=== PATIENT | male | born 1945 | race Hispanic/Latino ===

== ENCOUNTER 2018-12-29 16:56 | Inpatient (IN) | payer BC ==
[~2018-12-29] VITALS: Ht 167.6 cm; Wt 73.6 kg
[~2018-12-29 16:56] MED LIST: ASPIR 8181 MG PO; GLIMEPIRIDE2 MG PO; KEFLEX250 MG; LEVAQUIN500 MG PO; LEVEMIR100 UNIT/1 SQ; LISINOPRIL10 MG PO; NORCO 5-325 TA1 EACH PO; NORCO 7.5-3251 EACH PO; OMEPRAZOLE40 MG PO; PHENERGAN25 MG/1 M1 PO; TRAMADOL-ACETAMI1 EA PO
--- OUTSIDE RECORDS SUMMARY | 2018-12-29 17:03 | XMS REPORT ---
Author Author Petros Deal Organization [employer] Address Unknown Phone Unavailable Care Team Providers Care Prepress Specialist Name Role Phone Petros Deal CP Unavailable Allergies, Adverse Reactions, Alerts Substance Reaction Event Type N.K.D.A. 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 Problem Polyarthralgia M25.50 Active Problem Neck pain M54.2 Active Problem Vitamin D deficiency E55.9 Active Medications Medication Code System Code Instructions Start Date End Date Status Dosage Plaquenil [facility] 56631977848 200 MG Orally Once a day Mar 10, 2018 Jun 08, 2018 Active 1 tablet with food or milk Multivitamin [facility] 33715-67788 - Orally Active as directed Glimepiride [facility] 80969865165 2 MG Orally Once a day Active 1 tablet with breakfast or the first main meal of the day Insulin Aspart [facility] [address]-43 Subcutaneous Active as directed Tramadol NDC 0 50 mg orally bid Mar 10, 2018 Jul 08, 2018 Active one tab Tramadol NDC 0 50 mg orally bid Active one tab Lisinopril ND 53558651570 10 MG Orally Once a day Active 1 tablet Vital Signs Date/Time: Mar 10, 2018 BMI 24.58 Index Weight 152.3 lbs Height 66 in Temperature 98.9 F Cardiac Monitoring Heart Rate 72 /min Blood Pressure Diastolic 60 mm Hg Blood Pressure Systolic 110 mm Hg Results No Known Results Summary Purpose eClinicalWorks Submission
--- OUTSIDE RECORDS SUMMARY | 2018-12-29 17:03 | XMS REPORT ---
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
--- OUTSIDE RECORDS SUMMARY | 2018-12-29 17:03 | XMS REPORT ---
Author Author Petros Deal [facility] eClinicalWorks Address Unknown Phone Unavailable Care Team Providers Care Applications Sales Consultant Name Role Phone Petros Dael CP Unavailable Allergies, Adverse Reactions, Alerts Substance Reaction Event Type N.K.D.A. 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 Medications Medication Code System Code Instructions Start Date End Date Status Dosage Lisinopril ND 40603207808 10 MG Orally Once a day Active 1 tablet Glimepiride NDC 32538920271 2 MG Orally Once a day Active 1 tablet with breakfast or the first main meal of the day Tramadol NDC 0 50 mg orally bid Feb 11, 2018 May 12, 2018 Active one tab Tramadol-Acetaminophen NDC 22408910877 37.5-325 MG Orally every 6 hrs Active 2 tablets as needed Vital Signs Date/Time: Feb 11, 2018 BMI 24.69 Index Weight 153 lbs Height 66 in Temperature 97.3 F Cardiac Monitoring Heart Rate 64 /min Blood Pressure Diastolic 60 mm Hg Blood Pressure Systolic 100 mm Hg Results Name Result Date Reference Range Unit Abnormality Flag COMPREHENSIVE METABOLIC PANEL W/EGFR ----CALCIUM 9.7 20180211 8.6-10.3 mg/dL N ----CARBON DIOXIDE 26 20180211 20-31 mmol/L N ----ALT 27 20180211 9-46 U/L N ----CREATININE 0.92 20180211 0.70-1.18 mg/dL N ----AST 20 20180211 10-35 U/L N ----eGFR NON-AFR. SWISS 83 20180211 > OR=60 mL/min/1.73m2 N ----ALKALINE PHOSPHATASE 111 20180211 40-115 U/L N ----eGFR 96 20180211 > OR=60 mL/min/1.73m2 N ----BILIRUBIN, TOTAL 0.6 20180211 0.2-1.2 mg/dL N ----BUN/CREATININE RATIO 32 20180211 6-22 (calc) H ----ALBUMIN/GLOBULIN RATIO 1.4 20180211 1.0-2.5 (calc) N ----SODIUM 140 20180211 135-146 mmol/L N ----GLOBULIN 3.1 20180211 1.9-3.7 g/dL (calc) N ----POTASSIUM 5.1 20180211 3.5-5.3 mmol/L N ----GLUCOSE 142 20180211 65-99 mg/dL H ----CHLORIDE 110 33523606 98-110 mmol/L N ----ALBUMIN 4.4 56377758 3.6-5.1 g/dL N ----UREA NITROGEN (BUN) 29 20180211 7-25 mg/dL H ----PROTEIN, TOTAL 7.5 20180211 6.1-8.1 g/dL N SED RATE BY MODIFIED WESTERGREN ----SED RATE BY MODIFIED WESTERGREN 6 20180211 < OR=20 mm/h N C-REACTIVE PROTEIN ----C-REACTIVE PROTEIN 2.6 66544080 <8.0 mg/L N CBC (INCLUDES DIFF/PLT) ----MCHC 32.9 20180211 32.0-36.0 g/dL N ----MCH 29.6 20180211 27.0-33.0 pg N ----PLATELET COUNT 209 20180211 140-400 Thousand/uL N ----RDW 12.5 57195362 11.0-15.0 % N ----BASOPHILS 1.2 83576689 % N ----ABSOLUTE NEUTROPHILS 3730 20623792 8671-0782 cells/uL N ----ABSOLUTE LYMPHOCYTES 1825 53782399 850-3900 cells/uL N ----MPV 9.4 42886291 7.5-12.5 fL N ----ABSOLUTE BASOPHILS 88 90419200 0-200 cells/uL N ----HEMATOCRIT 39.8 19275427 38.5-50.0 % N ----NEUTROPHILS 51.1 41182398 % N ----MCV 90.0 58171816 80.0-100.0 fL N ----RED BLOOD CELL COUNT 4.42 53046214 4.20-5.80 Million/uL N ----ABSOLUTE MONOCYTES 533 89507159 200-950 cells/uL N ----ABSOLUTE EOSINOPHILS 1124 92594342 15-500 cells/uL H ----HEMOGLOBIN 13.1 60303612 13.2-17.1 g/dL L ----EOSINOPHILS 15.4 74817770 % N ----WHITE BLOOD CELL COUNT 7.3 22952046 3.8-10.8 Thousand/uL N ----LYMPHOCYTES 25.0 39049561 % N ----MONOCYTES 7.3 87860043 % N VITAMIN D, 25-HYDROXY, LC/MS/MS ----VITAMIN D, 25-OH, TOTAL 28 14173102 30-100 ng/mL L Summary Purpose eClinicalWorks Submission
--- OUTSIDE RECORDS SUMMARY | 2018-12-29 17:03 | XMS REPORT ---
Author Author Petros Deal [facility] eClinicalWorks Address Unknown Phone Unavailable Care Team Providers Care Exchange Operator Name Role Phone Petros Deal CP Unavailable Allergies, Adverse Reactions, Alerts Substance Reaction Event Type N.K.D.A. 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 Problem Polyarthralgia M25.50 Active Problem Neck pain M54.2 Active Problem Vitamin D deficiency E55.9 Active Medications Medication Code System Code Instructions Start Date End Date Status Dosage Insulin Aspart [facility] [address]-14 Subcutaneous Active as directed Multivitamin [facility] 64[address]-92114 - Orally Active as directed Tramadol ND 0 50 mg orally bid September 27, 2018 Active one tab Plaquenil [facility] 93032463950 200 MG Orally bid Mar 10, 2018 November 26, 2018 Active 1 tablet with food or milk Glimepiride [facility] 92625294289 2 MG Orally Once a day Active 1 tablet with breakfast or the first main meal of the day Lisinopril ND 77088959731 10 MG Orally Once a day Active 1 tablet PredniSONE [facility] 45457575179 5 MG Orally Once a day May 03, 2018 May 30, 2018 Inactive 2 tablets Vital Signs Date/Time: May 30, 2018 BMI 24.13 Index Weight 149.5 lbs Height 66 in Temperature 98.0 F Cardiac Monitoring Heart Rate 74 /min Blood Pressure Diastolic 70 mm Hg Blood Pressure Systolic 120 mm Hg Results Name Result Date Reference Range Unit Abnormality Flag PROVIDED MEDICATIONS ----PROVIDED MEDICATIONS N/A 20180530 Amphetamines ANTIDEPRESSANTS 1099 SPECIMEN VALIDITY TESTING Barbiturates CBC W/AUTO DIFF ----MONOCYTES 6.7 09765315 4.0-13.0 % ----LYMPHOCYTES 24.2 25789040 19.0-48.0 % ----HEMOGLOBIN 13.2 20180530 13.0-17.0 G/DL ----HEMATOCRIT 37.4 62543768 37.0-49.0 % ----MCV 87.4 20180530 80.0-100.0 fL ----MCH 30.8 20180530 27.0-34.0 PG ----MCHC 35.3 13429294 32.0-35.5 G/DL ----PLATELET COUNT 230 20180530 130-400 K/UL ----RDW 12.6 20180530 11.0-15.0 % ----WBC 10.5 63027231 4.0-11.0 K/UL ----NEUTROPHILS 63.1 92510517 40.0-74.0 % ----BASOPHILS 1.0 01094519 0.0-2.0 % ----RBC 4.28 13873026 4.10-5.70 M/UL ----EOSINOPHILS 5.0 16246804 0.0-7.0 % C-REACTIVE PROTEIN ----C-REACTIVE PROTEIN <0.1 99855062 <0.5 MG/DL COMPREHENSIVE METABOLIC PANEL ----CALC A/G RATIO 1.6 20180530 1.0-2.6 RATIO ----CALC GLOBULIN 2.9 20180530 1.9-3.7 G/DL ----ALKALINE PHOSPHATASE 90 20180530 40-125 U/L ----BILIRUBIN, TOTAL 0.6 20180530 <=1.2 MG/DL ----CHLORIDE 105 20180530 95-107 MEQ/L ----ALT 33 20180530 5-50 U/L ----POTASSIUM 5.1 20180530 3.5-5.4 MEQ/L ----AST 21 20180530 9-50 U/L ----SODIUM 143 20180530 133-146 MEQ/L ----CALC BUN/CREAT 27 20180530 6-28 RATIO ---- eGFR NON- AMER. 76 20180530 >60 ML/MIN/1.73 ----CALCIUM 10.1 20180530 8.5-10.5 MG/DL ----CARBON DIOXIDE 27 20180530 19-31 MEQ/L ----ALBUMIN 4.5 20180530 3.5-5.2 G/DL ----PROTEIN, TOTAL 7.4 20180530 6.1-8.3 G/DL ----GLUCOSE 116 20180530 70-99 MG/DL H ----BUN 27 20180530 8-23 MG/DL H ----CREATININE 0.99 20180530 0.80-1.40 MG/DL ---- eGFR AMER. 88 20180530 >60 ML/MIN/1.73 SEDIMENTATION RATE ----SEDIMENTATION RATE 7 20180530 0-15 MM/HOUR Benzodiazepines Skeletal Muscle Relaxants Sedatives Opiates/Opioids Illicits Summary Purpose eClinicalWorks Submission
--- OUTSIDE RECORDS SUMMARY | 2018-12-29 17:03 | XMS REPORT ---
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
--- OUTSIDE RECORDS SUMMARY | 2018-12-29 17:03 | XMS REPORT ---
Author Author Petros Deal Organization [employer] Address Unknown Phone Unavailable Care Team Providers Care Wardrobe Custodian Name Role Phone Petros Deal CP Unavailable Allergies No Known Allergies Problems Problem Type Condition Code Onset Dates Condition Status Problem Polyarthralgia M25.50 Active Problem Systemic lupus erythematosus, unspecified SLE type, unspecified organ involvement status M32.9 Active Problem Lumbago with sciatica, left side M54.42 Active Problem Skin rash R21 Active Problem Vitamin D deficiency E55.9 Active Problem Primary osteoarthritis involving multiple joints M15.0 Active Problem Polyarthritis M13.0 Active Problem Neck pain M54.2 Active Medications No Known Medications Results No Known Results Summary Purpose eClinicalWorks Submission
--- OUTSIDE RECORDS SUMMARY | 2018-12-29 17:03 | XMS REPORT ---
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 05381051654 200 MG Orally Once a day Mar 10, 2018 Jul 24, 2018 Active 1 tablet with food or milk Results No Known Results Summary Purpose eClinicalWorks Submission
--- OUTSIDE RECORDS SUMMARY | 2018-12-29 17:03 | XMS REPORT ---
Author Author Petros Deal Organization [employer] Address Unknown Phone Unavailable Care Team Providers Care Machine Bunch Maker Name Role Phone Petros Deal CP Unavailable [...] Problem Vitamin D deficiency E55.9 Active Medications No Known Medications Results No Known Results Summary Purpose eClinicalWorks Submission
--- OUTSIDE RECORDS SUMMARY | 2018-12-29 17:03 | XMS REPORT | Continuity of Care Document ---
Author Author [facility] Interface Address Unknown Phone Unavailable Problems Problem Status Onset Date Classification Date Reported Comments Source Polyarthritis Active Problem 12/15/2018 Zeke Deal Neck pain Active Problem 12/15/2018 Zeke Deal Lumbago with sciatica, left side Active Problem 12/15/2018 Zeke Toyin Polyarthralgia Active Problem 12/15/2018 Zeke Deal Vitamin D deficiency Active Problem 12/15/2018 Zeke Deal Primary osteoarthritis involving multiple joints Active Problem 12/15/2018 Zeke Deal Systemic lupus erythematosus, unspecified SLE type, unspecified organ involvement status Active Problem 12/15/2018 Zeke Deal Skin rash Active Problem 12/15/2018 Zeke Deal Medications Medication Details Route Status Patient Instructions Ordering Provider Order Date Source Tramadol one tab orally Active 50 mg orally tid [place] 11/28/2018 Zeke Deal Tramadol one tab orally Active 50 mg orally bid [place] 09/27/2018 Zeke Deal Meloxicam 1 tablet Orally Active 7.5 MG Orally q am with food [place] 08/30/2018 Zeke Deal PredniSONE as directed Orally Active 5 MG Orally Once a day [place] 08/30/2018 Zeke Deal PredniSONE 2 tablets Orally Active 5 MG Orally Once a day [place] 05/03/2018 Zeke Deal Prednisone Taper 3 tablets for 5 days, 2 tablets for 5 days and then 1 tablet for 5 days NA Inactive 5mg [place] 05/03/2018 Zeke Deal Plaquenil 1 tablet with food or milk Orally Active 200 MG Orally bid Deal 03/10/2018 Zeke Deal Tramadol one tab orally Active 50 mg orally bid [place] 03/10/2018 Zeke Deal Prednisone Taper 3 tablets for 5 days, 2 tablets for 5 days and then 1 tablet for 5 days NA Active 5mg Deal 02/22/2018 Zeke Deal Tramadol one tab orally Active 50 mg orally bid [place] 02/11/2018 Zeke Deal Multivitamin as directed Orally Active - Orally [place] Glimepiride 1 tablet with breakfast or the first main meal of the day Orally Active 2 MG Orally Once a day [place] Insulin Aspart as directed Subcutaneous Active Subcutaneous [place] Deal Tramadol one tab orally Active 50 mg orally bid [place] Deal Lisinopril 1 tablet Orally Active 10 MG Orally Once a day [place] Deal Tramadol-Acetaminophen 2 tablets as needed Orally Active 37.5- 325 MG Orally every 6 hrs Toyin Deal Allergies, Adverse Reactions, Alerts Substance Category Reaction Severity Reaction type Status Date Reported Comments Source N.K.D.A. Adverse Reaction Info Not Available Adverse Reaction Active 08/30/2018 Zeke Deal Immunizations Immunization Date Given Site Status Last Updated Comments Source Results Order Name Results Value Reference Range Date Interpretation Comments Source Vital Signs Vital Sign Value Date Comments Source Weight 160 08/30/2018 Zeke Deal Height 66 08/30/2018 Zeke Deal Temperature Oral (F) 98.0 F 08/30/2018 Zeke Deal Heart Rate 68 08/30/2018 Zeke Deal Diastolic (mm Hg) 64 08/30/2018 Zeke Deal Systolic (mm Hg) 130 08/30/2018 Zeke Deal Weight 149.5 05/30/2018 Zeke Deal Height 66 05/30/2018 Zeke Deal Temperature Oral (F) 98.0 F 05/30/2018 Zeke Deal Heart Rate 74 05/30/2018 Zeke Deal Diastolic (mm Hg) 70 05/30/2018 Zeke Deal Systolic (mm Hg) 120 05/30/2018 Zeke Deal Weight 152.3 03/10/2018 Zeke Deal Height 66 03/10/2018 Zeke Deal Temperature Oral (F) 98.9 F 03/10/2018 Zeke Deal Heart Rate 72 03/10/2018 Zeke Deal Diastolic (mm Hg) 60 03/10/2018 Zeke Deal Systolic (mm Hg) 110 03/10/2018 Zeke Deal Weight 153 02/11/2018 Zeke Deal Height 66 02/11/2018 Zeke Deal Temperature Oral (F) 97.3 F 02/11/2018 Zkee Deal Heart Rate 64 02/11/2018 Zeke Deal Diastolic (mm Hg) 60 02/11/2018 Zeke Deal Systolic (mm Hg) 100 02/11/2018 Zeke Deal Encounters Location Location Details Encounter Type Encounter Number Reason For Visit Attending Provider ADM Date DC Date Status Source Procedures Procedure Code Date Perfomer Comments Source
--- OUTSIDE RECORDS SUMMARY | 2018-12-29 17:03 | XMS REPORT ---
Author Author Petros Deal [facility] eClinicalWorks Address Unknown Phone Unavailable Care Team Providers Care Activities Concierge Name Role Phone Petros Deal CP Unavailable Allergies, Adverse Reactions, Alerts Substance Reaction Event Type N.K.D.A. 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 Assessment Systemic lupus erythematosus, unspecified SLE type, unspecified organ involvement status M32.9 Active Assessment Polyarthralgia M25.50 Active Assessment Polyarthritis M13.0 Active Problem Lumbago [...] Start Date End Date Status Dosage Plaquenil [facility] 00670951971 200 MG Orally bid Mar 10, 2018 Feb 26, 2019 Active 1 tablet with food or milk Lisinopril ND 59489178763 10 MG Orally Once a day Active 1 tablet Insulin Aspart [facility] [address]-67 Subcutaneous Active as directed Multivitamin [facility] 16360[address] - Orally Active as directed Glimepiride ND 18377282447 2 MG Orally Once a day Active 1 tablet with breakfast or the first main meal of the day Meloxicam ND 21771018662 7.5 MG Orally q am with food Aug 30, 2018 Feb 26, 2019 Active 1 tablet Tramadol ND 54894723990 50 mg orally tid November 28, 2018 Active one tab PredniSONE ND 23555375326 5 MG Orally Once a day Aug 30, 2018 Inactive as directed Vital Signs Date/Time: Aug 30, 2018 BMI 25.82 Index Weight 160 lbs Height 66 in Temperature 98.0 F Cardiac Monitoring Heart Rate 68 /min Blood Pressure Diastolic 64 mm Hg Blood Pressure Systolic 130 mm Hg Results No Known Results Summary Purpose eClinicalWorks Submission
--- OUTSIDE RECORDS SUMMARY | 2018-12-29 17:03 | XMS REPORT ---
Author Author Petros Deal Organization eClinicalWorks Address Unknown Phone Unavailable Care Team Providers Care Therapeutic Support Staff Name Role Phone Petros Deal CP Unavailable [...] Instructions Start Date End Date Status Dosage PredniSONE [facility] 04780862284 5 MG Orally Once a day May 03, 2018 Active 2 tablets Prednisone Taper [facility] 84519309038 5mg May 03, 2018 May 03, 2018 Inactive 3 tablets for 5 days, 2 tablets for 5 days and then 1 tablet for 5 days Results No Known Results Summary Purpose eClinicalWorks Submission
--- OUTSIDE RECORDS SUMMARY | 2018-12-29 17:03 | XMS REPORT ---
Author Author Petros Deal Organization e[employer] Address Unknown Phone Unavailable Care Team Providers Care Hogshead Roller Name Role Phone Petros Deal CP Unavailable [...]
[2018-12-29 18:02] LABS: BASOPHILS # (AUTO) 0.1 (0.0-0.1); BASOPHILS % 0.9 % (0.0-1.0); EOSINOPHILS # (AUTO) 0.6 (0.0-0.4); EOSINOPHILS % 6.3 % (0.0-6.0); HEMATOCRIT 30.5 % (38.2-49.6); HEMOGLOBIN 10.1 g/dL (14.0-18.0); LYMPHOCYTES # (AUTO) 1.5 (1.0-3.2); LYMPHOCYTES % 15.9 % (18.0-39.1); MEAN CORPUSCULAR HEMOGLOBIN 29.5 pg (28-32); MEAN CORPUSCULAR HGB CONC 33.1 g/dL (31-35); MEAN CORPUSCULAR VOLUME 89.2 fL (81-99); MONOCYTES # (AUTO) 0.7 (0.2-0.8); MONOCYTES % 7.3 % (4.4-11.3); NEUTROPHILS # (AUTO) 6.7 (2.1-6.9); NEUTROPHILS % 69.3 % (38.7-80.0); PLATELET COUNT 162 x10e3/uL (140-360); RED BLOOD COUNT 3.42 x10e6/uL (4.3-5.7); RED CELL DISTRIBUTION WIDTH 13.4 % (11.7-14.4)
[2018-12-29 18:04] LABS: BILIRUBIN,URINE NEGATIVE (NEGATIVE); CLARITY,URINE CLEAR (CLEAR); COLOR,URINE YELLOW (YELLOW); KETONES,URINE NEGATIVE (NEGATIVE); LEUKOCYTE ESTERASE ,URINE NEGATIVE (NEGATIVE); NITRITE,URINE NEGATIVE (NEGATIVE); PROTEIN,URINE DIPSTICK NEGATIVE (NEGATIVE); URINE UROBILINOGEN 0.2 mg/dL (0.2 - 1)
[2018-12-29 18:17] LABS: BACTERIA,URINE RARE /HPF; EPITHELIAL CELLS,URINE FEW /LPF
[2018-12-29 18:23] LABS: ALBUMIN 4.1 g/dL (3.5-5.0); ALBUMIN/GLOBULIN RATIO 1.2 (0.8-2.0); ANION GAP 14.3 mmol/L (8-16); CALCIUM 9.3 mg/dL (8.4-10.2); CREATININE, SERUM 2.08 mg/dL (0.72-1.25); MAGNESIUM 2.6 MG/DL (1.3-2.1)
[2018-12-29 18:29] LABS: POTASSIUM 7.3 mmol/L (3.5-5.1)
[2018-12-29 18:30] LABS: CREATINE KINASE MB 26.4 ng/mL (0-5.0)
[2018-12-29] MEDS ORDERED: DEXTROSE 50% SYRINGE 50 ML IV STA (18:33)
[2018-12-29] MEDS ORDERED: SODIUM BICARBONATE 8.4% INJ 50 ML SYR IV NR (18:33)
[2018-12-29] MEDS ORDERED: INSULIN REGULAR, HUMAN 100 UNIT/1 ML 3ML VIAL IV NR (18:45)
--- NOTE | 2018-12-29 18:48 | Diagnostic Imaging Report ---
EXAMINATION: CHEST SINGLE (PORTABLE) COMPARISON: None INDICATION: Abnormal renal function tests ^ERMD ORDER ^[id number] ^1815 ^Y DISCUSSION: Frontal view of the chest obtained at 1828 hours. HEART AND MEDIASTINUM: The cardiomediastinal silhouette is unremarkable. LINES: None. LUNGS: The lungs are mildly hyperinflated with bibasilar prominence of the pulmonary interstitium suggestive of atelectasis or fibrosis. No pneumonia or pulmonary edema. PLEURA: No pleural effusion or pneumothorax. Mild eventration of the right diaphragm. BONES AND SOFT TISSUES: No focal osseous lesion. There are clips in the right upper quadrant. IMPRESSION: Pulmonary hyperinflation and mild bibasilar atelectasis or fibrosis. Signed by: Dr. Tiffanie Chappell MD on 12/29/2018 6:45 PM
[2018-12-29] MEDS ORDERED: POLYETHYLENE GLYCOL 3350 17 GM PACK PO NR (19:15)
[2018-12-29] MEDS ORDERED: SOD POLYSTYRENE SULFONATE SUSP 15 GM/60 ML BTL PO NR (19:15)
[2018-12-29 19:24] LABS: ABG HCO3 15 mmol/L (23-28); ABG PCO2 23 mmHg (41-51); ABG PO2 196 mmHg (80-105)
[2018-12-29] MEDS ORDERED: SODIUM BICARBONATE 8.4% SYRING 75 ML in SODIUM CHLORIDE 0.45% 1,000 ML IV ONE (19:30)
[2018-12-29] MEDS ORDERED: DEXTROSE 50% SYRINGE 50 ML IV PRN (20:15)
[2018-12-29] MEDS ORDERED: ONDANSETRON HCL INJ 2MG/ML 2ML 2 MG/ML VIAL IV PRN (20:15)
[2018-12-29] MEDS: SODIUM BICARBONATE 8.4% SYRING 75 ML in SODIUM CHLORIDE 0.45% 1,000 ML IV SCH (20:16)
--- OUTSIDE RECORDS SUMMARY | 2018-12-29 20:26 | XMS REPORT ---
[facility] Address Unknown Phone Unavailable Care Team Providers Care Profiling Machine Operator Name Role Phone Rodri MORENO Unavailable Unavailable Problems This patient has no known problems. Allergies, Adverse Reactions, Alerts This patient has no known allergies or adverse reactions. Medications This patient has no known medications. Results Test Description Test Time Test Comments Text Results Atomic Results Result Comments CHEST SINGLE (PORTABLE) 2018-12-29 18:43:00 [facility] [address] [place] [address] Patient Name: ИРИНА TOBAR MR #: [id number] : 1945 Age/Sex: 73/M Req #: [id number] Adm Physician: Ordered by: PHUONG ORTEGA FIELD RESEARCH ASSOCIATE Report #: [id number] Location: ER Room/Bed: Procedure: [id number] DX/CHEST SINGLE (PORTABLE) Exam Date: 12/29/18 Exam Time: 1814 REPORT STATUS: Signed EXAMINATION: CHEST SINGLE (PORTABLE) COMPARISON: None INDICATION: Abnormal renal function tests ERMD ORDER [id number] Y DISCUSSION: Frontal view of the chest obtained at 1828 hours. HEART AND MEDIASTINUM: The cardiomediastinal silhouette is unremarkable. LINES: None. LUNGS: The lungs are mildly hyperinflated with bibasilar prominence of the pulmonary interstitium suggestive of atelectasis or fibrosis. No pneumonia or pulmonary edema. PLEURA: No pleural effusion or pneumothorax. Mild eventration of the right diaphragm. BONES AND SOFT TISSUES: No focal osseous lesion. There are clips in the right upper quadrant. IMPRESSION: Pulmonary hyperinflation and mild bibasilar atelectasis or fibrosis. Signed by: Dr. Tyra Chappell MD on 12/29/2018 6:45 PM Dictated By: TYRA CHAPPELL MD 44 Transcribed By: KEVIN on 12/29/181844 COPY TO: PHUONG ORTEGA NP
[2018-12-29] MEDS: INSULIN LISPRO 100 UNIT/1 ML 3ML VIAL SQ SCH (21:54)
[2018-12-29 22:48] VITALS: BP 132/63
[2018-12-29 23:08] VITALS: BP 132/63
[2018-12-29 23:20] VITALS: BP 132/63
[2018-12-29 23:48] VITALS: BP 129/60
[2018-12-30] VITALS (14 sets, daily range): BP systolic 99–142; BP diastolic 42–72
--- NOTE | 2018-12-30 00:05 | NUR ---
Report received from ER nurse Ann. Patient received at 2241 by stretcher with alert/oriented x3 Moroccan speaking only. Denied pain and no SOB. No respiratory distress noted. Respiration even and unlabored. Head to toe assessment completed. No skin breakdown noted. Patient family in the room.Bed in lower position,locked. Call kennedy within reach. patient instructed to call for help as needed, verbalized and understand. Will continue to monitor.
[2018-12-30 02:53] LABS: CREATINE KINASE MB 19.9 ng/mL (0-5.0)
[2018-12-30 03:08] LABS: ANION GAP 12.3 mmol/L (8-16); CALCIUM 8.8 mg/dL (8.4-10.2); CREATININE, SERUM 1.36 mg/dL (0.72-1.25)
[2018-12-30 03:24] LABS: POTASSIUM 6.3 mmol/L (3.5-5.1)
[2018-12-30] MEDS ORDERED: SODIUM BICARBONATE 8.4% SYRING 100 ML ONE (03:37)
[2018-12-30] MEDS ORDERED: SODIUM CHLORIDE 0.45% 1,000 ML ONE (03:39)
[2018-12-30] MEDS: SODIUM BICARBONATE 8.4% SYRING 75 ML in SODIUM CHLORIDE 0.45% 1,000 ML IV SCH (03:49)
[2018-12-30 05:12] LABS: BASOPHILS # (AUTO) 0.1 (0.0-0.1); BASOPHILS % 0.8 % (0.0-1.0); EOSINOPHILS # (AUTO) 0.6 (0.0-0.4); EOSINOPHILS % 7.3 % (0.0-6.0); HEMATOCRIT 26.6 % (38.2-49.6); LYMPHOCYTES # (AUTO) 1.6 (1.0-3.2); LYMPHOCYTES % 18.2 % (18.0-39.1); MEAN CORPUSCULAR HEMOGLOBIN 29.5 pg (28-32); MEAN CORPUSCULAR HGB CONC 33.8 g/dL (31-35); MEAN CORPUSCULAR VOLUME 87.2 fL (81-99); MONOCYTES # (AUTO) 0.7 (0.2-0.8); MONOCYTES % 8.2 % (4.4-11.3); NEUTROPHILS # (AUTO) 5.6 (2.1-6.9); PLATELET COUNT 128 x10e3/uL (140-360); RED BLOOD COUNT 3.05 x10e6/uL (4.3-5.7); RED CELL DISTRIBUTION WIDTH 13.3 % (11.7-14.4)
[2018-12-30 05:37] LABS: CREATINE KINASE MB 10.9 ng/mL (0-5.0)
[2018-12-30 07:00] LABS: ALBUMIN 3.1 g/dL (3.5-5.0); ALBUMIN/GLOBULIN RATIO 1.2 (0.8-2.0); CALCIUM 8.7 mg/dL (8.4-10.2); CHOL/HDL RATIO 2.8 (3.9-4.7); CREATININE, SERUM 1.24 mg/dL (0.72-1.25)
--- NOTE | 2018-12-30 07:13 | NUR ---
Report given to oncoming KIERAN Mendoza, walking round done. No issued noted.
--- NOTE | 2018-12-30 07:15 | NUR ---
PAGED FOR CRITICAL LABS AWAITING CALL BACK
[2018-12-30] MEDS: INSULIN LISPRO 100 UNIT/1 ML 3ML VIAL SQ SCH ×4 (07:30→20:19)
--- NOTE | 2018-12-30 07:40 | NUR ---
SPOKE TO FOR CRITICAL LABS RECEIVED ORDERS,
[2018-12-30] MEDS ORDERED: SOD POLYSTYRENE SULFONATE SUSP 15 GM/60 ML BTL PR ONE (08:00)
[2018-12-30] MEDS ORDERED: LACTULOSE SYRUP 20 GM/30 ML UDC PO ONE (08:30)
--- NOTE | 2018-12-30 09:09 | Diagnostic Imaging Report ---
EXAM: CHEST SINGLE (PORTABLE) DATE: 12/30/2018 7:41 AM INDICATION: Acute renal insufficiency ^FOLLOW UP ^[id number] ^[id number] COMPARISON: Chest x-ray, 12/29/2018 FINDINGS: Lines and tubes: None Heart size normal. No focal pulmonary opacity, pleural effusion or pneumothorax. Upper abdomen unremarkable with surgical clips noted in the right upper abdomen. No acute bony abnormality. IMPRESSION: No evidence for acute disease or significant change. Signed by: Dr. Benedicto Osborne M.D. on 12/30/2018 9:06 AM
--- NOTE | 2018-12-30 09:32 | Consultation ---
DATE OF CONSULTATION: 12/30/2018 HISTORY OF PRESENT ILLNESS: A 73-year-old gentleman, who has underlying history of diabetes for 30 years, systemic lupus erythematosus, hypertension. He is followed by Dr. Candi Eller and Dr. Deal. He has been on lisinopril at home. He also takes meloxicam for his joint pains. He is also on hydroxychloroquine 200 mg p.o. b.i.d. He had a lab done at Dr. Deal's office, which showed hyperkalemia, subsequently re-routed here through the emergency room. He was found to have a potassium of 6.3 with a bicarbonate of 18, creatinine of 1.36, CK 281 with a troponin I of 0.108. Total protein 5.7, albumin 3.1. The patient denies prior history of any renal insufficiency or kidney stone disease. Workup also included a urinalysis, which shows specific gravity 1.025, urine microscopy negative for any cells. He had a chest x-ray done, please see official report. SOCIAL HISTORY: He does not smoke or drink. He is . FAMILY HISTORY: Significant for hypertension and diabetes. REVIEW OF SYSTEMS: Current review of systems is negative for shortness of breath, nausea, vomiting, headache, fever, chills, or chest pains. PHYSICAL EXAMINATION: GENERAL: He is currently awake, alert, resting comfortable, in no apparent distress. VITAL SIGNS: Blood pressure of 128/48, pulse rate 57, afebrile, oxygen saturation 100%. Respiratory rate 18. HEAD AND NECK: Cornea clear. Oral mucosa moist. Neck veins flat. LUNGS: Relatively clear. HEART: S1, S2 audible. ABDOMEN: Otherwise soft, nontender. EXTREMITIES: Lower extremity examination shows no edema. IMPRESSION AND PLAN: Acute kidney injury. Possibility of chronic kidney disease should be entertained. Kidney ultrasound ordered. CK noted. Hyperkalemia, metabolic acidosis. Discussed with the patient and with the help of community relations advisor, although does understand Albanian. Told them to stop taking meloxicam, avoid nonsteroidal anti-inflammatory drug medications. No orange juice. No bananas. No avocados. No potassium rich food and fruit. Told them to discontinue lisinopril. Currently, the patient manifests no signs of any active lupus, no rash, no joint pains. Urine microscopy benign. Plan on working up underlying kidney failure as well as treating hyperkalemia. IV fluid adjusted. We will continue IV hydration. Start Norvasc for blood pressure control. Please see orders. MD JAZ Rosas/ABRAHAN /[id number]
[2018-12-30] MEDS: SODIUM BICARBONATE 8.4% SYRING 150 ML in DEXTROSE 5% 1,000 ML IV SCH ×2 (09:44→21:11)
--- NOTE | 2018-12-30 10:23 | Diagnostic Imaging Report ---
Renal ultrasound. History: HERMAN Discussion: Transverse and longitudinal images of the kidneys were obtained demonstrating normal renal sizes and echogenicities. There is no evidence of hydronephrosis, mass or renal calculus. The right kidney measures 8.9 x 4.6 x 4.5 cm with maximal cortical thickness of 1.9 cm cm and the left kidney measures 10.2 x 5.9 x 4.8 cm with maximal cortical thickness of 2.6 cm. There is a Godinez catheter present within a decompressed bladder. There is no evidence of free fluid. IMPRESSION: Normal renal ultrasound. Signed by: Dr. Manfred Lopez DO on 12/30/2018 10:20 AM
--- NOTE | 2018-12-30 10:47 | History and Physical ---
PRIMARY CARE PHYSICIAN: Dr. Candi Eller. DIRECTOR OF STRATEGIC MARKETING: Dr. Luis Spicer. CHIEF COMPLAINT: Severe hyperkalemia, acute kidney injury. HISTORY OF PRESENT ILLNESS: This is a 73-year-old male, quite pleasant, Indonesian speaking only to band maker. The patient is stable, no symptoms, but for the past visit to the primary care physician and with Dr. Deal, his construction inspector, the patient was having increase in potassium level, subsequently confirmed with potassium level, subsequently the patient was brought into the hospital for a very elevated potassium level. Repeated potassium level was 7.3 here at the emergency room. The patient immediately treated in the emergency room for high potassium. The patient was seen by Dr. Luis Spicer. The patient is stable at this time. PAST MEDICAL HISTORY: Including hypertension, systemic lupus, diabetes type 2 for years, chronic kidney disease, osteoarthritis, taking NSAIDS. PAST SURGICAL HISTORY: Appendectomy. SOCIAL HISTORY: The patient does not smoke or use alcohol. No recreational drug use. ALLERGIES: NO KNOWN ALLERGIES. HOME MEDICATIONS: Keflex, Amaryl, Glover, insulin, Levemir, omeprazole, and lisinopril. REVIEW OF SYSTEMS: Asymptomatic. PHYSICAL EXAMINATION: VITAL SIGNS: Temperature is 97, blood pressure 128/48, pulse rate is 57, respirations 20. GENERAL: The patient is not in acute distress. He is awake. HEENT: Normocephalic, atraumatic. Anicteric. NECK: Supple grossly. PULMONARY: Diminished breath sounds. CARDIOVASCULAR: S1, S2. Regular rate and rhythm. ABDOMEN: Soft. Positive bowel sounds. Ogdinez catheter in place. EXTREMITIES: No gross cyanosis or edema. NEUROLOGIC: No gross focal deficit. LABORATORY DATA: Sodium is 137, potassium 7.3, chloride 115, bicarb 15, BUN is 67, creatinine 2.08, glucose 143. CK is 408. Troponin 0.16. Calcium 9.7, magnesium 2.6. Urinalysis is negative. WBC 9.6, hemoglobin 10.7, hematocrit 30.5, platelet is 162. IMAGING DATA: Chest x-ray is otherwise unremarkable. IMPRESSION: 1. Severe hyperkalemia, potassium level of 7.3. 2. Acute kidney injury, combination most likely from IVET inhibitor and chronic kidney disease. 3. Multiple baseline problems. PLAN: Continue with potassium treatment. Continue with IV fluids. Godinez catheter already in place and we will maintain. We will follow up with Dr. Luis Spicer recommendation. In the meantime, we will stop lisinopril or any medication that may contribute to the patient problem. No more meloxicam or any NSAID in the future. The patient is otherwise stable at this time. MD PARISH Escudero/ABRAHAN /[id number]
[2018-12-30 15:36] LABS: CREATINE KINASE MB 6.9 ng/mL (0-5.0)
[2018-12-30] MEDS: SODIUM BICARBONATE 650 MG TAB PO SCH (17:08)
--- NOTE | 2018-12-30 22:01 | NUR ---
reports given to Cherise RN.transferred patient to 205 with wheelchair, patient awake alert oriented. family with him.
--- NOTE | 2018-12-30 22:39 | NUR ---
PATIENT RECEIVED FROM ICU PER WHEELCHAIR AT 2200. HE'S ALERT AND ORIENTED X3, NO RESPIRATORY DISTRESS OBSERVED AND HE DENIES PAIN. SKIN INTEGRITY INTACT, NO EDEMA NOTED TO THE EXTREMITIES, CALL LIGHT WITHIN EASY REACH AND FAMILY MEMBERS AT THE BEDSIDE.
--- NOTE | 2018-12-30 22:58 | NUR ---
IV INFILTRATED, IV REMOVED WITH TIP INTACT. IV #[id number] INSERTED TO THE LEFT WRIST, PROCEDURE TOLERATED WELL, IV FLUID INFUSING ORDERED.
[2018-12-31] VITALS (8 sets, daily range): BP systolic 112–142; BP diastolic 56–67
--- NOTE | 2018-12-31 02:32 | NUR ---
PATIENT IS SOUNDLY ASLEEP, HE'S EASY TO AROUSE. NO RESPIRATORY DISTRESS OBSERVED, HE DENIES PAIN. CALL LIGHT WITHIN EASY REACH, HE'S INSTRUCTED TO CALL FOR ASSISTANCE NEEDED.
--- NOTE | 2018-12-31 05:40 | NUR ---
PATIENT CONDITION STABLE WITHOUT DISTRESS, HE DENIES PAIN. LAB CALLED WITH AN ELEVATED SODIUM RESULT, THEY WERE ASKED TO RECOLLECT THE LAB TO COMPARE THE RESULT AND NOTIFY THE PHYSICIAN IF IT CONTINUES TO BE ABNORMAL.
[2018-12-31 06:01] LABS: BASOPHILS # (AUTO) 0.1 (0.0-0.1); BASOPHILS % 0.7 % (0.0-1.0); EOSINOPHILS # (AUTO) 0.9 (0.0-0.4); EOSINOPHILS % 11.9 % (0.0-6.0); HEMATOCRIT 25.6 % (38.2-49.6); HEMOGLOBIN 8.7 g/dL (14.0-18.0); LYMPHOCYTES % 27.6 % (18.0-39.1); MEAN CORPUSCULAR HEMOGLOBIN 29.3 pg (28-32); MEAN CORPUSCULAR VOLUME 86.2 fL (81-99); MONOCYTES # (AUTO) 0.6 (0.2-0.8); MONOCYTES % 8.6 % (4.4-11.3); NEUTROPHILS # (AUTO) 3.7 (2.1-6.9); NEUTROPHILS % 50.6 % (38.7-80.0); PLATELET COUNT 122 x10e3/uL (140-360); RED BLOOD COUNT 2.97 x10e6/uL (4.3-5.7)
[2018-12-31] MEDS: INSULIN LISPRO 100 UNIT/1 ML 3ML VIAL SQ SCH ×4 (07:30→21:00)
--- NOTE | 2018-12-31 07:30 | NUR ---
REC'D PATIENT AAOX3, SITTING UP IN BED ON HIGH-LANZA'S, ON ROOM AIR, NO S/S OF DISTRESS. AND DAUGHTER AT THE BEDSIDE. IV TO THE LEFT WRIST 22 GAUGE WITHOUT ANY COMPLICATIONS. FLUIDS RUNNING. ON TELE MONITOR RUNNING AT R. CALL RIVERA WITHIN REACH, BED IN LOWEST POSITION, AND SIDE RAILS UP X2.
[2018-12-31 07:42] LABS: ALANINE AMINOTRANSFERASE 49 IU/L (0-55); ALBUMIN 2.9 g/dL (3.5-5.0); ALBUMIN/GLOBULIN RATIO 1.2 (0.8-2.0); ALKALINE PHOSPHATASE 78 IU/L (40-150); ANION GAP 10.2 mmol/L (8-16); BLOOD UREA NITROGEN 28 mg/dL (7-26); BUN/CREATININE RATIO 28 (6-25); CALCIUM 8.4 mg/dL (8.4-10.2); CARBON DIOXIDE 32 mmol/L (22-29); CHLORIDE 106 mmol/L (98-107); CREATININE, SERUM 0.99 mg/dL (0.72-1.25); EST GLOMERULAR FILTRATION RATE > 60 ML/MIN (60-); GLUCOSE 157 mg/dL (74-118); POTASSIUM 4.2 mmol/L (3.5-5.1)
[2018-12-31 07:48] LABS: SODIUM 144 mmol/L (136-145)
[2018-12-31] MEDS: SODIUM BICARBONATE 8.4% 150 ML in DEXTROSE 5% 1,000 ML IV SCH ×2 (09:30→21:40)
[2018-12-31] MEDS: SODIUM BICARBONATE 650 MG TAB PO SCH ×2 (09:57→16:37)
[2018-12-31] MEDS: AMLODIPINE BESYLATE 10 MG TAB PO SCH (09:57)
[2018-12-31] MEDS ORDERED: ONDANSETRON HCL 4 MG ORAL DISINTEGRATING TAB PO PRN (10:15)
[2018-12-31 10:40] LABS: THYROID STIMULATING HORMONE 1.082 uIU/mL (0.350-4.940)
--- NOTE | 2018-12-31 11:35 | NUR ---
PATIENT WENT FOR CT SCAN. PATIENT ON ROOM AIR AND NO S/S OF DISTRESS.
--- NOTE | 2018-12-31 11:48 | NUR ---
PATIENT RETURNED FROM CT SCAN.
--- NOTE | 2018-12-31 12:43 | Diagnostic Imaging Report ---
EXAM: CT Abdomen and Pelvis WITHOUT contrast INDICATION: ^HERMAN ^[id number] ^[id number] COMPARISON: Chest radiograph 12/30/2018 and renal ultrasound 12/30/2018 TECHNIQUE: Abdomen and pelvis were scanned utilizing a multidetector helical scanner from the lung base to the pubic symphysis without administration of IV contrast. Absence of intravenous contrast decreases sensitivity for detection of focal lesions and vascular pathology. Coronal and sagittal reformations were obtained. Routine protocol was performed. IV CONTRAST: None. ORAL CONTRAST: Water RADIATION DOSE: Total DLP: 269.9 mGy*cm Estimated effective dose: (DLP x 0.015 x size factor) mSv COMPLICATIONS: None FINDINGS: LINES and TUBES: Godinez catheter within the urinary bladder. LOWER THORAX: Bilateral interstitial edema. Subpleural reticulation of the lungs in the posterior lower lobes may represent scarring or early pulmonary fibrosis. Right middle lobe calcified granuloma. Diffuse coronary artery calcifications. HEPATOBILIARY: No focal hepatic lesions. No biliary ductal dilation. GALLBLADDER: Cholecystectomy. SPLEEN: No splenomegaly. PANCREAS: No focal masses or ductal dilatation. ADRENALS: No adrenal nodules KIDNEYS/URETERS: No hydronephrosis. No cystic or solid mass lesions. No stones. Mild bilateral perinephric fluid. GI TRACT: No abnormal distention, wall thickening, or evidence of bowel obstruction. Appendix is normal. PELVIC ORGANS/BLADDER: Unremarkable. LYMPH NODES: No lymphadenopathy. VESSELS: Unremarkable. PERITONEUM / RETROPERITONEUM: No free air or fluid. BONES: Unremarkable. SOFT TISSUES: Unremarkable. IMPRESSION: 1. Normal size of the kidneys without cortical atrophy. No calcified stones or hydronephrosis. 2. Nonspecific mild bilateral perinephric fluid collection. Signed by: Dr. Jennifer Keith M.D. on 12/31/2018 12:39 PM
--- NOTE | 2018-12-31 16:18 | Consultation ---
DATE OF CONSULTATION: 12/31/2018 Urology Consultation REASON FOR CONSULTATION: Possible urinary retention. HISTORY OF PRESENT ILLNESS: Erasto Smith is a 73-year-old man, who has never seen a urologist. The patient was admitted for hyperkalemia, which was 7.3 upon admission as well as acute kidney injury. He denies hematuria, dysuria, urine tract infections, urolithiasis. Denies ever seeing a urologist. PAST MEDICAL AND SURGICAL HISTORY: 1. Hypertension. 2. Systemic lupus erythematosus. 3. Type 2 diabetes mellitus. 4. Chronic kidney disease. 5. Osteoarthritis on NSAID. 6. Status post appendectomy. 7. History of septic shock from pneumonia requiring PEG tube placement, which was eventually removed. ALLERGIES: NONE KNOWN. SOCIAL HISTORY: Denies smoking, alcohol, or drug use. The patient used to smoke remotely in the past. He works in a [employer] plant. CURRENT MEDICATIONS: Please refer to the MAR. REVIEW OF SYSTEMS: Discussed as above in the history of present illness and past medical history otherwise negative for all systems. PHYSICAL EXAMINATION: GENERAL: Healthy-appearing 73-year-old man was sitting up in bed, in no apparent distress. He is currently afebrile. VITAL SIGNS: Currently stable. ABDOMEN: Soft, nondistended, nontender without costovertebral angle tenderness. Kidneys not palpable, without hepatosplenomegaly. No obvious evidence of hernia. GENITOURINARY: Testes descended bilaterally. Testes and epididymides bilaterally nontender and unremarkable. The patient has a normal uncircumcised male phallus with normal meatus without any lesion. Digital rectal examination is deferred at the present time. Has a Godinez catheter in place draining yellow urine output. For the remaining physical examination systems please refer to the admission history and physical on the chart. LABORATORY STUDIES: White blood cell count 7240, hemoglobin 8.7, platelets of 122,000. The patient's creatinine is 0.99, upon admission it was elevated at 2.08. His potassium was 7.3, potassium today is down to 4.2. He also has had an elevated magnesium on admission at 2.6. Urinalysis was negative. CT scanning of the abdomen and pelvis was done, and those results are pending. Renal ultrasound showed a normal renal ultrasound and the prostate was not measured. ASSESSMENT: 1. Acute renal failure that is improved. 2. Hyperkalemia that is improved. 3. Hypomagnesemia. 4. Anemia. 5. Thrombocytopenia. 6. Godinez catheter in situ. PLAN: 1. Waiting on the CT scan results. 2. It is unclear whether this and the patient was in urinary retention or not. The patient underwent catheterization earlier and the nurses cannot find documentation of how much was in the bladder when the Godinez catheter was actually placed. Once we feel the patient is stable, voiding trial may be pursued. In the meantime we will begin the patient on Flomax. Thank you much for involving us in the care of your patient. We will be happy to follow him along with you as well as my patient. Carlo Wahl MD [place]/MODL /[id number] cc: Candi Eller MD
--- NOTE | 2018-12-31 16:32 | NUR ---
Nutrition Screen Note RD Recommendation for Physician: Continue with Renal, add diabetic restriction , change to Diabetic Renal Diet Plan of Care: RD following, monitoring for tolerance and adequacy, diet education Nutrition reason for involvement: Nutrition Risk Trigger- MST Primary Diagnose(s): Acute Renal Insufficiency, Hyperkalemia PMH: 1.Diabetes x 30 years 2. HTN 3. Systemic lupus erythematosus 4.CKD Ht: 66in Wt:162 lb BMI:26 kg/m2 IBW: [address] Assessment: (12/31) Chart reviewed. Labs and meds reviewed. 73 y/o M admitted for elevated potassium level of 7.3. Patient was treated for high potassium level and now resolved. Patient reports good appetite. Denies N/V, with regular bowel movements. Pt denied any chewing or swallowing difficulties. Per patient and family no hx of dietary education in the past for diabetes. Showed nutrition related knowledge deficit. Will continue to monitor and follow. Current Diet: Renal Diet Malnutrition Evaluation (12/31) The patient does not meet criteria for a specified degree of malnutrition at this time. Will re-evaluate at follow-up as appropriate. Diet Education Needs Assessment: Diet education indicated - Hyperkalemia, Diabetic education Learner(s): pt and family members at bedside Time spent: 20 min Barriers: Korean speaking Cultural/Language Modifications: Korean education by bilingual RDN. Readiness: Pt eager to learn. Method: Handouts and explanations Topics:Carbohydrate containing foods, Carbohydrate adequate portion sizes with meals, diabetic MyPlate, exercise tips, S/S of hypo & hyperglycemia, potassium rich foods to avoid Understanding/Compliance: Expect good understanding/compliance from pt. Will benefit from reinforcement. All questions have been answered. Nutrition Care Level: Low Signed: Michelle Brownlee, MS, RD, LD
--- NOTE | 2018-12-31 18:56 | NUR ---
PATIENT IS IN BED ON SEMI-LANZA'S POSITION, FAMILY AT THE BEDSIDE, NO S/S OF DISTRESS. BED IN LOWEST POSITION, SIDE RAILS UP X2, AND CALL RIVERA WITHIN REACH.
--- NOTE | 2018-12-31 20:50 | NUR ---
PATIENT CONDITION STABLE WITHOUT ACUTE DISTRESS, HE DENIES PAIN. SKIN INTEGRITY INTACT, NO EDEMA NOTED TO THE EXTREMITIES. CALL LIGHT WITHIN EASY REACH, FAMILY MEMBERS VISITING WITH THE PATIENT.
[2018-12-31] MEDS: TAMSULOSIN HCL 0.4 MG CAP PO SCH (21:01)
[2019-01-01] VITALS (7 sets, daily range): BP systolic 119–144; BP diastolic 57–78
--- NOTE | 2019-01-01 01:37 | NUR ---
WALKING ROUNDS MADE, PATIENT OBSERVED SOUNDLY ASLEEP WITHOUT RESPIRATORY DISTRESS.
--- NOTE | 2019-01-01 04:38 | NUR ---
PATIENT IS ASLEEP, NO RESPIRATORY DISTRESS OBSERVED. CALL LIGHT WITHIN EASY REACH, HIS IS IN THE ROOM.
[2019-01-01 05:33] LABS: ANION GAP 8.7 mmol/L (8-16); BLOOD UREA NITROGEN 18 mg/dL (7-26); BUN/CREATININE RATIO 20 (6-25); CALCIUM 8.2 mg/dL (8.4-10.2); CARBON DIOXIDE 35 mmol/L (22-29); CHLORIDE 102 mmol/L (98-107); CREATININE, SERUM 0.88 mg/dL (0.72-1.25); EST GLOMERULAR FILTRATION RATE > 60 ML/MIN (60-); GLUCOSE 133 mg/dL (74-118); POTASSIUM 3.7 mmol/L (3.5-5.1); SODIUM 142 mmol/L (136-145)
--- NOTE | 2019-01-01 07:30 | NUR ---
PATIENT IS IN THE RESTROOM, IS AT THE BEDSIDE. NO S/S OF DISTRESS, IV IS CLEAN AND INTACT, ON ROOM AIR. ASSISTED BACK INTO BED. BED IN LOWEST POSITION, SIDE RAILS UP X2, AND CALL RIVERA WITHIN REACH.
[2019-01-01] MEDS: AMLODIPINE BESYLATE 10 MG TAB PO SCH (08:52)
[2019-01-01] MEDS: SODIUM BICARBONATE 650 MG TAB PO SCH (08:55)
[2019-01-01] MEDS: INSULIN LISPRO 100 UNIT/1 ML 3ML VIAL SQ SCH ×4 (10:25→21:10)
[2019-01-01] MEDS ORDERED: HYDROCODONE/APAP 5MG-325MG TAB PO PRN (10:30)
--- NOTE | 2019-01-01 13:30 | NUR ---
PATIENT IS LAYING IN BED IN HIGH-FOWLERS POSITION, NO S/S OF DISTRESS, SIDE RAILS UP2, CALL RIVERA WITHIN REACH, AND BED IN LOWEST POSITION.
--- NOTE | 2019-01-01 18:50 | NUR ---
PATIENT IS LAYING IN BED, FAMILY AT THE BEDSIDE, NO S/S OF DISTRESS, ROWELL EMPTIED, SIDE RAILS UP X2, CALL RIVERA WITHIN REACH, AND BED IN LOWEST POSITION.
--- NOTE | 2019-01-01 19:15 | NUR ---
RECEIVED PATIENT. PATIENT IS RESTING IN BED, AAOX3. RESP EVEN AND UNLABORED. NO ACUTE DISTRESS NOTED. ROWELL IN PLACE, CLEAR AND YELLOW URINE NOTED. FAMILY AT BED SIDE CALL LIGHT WITHIN REACH. BED LOW/LOCKED. CONTINUE TO MONITOR CLOSELY
[2019-01-01] MEDS ORDERED: INSULIN GLARGINE 100 UNITS/ML VIAL SQ SCH (21:00)
[2019-01-01] MEDS: TAMSULOSIN HCL 0.4 MG CAP PO SCH (21:26)
[2019-01-02] VITALS: BP 117/57
[2019-01-02 04:00] VITALS: BP 130/59
[2019-01-02 06:26] LABS: ANION GAP 12.8 mmol/L (8-16); BLOOD UREA NITROGEN 15 mg/dL (7-26); BUN/CREATININE RATIO 16 (6-25); CALCIUM 8.5 mg/dL (8.4-10.2); CARBON DIOXIDE 31 mmol/L (22-29); CHLORIDE 102 mmol/L (98-107); CREATININE, SERUM 0.93 mg/dL (0.72-1.25); EST GLOMERULAR FILTRATION RATE > 60 ML/MIN (60-); GLUCOSE 75 mg/dL (74-118); POTASSIUM 3.8 mmol/L (3.5-5.1); SODIUM 142 mmol/L (136-145)
--- NOTE | 2019-01-02 07:00 | NUR ---
BEDSIDE SHIFT REPORT RECEIVED FROM [facility] RN. PT DENIES NEEDS AT THIS TIME.
[2019-01-02] MEDS: INSULIN LISPRO 100 UNIT/1 ML 3ML VIAL SQ SCH ×2 (07:30→11:30)
[2019-01-02] MEDS ORDERED: PANTOPRAZOLE SOD 40 MG TABEC PO SCH (07:30)
[2019-01-02 08:29] VITALS: BP 132/63
[2019-01-02 09:00] VITALS: BP 132/63
[2019-01-02] MEDS: AMLODIPINE BESYLATE 10 MG TAB PO SCH (09:09)
[2019-01-02] MEDS ORDERED: FLOMAX0.4 MG PO (10:03)
[2019-01-02] MEDS ORDERED: NORVASC5 MG PO (10:04)
[2019-01-02] MEDS ORDERED: COLACE100 MG PO (10:05)
[2019-01-02] MEDS ORDERED: CIPRO500 MG PO (10:06)
--- NOTE | 2019-01-03 07:01 | Discharge Summary ---
PRIMARY CARE PHYSICIAN: Candi Eller MD. CONSULTANTS: 1. Carlo Wahl MD. 2. Luis Spicer MD. FINAL DIAGNOSES: 1. Acute kidney injury secondary to urinary retention and lisinopril. 2. Acute hyperkalemia, resolved. 3. Urinary retention, Godinez catheter in place. SUMMARY: [age] years old male, came in with acute kidney injury. The patient had BUN and creatinine elevated with BUN of 67, creatinine 2.08 and potassium is 7.3. Those numbers have been corrected. The patient has Godinez catheter in place. He did better. The patient is doing much better now. He had a Godinez catheter in place and is doing well with respect to renal function. BUN and creatinine of 15 and 0.93. The patient also had a sodium of 142, potassium 3.8, chloride 102, bicarb 31, BUN is 15, glucose is 75. WBC 7.24, hemoglobin 8.7, hematocrit 25.6. The patient does have baseline hypertension. He is on lisinopril. The patient is stable. Discharged home with a Godinez catheter the leg bag. Follow up with Dr. Carlo Wahl next week. DISCHARGE MEDICATIONS: 1. Discontinue lisinopril and resume other home medication. 2. Flomax 0.4 mg q.p.m. 3. Norvasc 10 mg daily. 4. Colace 100 mg b.i.d. 5. Cipro 500 mg daily for 7 days. The patient is stable, discharged home. Follow up with Dr. Carlo Wahl next week. MD PARISH Escudero/FILIBERTOL /[id number]
[2019-01-03 11:20] LABS: FOLATE 15.9 ng/mL (7.0-15.4)
== END 2019-01-02 12:12 | disposition home or self-care (01) | DRG 683 ==
LOC: ER 16:56 → ERHOLD 20:23 → ICU 22:40 → MED/SURG2 12-30 22:10
PROVIDERS: ADMIT Internal Medicine; ATTEND Internal Medicine
DX: N17.9 Acute kidney failure, unspecified (principal); E87.2 Acidosis; E87.5 Hyperkalemia; D64.9 Anemia, unspecified; K21.9 Gastro-esophageal reflux disease without esophagitis; M32.9 Systemic lupus erythematosus, unspecified; Z82.49 Family history of ischemic heart disease and other diseases of the circulatory system; E11.22 Type 2 diabetes mellitus with diabetic chronic kidney disease; I12.9 Hypertensive chronic kidney disease with stage 1 through stage 4 chronic kidney disease, or unspecified chronic kidney disease; N18.9 Chronic kidney disease, unspecified; T46.4X5A Adverse effect of angiotensin-converting-enzyme inhibitors, initial encounter; E83.42 Hypomagnesemia; D69.6 Thrombocytopenia, unspecified; R33.8 Other retention of urine; N40.1 Benign prostatic hyperplasia with lower urinary tract symptoms; Z79.4 Long term (current) use of insulin
CPT/HCPCS: 36415; 36600; 51700; 71045; 74176; 76770; 80048; 80053; 80061; 81001; 82550; 82553; 82607; 82746; 82805; 82948; 83540; 83735; 83880; 84132; 84443; 84466; 84484; 85025; 93005; 96372; 99284; J1815; J1817; J7070; J7799

== ENCOUNTER 2020-05-15 09:26 | Inpatient (IN) | payer BC, MEDICARE ==
[~2020-05-15] VITALS: Ht 165.1 cm; Wt 69.9 kg
[~2020-05-15 09:26] MED LIST changes: +CIPRO500 MG PO; +COLACE100 MG PO; +FLOMAX0.4 MG PO; +NORVASC5 MG PO
[2020-05-15] MEDS ORDERED: PANTOPRAZOLE 40 MG 10ML VIAL IV STA (10:16)
[2020-05-15] MEDS ORDERED: SODIUM CHLORIDE 0.9% 1000ML 1,000 ML IV STA (10:16)
[2020-05-15 10:39] LABS: BASOPHILS # (AUTO) 0.1 (0.0-0.1); BASOPHILS % 0.6 % (0.0-1.0); EOSINOPHILS # (AUTO) 0.7 (0.0-0.4); EOSINOPHILS % 5.8 % (0.0-6.0); HEMATOCRIT 35.1 % (38.2-49.6); HEMOGLOBIN 11.5 g/dL (14.0-18.0); LYMPHOCYTES # (AUTO) 1.2 (1.0-3.2); LYMPHOCYTES % 9.4 % (18.0-39.1); MEAN CORPUSCULAR HEMOGLOBIN 30.3 pg (28-32); MEAN CORPUSCULAR HGB CONC 32.8 g/dL (31-35); MEAN CORPUSCULAR VOLUME 92.6 fL (81-99); MONOCYTES # (AUTO) 1.3 (0.2-0.8); MONOCYTES % 10.2 % (4.4-11.3); NEUTROPHILS # (AUTO) 8.8 (2.1-6.9); NEUTROPHILS % 71.7 % (38.7-80.0); PLATELET COUNT 305 x10e3/uL (140-360); RED BLOOD COUNT 3.79 x10e6/uL (4.3-5.7); RED CELL DISTRIBUTION WIDTH 13.5 % (11.7-14.4)
[2020-05-15 10:50] LABS: INR 0.92; PROTHROMBIN TIME 12.8 seconds (11.9-14.5)
[2020-05-15 10:51] LABS: PARTIAL THROMBOPLASTIN TIME 20.7 seconds (23.8-35.5)
[2020-05-15 11:00] LABS: ALBUMIN 2.8 g/dL (3.5-5.0); ALBUMIN/GLOBULIN RATIO 0.9 (0.8-2.0); ANION GAP 16.4 mmol/L (8-16); CALCIUM 8.4 mg/dL (8.4-10.2); CREATININE, SERUM 1.82 mg/dL (0.72-1.25); POTASSIUM 5.4 mmol/L (3.5-5.1)
[2020-05-15 11:07] LABS: CREATINE KINASE MB 10.9 ng/mL (0-5.0)
[2020-05-15] MEDS ORDERED: IOPAMIDOL 370 MG/ML 200 ML INFUS..BTL INJ ONE (11:16)
[2020-05-15] MEDS ORDERED: SODIUM CHLORIDE 0.9% 50ML 0 ML ONE (11:16)
[2020-05-15] MEDS ORDERED: SODIUM CHLORIDE 0.9% 0 ML ONE (11:17)
[2020-05-15] MEDS ORDERED: METRONIDAZOLE 500MG/NS 100ML IV SCH (13:30)
[2020-05-15] MEDS: CEFTRIAXONE SOD 1 GM/NS 50 ML 50 ML IV SCH (14:44)
[2020-05-15] MEDS: METRONIDAZOLE 500MG/NS 100ML 100 ML IV SCH ×2 (15:09→21:03)
[2020-05-15 15:32] VITALS: BP 107/58
[2020-05-15 15:57] VITALS: BP 107/58
[2020-05-15 16:53] VITALS: BP 107/58
[2020-05-15] MEDS ORDERED: PREDNISONE5 M1 PO (17:08)
[2020-05-15] MEDS ORDERED: HYDROXYZINE HCL25 MG PO (17:12)
[2020-05-15] MEDS ORDERED: TRAMADOL HCL100 MG PO (17:12)
[2020-05-15] MEDS ORDERED: LISINOPRIL10 MG PO (17:12)
[2020-05-15] MEDS ORDERED: HYDROXYCHLOROQ200 MG PO (17:12)
[2020-05-15] MEDS ORDERED: FUROSEMIDE40 MG PO (17:12)
[2020-05-15] MEDS: MORPHINE SULFATE INJ 4 MG/ML INJ 1ML IV PRN (17:51)
[2020-05-15] MEDS: ONDANSETRON HCL INJ 2MG/ML 2ML 2 MG/ML VIAL IV PRN (17:51)
[2020-05-15] MEDS: SODIUM CHLORIDE 0.9% 1000ML 1,000 ML IV SCH ×2 (17:52→21:03)
[2020-05-15 19:00] VITALS: BP 101/51
[2020-05-15 21:00] VITALS: BP 101/51
[2020-05-15] MEDS: PANTOPRAZOLE 40 MG 10ML VIAL IV SCH (21:03)
[2020-05-16] VITALS (9 sets, daily range): BP systolic 99–125; BP diastolic 51–62
[2020-05-16] MEDS: CEFTRIAXONE SOD 1 GM/NS 50 ML 50 ML IV SCH ×2 (01:02→13:30)
[2020-05-16] MEDS: METRONIDAZOLE 500MG/NS 100ML 100 ML IV SCH ×3 (02:23→14:00)
[2020-05-16] MEDS: SODIUM CHLORIDE 0.9% 1000ML 1,000 ML IV SCH (04:25)
[2020-05-16 05:04] LABS: BASOPHILS % 0.5 % (0.0-1.0); EOSINOPHILS # (AUTO) 0.7 (0.0-0.4); EOSINOPHILS % 8.8 % (0.0-6.0); HEMATOCRIT 27.5 % (38.2-49.6); HEMOGLOBIN 8.7 g/dL (14.0-18.0); LYMPHOCYTES % 13.2 % (18.0-39.1); MEAN CORPUSCULAR HGB CONC 31.6 g/dL (31-35); MEAN CORPUSCULAR VOLUME 94.8 fL (81-99); MONOCYTES # (AUTO) 0.8 (0.2-0.8); MONOCYTES % 10.7 % (4.4-11.3); NEUTROPHILS # (AUTO) 4.9 (2.1-6.9); PLATELET COUNT 231 x10e3/uL (140-360); RED CELL DISTRIBUTION WIDTH 13.4 % (11.7-14.4)
[2020-05-16 05:27] LABS: ALBUMIN/GLOBULIN RATIO 0.9 (0.8-2.0); ANION GAP 15.6 mmol/L (8-16); CALCIUM 7.7 mg/dL (8.4-10.2); CREATININE, SERUM 1.19 mg/dL (0.72-1.25); POTASSIUM 5.6 mmol/L (3.5-5.1)
[2020-05-16] MEDS: PANTOPRAZOLE 40 MG 10ML VIAL IV SCH (09:22)
[2020-05-16] MEDS ORDERED: SODIUM CHLORIDE 0.9% 250ML 250 ML IV NR (09:30)
[2020-05-16] MEDS ORDERED: HYDROCORTISONE SOD SUCCINATE 100 MG VIAL IV NR (09:30)
[2020-05-16] MEDS ORDERED: SODIUM CHLORIDE 0.45% 1,000 ML IV SCH (09:30)
[2020-05-16] MEDS ORDERED: DEXTROSE 50% SYRINGE 50 ML IV PRN (09:30)
[2020-05-16] MEDS ORDERED: INSULIN GLARGINE 100 UNITS/ML VIAL SQ NR (09:45)
[2020-05-16] MEDS: ONDANSETRON HCL INJ 2MG/ML 2ML 2 MG/ML VIAL IV PRN (11:06)
[2020-05-16] MEDS: MORPHINE SULFATE INJ 4 MG/ML INJ 1ML IV PRN (11:06)
[2020-05-16] MEDS: INSULIN LISPRO 100 UNIT/1 ML 3ML VIAL SQ SCH ×3 (11:30→21:00)
[2020-05-16] MEDS: SODIUM BICARBONATE 8.4% 100 ML in SODIUM CHLORIDE 0.45% 1,000 ML IV SCH (12:00)
[2020-05-16] MEDS ORDERED: PROPOFOL IV EMULSION 10 MG/ML 20 ML VIAL ONE (12:33)
[2020-05-16] MEDS ORDERED: BISACODYL 5 MG TAB EC PO ONE (15:00)
[2020-05-16] MEDS ORDERED: PEG (High)/E-LYTE SOLN 4,000 ML BTL PO ONE (15:00)
[2020-05-16] MEDS ORDERED: SODIUM CHLORIDE 0.9% 250ML 250 ML ONE (15:30)
[2020-05-16] MEDS: HYDROXYZINE HCL 25 MG TAB PO SCH (16:23)
[2020-05-16] MEDS: HYDROXYCHLOROQUINE SULFATE 200 MG TAB PO SCH (18:02)
[2020-05-17] VITALS (11 sets, daily range): BP systolic 103–129; BP diastolic 56–68
[2020-05-17] MEDS: METRONIDAZOLE 500MG/NS 100ML 100 ML IV SCH ×4 (00:10→21:16)
[2020-05-17] MEDS: PANTOPRAZOLE 40 MG 10ML VIAL IV SCH ×3 (00:10→21:16)
[2020-05-17] MEDS: HYDROXYZINE HCL 25 MG TAB PO SCH ×4 (00:12→21:16)
[2020-05-17] MEDS: SODIUM BICARBONATE 8.4% 100 ML in SODIUM CHLORIDE 0.45% 1,000 ML IV SCH (00:27)
[2020-05-17] MEDS: INSULIN GLARGINE 100 UNITS/ML VIAL SQ SCH ×2 (00:27→21:00)
[2020-05-17] MEDS: CEFTRIAXONE SOD 1 GM/NS 50 ML 50 ML IV SCH (00:29)
[2020-05-17] MEDS: MORPHINE SULFATE INJ 4 MG/ML INJ 1ML IV PRN (00:30)
[2020-05-17] MEDS: ONDANSETRON HCL INJ 2MG/ML 2ML 2 MG/ML VIAL IV PRN (00:30)
[2020-05-17] MEDS: INSULIN LISPRO 100 UNIT/1 ML 3ML VIAL SQ SCH ×4 (08:30→21:00)
[2020-05-17] MEDS: HYDROCORTISONE SOD SUCCINATE 100 MG VIAL IV SCH (09:00)
[2020-05-17 09:53] LABS: BASOPHILS # (AUTO) 0.1 (0.0-0.1); BASOPHILS % 0.9 % (0.0-1.0); EOSINOPHILS # (AUTO) 0.9 (0.0-0.4); EOSINOPHILS % 12.8 % (0.0-6.0); HEMATOCRIT 31.6 % (38.2-49.6); HEMOGLOBIN 10.3 g/dL (14.0-18.0); LYMPHOCYTES # (AUTO) 1.2 (1.0-3.2); LYMPHOCYTES % 17.3 % (18.0-39.1); MEAN CORPUSCULAR HEMOGLOBIN 29.8 pg (28-32); MEAN CORPUSCULAR HGB CONC 32.6 g/dL (31-35); MEAN CORPUSCULAR VOLUME 91.3 fL (81-99); MONOCYTES # (AUTO) 0.7 (0.2-0.8); MONOCYTES % 10.1 % (4.4-11.3); NEUTROPHILS # (AUTO) 3.7 (2.1-6.9); NEUTROPHILS % 54.5 % (38.7-80.0); PLATELET COUNT 215 x10e3/uL (140-360); RED BLOOD COUNT 3.46 x10e6/uL (4.3-5.7); RED CELL DISTRIBUTION WIDTH 14.2 % (11.7-14.4)
[2020-05-17] MEDS: HYDROXYCHLOROQUINE SULFATE 200 MG TAB PO SCH ×2 (10:12→17:36)
[2020-05-17] MEDS ORDERED: FUROSEMIDE INJ 10 MG/ML 4 ML VIAL IV ONE (10:40)
[2020-05-17 11:02] LABS: ANION GAP 12.4 mmol/L (8-16); BUN/CREATININE RATIO 24 (6-25); CALCIUM 8.1 mg/dL (8.4-10.2); CARBON DIOXIDE 27 mmol/L (22-29); CHLORIDE 109 mmol/L (98-107); CREATININE, SERUM 0.89 mg/dL (0.72-1.25); EST GLOMERULAR FILTRATION RATE > 60 ML/MIN (60-); GLUCOSE 177 mg/dL (74-118); POTASSIUM 4.4 mmol/L (3.5-5.1); SODIUM 144 mmol/L (136-145)
[2020-05-17 11:09] LABS: MAGNESIUM 1.7 MG/DL (1.3-2.1); PHOSPHORUS 1.7 MG/DL (2.3-4.7)
[2020-05-17 11:12] LABS: BLOOD UREA NITROGEN 21 mg/dL (7-26)
[2020-05-17] MEDS ORDERED: PROPOFOL IV EMULSION 10 MG/ML 20 ML VIAL ONE (13:44)
[2020-05-17 14:23] LABS: THYROID STIMULATING HORMONE 1.714 uIU/mL (0.350-4.940)
[2020-05-17] MEDS ORDERED: SODIUM CHLORIDE 0.9% 500ML 500 ML ONE (15:01)
[2020-05-17] MEDS ORDERED: CEFTRIAXONE SOD 1 GM/NS 50 ML 50 ML IV SCH (17:00)
[2020-05-18] VITALS (7 sets, daily range): BP systolic 108–119; BP diastolic 56–87
[2020-05-18] MEDS: METRONIDAZOLE 500MG/NS 100ML 100 ML IV SCH ×4 (02:00→20:35)
[2020-05-18] MEDS: HYDROXYZINE HCL 25 MG TAB PO SCH ×3 (06:00→20:36)
[2020-05-18 06:15] LABS: BASOPHILS # (AUTO) 0.1 (0.0-0.1); BASOPHILS % 0.8 % (0.0-1.0); EOSINOPHILS # (AUTO) 0.9 (0.0-0.4); EOSINOPHILS % 12.9 % (0.0-6.0); HEMATOCRIT 28.4 % (38.2-49.6); HEMOGLOBIN 9.3 g/dL (14.0-18.0); LYMPHOCYTES # (AUTO) 1.4 (1.0-3.2); LYMPHOCYTES % 18.6 % (18.0-39.1); MEAN CORPUSCULAR HEMOGLOBIN 30.1 pg (28-32); MEAN CORPUSCULAR HGB CONC 32.7 g/dL (31-35); MEAN CORPUSCULAR VOLUME 91.9 fL (81-99); MONOCYTES # (AUTO) 0.9 (0.2-0.8); MONOCYTES % 12.1 % (4.4-11.3); NEUTROPHILS # (AUTO) 3.7 (2.1-6.9); NEUTROPHILS % 51.2 % (38.7-80.0); PLATELET COUNT 199 x10e3/uL (140-360); RED BLOOD COUNT 3.09 x10e6/uL (4.3-5.7); RED CELL DISTRIBUTION WIDTH 13.9 % (11.7-14.4)
[2020-05-18 06:39] LABS: ANION GAP 7.5 mmol/L (8-16); BLOOD UREA NITROGEN 12 mg/dL (7-26); BUN/CREATININE RATIO 17 (6-25); CALCIUM 7.6 mg/dL (8.4-10.2); CARBON DIOXIDE 29 mmol/L (22-29); CHLORIDE 107 mmol/L (98-107); CREATININE, SERUM 0.69 mg/dL (0.72-1.25); EST GLOMERULAR FILTRATION RATE > 60 ML/MIN (60-); POTASSIUM 3.5 mmol/L (3.5-5.1); SODIUM 140 mmol/L (136-145)
[2020-05-18 06:51] LABS: GLUCOSE 58 mg/dL (74-118)
[2020-05-18] MEDS: INSULIN LISPRO 100 UNIT/1 ML 3ML VIAL SQ SCH ×2 (07:30→11:45)
[2020-05-18] MEDS: PANTOPRAZOLE 40 MG 10ML VIAL IV SCH ×2 (08:33→20:36)
[2020-05-18] MEDS: HYDROCORTISONE SOD SUCCINATE 100 MG VIAL IV SCH (08:33)
[2020-05-18] MEDS: HYDROXYCHLOROQUINE SULFATE 200 MG TAB PO SCH ×2 (08:33→18:07)
[2020-05-18] MEDS: LEVOFLOXACIN 500 MG TAB PO SCH (10:03)
[2020-05-18] MEDS: IRON SUCROSE 100 MG in SODIUM CHLORIDE 0.9% 100 ML 100 ML IV SCH (10:51)
[2020-05-18] MEDS ORDERED: SODIUM CHLORIDE 0.9% 250ML 250 ML ONE (10:55)
[2020-05-18] MEDS: MORPHINE SULFATE INJ 4 MG/ML INJ 1ML IV PRN (18:28)
[2020-05-18] MEDS: ONDANSETRON HCL INJ 2MG/ML 2ML 2 MG/ML VIAL IV PRN (18:28)
[2020-05-18] MEDS: INSULIN GLARGINE 100 UNITS/ML VIAL SQ SCH (20:21)
[2020-05-18] MEDS: TAMSULOSIN HCL 0.4 MG CAP PO SCH (20:36)
[2020-05-19] VITALS (9 sets, daily range): BP systolic 100–115; BP diastolic 57–67
[2020-05-19] MEDS: METRONIDAZOLE 500MG/NS 100ML 100 ML IV SCH ×2 (02:25→09:58)
[2020-05-19] MEDS: HYDROCODONE/APAP 7.5MG-325MG 1 EA TAB PO PRN ×2 (05:08→20:59)
[2020-05-19] MEDS: HYDROXYZINE HCL 25 MG TAB PO SCH ×3 (05:09→20:58)
[2020-05-19] MEDS: INSULIN LISPRO 100 UNIT/1 ML 3ML VIAL SQ SCH ×4 (07:30→19:54)
[2020-05-19 08:38] LABS: BASOPHILS # (AUTO) 0.1 (0.0-0.1); BASOPHILS % 0.6 % (0.0-1.0); EOSINOPHILS # (AUTO) 0.8 (0.0-0.4); EOSINOPHILS % 10.4 % (0.0-6.0); HEMATOCRIT 29.9 % (38.2-49.6); HEMOGLOBIN 9.7 g/dL (14.0-18.0); LYMPHOCYTES # (AUTO) 2.3 (1.0-3.2); LYMPHOCYTES % 28.2 % (18.0-39.1); MEAN CORPUSCULAR HEMOGLOBIN 29.7 pg (28-32); MEAN CORPUSCULAR HGB CONC 32.4 g/dL (31-35); MEAN CORPUSCULAR VOLUME 91.4 fL (81-99); MONOCYTES # (AUTO) 0.9 (0.2-0.8); MONOCYTES % 11.3 % (4.4-11.3); NEUTROPHILS # (AUTO) 3.5 (2.1-6.9); NEUTROPHILS % 43.7 % (38.7-80.0); PLATELET COUNT 205 x10e3/uL (140-360); RED BLOOD COUNT 3.27 x10e6/uL (4.3-5.7); RED CELL DISTRIBUTION WIDTH 13.5 % (11.7-14.4)
[2020-05-19] MEDS: LEVOFLOXACIN 500 MG TAB PO SCH (09:59)
[2020-05-19] MEDS: PANTOPRAZOLE 40 MG 10ML VIAL IV SCH ×2 (09:59→20:58)
[2020-05-19] MEDS: HYDROXYCHLOROQUINE SULFATE 200 MG TAB PO SCH ×2 (10:00→16:10)
[2020-05-19] MEDS: HYDROCORTISONE SOD SUCCINATE 100 MG VIAL IV SCH (10:02)
[2020-05-19] MEDS ORDERED: FUROSEMIDE INJ 10 MG/ML 4 ML VIAL IV ONE (10:45)
[2020-05-19] MEDS ORDERED: BISACODYL 10 MG SUPP PR PRN (10:45)
[2020-05-19] MEDS ORDERED: MAGNESIUM HYDROXIDE 30 ML UDC PO PRN (10:45)
[2020-05-19] MEDS ORDERED: POTASSIUM CHLORIDE 10MEQ EA PO ONE (11:00)
[2020-05-19] MEDS: IRON SUCROSE 100 MG in SODIUM CHLORIDE 0.9% 100 ML 100 ML IV SCH (12:25)
[2020-05-19] MEDS: SENNA-S TABLET PO SCH ×2 (12:26→16:10)
[2020-05-19] MEDS: ONDANSETRON HCL INJ 2MG/ML 2ML 2 MG/ML VIAL IV PRN (14:08)
[2020-05-19] MEDS: MORPHINE SULFATE INJ 4 MG/ML INJ 1ML IV PRN (14:08)
[2020-05-19] MEDS: INSULIN GLARGINE 100 UNITS/ML VIAL SQ SCH (19:54)
[2020-05-19] MEDS: TAMSULOSIN HCL 0.4 MG CAP PO SCH (20:58)
[2020-05-19] MEDS ORDERED: INSULIN LISPRO 100 UNIT/1 ML 3ML VIAL SQ ONE (21:45)
[2020-05-19] MEDS ORDERED: INSULIN GLARGINE 100 UNITS/ML VIAL SQ ONE (21:45)
[2020-05-20 04:56] VITALS: BP 107/64
[2020-05-20] MEDS: HYDROXYZINE HCL 25 MG TAB PO SCH ×3 (05:08→21:32)
[2020-05-20 06:00] LABS: BASOPHILS # (AUTO) 0.1 (0.0-0.1); BASOPHILS % 0.6 % (0.0-1.0); EOSINOPHILS # (AUTO) 0.8 (0.0-0.4); EOSINOPHILS % 8.9 % (0.0-6.0); HEMATOCRIT 26.5 % (38.2-49.6); HEMOGLOBIN 8.9 g/dL (14.0-18.0); LYMPHOCYTES # (AUTO) 1.7 (1.0-3.2); LYMPHOCYTES % 19.9 % (18.0-39.1); MEAN CORPUSCULAR HEMOGLOBIN 30.9 pg (28-32); MEAN CORPUSCULAR HGB CONC 33.6 g/dL (31-35); MONOCYTES # (AUTO) 0.9 (0.2-0.8); MONOCYTES % 10.6 % (4.4-11.3); NEUTROPHILS # (AUTO) 4.7 (2.1-6.9); NEUTROPHILS % 53.8 % (38.7-80.0); PLATELET COUNT 189 x10e3/uL (140-360); RED BLOOD COUNT 2.88 x10e6/uL (4.3-5.7); RED CELL DISTRIBUTION WIDTH 13.2 % (11.7-14.4)
[2020-05-20 06:31] LABS: ANION GAP 9.5 mmol/L (8-16); BLOOD UREA NITROGEN 14 mg/dL (7-26); BUN/CREATININE RATIO 19 (6-25); CALCIUM 7.2 mg/dL (8.4-10.2); CARBON DIOXIDE 30 mmol/L (22-29); CHLORIDE 104 mmol/L (98-107); CREATININE, SERUM 0.74 mg/dL (0.72-1.25); EST GLOMERULAR FILTRATION RATE > 60 ML/MIN (60-); GLUCOSE 64 mg/dL (74-118); POTASSIUM 3.5 mmol/L (3.5-5.1); SODIUM 140 mmol/L (136-145)
[2020-05-20] MEDS: INSULIN LISPRO 100 UNIT/1 ML 3ML VIAL SQ SCH ×4 (07:30→21:00)
[2020-05-20 07:53] VITALS: BP 99/68
[2020-05-20 08:37] VITALS: BP 99/68
[2020-05-20] MEDS ORDERED: FUROSEMIDE INJ 10 MG/ML 2 ML VIAL IV SCH (09:00)
[2020-05-20] MEDS: POTASSIUM CHLORIDE 10MEQ EA PO SCH (09:36)
[2020-05-20] MEDS: HYDROXYCHLOROQUINE SULFATE 200 MG TAB PO SCH ×2 (09:36→17:06)
[2020-05-20] MEDS: PREDNISONE 10 MG TAB PO SCH (09:36)
[2020-05-20] MEDS: LEVOFLOXACIN 500 MG TAB PO SCH (09:36)
[2020-05-20] MEDS: PANTOPRAZOLE 40 MG 10ML VIAL IV SCH ×2 (09:36→21:31)
[2020-05-20] MEDS: IRON SUCROSE 100 MG in SODIUM CHLORIDE 0.9% 100 ML 100 ML IV SCH (09:37)
[2020-05-20] MEDS: SENNA-S TABLET PO SCH ×2 (09:37→17:06)
[2020-05-20 12:29] VITALS: BP 111/58
[2020-05-20] MEDS: FUROSEMIDE INJ 10 MG/ML 2 ML VIAL IV SCH (15:02)
[2020-05-20 15:12] LABS: BILIRUBIN,URINE NEGATIVE (NEGATIVE); CLARITY,URINE CLEAR (CLEAR); COLOR,URINE YELLOW (YELLOW); KETONES,URINE NEGATIVE (NEGATIVE); LEUKOCYTE ESTERASE ,URINE NEGATIVE (NEGATIVE); NITRITE,URINE NEGATIVE (NEGATIVE); PROTEIN,URINE DIPSTICK NEGATIVE (NEGATIVE); URINE UROBILINOGEN 0.2 mg/dL (0.2 - 1)
[2020-05-20 15:24] LABS: BACTERIA,URINE FEW /HPF
[2020-05-20 15:30] LABS: CREATININE,URINE RANDOM 28.73 mg/dL (63-166); TOTAL PROTEIN, URINE < 6.8 mg/dL (1-14)
[2020-05-20 15:32] VITALS: BP 118/63
[2020-05-20 20:02] VITALS: BP 102/71
[2020-05-20] MEDS ORDERED: INSULIN GLARGINE 100 UNITS/ML VIAL SQ SCH ×2 (21:00)
[2020-05-20] MEDS: TAMSULOSIN HCL 0.4 MG CAP PO SCH (21:31)
[2020-05-21] VITALS (9 sets, daily range): BP systolic 100–117; BP diastolic 58–70
[2020-05-21] MEDS: HYDROXYZINE HCL 25 MG TAB PO SCH ×3 (05:14→23:00)
[2020-05-21 06:01] LABS: ANION GAP 6.7 mmol/L (8-16); BLOOD UREA NITROGEN 12 mg/dL (7-26); BUN/CREATININE RATIO 15 (6-25); CALCIUM 7.8 mg/dL (8.4-10.2); CARBON DIOXIDE 33 mmol/L (22-29); CHLORIDE 101 mmol/L (98-107); CREATININE, SERUM 0.81 mg/dL (0.72-1.25); EST GLOMERULAR FILTRATION RATE > 60 ML/MIN (60-); POTASSIUM 3.7 mmol/L (3.5-5.1); SODIUM 137 mmol/L (136-145)
[2020-05-21 06:03] LABS: GLUCOSE 46 mg/dL (74-118)
[2020-05-21] MEDS: INSULIN LISPRO 100 UNIT/1 ML 3ML VIAL SQ SCH ×4 (07:30→20:42)
[2020-05-21] MEDS: POTASSIUM CHLORIDE 10MEQ EA PO SCH (09:52)
[2020-05-21] MEDS: FUROSEMIDE INJ 10 MG/ML 2 ML VIAL IV SCH ×2 (09:52→12:16)
[2020-05-21] MEDS: PANTOPRAZOLE 40 MG 10ML VIAL IV SCH ×2 (09:52→20:23)
[2020-05-21] MEDS: LEVOFLOXACIN 500 MG TAB PO SCH (09:52)
[2020-05-21] MEDS: HYDROXYCHLOROQUINE SULFATE 200 MG TAB PO SCH ×2 (09:52→17:42)
[2020-05-21] MEDS: PREDNISONE 10 MG TAB PO SCH (09:52)
[2020-05-21] MEDS: SENNA-S TABLET PO SCH ×2 (09:53→17:42)
[2020-05-21] MEDS: IRON SUCROSE 100 MG in SODIUM CHLORIDE 0.9% 100 ML 100 ML IV SCH (10:32)
[2020-05-21] MEDS: TAMSULOSIN HCL 0.4 MG CAP PO SCH (20:20)
[2020-05-21] MEDS: INSULIN GLARGINE 100 UNITS/ML VIAL SQ SCH (20:42)
[2020-05-22] VITALS (10 sets, daily range): BP systolic 104–110; BP diastolic 56–68
[2020-05-22] MEDS: HYDROXYZINE HCL 25 MG TAB PO SCH ×3 (05:26→22:00)
[2020-05-22] MEDS: INSULIN LISPRO 100 UNIT/1 ML 3ML VIAL SQ SCH ×4 (07:30→21:00)
[2020-05-22] MEDS: POTASSIUM CHLORIDE 10MEQ EA PO SCH (08:22)
[2020-05-22] MEDS: IRON SUCROSE 100 MG in SODIUM CHLORIDE 0.9% 100 ML 100 ML IV SCH (08:58)
[2020-05-22] MEDS: SENNA-S TABLET PO SCH ×2 (08:58→17:07)
[2020-05-22] MEDS: PANTOPRAZOLE 40 MG 10ML VIAL IV SCH ×2 (08:58→21:00)
[2020-05-22] MEDS: LEVOFLOXACIN 500 MG TAB PO SCH (08:58)
[2020-05-22] MEDS: PREDNISONE 10 MG TAB PO SCH (08:58)
[2020-05-22] MEDS: FUROSEMIDE INJ 10 MG/ML 2 ML VIAL IV SCH (08:58)
[2020-05-22] MEDS: HYDROXYCHLOROQUINE SULFATE 200 MG TAB PO SCH ×2 (08:58→17:07)
[2020-05-22] MEDS ORDERED: IVERMECTIN 3MG TABLET 3 MG TABLET PO ONE (10:00)
[2020-05-22] MEDS ORDERED: FUROSEMIDE INJ 10 MG/ML 2 ML VIAL IV SCH (12:00)
[2020-05-22] MEDS: FUROSEMIDE INJ 10 MG/ML 4 ML VIAL IV SCH (12:25)
[2020-05-22] MEDS: TAMSULOSIN HCL 0.4 MG CAP PO SCH (21:00)
[2020-05-22] MEDS: INSULIN GLARGINE 100 UNITS/ML VIAL SQ SCH (21:00)
[2020-05-23] VITALS (14 sets, daily range): BP systolic 93–136; BP diastolic 44–77
[2020-05-23] MEDS: HYDROXYZINE HCL 25 MG TAB PO SCH ×3 (06:00→20:28)
[2020-05-23 06:31] LABS: BASOPHILS # (AUTO) 0.1 (0.0-0.1); BASOPHILS % 0.9 % (0.0-1.0); EOSINOPHILS # (AUTO) 1.4 (0.0-0.4); EOSINOPHILS % 11.7 % (0.0-6.0); HEMATOCRIT 28.9 % (38.2-49.6); HEMOGLOBIN 9.2 g/dL (14.0-18.0); LYMPHOCYTES # (AUTO) 2.3 (1.0-3.2); MEAN CORPUSCULAR HEMOGLOBIN 29.6 pg (28-32); MEAN CORPUSCULAR HGB CONC 31.8 g/dL (31-35); MEAN CORPUSCULAR VOLUME 92.9 fL (81-99); MONOCYTES # (AUTO) 1.2 (0.2-0.8); MONOCYTES % 10.1 % (4.4-11.3); NEUTROPHILS # (AUTO) 5.9 (2.1-6.9); PLATELET COUNT 236 x10e3/uL (140-360); RED BLOOD COUNT 3.11 x10e6/uL (4.3-5.7); RED CELL DISTRIBUTION WIDTH 13.5 % (11.7-14.4)
[2020-05-23 06:52] LABS: INR 0.99; PROTHROMBIN TIME 13.6 seconds (11.9-14.5)
[2020-05-23 06:53] LABS: PARTIAL THROMBOPLASTIN TIME 32.2 seconds (23.8-35.5)
[2020-05-23 07:05] LABS: ANION GAP 8.8 mmol/L (8-16); BLOOD UREA NITROGEN 20 mg/dL (7-26); BUN/CREATININE RATIO 21 (6-25); CALCIUM 7.6 mg/dL (8.4-10.2); CARBON DIOXIDE 31 mmol/L (22-29); CHLORIDE 101 mmol/L (98-107); CREATININE, SERUM 0.97 mg/dL (0.72-1.25); EST GLOMERULAR FILTRATION RATE > 60 ML/MIN (60-); GLUCOSE 130 mg/dL (74-118); POTASSIUM 3.8 mmol/L (3.5-5.1); SODIUM 137 mmol/L (136-145)
[2020-05-23] MEDS: INSULIN LISPRO 100 UNIT/1 ML 3ML VIAL SQ SCH ×4 (07:30→20:27)
[2020-05-23] MEDS: FUROSEMIDE INJ 10 MG/ML 4 ML VIAL IV SCH ×2 (08:00→12:00)
[2020-05-23] MEDS: PREDNISONE 10 MG TAB PO SCH (09:00)
[2020-05-23] MEDS: PANTOPRAZOLE 40 MG 10ML VIAL IV SCH ×2 (09:00→20:27)
[2020-05-23] MEDS: SENNA-S TABLET PO SCH ×2 (09:00→17:50)
[2020-05-23] MEDS: POTASSIUM CHLORIDE 10MEQ EA PO SCH (09:00)
[2020-05-23] MEDS: HYDROXYCHLOROQUINE SULFATE 200 MG TAB PO SCH (09:00)
[2020-05-23 09:43] LABS: BAND NEUTROPHILS % (MANUAL) 1 %; EOSINOPHILS % (MANUAL) 7 % (0-7); LYMPHOCYTES % (MANUAL) 20 % (19-48); MONOCYTES % (MANUAL) 6 % (3.4-9.0); MYELOCYTES % (MANUAL) 2 % (0-0); NEUTROPHILS % (MANUAL) 64 % (40-74); PLATELET ESTIMATE ADEQUATE; PLATELET MORPHOLOGY COMMENT NORMAL; RBC MORPHOLOGY COMMENT NORMAL
[2020-05-23] MEDS ORDERED: IVERMECTIN 3MG TABLET 3 MG TABLET PO ONE (10:00)
[2020-05-23] MEDS ORDERED: VERAPAMIL HCL 2.5 MG/ML 2 ML VIAL ONE (10:39)
[2020-05-23] MEDS ORDERED: LIDOCAINE HCL 2% LOCAL 20 ML VIAL ONE (10:39)
[2020-05-23] MEDS ORDERED: FENTANYL CITRATE/PF 100MCG/2 ML INJ ONE (10:39)
[2020-05-23] MEDS ORDERED: MIDAZOLAM HCL 2 MG/2 ML VIAL ONE (10:39)
[2020-05-23] MEDS ORDERED: HEPARIN SOD/SOD CHLORIDE 2,000 ML ONE (10:40)
[2020-05-23] MEDS ORDERED: SODIUM CHLORIDE 0.9% 1000ML 1,000 ML ONE (10:41)
[2020-05-23] MEDS ORDERED: IOPAMIDOL 370 MG/ML 200 ML INFUS..BTL INJ ONE (10:41)
[2020-05-23] MEDS: CARVEDILOL 3.125 MG TAB PO SCH (17:50)
[2020-05-23] MEDS: TAMSULOSIN HCL 0.4 MG CAP PO SCH (20:27)
[2020-05-23] MEDS: INSULIN GLARGINE 100 UNITS/ML VIAL SQ SCH (20:28)
[2020-05-24 00:41] VITALS: BP 114/55
[2020-05-24 05:25] VITALS: BP 105/58
[2020-05-24] MEDS: HYDROXYZINE HCL 25 MG TAB PO SCH (05:46)
[2020-05-24] MEDS: INSULIN LISPRO 100 UNIT/1 ML 3ML VIAL SQ SCH ×2 (07:30→12:45)
[2020-05-24 08:00] VITALS: BP 117/64
[2020-05-24 08:15] VITALS: BP 117/64
[2020-05-24] MEDS: SENNA-S TABLET PO SCH (09:11)
[2020-05-24] MEDS: PANTOPRAZOLE 40 MG 10ML VIAL IV SCH (09:11)
[2020-05-24] MEDS: FUROSEMIDE INJ 10 MG/ML 4 ML VIAL IV SCH ×2 (09:11→12:51)
[2020-05-24] MEDS: PREDNISONE 10 MG TAB PO SCH (09:11)
[2020-05-24] MEDS: CARVEDILOL 3.125 MG TAB PO SCH (09:12)
[2020-05-24] MEDS: POTASSIUM CHLORIDE 10MEQ EA PO SCH (09:12)
[2020-05-24 12:00] VITALS: BP 125/61
== END 2020-05-24 13:28 | disposition home or self-care (01) | DRG 393 ==
LOC: ER 09:49 → ERHOLD 13:35 → MED/SURG3 15:32
PROVIDERS: ADMIT Internal Medicine; ATTEND Internal Medicine
PROC: 0DB48ZX Excision of Esophagogastric Junction, Via Natural or Artificial Opening Endoscopic, Diagnostic (ICD-10-PCS; 2020-05-16)
PROC: 0DB58ZX Excision of Esophagus, Via Natural or Artificial Opening Endoscopic, Diagnostic (ICD-10-PCS; 2020-05-16)
PROC: 30233N1 Transfusion of Nonautologous Red Blood Cells into Peripheral Vein, Percutaneous Approach (ICD-10-PCS; 2020-05-16)
PROC: 02HV33Z Insertion of Infusion Device into Superior Vena Cava, Percutaneous Approach (ICD-10-PCS; 2020-05-17)
PROC: 0DBH8ZX Excision of Cecum, Via Natural or Artificial Opening Endoscopic, Diagnostic (ICD-10-PCS; principal; 2020-05-17 14:00)
PROC: 4A023N7 Measurement of Cardiac Sampling and Pressure, Left Heart, Percutaneous Approach (ICD-10-PCS; 2020-05-23)
PROC: B2111ZZ Fluoroscopy of Multiple Coronary Arteries using Low Osmolar Contrast (ICD-10-PCS; 2020-05-23)
DX: K63.3 Ulcer of intestine (principal); I50.43 Acute on chronic combined systolic (congestive) and diastolic (congestive) heart failure; N17.9 Acute kidney failure, unspecified; I13.0 Hypertensive heart and chronic kidney disease with heart failure and stage 1 through stage 4 chronic kidney disease, or unspecified chronic kidney disease; I42.8 Other cardiomyopathies; D62 Acute posthemorrhagic anemia; N18.2 Chronic kidney disease, stage 2 (mild); K64.8 Other hemorrhoids; K57.30 Diverticulosis of large intestine without perforation or abscess without bleeding; K55.20 Angiodysplasia of colon without hemorrhage; K44.9 Diaphragmatic hernia without obstruction or gangrene; K29.00 Acute gastritis without bleeding; I11.0 Hypertensive heart disease with heart failure; M32.9 Systemic lupus erythematosus, unspecified; E11.22 Type 2 diabetes mellitus with diabetic chronic kidney disease; Z79.899 Other long term (current) drug therapy; Z11.59 Encounter for screening for other viral diseases; I25.10 Atherosclerotic heart disease of native coronary artery without angina pectoris; E87.5 Hyperkalemia; E86.0 Dehydration; M19.90 Unspecified osteoarthritis, unspecified site
CPT/HCPCS: 36415; 36569; 43235; 45380; 70450; 71045; 72125; 74176; 80048; 80053; 81001; 82150; 82550; 82553; 82570; 82607; 82746; 82948; 83036; 83690; 83735; 83880; 84100; 84156; 84443; 84484; 85025; 85610; 85730; 86850; 86900; 86920; 88305; 88312; 93005; 93306; 93458; 96372; 99152; 99153; 99284; C1769; C1887; J0696; J1720; J1756; J1815; J1940; J2001; J2250; J2270; J2405; J3010; J3410; J7030; J7040; J7050; J7512; J7799; P9016; Q9967; U0002

== ENCOUNTER 2020-08-12 13:48 | Emergency (ER) | payer BC, MEDICARE ==
[~2020-08-12] VITALS: Ht 165.1 cm; Wt 69.9 kg
[~2020-08-12 13:48] MED LIST changes: +FUROSEMIDE40 MG PO; +HYDROXYCHLOROQ200 MG PO; +HYDROXYZINE HCL25 MG PO; +PREDNISONE5 M1 PO; +TRAMADOL HCL100 MG PO
[2020-08-12] MEDS ORDERED: HYDROCODONE/APAP 5MG-325MG TAB PO ONE (16:00)
[2020-08-12] MEDS ORDERED: COLACE100 MG PO (18:17)
[2020-08-12] MEDS ORDERED: TYLENOL # 31 EA PO (18:17)
== END 2020-08-12 18:47 | disposition home or self-care (01) ==
LOC: ER 14:40
DX: S32.010A Wedge compression fracture of first lumbar vertebra, initial encounter for closed fracture (principal); M25.552 Pain in left hip; M25.551 Pain in right hip; W18.30XA Fall on same level, unspecified, initial encounter; Y93.01 Activity, walking, marching and hiking; I10 Essential (primary) hypertension; E11.9 Type 2 diabetes mellitus without complications; M32.9 Systemic lupus erythematosus, unspecified; K21.9 Gastro-esophageal reflux disease without esophagitis
CPT/HCPCS: 72100; 73522; 99284

== ENCOUNTER → 2020-08-16 | Outpatient (CLI) | payer BC ==
[~2020-08-16] MED LIST changes: +TYLENOL # 31 EA PO
== END ==
LOC: MRI 10:56
PROVIDERS: ATTEND Internal Medicine
DX: S32.010A Wedge compression fracture of first lumbar vertebra, initial encounter for closed fracture (principal)
CPT/HCPCS: 72148

== ENCOUNTER → 2020-09-12 | Day surgery (SDC) | payer BC ==
[2020-09-09 12:08] LABS: BASOPHILS % 0.3 % (0.0-1.0); EOSINOPHILS # (AUTO) 0.1 (0.0-0.4); EOSINOPHILS % 0.5 % (0.0-6.0); HEMATOCRIT 33.1 % (38.2-49.6); HEMOGLOBIN 10.6 g/dL (14.0-18.0); LYMPHOCYTES # (AUTO) 2.3 (1.0-3.2); LYMPHOCYTES % 18.4 % (18.0-39.1); MEAN CORPUSCULAR HEMOGLOBIN 29.7 pg (28-32); MEAN CORPUSCULAR VOLUME 92.7 fL (81-99); MONOCYTES # (AUTO) 1.1 (0.2-0.8); MONOCYTES % 8.7 % (4.4-11.3); NEUTROPHILS # (AUTO) 8.6 (2.1-6.9); NEUTROPHILS % 67.6 % (38.7-80.0); PLATELET COUNT 212 x10e3/uL (140-360); RED BLOOD COUNT 3.57 x10e6/uL (4.3-5.7)
[2020-09-09 12:37] LABS: ANION GAP 16.1 mmol/L (8-16); CALCIUM 8.9 mg/dL (8.4-10.2); CREATININE, SERUM 1.78 mg/dL (0.72-1.25)
[2020-09-09 12:46] LABS: POTASSIUM 6.1 mmol/L (3.5-5.1)
[~2020-09-12] MED LIST changes: +ACETAMINOPHEN 325 MG TAB ONE; +ACTOS15 MG PO; +CARVEDILOL3.125 MG PO; +CEFAZOLIN SOD 1 GM VIAL ONE; +DEXAMETHASONE SOD PHOS INJ 4 MG/ML VIAL ONE; +DILTIAZEM HCL60 MG PO; +EPHEDRINE SULFATE INJ 50 MG/ML VIAL ONE; +FENTANYL CITRATE/PF 100MCG/2 ML INJ ONE; +GLYCOPYRROLATE INJ 0.2 MG/ML VIAL ONE; +HUMALOG100 UNIT/1 SC; +LIDOCAINE HCL 1% LOCAL INJ 20 ML VIAL ONE; +LIDOCAINE HCL 2% LOCAL INJ 5 ML SDV VIAL INJ ONE; +NEOSTIGMINE 1 MG/ML 10ML VIAL ONE; +ONDANSETRON HCL INJ 2MG/ML 2ML 2 MG/ML VIAL ONE; +POTASSIUM CHLO20 ME1 PO; +PROPOFOL IV EMULSION 10 MG/ML 20 ML VIAL ONE; +ROCURONIUM BROMIDE 10 MG/ML 5ML VIAL IV ONE; +SEVOFLURANE INHAL SOLN 250 ML PEN BTL ONE; +SIMVASTATIN20 MG PO; +SODIUM CHLORIDE 0.9% 250ML 250 ML ONE
[2020-09-12 11:09] LABS: INR 0.93
[2020-09-12 11:10] LABS: PARTIAL THROMBOPLASTIN TIME 26.7 seconds (23.8-35.5)
[2020-09-12 14:25] VITALS: BP 128/76
== END | disposition home or self-care (01) ==
LOC: OR 10:32 → EDSTATUS 11:00
PROVIDERS: ATTEND Radiology Vascular & Interventional Radiology
DX: S32.010A Wedge compression fracture of first lumbar vertebra, initial encounter for closed fracture (principal); E11.9 Type 2 diabetes mellitus without complications; I10 Essential (primary) hypertension; N52.9 Male erectile dysfunction, unspecified; M32.9 Systemic lupus erythematosus, unspecified; W19.XXXA Unspecified fall, initial encounter; Z01.810 Encounter for preprocedural cardiovascular examination; Z01.812 Encounter for preprocedural laboratory examination; Z01.818 Encounter for other preprocedural examination; Z20.822 Contact with and (suspected) exposure to COVID-19; Z79.4 Long term (current) use of insulin
CPT/HCPCS: 22514; 36415 ×2; 71046; 80048; 82948; 84132; 85025; 85610; 85730; 93005; J0690; J1100; J2001 ×2; J2405; J2704; J2710; J3010; J7050; U0002 ×2

== ENCOUNTER 2020-10-18 12:34 | Emergency (ER) | payer BC ==
[~2020-10-18] VITALS: Ht 165.1 cm; Wt 69.9 kg
[~2020-10-18 12:34] MED LIST changes: -ACETAMINOPHEN 325 MG TAB ONE; -CEFAZOLIN SOD 1 GM VIAL ONE; -DEXAMETHASONE SOD PHOS INJ 4 MG/ML VIAL ONE; -EPHEDRINE SULFATE INJ 50 MG/ML VIAL ONE; -FENTANYL CITRATE/PF 100MCG/2 ML INJ ONE; -GLYCOPYRROLATE INJ 0.2 MG/ML VIAL ONE; -LIDOCAINE HCL 1% LOCAL INJ 20 ML VIAL ONE; -LIDOCAINE HCL 2% LOCAL INJ 5 ML SDV VIAL INJ ONE; -NEOSTIGMINE 1 MG/ML 10ML VIAL ONE; -ONDANSETRON HCL INJ 2MG/ML 2ML 2 MG/ML VIAL ONE; -PROPOFOL IV EMULSION 10 MG/ML 20 ML VIAL ONE; -ROCURONIUM BROMIDE 10 MG/ML 5ML VIAL IV ONE; -SEVOFLURANE INHAL SOLN 250 ML PEN BTL ONE; -SODIUM CHLORIDE 0.9% 250ML 250 ML ONE
[2020-10-18 12:58] LABS: BASOPHILS # (AUTO) 0.1 (0.0-0.1); BASOPHILS % 0.8 % (0.0-1.0); EOSINOPHILS # (AUTO) 0.1 (0.0-0.4); EOSINOPHILS % 0.9 % (0.0-6.0); HEMATOCRIT 32.4 % (38.2-49.6); HEMOGLOBIN 10.1 g/dL (14.0-18.0); LYMPHOCYTES # (AUTO) 2.8 (1.0-3.2); LYMPHOCYTES % 24.2 % (18.0-39.1); MEAN CORPUSCULAR HEMOGLOBIN 30.1 pg (28-32); MEAN CORPUSCULAR HGB CONC 31.2 g/dL (31-35); MEAN CORPUSCULAR VOLUME 96.4 fL (81-99); MONOCYTES % 8.7 % (4.4-11.3); NEUTROPHILS # (AUTO) 7.1 (2.1-6.9); NEUTROPHILS % 60.4 % (38.7-80.0); PLATELET COUNT 267 x10e3/uL (140-360); RED BLOOD COUNT 3.36 x10e6/uL (4.3-5.7); RED CELL DISTRIBUTION WIDTH 13.9 % (11.7-14.4)
[2020-10-18 13:27] LABS: ALBUMIN 3.1 g/dL (3.5-5.0); ALBUMIN/GLOBULIN RATIO 1.1 (0.8-2.0); ANION GAP 17.9 mmol/L (8-16); CALCIUM 8.4 mg/dL (8.4-10.2); CREATININE, SERUM 1.76 mg/dL (0.72-1.25); POTASSIUM 3.9 mmol/L (3.5-5.1)
[2020-10-18] MEDS ORDERED: SODIUM CHLORIDE 0.9% 1000ML 1,000 ML IV SCH (13:45)
[2020-10-18] MEDS ORDERED: ONDANSETRON HCL INJ 2MG/ML 2ML 2 MG/ML VIAL IV STA (15:28)
[2020-10-18] MEDS ORDERED: MORPHINE SULFATE INJ 4 MG/ML INJ 1ML IV PRN (15:30)
== END 2020-10-18 19:04 | disposition home or self-care (01) ==
LOC: ER 12:43
DX: M54.6 Pain in thoracic spine (principal); M48.54XA Collapsed vertebra, not elsewhere classified, thoracic region, initial encounter for fracture; I10 Essential (primary) hypertension; E11.65 Type 2 diabetes mellitus with hyperglycemia; M32.9 Systemic lupus erythematosus, unspecified; K21.9 Gastro-esophageal reflux disease without esophagitis; Z87.01 Personal history of pneumonia (recurrent)
CPT/HCPCS: 36415; 72146; 72148; 80053; 85025; 99284; J2270; J2405; J7030

== ENCOUNTER → 2020-12-02 | Outpatient (CLI) | payer MEDICARE | LOC: CARD 11:56 | PROVIDERS: ATTEND Internal Medicine Infectious Disease | DX: E11.621 Type 2 diabetes mellitus with foot ulcer (principal); L97.411 Non-pressure chronic ulcer of right heel and midfoot limited to breakdown of skin; R60.0 Localized edema; I73.9 Peripheral vascular disease, unspecified | CPT/HCPCS: 93922; 93925; 93970 ==

== ENCOUNTER 2020-12-06 10:17 | Outpatient (RCR) | payer MEDICARE ==
[~2020-12-06 10:17] MED LIST changes: +LIDOCAINE VISC 2% SOLN 15 ML UDC ONE
[2020-12-06] MEDS ORDERED: LIDOCAINE/PRILOCAINE 2.5-2.5% KIT ONE (13:54)
== END 2020-12-09 ==
LOC: WCC 10:17
PROVIDERS: ATTEND Internal Medicine Infectious Disease
DX: E11.621 Type 2 diabetes mellitus with foot ulcer (principal); E11.622 Type 2 diabetes mellitus with other skin ulcer; L97.411 Non-pressure chronic ulcer of right heel and midfoot limited to breakdown of skin; L97.421 Non-pressure chronic ulcer of left heel and midfoot limited to breakdown of skin; L97.521 Non-pressure chronic ulcer of other part of left foot limited to breakdown of skin; R60.0 Localized edema; M32.10 Systemic lupus erythematosus, organ or system involvement unspecified; I10 Essential (primary) hypertension; E78.5 Hyperlipidemia, unspecified; R26.81 Unsteadiness on feet; Z87.81 Personal history of (healed) traumatic fracture

== ENCOUNTER → 2020-12-17 | Day surgery (SDC) | payer MEDICARE ==
[2020-12-12 08:47] LABS: BASOPHILS # (AUTO) 0.1 (0.0-0.1); BASOPHILS % 0.7 % (0.0-1.0); EOSINOPHILS # (AUTO) 0.2 (0.0-0.4); EOSINOPHILS % 1.9 % (0.0-6.0); HEMATOCRIT 36.8 % (38.2-49.6); HEMOGLOBIN 11.5 g/dL (14.0-18.0); LYMPHOCYTES # (AUTO) 1.7 (1.0-3.2); LYMPHOCYTES % 16.4 % (18.0-39.1); MEAN CORPUSCULAR HEMOGLOBIN 28.5 pg (28-32); MEAN CORPUSCULAR HGB CONC 31.3 g/dL (31-35); MEAN CORPUSCULAR VOLUME 91.1 fL (81-99); MONOCYTES % 9.6 % (4.4-11.3); NEUTROPHILS # (AUTO) 7.4 (2.1-6.9); NEUTROPHILS % 70.7 % (38.7-80.0); PLATELET COUNT 208 x10e3/uL (140-360); RED BLOOD COUNT 4.04 x10e6/uL (4.3-5.7); RED CELL DISTRIBUTION WIDTH 13.1 % (11.7-14.4)
[2020-12-12 09:58] LABS: ALANINE AMINOTRANSFERASE 26 IU/L (0-55); ALBUMIN 3.6 g/dL (3.5-5.0); ALBUMIN/GLOBULIN RATIO 1.2 (0.8-2.0); ALKALINE PHOSPHATASE 164 IU/L (40-150); ANION GAP 16.1 mmol/L (8-16); BLOOD UREA NITROGEN 27 mg/dL (7-26); BUN/CREATININE RATIO 27 (6-25); CALCIUM 7.7 mg/dL (8.4-10.2); CARBON DIOXIDE 26 mmol/L (22-29); CHLORIDE 104 mmol/L (98-107); CREATININE, SERUM 0.99 mg/dL (0.72-1.25); EST GLOMERULAR FILTRATION RATE > 60 ML/MIN (60-); GLUCOSE 103 mg/dL (74-118); POTASSIUM 4.1 mmol/L (3.5-5.1); SODIUM 142 mmol/L (136-145)
[~2020-12-17] VITALS: Ht 165.1 cm; Wt 64.9 kg
[2020-12-17] VITALS (8 sets, daily range): BP systolic 115–138; BP diastolic 57–78
[~2020-12-17] MED LIST changes: +ALPRAZOLAM 0.5 MG TAB ONE; +DIPHENHYDRAMINE HCL 25 MG CAP ONE; +FENTANYL CITRATE/PF 100MCG/2 ML INJ ONE; +HEPARIN SOD (PORCINE) 1000 UNIT/ML 30ML ONE; +HEPARIN SOD/SOD CHLORIDE 2,000 ML ONE; +IOPAMIDOL 300MG/ML 100 ML INFUS..BTL IV ONE; +LIDOCAINE HCL 2% LOCAL 20 ML VIAL ONE; -LIDOCAINE VISC 2% SOLN 15 ML UDC ONE; +MELOXICAM7.5 MG PO; +MIDAZOLAM HCL 2 MG/2 ML VIAL ONE; +NITROGLYCERIN/D5W 200 MCG/ML 0 ML ONE; +SENEXON-S 50-81 EACH PO; +SENOKOT-S TABL1 EACH PO; +SODIUM CHLORIDE 0.9% 1000ML 1,000 ML ONE
== END | disposition home or self-care (01) ==
LOC: CATH LAB 11:13
PROVIDERS: ATTEND Internal Medicine Interventional Cardiology
DX: I70.223 Atherosclerosis of native arteries of extremities with rest pain, bilateral legs (principal); E11.9 Type 2 diabetes mellitus without complications; R03.0 Elevated blood-pressure reading, without diagnosis of hypertension; M32.19 Other organ or system involvement in systemic lupus erythematosus; Z79.4 Long term (current) use of insulin; Z82.49 Family history of ischemic heart disease and other diseases of the circulatory system; Z83.3 Family history of diabetes mellitus
CPT/HCPCS: 36200; 36415; 75625; 75716; 76937; 80053; 83880; 85025; C1760; C1769; J2001; J2250; J3010; J7030; Q9967; 36247; 99152; J1644

== ENCOUNTER 2021-01-03 09:40 | Outpatient (RCR) | payer MEDICARE ==
[~2021-01-03 09:40] MED LIST changes: -ALPRAZOLAM 0.5 MG TAB ONE; +COLLAGENASE OINTMENT 30 GM TUBE ONE; -DIPHENHYDRAMINE HCL 25 MG CAP ONE; -FENTANYL CITRATE/PF 100MCG/2 ML INJ ONE; -HEPARIN SOD (PORCINE) 1000 UNIT/ML 30ML ONE; -HEPARIN SOD/SOD CHLORIDE 2,000 ML ONE; -IOPAMIDOL 300MG/ML 100 ML INFUS..BTL IV ONE; -LIDOCAINE HCL 2% LOCAL 20 ML VIAL ONE; +LIDOCAINE VISC 2% SOLN 15 ML UDC ONE; +LIDOCAINE/PRILOCAINE 2.5-2.5% KIT ONE; -MIDAZOLAM HCL 2 MG/2 ML VIAL ONE; -NITROGLYCERIN/D5W 200 MCG/ML 0 ML ONE; -SODIUM CHLORIDE 0.9% 1000ML 1,000 ML ONE
[2021-01-03] MEDS ORDERED: LIDOCAINE VISC 2% SOLN 15 ML UDC ONE (12:37)
== END 2021-01-08 ==
LOC: WCC 09:40
PROVIDERS: ATTEND Internal Medicine Infectious Disease
DX: E11.621 Type 2 diabetes mellitus with foot ulcer (principal); E11.622 Type 2 diabetes mellitus with other skin ulcer; L97.411 Non-pressure chronic ulcer of right heel and midfoot limited to breakdown of skin; L97.421 Non-pressure chronic ulcer of left heel and midfoot limited to breakdown of skin; L97.521 Non-pressure chronic ulcer of other part of left foot limited to breakdown of skin; I73.9 Peripheral vascular disease, unspecified; R60.0 Localized edema; M32.10 Systemic lupus erythematosus, organ or system involvement unspecified; I10 Essential (primary) hypertension; E78.5 Hyperlipidemia, unspecified; R26.81 Unsteadiness on feet; Z87.81 Personal history of (healed) traumatic fracture
CPT/HCPCS: 36415; 82948

== ENCOUNTER → 2021-01-24 | Outpatient (CLI) | payer MEDICARE ==
[~2021-01-24] MED LIST changes: -COLLAGENASE OINTMENT 30 GM TUBE ONE; -LIDOCAINE VISC 2% SOLN 15 ML UDC ONE; -LIDOCAINE/PRILOCAINE 2.5-2.5% KIT ONE
[2021-01-24 11:20] LABS: BASOPHILS # (AUTO) 0.1 (0.0-0.1); BASOPHILS % 1.1 % (0.0-1.0); EOSINOPHILS # (AUTO) 0.4 (0.0-0.4); EOSINOPHILS % 3.4 % (0.0-6.0); HEMATOCRIT 38.7 % (38.2-49.6); HEMOGLOBIN 11.9 g/dL (14.0-18.0); LYMPHOCYTES # (AUTO) 3.3 (1.0-3.2); LYMPHOCYTES % 28.8 % (18.0-39.1); MEAN CORPUSCULAR HEMOGLOBIN 27.9 pg (28-32); MEAN CORPUSCULAR HGB CONC 30.7 g/dL (31-35); MEAN CORPUSCULAR VOLUME 90.8 fL (81-99); MONOCYTES # (AUTO) 1.1 (0.2-0.8); MONOCYTES % 9.6 % (4.4-11.3); NEUTROPHILS # (AUTO) 6.2 (2.1-6.9); NEUTROPHILS % 55.2 % (38.7-80.0); PLATELET COUNT 227 x10e3/uL (140-360); RED BLOOD COUNT 4.26 x10e6/uL (4.3-5.7); RED CELL DISTRIBUTION WIDTH 13.2 % (11.7-14.4)
[2021-01-24 11:43] LABS: ALBUMIN 3.6 g/dL (3.5-5.0); ALBUMIN/GLOBULIN RATIO 1.3 (0.8-2.0); ANION GAP 12.6 mmol/L (8-16); CALCIUM 7.7 mg/dL (8.4-10.2); CREATININE, SERUM 1.25 mg/dL (0.72-1.25); POTASSIUM 4.6 mmol/L (3.5-5.1)
== END ==
LOC: LAB 11:04
PROVIDERS: ATTEND Internal Medicine Infectious Disease
DX: E11.622 Type 2 diabetes mellitus with other skin ulcer (principal)
CPT/HCPCS: 36415; 80053; 83036; 84134; 85025

== ENCOUNTER 2021-02-07 09:36 | Outpatient (RCR) | payer MEDICARE ==
[~2021-02-07 09:36] MED LIST changes: +COLLAGENASE OINTMENT 30 GM TUBE ONE; +LIDOCAINE VISC 2% SOLN 15 ML UDC ONE
== END 2021-02-08 ==
LOC: WCC 09:36
PROVIDERS: ATTEND Internal Medicine Infectious Disease
DX: E11.621 Type 2 diabetes mellitus with foot ulcer (principal); E11.622 Type 2 diabetes mellitus with other skin ulcer; L97.411 Non-pressure chronic ulcer of right heel and midfoot limited to breakdown of skin; L97.421 Non-pressure chronic ulcer of left heel and midfoot limited to breakdown of skin; I73.9 Peripheral vascular disease, unspecified; R60.0 Localized edema; M32.10 Systemic lupus erythematosus, organ or system involvement unspecified; I10 Essential (primary) hypertension; E78.5 Hyperlipidemia, unspecified; R26.81 Unsteadiness on feet; Z87.81 Personal history of (healed) traumatic fracture

== ENCOUNTER 2021-03-05 23:19 | Inpatient (IN) | payer MEDICARE ==
[~2021-03-05] VITALS: Ht 162.6 cm; Wt 72.6 kg
[~2021-03-05 23:19] MED LIST changes: -COLLAGENASE OINTMENT 30 GM TUBE ONE; -LIDOCAINE VISC 2% SOLN 15 ML UDC ONE
[2021-03-06] VITALS (7 sets, daily range): BP systolic 94–113; BP diastolic 63–70
[2021-03-06] MEDS ORDERED: ACYCLOVIR SODIUM INJ 1,000 MG in SODIUM CHLORIDE 0.9% 250ML 250 ML IV STA (00:15)
[2021-03-06 00:51] LABS: BASOPHILS # (AUTO) 0.1 (0.0-0.1); BASOPHILS % 0.6 % (0.0-1.0); EOSINOPHILS % 0.1 % (0.0-6.0); HEMATOCRIT 32.6 % (38.2-49.6); HEMOGLOBIN 10.4 g/dL (14.0-18.0); LYMPHOCYTES # (AUTO) 1.1 (1.0-3.2); MEAN CORPUSCULAR HEMOGLOBIN 27.5 pg (28-32); MEAN CORPUSCULAR HGB CONC 31.9 g/dL (31-35); MEAN CORPUSCULAR VOLUME 86.2 fL (81-99); MONOCYTES # (AUTO) 1.4 (0.2-0.8); MONOCYTES % 16.9 % (4.4-11.3); NEUTROPHILS # (AUTO) 5.2 (2.1-6.9); PLATELET COUNT 192 x10e3/uL (140-360); RED BLOOD COUNT 3.78 x10e6/uL (4.3-5.7)
[2021-03-06 01:08] LABS: ALBUMIN 2.8 g/dL (3.5-5.0); CALCIUM 7.5 mg/dL (8.4-10.2); CREATININE, SERUM 5.02 mg/dL (0.72-1.25)
[2021-03-06] MEDS ORDERED: SODIUM BICARBONATE 8.4% 50 ML VIAL IV STA (01:11)
[2021-03-06] MEDS ORDERED: DEXTROSE 50% SYRINGE 50 ML IV STA (01:11)
[2021-03-06] MEDS ORDERED: INSULIN REGULAR, HUMAN 100 UNIT/1 ML IV STA (01:11)
[2021-03-06 01:12] LABS: CLARITY,URINE CLOUDY (CLEAR); COLOR,URINE AMBER (YELLOW); KETONES,URINE TRACE (NEGATIVE); LEUKOCYTE ESTERASE ,URINE NEGATIVE (NEGATIVE); NITRITE,URINE NEGATIVE (NEGATIVE); PROTEIN,URINE DIPSTICK NEGATIVE (NEGATIVE); URINE UROBILINOGEN 0.2 mg/dL (0.2 - 1)
[2021-03-06] MEDS ORDERED: FUROSEMIDE INJ 10 MG/ML 4 ML VIAL IV STA (01:12)
[2021-03-06] MEDS ORDERED: ALBUTEROL SULF 0.083% NEB SOLN 3 ML NEB NEB STA (01:13)
[2021-03-06 01:14] LABS: CREATINE KINASE MB 5.1 ng/mL (0-5.0)
[2021-03-06] MEDS ORDERED: SODIUM CHLORIDE 0.9% 1000ML 1,000 ML IV STA (01:14)
[2021-03-06] MEDS ORDERED: CALCIUM GLUCONATE 10% INJ 4.65 MEQ in SODIUM CHLORIDE 0.9% 50ML 50 ML IV ONE (01:15)
[2021-03-06 01:17] LABS: AMORPHOUS SEDIMENT,URINE MANY (FEW); BACTERIA,URINE FEW /HPF; EPITHELIAL CELLS,URINE RARE /LPF; RBC,URINE 0-5 /HPF (0-5)
[2021-03-06] MEDS ORDERED: SODIUM BICARBONATE 8.4% SYRING 150 ML in DEXTROSE 5%/0.45% SOD CHL 1,000 ML IV STA (01:49)
[2021-03-06] MEDS: SODIUM CHLORIDE 0.9% 1000ML 1,000 ML IV SCH ×4 (02:00→21:52)
[2021-03-06] MEDS ORDERED: SODIUM BICARBONATE 8.4% SYRING 50 ML ONE (02:57)
[2021-03-06 04:34] LABS: ANION GAP 23.8 mmol/L (8-16); CALCIUM 7.3 mg/dL (8.4-10.2); CREATININE, SERUM 4.92 mg/dL (0.72-1.25)
[2021-03-06 04:36] LABS: POTASSIUM 5.8 mmol/L (3.5-5.1)
[2021-03-06] MEDS ORDERED: NOREPINEPHRINE 8 MG/D5W 250 ML 250 ML ONE (05:37)
[2021-03-06] MEDS ORDERED: SODIUM CHLORIDE 0.9% 250ML 250 ML ONE (06:11)
[2021-03-06] MEDS ORDERED: Vancomycin IV 1 GM VIAL ONE (06:11)
[2021-03-06 06:24] LABS: ABG HCO3 20 mmol/L (22-26); ABG PCO2 38 mmHg (35-45); ABG PH 7.34 (7.35-7.45); ABG PO2 92 mmHg (80-105); ABG TCO2 22
[2021-03-06] MEDS ORDERED: SODIUM CHLORIDE 0.9% 500ML 500 ML IV ONE (06:30)
[2021-03-06] MEDS ORDERED: SODIUM CHLORIDE 0.9% 500ML 500 ML ONE (06:35)
[2021-03-06 06:42] LABS: CREATINE KINASE MB 4.7 ng/mL (0-5.0)
[2021-03-06] MEDS ORDERED: SODIUM CHLORIDE 0.9% 1000ML 500 ML IV ONE (06:45)
[2021-03-06] MEDS ORDERED: DEXTROSE 5% 1,000 ML, SODIUM BICARBONATE 8.4% SYRING 150 ML IV ONE ×2 (06:45)
[2021-03-06] MEDS: NOREPINEPHRINE 8 MG/D5W 250 ML 250 ML IV SCH ×2 (07:01→23:38)
[2021-03-06] MEDS ORDERED: CEFEPIME 2 GM in SODIUM CHLORIDE 0.9% 100 ML IV ONE (07:30)
[2021-03-06] MEDS ORDERED: VANCOMYCIN HCL 1GM/NS 250 ML BAG IV ONE (07:30)
[2021-03-06 07:36] LABS: ALBUMIN 2.5 g/dL (3.5-5.0); ALBUMIN/GLOBULIN RATIO 1.2 (0.8-2.0); ANION GAP 25.9 mmol/L (8-16); CREATININE, SERUM 5.04 mg/dL (0.72-1.25); POTASSIUM 5.9 mmol/L (3.5-5.1)
[2021-03-06] MEDS ORDERED: VASOPRESSIN 60 UNIT in DEXTROSE 5% 50ML 57 ML IV SCH (07:45)
[2021-03-06 07:52] LABS: CALCIUM 6.9 mg/dL (8.4-10.2)
[2021-03-06] MEDS ORDERED: VASOPRESSIN INJ 20 UNIT/ML VIAL ONE (07:56)
[2021-03-06] MEDS ORDERED: ACYCLOVIR SODIUM INJ 500 MG in SODIUM CHLORIDE 0.9% 100 ML 100 ML IV SCH ×3 (08:00→21:00)
[2021-03-06] MEDS ORDERED: Vancomycin IV 1 GM in SODIUM CHLORIDE 0.9% 250ML 250 ML IV ONE (08:00)
[2021-03-06] MEDS: VASOPRESSIN 60 UNIT in DEXTROSE 5% 50ML 57 ML IV SCH ×3 (09:00→12:04)
[2021-03-06] MEDS ORDERED: ONDANSETRON HCL INJ 2MG/ML 2ML 2 MG/ML VIAL IV PRN (09:15)
[2021-03-06] MEDS ORDERED: ACETAMINOPHEN 1000 MG/100 ML IV PRN (09:15)
[2021-03-06] MEDS ORDERED: DEXTROSE 50% SYRINGE 50 ML IV PRN (09:30)
[2021-03-06] MEDS ORDERED: PIPERACILLIN/TAZOBACTAM 2.25 GM in SODIUM CHLORIDE 0.9% 50ML 50 ML IV SCH (10:00)
[2021-03-06] MEDS ORDERED: PROPOFOL IV EMULSION 50 ML IV ONE (10:55)
[2021-03-06] MEDS ORDERED: ALBUMIN 25% 12.5GM 50ML 100 ML IV ONE ×2 (10:58→11:00)
[2021-03-06] MEDS ORDERED: PROPOFOL IV EMULSION 10MG/ML 100 ML ONE ×2 (11:27→19:56)
[2021-03-06] MEDS ORDERED: SODIUM CHLORIDE 0.9% 1000ML 1,000 ML IV ONE (11:30)
[2021-03-06] MEDS ORDERED: ALBUMIN 25% 12.5GM 0.25 GM/ML BTL IV ONE (11:30)
[2021-03-06] MEDS ORDERED: PROPOFOL IV EMULSION 10MG/ML 100 ML IV SCH (11:30)
[2021-03-06] MEDS: PROPOFOL IV EMULSION 50 ML IV SCH ×2 (11:44→19:07)
[2021-03-06] MEDS: CEFTRIAXONE 2 GM in SODIUM CHLORIDE 0.9% 100 ML IV SCH (12:20)
[2021-03-06 12:31] LABS: INR 1.26; PROTHROMBIN TIME 16.1 seconds (11.9-14.5)
[2021-03-06 12:39] LABS: ALBUMIN 3.4 g/dL (3.5-5.0); ALBUMIN/GLOBULIN RATIO 1.5 (0.8-2.0); ANION GAP 24.3 mmol/L (8-16); CREATININE, SERUM 4.87 mg/dL (0.72-1.25)
[2021-03-06] MEDS: INSULIN LISPRO 100 UNIT/1 ML 3ML VIAL SQ SCH ×3 (13:03→23:45)
[2021-03-06 13:04] LABS: POTASSIUM 6.3 mmol/L (3.5-5.1)
[2021-03-06 13:15] LABS: CREATINE KINASE MB 2.6 ng/mL (0-5.0)
[2021-03-06] MEDS ORDERED: LIDOCAINE HCL 1% LOCAL INJ 20 ML VIAL ONE (15:22)
[2021-03-06] MEDS ORDERED: HEPARIN SOD (PORCINE) 1000 UNIT/ML SDV ONE ×2 (16:04→20:33)
[2021-03-06 17:19] LABS: APPEARANCE,CSF CLEAR (CLEAR); COLOR,CSF COLORLESS (COLORLESS); TUBE NUMBER 3; WHITE BLOOD CELL,CSF 5 cells/uL (0-5)
[2021-03-06 17:30] LABS: TOTAL PROTEIN,CSF 52.8 mg/dL (15-40)
[2021-03-06] MEDS ORDERED: SODIUM CHLORIDE 0.9% 1000ML 2,000 ML ONE (19:55)
[2021-03-06] MEDS ORDERED: MANNITOL 25% 12.5GM/50ML 100 ML ONE (20:32)
[2021-03-06] MEDS: PROPOFOL IV EMULSION 10MG/ML 100 ML IV SCH (21:52)
[2021-03-07] VITALS (27 sets, daily range): BP systolic 80–149; BP diastolic 54–77
[2021-03-07] MEDS: SODIUM CHLORIDE 0.9% 1000ML 1,000 ML IV SCH ×3 (00:02→20:17)
[2021-03-07] MEDS: CEFTRIAXONE 2 GM in SODIUM CHLORIDE 0.9% 100 ML IV SCH ×2 (00:02→12:05)
[2021-03-07] MEDS: PROPOFOL IV EMULSION 50 ML IV SCH ×3 (00:05→12:34)
[2021-03-07] MEDS: NOREPINEPHRINE 8 MG/D5W 250 ML 250 ML IV SCH ×5 (02:41→15:20)
[2021-03-07] MEDS: PROPOFOL IV EMULSION 10MG/ML 100 ML IV SCH ×2 (05:00→20:18)
[2021-03-07 05:53] LABS: BASOPHILS # (AUTO) 0.1 (0.0-0.1); BASOPHILS % 0.8 % (0.0-1.0); EOSINOPHILS # (AUTO) 0.1 (0.0-0.4); EOSINOPHILS % 0.7 % (0.0-6.0); HEMATOCRIT 28.9 % (38.2-49.6); HEMOGLOBIN 9.6 g/dL (14.0-18.0); LYMPHOCYTES # (AUTO) 1.1 (1.0-3.2); LYMPHOCYTES % 14.1 % (18.0-39.1); MEAN CORPUSCULAR HEMOGLOBIN 27.8 pg (28-32); MEAN CORPUSCULAR HGB CONC 33.2 g/dL (31-35); MEAN CORPUSCULAR VOLUME 83.8 fL (81-99); MONOCYTES # (AUTO) 0.3 (0.2-0.8); MONOCYTES % 3.6 % (4.4-11.3); NEUTROPHILS # (AUTO) 5.6 (2.1-6.9); NEUTROPHILS % 73.8 % (38.7-80.0); PLATELET COUNT 166 x10e3/uL (140-360); RED BLOOD COUNT 3.45 x10e6/uL (4.3-5.7); RED CELL DISTRIBUTION WIDTH 13.7 % (11.7-14.4)
[2021-03-07] MEDS: INSULIN LISPRO 100 UNIT/1 ML 3ML VIAL SQ SCH ×3 (06:00→17:22)
[2021-03-07] MEDS ORDERED: SODIUM CHLORIDE 0.9% 1000ML 2,000 ML IV PRN (06:45)
[2021-03-07] MEDS ORDERED: MANNITOL 25% 12.5GM/50 ML VIAL IV PRN (06:45)
[2021-03-07] MEDS ORDERED: HEPARIN SOD (PORCINE) 1000 UNIT/ML SDV IV PRN (06:45)
[2021-03-07 07:11] LABS: MAGNESIUM 1.5 MG/DL (1.3-2.1); PHOSPHORUS 2.7 MG/DL (2.3-4.7)
[2021-03-07 07:33] LABS: THYROID STIMULATING HORMONE 1.983 uIU/mL (0.350-4.940)
[2021-03-07 08:12] LABS: BAND NEUTROPHILS % (MANUAL) 5 %; LYMPHOCYTES % (MANUAL) 12 % (19-48); METAMYELOCYTES % (MANUAL) 1 % (0-0); MONOCYTES % (MANUAL) 7 % (3.4-9.0); NEUTROPHILS % (MANUAL) 75 % (40-74); PLATELET ESTIMATE ADEQUATE; PLATELET MORPHOLOGY COMMENT NORMAL; TOXIC GRANULATION SLIGHT
[2021-03-07 08:13] LABS: RBC MORPHOLOGY COMMENT NORMAL
[2021-03-07] MEDS: HYDROCORTISONE SOD SUCCINATE 100 MG VIAL IV SCH ×2 (08:18→21:35)
[2021-03-07 08:26] LABS: ALBUMIN 2.6 g/dL (3.5-5.0); ALBUMIN/GLOBULIN RATIO 1.1 (0.8-2.0); ANION GAP 22.2 mmol/L (8-16); CREATININE, SERUM 1.98 mg/dL (0.72-1.25); POTASSIUM 3.2 mmol/L (3.5-5.1)
[2021-03-07 08:38] LABS: CALCIUM 6.9 mg/dL (8.4-10.2)
[2021-03-07] MEDS ORDERED: ALBUMIN ONE (09:12)
[2021-03-07] MEDS: ACYCLOVIR SODIUM INJ 500 MG in SODIUM CHLORIDE 0.9% 100 ML 100 ML IV SCH (09:46)
[2021-03-07] MEDS ORDERED: HEPARIN 25,000 UNIT 1,100 UNIT in DEXTROSE 5% 250ML 250 ML IV SCH (10:00)
[2021-03-07] MEDS ORDERED: ENOXAPARIN INJ 80 MG/0.8 ML SYR SC SCH (10:00)
[2021-03-07] MEDS: METRONIDAZOLE 500MG/NS 100ML 100 ML IV SCH ×2 (10:32→17:37)
[2021-03-07] MEDS: HEPARIN 25,000 UNIT 1,100 UNIT in DEXTROSE 5% 250ML 250 ML IV SCH (11:48)
[2021-03-07] MEDS ORDERED: METRONIDAZOLE 500MG/NS 100ML 100 ML IV SCH (14:00)
[2021-03-07] MEDS ORDERED: BUPIVACAINE 0.25% 30ML SDV ONE (14:50)
[2021-03-07] MEDS ORDERED: HEPARIN SOD/SOD CHLORIDE 1,000 ML ONE (15:14)
[2021-03-07 17:42] LABS: ABG PH 7.46 (7.35-7.45)
[2021-03-07 17:43] LABS: ABG HCO3 23 mmol/L (22-26); ABG PCO2 32 mmHg (35-45); ABG PO2 306 mmHg (80-105); ABG TCO2 24
[2021-03-08] VITALS (22 sets, daily range): BP systolic 106–146; BP diastolic 59–90
[2021-03-08] MEDS: CEFTRIAXONE 2 GM in SODIUM CHLORIDE 0.9% 100 ML IV SCH ×2 (00:10→12:00)
[2021-03-08] MEDS: INSULIN LISPRO 100 UNIT/1 ML 3ML VIAL SQ SCH ×4 (00:18→17:54)
[2021-03-08] MEDS: HYDROCORTISONE SOD SUCCINATE 100 MG VIAL IV SCH ×3 (00:27→20:51)
[2021-03-08] MEDS: METRONIDAZOLE 500MG/NS 100ML 100 ML IV SCH ×3 (01:25→17:35)
[2021-03-08] MEDS: SODIUM CHLORIDE 0.9% 1000ML 1,000 ML IV SCH (02:39)
[2021-03-08] MEDS: NOREPINEPHRINE 8 MG/D5W 250 ML 250 ML IV SCH (02:41)
[2021-03-08] MEDS: PROPOFOL IV EMULSION 50 ML IV SCH ×2 (02:45→18:22)
[2021-03-08 05:37] LABS: BASOPHILS # (AUTO) 0.1 (0.0-0.1); BASOPHILS % 0.8 % (0.0-1.0); EOSINOPHILS % 0.1 % (0.0-6.0); HEMATOCRIT 25.6 % (38.2-49.6); HEMOGLOBIN 8.1 g/dL (14.0-18.0); LYMPHOCYTES # (AUTO) 0.4 (1.0-3.2); LYMPHOCYTES % 3.7 % (18.0-39.1); MEAN CORPUSCULAR HEMOGLOBIN 27.9 pg (28-32); MEAN CORPUSCULAR HGB CONC 31.6 g/dL (31-35); MEAN CORPUSCULAR VOLUME 88.3 fL (81-99); MONOCYTES # (AUTO) 0.9 (0.2-0.8); MONOCYTES % 7.6 % (4.4-11.3); NEUTROPHILS # (AUTO) 10.2 (2.1-6.9); NEUTROPHILS % 85.9 % (38.7-80.0); PLATELET COUNT 128 x10e3/uL (140-360); RED CELL DISTRIBUTION WIDTH 13.7 % (11.7-14.4)
[2021-03-08 06:00] LABS: MAGNESIUM 1.5 MG/DL (1.3-2.1); PHOSPHORUS 2.8 MG/DL (2.3-4.7)
[2021-03-08 06:14] LABS: ANION GAP 23.7 mmol/L (8-16); CREATININE, SERUM 1.23 mg/dL (0.72-1.25)
[2021-03-08 06:20] LABS: CALCIUM 6.7 mg/dL (8.4-10.2); POTASSIUM 2.7 mmol/L (3.5-5.1)
[2021-03-08] MEDS ORDERED: POTASSIUM CHLORIDE 20MEQ/100ML 200 ML IV ONE (06:45)
[2021-03-08] MEDS ORDERED: DEXMEDETOMIDINE 400MCG/NS100ML 100 ML IV PRN (07:00)
[2021-03-08] MEDS ORDERED: SODIUM BICARBONATE 8.4% SYRING 150 ML in DEXTROSE 5% 1,000 ML IV ONE (08:00)
[2021-03-08] MEDS: VASOPRESSIN 60 UNIT in DEXTROSE 5% 50ML 57 ML IV SCH (08:55)
[2021-03-08 09:14] LABS: ANION GAP 22.7 mmol/L (8-16); CREATININE, SERUM 1.31 mg/dL (0.72-1.25)
[2021-03-08 09:16] LABS: CALCIUM 6.6 mg/dL (8.4-10.2); POTASSIUM 2.7 mmol/L (3.5-5.1)
[2021-03-08] MEDS: ACYCLOVIR SODIUM INJ 500 MG in SODIUM CHLORIDE 0.9% 100 ML 100 ML IV SCH (09:19)
[2021-03-08 09:42] LABS: MAGNESIUM 1.6 MG/DL (1.3-2.1); PHOSPHORUS 3.2 MG/DL (2.3-4.7)
[2021-03-08] MEDS: HEPARIN 25,000 UNIT 1,100 UNIT in DEXTROSE 5% 250ML 250 ML IV SCH (10:28)
[2021-03-08] MEDS ORDERED: MAGNESIUM SULFATE 2GM/50ML 50 ML IV ONE (10:30)
[2021-03-08] MEDS ORDERED: POTASSIUM CHLORIDE 20MEQ/100ML 100 ML IV ONE (10:30)
[2021-03-08] MEDS ORDERED: CALCIUM GLUCONATE 10% INJ 4.65 MEQ in SODIUM CHLORIDE 0.9% 50ML 50 ML IV ONE ×2 (10:30→13:00)
[2021-03-08 11:47] LABS: ABG HCO3 21 mmol/L (22-26); ABG PCO2 35 mmHg (35-45); ABG PH 7.38 (7.35-7.45); ABG PO2 122 mmHg (80-105); ABG TCO2 22
[2021-03-09] VITALS (25 sets, daily range): BP systolic 94–143; BP diastolic 59–72
[2021-03-09] MEDS: HYDROCORTISONE SOD SUCCINATE 100 MG VIAL IV SCH ×3 (00:25→20:01)
[2021-03-09] MEDS: CEFTRIAXONE 2 GM in SODIUM CHLORIDE 0.9% 100 ML IV SCH ×2 (00:25→12:34)
[2021-03-09] MEDS: INSULIN LISPRO 100 UNIT/1 ML 3ML VIAL SQ SCH ×4 (00:27→18:06)
[2021-03-09] MEDS: METRONIDAZOLE 500MG/NS 100ML 100 ML IV SCH ×3 (02:26→18:05)
[2021-03-09] MEDS: NOREPINEPHRINE 8 MG/D5W 250 ML 250 ML IV SCH (07:00)
[2021-03-09 07:34] LABS: BASOPHILS # (AUTO) 0.1 (0.0-0.1); BASOPHILS % 0.6 % (0.0-1.0); HEMATOCRIT 23.7 % (38.2-49.6); HEMOGLOBIN 7.7 g/dL (14.0-18.0); LYMPHOCYTES # (AUTO) 0.5 (1.0-3.2); LYMPHOCYTES % 6.1 % (18.0-39.1); MEAN CORPUSCULAR HEMOGLOBIN 27.4 pg (28-32); MEAN CORPUSCULAR HGB CONC 32.5 g/dL (31-35); MEAN CORPUSCULAR VOLUME 84.3 fL (81-99); MONOCYTES # (AUTO) 0.8 (0.2-0.8); NEUTROPHILS # (AUTO) 6.9 (2.1-6.9); PLATELET COUNT 120 x10e3/uL (140-360); RED BLOOD COUNT 2.81 x10e6/uL (4.3-5.7); RED CELL DISTRIBUTION WIDTH 13.5 % (11.7-14.4)
[2021-03-09] MEDS: VASOPRESSIN 60 UNIT in DEXTROSE 5% 50ML 57 ML IV SCH (07:36)
[2021-03-09 08:09] LABS: ALBUMIN 2.4 g/dL (3.5-5.0); ALBUMIN/GLOBULIN RATIO 1.1 (0.8-2.0); ANION GAP 16.7 mmol/L (8-16); CREATININE, SERUM 0.92 mg/dL (0.72-1.25)
[2021-03-09] MEDS ORDERED: SODIUM BICARBONATE 8.4% SYRING 150 ML in DEXTROSE 5% 1,000 ML IV SCH (08:15)
[2021-03-09] MEDS ORDERED: BUMETANIDE INJ 0.25MG/ML 4ML VIAL IV ONE (08:15)
[2021-03-09 08:30] LABS: CALCIUM 6.7 mg/dL (8.4-10.2); POTASSIUM 2.7 mmol/L (3.5-5.1)
[2021-03-09] MEDS: ACYCLOVIR SODIUM INJ 500 MG in SODIUM CHLORIDE 0.9% 100 ML 100 ML IV SCH (08:49)
[2021-03-09 09:39] LABS: ABG PCO2 40 mmHg (35-45); ABG PH 7.53 (7.35-7.45)
[2021-03-09 09:40] LABS: ABG HCO3 34 mmol/L (22-26); ABG PO2 67 mmHg (80-105); ABG TCO2 35
[2021-03-09] MEDS ORDERED: DEXTROSE 5% 1,000 ML IV ONE (09:52)
[2021-03-09] MEDS: DEXTROSE 5% 1,000 ML IV SCH ×2 (09:59→22:35)
[2021-03-09] MEDS ORDERED: MAGNESIUM SULF 1GRAM/DEXTROSE 100 ML IV ONE (10:00)
[2021-03-09] MEDS ORDERED: POTASSIUM CHLORIDE 20MEQ/100ML 300 ML IV ONE (10:00)
[2021-03-09] MEDS: HEPARIN 25,000 UNIT 1,100 UNIT in DEXTROSE 5% 250ML 250 ML IV SCH (10:53)
[2021-03-09 16:22] LABS: ABG HCO3 36 mmol/L (22-26); ABG PCO2 58 mmHg (35-45); ABG PO2 99 mmHg (80-105); ABG TCO2 37
[2021-03-09] MEDS: ALBUTEROL SULF 0.083% NEB SOLN 3 ML NEB NEB SCH (19:18)
[2021-03-10] VITALS (27 sets, daily range): BP systolic 115–141; BP diastolic 58–74
[2021-03-10] MEDS: CEFTRIAXONE 2 GM in SODIUM CHLORIDE 0.9% 100 ML IV SCH ×2 (00:24→12:02)
[2021-03-10] MEDS: HYDROCORTISONE SOD SUCCINATE 100 MG VIAL IV SCH ×3 (00:24→20:00)
[2021-03-10] MEDS: INSULIN LISPRO 100 UNIT/1 ML 3ML VIAL SQ SCH ×4 (00:27→18:06)
[2021-03-10] MEDS: ALBUTEROL SULF 0.083% NEB SOLN 3 ML NEB NEB SCH ×4 (01:45→19:50)
[2021-03-10] MEDS: METRONIDAZOLE 500MG/NS 100ML 100 ML IV SCH ×2 (02:00→09:19)
[2021-03-10] MEDS: NOREPINEPHRINE 8 MG/D5W 250 ML 250 ML IV SCH (06:33)
[2021-03-10 06:35] LABS: BASOPHILS % 0.4 % (0.0-1.0); HEMATOCRIT 26.5 % (38.2-49.6); HEMOGLOBIN 8.2 g/dL (14.0-18.0); LYMPHOCYTES # (AUTO) 0.4 (1.0-3.2); LYMPHOCYTES % 7.5 % (18.0-39.1); MEAN CORPUSCULAR HEMOGLOBIN 27.4 pg (28-32); MEAN CORPUSCULAR HGB CONC 30.9 g/dL (31-35); MEAN CORPUSCULAR VOLUME 88.6 fL (81-99); MONOCYTES # (AUTO) 0.4 (0.2-0.8); MONOCYTES % 7.5 % (4.4-11.3); NEUTROPHILS % 83.3 % (38.7-80.0); PLATELET COUNT 112 x10e3/uL (140-360); RED BLOOD COUNT 2.99 x10e6/uL (4.3-5.7); RED CELL DISTRIBUTION WIDTH 14.1 % (11.7-14.4)
[2021-03-10 06:57] LABS: ALBUMIN 2.4 g/dL (3.5-5.0); ANION GAP 16.3 mmol/L (8-16); CREATININE, SERUM 1.07 mg/dL (0.72-1.25); MAGNESIUM 1.9 MG/DL (1.3-2.1); PHOSPHORUS 2.5 MG/DL (2.3-4.7); POTASSIUM 3.3 mmol/L (3.5-5.1)
[2021-03-10 07:06] LABS: CALCIUM 6.7 mg/dL (8.4-10.2)
[2021-03-10 07:29] LABS: IRON 45 ug/dL (65-175); TRANSFERRIN < 70 mg/dL (174-364)
[2021-03-10] MEDS: VASOPRESSIN 60 UNIT in DEXTROSE 5% 50ML 57 ML IV SCH (07:35)
[2021-03-10] MEDS: ACYCLOVIR SODIUM INJ 500 MG in SODIUM CHLORIDE 0.9% 100 ML 100 ML IV SCH (08:00)
[2021-03-10] MEDS ORDERED: POTASSIUM CHLORIDE 20MEQ/100ML 200 ML IV ONE (08:15)
[2021-03-10] MEDS ORDERED: FUROSEMIDE INJ 10 MG/ML 4 ML VIAL IV ONE (10:00)
[2021-03-10] MEDS ORDERED: SPIRONOLACTONE 25 MG TAB PO ONE (10:30)
[2021-03-10] MEDS: HEPARIN 25,000 UNIT 1,100 UNIT in DEXTROSE 5% 250ML 250 ML IV SCH (10:30)
[2021-03-10] MEDS: PROPOFOL IV EMULSION 50 ML IV SCH (10:36)
[2021-03-10] MEDS ORDERED: PROPOFOL IV EMULSION 10MG/ML 100 ML IV SCH (11:30)
[2021-03-10] MEDS: ACYCLOVIR 200 MG CAP PEG SCH (16:30)
[2021-03-10] MEDS: DEXTROSE 5% 1,000 ML IV SCH (18:04)
[2021-03-11] VITALS (16 sets, daily range): BP systolic 116–140; BP diastolic 59–83
[2021-03-11] MEDS: CEFTRIAXONE 2 GM in SODIUM CHLORIDE 0.9% 100 ML IV SCH ×2 (00:15→12:12)
[2021-03-11] MEDS: ALBUTEROL SULF 0.083% NEB SOLN 3 ML NEB NEB SCH ×4 (01:40→19:25)
[2021-03-11] MEDS: HEPARIN 25,000 UNIT 1,100 UNIT in DEXTROSE 5% 250ML 250 ML IV SCH (03:17)
[2021-03-11 05:03] LABS: BASOPHILS % 0.2 % (0.0-1.0); HEMATOCRIT 25.1 % (38.2-49.6); HEMOGLOBIN 7.7 g/dL (14.0-18.0); LYMPHOCYTES # (AUTO) 0.5 (1.0-3.2); MEAN CORPUSCULAR HEMOGLOBIN 27.1 pg (28-32); MEAN CORPUSCULAR HGB CONC 30.7 g/dL (31-35); MEAN CORPUSCULAR VOLUME 88.4 fL (81-99); MONOCYTES # (AUTO) 0.3 (0.2-0.8); NEUTROPHILS # (AUTO) 4.5 (2.1-6.9); NEUTROPHILS % 83.7 % (38.7-80.0); PLATELET COUNT 137 x10e3/uL (140-360); RED BLOOD COUNT 2.84 x10e6/uL (4.3-5.7); RED CELL DISTRIBUTION WIDTH 13.9 % (11.7-14.4)
[2021-03-11 05:40] LABS: CREATININE, SERUM 1.05 mg/dL (0.72-1.25)
[2021-03-11 05:41] LABS: CALCIUM 6.5 mg/dL (8.4-10.2)
[2021-03-11] MEDS: INSULIN LISPRO 100 UNIT/1 ML 3ML VIAL SQ SCH ×4 (06:24→18:10)
[2021-03-11] MEDS: NOREPINEPHRINE 8 MG/D5W 250 ML 250 ML IV SCH (07:00)
[2021-03-11] MEDS: ACYCLOVIR 200 MG CAP PEG SCH ×3 (08:00→15:48)
[2021-03-11] MEDS ORDERED: POTASSIUM CHLORIDE 20MEQ/100ML 300 ML IV ONE (08:00)
[2021-03-11] MEDS: VASOPRESSIN 60 UNIT in DEXTROSE 5% 50ML 57 ML IV SCH (08:19)
[2021-03-11] MEDS: HYDROCORTISONE SOD SUCCINATE 100 MG VIAL IV SCH ×3 (08:19→20:29)
[2021-03-11] MEDS: BACITRACIN ZINC 15 GM OINT TOP SCH (08:20)
[2021-03-11] MEDS: COLLAGENASE 5 GM TUBE TP SCH (08:20)
[2021-03-11] MEDS: BALSAM PERU/CASTOR OIL 60 GM OINT...G. TP SCH (08:20)
[2021-03-11 08:30] LABS: MAGNESIUM 1.7 MG/DL (1.3-2.1); PHOSPHORUS 2.2 MG/DL (2.3-4.7)
[2021-03-11] MEDS ORDERED: MAGNESIUM SULFATE 2GM/50ML 50 ML IV ONE (10:15)
[2021-03-11] MEDS: DEXTROSE 5% 1,000 ML IV SCH (12:12)
[2021-03-11] MEDS ORDERED: FUROSEMIDE INJ 10 MG/ML 2 ML VIAL IV NR (15:00)
[2021-03-11] MEDS: ACETAMINOPHEN 325 MG TAB PO PRN (22:42)
[2021-03-12] VITALS (8 sets, daily range): BP systolic 128–148; BP diastolic 69–81
[2021-03-12] MEDS: CEFTRIAXONE 2 GM in SODIUM CHLORIDE 0.9% 100 ML IV SCH ×2 (00:42→12:25)
[2021-03-12] MEDS: HYDROCORTISONE SOD SUCCINATE 100 MG VIAL IV SCH ×2 (00:43→09:34)
[2021-03-12] MEDS: ALBUTEROL SULF 0.083% NEB SOLN 3 ML NEB NEB SCH ×2 (02:23→07:52)
[2021-03-12] MEDS: DEXTROSE 5% 1,000 ML IV SCH (04:02)
[2021-03-12] MEDS: INSULIN LISPRO 100 UNIT/1 ML 3ML VIAL SQ SCH ×5 (06:00→20:34)
[2021-03-12 09:08] LABS: ALBUMIN 2.4 g/dL (3.5-5.0); ALBUMIN/GLOBULIN RATIO 1.1 (0.8-2.0); ANION GAP 14.1 mmol/L (8-16); CREATININE, SERUM 0.91 mg/dL (0.72-1.25); POTASSIUM 3.1 mmol/L (3.5-5.1)
[2021-03-12 09:13] LABS: CALCIUM 6.7 mg/dL (8.4-10.2)
[2021-03-12] MEDS ORDERED: POTASSIUM CHLORIDE 20MEQ/100ML 200 ML IV ONE (09:30)
[2021-03-12] MEDS: ACYCLOVIR 200 MG CAP PEG SCH ×4 (09:34→23:32)
[2021-03-12] MEDS: NYSTATIN SUSPENSION 5 ML UDC PO SCH ×4 (09:34→20:39)
[2021-03-12] MEDS: BALSAM PERU/CASTOR OIL 60 GM OINT...G. TP SCH (09:35)
[2021-03-12] MEDS: BACITRACIN ZINC 15 GM OINT TOP SCH (09:35)
[2021-03-12] MEDS: COLLAGENASE 5 GM TUBE TP SCH (09:35)
[2021-03-12] MEDS: HEPARIN 25,000 UNIT 1,100 UNIT in DEXTROSE 5% 250ML 250 ML IV SCH (11:42)
[2021-03-12] MEDS: IRON SUCROSE 100 MG in SODIUM CHLORIDE 0.9% 100 ML 100 ML IV SCH (13:04)
[2021-03-12] MEDS: HEPARIN SOD (PORCINE) 5,000 UNIT/ML VIAL SC SCH (20:37)
[2021-03-12] MEDS ORDERED: HYDROCORTISONE SOD SUCCINATE 100 MG VIAL IV SCH (21:00)
[2021-03-13] VITALS (8 sets, daily range): BP systolic 129–154; BP diastolic 65–83
[2021-03-13] MEDS: ALBUTEROL SULF 0.083% NEB SOLN 3 ML NEB NEB SCH ×4 (02:40→20:00)
[2021-03-13 07:05] LABS: ALBUMIN 2.1 g/dL (3.5-5.0); ALBUMIN/GLOBULIN RATIO 0.9 (0.8-2.0); CREATININE, SERUM 0.71 mg/dL (0.72-1.25); MAGNESIUM 1.8 MG/DL (1.3-2.1); PHOSPHORUS 1.6 MG/DL (2.3-4.7)
[2021-03-13 07:07] LABS: CALCIUM 6.8 mg/dL (8.4-10.2)
[2021-03-13 07:20] LABS: BASOPHILS % 0.3 % (0.0-1.0); EOSINOPHILS % 0.5 % (0.0-6.0); HEMATOCRIT 25.5 % (38.2-49.6); LYMPHOCYTES # (AUTO) 1.4 (1.0-3.2); LYMPHOCYTES % 20.3 % (18.0-39.1); MEAN CORPUSCULAR HEMOGLOBIN 27.9 pg (28-32); MEAN CORPUSCULAR HGB CONC 31.4 g/dL (31-35); MEAN CORPUSCULAR VOLUME 88.9 fL (81-99); MONOCYTES # (AUTO) 0.4 (0.2-0.8); NEUTROPHILS # (AUTO) 4.7 (2.1-6.9); NEUTROPHILS % 70.5 % (38.7-80.0); PLATELET COUNT 212 x10e3/uL (140-360); RED BLOOD COUNT 2.87 x10e6/uL (4.3-5.7)
[2021-03-13] MEDS: INSULIN LISPRO 100 UNIT/1 ML 3ML VIAL SQ SCH ×4 (07:30→21:49)
[2021-03-13] MEDS: ACYCLOVIR 200 MG CAP PEG SCH ×2 (08:58→15:58)
[2021-03-13] MEDS: PREDNISONE 5 MG TAB PO SCH (08:58)
[2021-03-13] MEDS: BACITRACIN ZINC 15 GM OINT TOP SCH (08:58)
[2021-03-13] MEDS: NYSTATIN SUSPENSION 5 ML UDC PO SCH ×4 (08:58→22:36)
[2021-03-13] MEDS: COLLAGENASE 5 GM TUBE TP SCH (08:59)
[2021-03-13] MEDS: BALSAM PERU/CASTOR OIL 60 GM OINT...G. TP SCH (08:59)
[2021-03-13] MEDS: CEFTRIAXONE 1 GM in SODIUM CHLORIDE 0.9% 50ML 50 ML IV SCH ×2 (09:00→09:22)
[2021-03-13] MEDS: HEPARIN SOD (PORCINE) 5,000 UNIT/ML VIAL SC SCH ×2 (09:01→22:38)
[2021-03-13] MEDS: IRON SUCROSE 100 MG in SODIUM CHLORIDE 0.9% 100 ML 100 ML IV SCH (09:03)
[2021-03-13] MEDS ORDERED: POTASSIUM CHLORIDE 20MEQ/100ML 300 ML IV ONE (15:45)
[2021-03-13] MEDS: ACETAMINOPHEN 325 MG TAB PO PRN (16:07)
[2021-03-14 01:03] VITALS: BP 140/77
[2021-03-14 02:27] VITALS: BP 140/77
[2021-03-14] MEDS: ALBUTEROL SULF 0.083% NEB SOLN 3 ML NEB NEB SCH ×4 (02:40→20:12)
[2021-03-14 05:41] VITALS: BP 129/66
[2021-03-14] MEDS: INSULIN LISPRO 100 UNIT/1 ML 3ML VIAL SQ SCH ×4 (07:30→22:07)
[2021-03-14 09:00] VITALS: BP 126/63
[2021-03-14] MEDS: HEPARIN SOD (PORCINE) 5,000 UNIT/ML VIAL SC SCH ×2 (09:00→22:08)
[2021-03-14] MEDS: ACYCLOVIR 200 MG CAP PEG SCH ×2 (10:21)
[2021-03-14] MEDS: NYSTATIN SUSPENSION 5 ML UDC PO SCH ×4 (10:22→22:05)
[2021-03-14] MEDS: CEFTRIAXONE 1 GM in SODIUM CHLORIDE 0.9% 50ML 50 ML IV SCH (10:22)
[2021-03-14] MEDS: PREDNISONE 5 MG TAB PO SCH (10:22)
[2021-03-14] MEDS: BACITRACIN ZINC 15 GM OINT TOP SCH (10:23)
[2021-03-14] MEDS: COLLAGENASE 5 GM TUBE TP SCH (10:23)
[2021-03-14] MEDS: BALSAM PERU/CASTOR OIL 60 GM OINT...G. TP SCH (10:25)
[2021-03-14] MEDS: ACETAMINOPHEN 325 MG TAB PO PRN (11:56)
[2021-03-14] MEDS: IRON SUCROSE 100 MG in SODIUM CHLORIDE 0.9% 100 ML 100 ML IV SCH (11:58)
[2021-03-14 20:00] VITALS: BP 140/74
[2021-03-14 20:55] VITALS: BP 140/74
[2021-03-15] VITALS (7 sets, daily range): BP systolic 110–140; BP diastolic 60–80
[2021-03-15] MEDS: ALBUTEROL SULF 0.083% NEB SOLN 3 ML NEB NEB SCH ×3 (02:52→14:35)
[2021-03-15] MEDS: INSULIN LISPRO 100 UNIT/1 ML 3ML VIAL SQ SCH ×4 (07:30→21:00)
[2021-03-15] MEDS: PREDNISONE 5 MG TAB PO SCH (09:09)
[2021-03-15] MEDS: NYSTATIN SUSPENSION 5 ML UDC PO SCH ×4 (09:09→21:00)
[2021-03-15] MEDS: IRON SUCROSE 100 MG in SODIUM CHLORIDE 0.9% 100 ML 100 ML IV SCH (09:09)
[2021-03-15 10:13] LABS: EOSINOPHILS # (AUTO) 0.1 (0.0-0.4); EOSINOPHILS % 0.7 % (0.0-6.0); HEMATOCRIT 27.3 % (38.2-49.6); HEMOGLOBIN 8.2 g/dL (14.0-18.0); LYMPHOCYTES # (AUTO) 1.3 (1.0-3.2); LYMPHOCYTES % 16.7 % (18.0-39.1); MEAN CORPUSCULAR HEMOGLOBIN 27.7 pg (28-32); MEAN CORPUSCULAR VOLUME 92.2 fL (81-99); MONOCYTES # (AUTO) 0.5 (0.2-0.8); MONOCYTES % 7.2 % (4.4-11.3); NEUTROPHILS # (AUTO) 5.5 (2.1-6.9); NEUTROPHILS % 73.3 % (38.7-80.0); PLATELET COUNT 293 x10e3/uL (140-360); RED BLOOD COUNT 2.96 x10e6/uL (4.3-5.7); RED CELL DISTRIBUTION WIDTH 14.3 % (11.7-14.4)
[2021-03-15 10:26] LABS: MAGNESIUM 1.4 MG/DL (1.3-2.1); PHOSPHORUS 1.9 MG/DL (2.3-4.7)
[2021-03-15] MEDS ORDERED: ONDANSETRON HCL 4 MG ORAL DISINTEGRATING TAB PO PRN (10:30)
[2021-03-15 10:45] LABS: ANION GAP 15.7 mmol/L (8-16); CALCIUM 7.6 mg/dL (8.4-10.2); CREATININE, SERUM 0.73 mg/dL (0.72-1.25); POTASSIUM 3.7 mmol/L (3.5-5.1)
[2021-03-15] MEDS: HEPARIN SOD (PORCINE) 5,000 UNIT/ML VIAL SC SCH ×2 (11:19→21:00)
[2021-03-15] MEDS: OMEPRAZOLE 20 MG CAP PO SCH (13:50)
[2021-03-15] MEDS: BALSAM PERU/CASTOR OIL 60 GM OINT...G. TP SCH (14:17)
[2021-03-15] MEDS: COLLAGENASE 5 GM TUBE TP SCH (14:17)
[2021-03-15] MEDS: BACITRACIN ZINC 15 GM OINT TOP SCH (14:18)
[2021-03-16] VITALS (9 sets, daily range): BP systolic 110–159; BP diastolic 60–83
[2021-03-16] MEDS: ALBUTEROL SULF 0.083% NEB SOLN 3 ML NEB NEB SCH ×4 (01:00→22:02)
[2021-03-16] MEDS: INSULIN LISPRO 100 UNIT/1 ML 3ML VIAL SQ SCH ×4 (07:30→21:00)
[2021-03-16] MEDS: PREDNISONE 5 MG TAB PO SCH (09:24)
[2021-03-16] MEDS: OMEPRAZOLE 20 MG CAP PO SCH (09:24)
[2021-03-16] MEDS: NYSTATIN SUSPENSION 5 ML UDC PO SCH ×4 (09:24→21:51)
[2021-03-16] MEDS: BACITRACIN ZINC 15 GM OINT TOP SCH (09:24)
[2021-03-16] MEDS: HEPARIN SOD (PORCINE) 5,000 UNIT/ML VIAL SC SCH ×2 (10:28→21:52)
[2021-03-16] MEDS: ACETAMINOPHEN 325 MG TAB PO PRN (13:45)
[2021-03-16] MEDS ORDERED: HYDROCODON-ACE1 EAC9 (15:47)
[2021-03-16] MEDS: BALSAM PERU/CASTOR OIL 60 GM OINT...G. TP SCH (17:10)
[2021-03-16] MEDS: COLLAGENASE 5 GM TUBE TP SCH (17:10)
[2021-03-16] MEDS: HYDROCODONE/APAP 10MG-325MG TAB PO PRN (17:35)
[2021-03-17 00:58] VITALS: BP 140/68
[2021-03-17] MEDS: HYDROCODONE/APAP 10MG-325MG TAB PO PRN ×2 (02:10→14:13)
[2021-03-17] MEDS: ALBUTEROL SULF 0.083% NEB SOLN 3 ML NEB NEB SCH ×3 (04:05→14:38)
[2021-03-17 05:04] LABS: BASOPHILS % 0.3 % (0.0-1.0); EOSINOPHILS # (AUTO) 0.1 (0.0-0.4); EOSINOPHILS % 0.8 % (0.0-6.0); HEMATOCRIT 26.6 % (38.2-49.6); LYMPHOCYTES # (AUTO) 1.1 (1.0-3.2); LYMPHOCYTES % 18.8 % (18.0-39.1); MEAN CORPUSCULAR HEMOGLOBIN 28.5 pg (28-32); MEAN CORPUSCULAR HGB CONC 30.1 g/dL (31-35); MEAN CORPUSCULAR VOLUME 94.7 fL (81-99); MONOCYTES # (AUTO) 0.7 (0.2-0.8); MONOCYTES % 12.5 % (4.4-11.3); NEUTROPHILS # (AUTO) 3.9 (2.1-6.9); NEUTROPHILS % 66.6 % (38.7-80.0); PLATELET COUNT 260 x10e3/uL (140-360); RED BLOOD COUNT 2.81 x10e6/uL (4.3-5.7); RED CELL DISTRIBUTION WIDTH 14.9 % (11.7-14.4)
[2021-03-17 05:23] LABS: ANION GAP 16.9 mmol/L (8-16); CALCIUM 7.6 mg/dL (8.4-10.2); CREATININE, SERUM 0.63 mg/dL (0.72-1.25); POTASSIUM 3.9 mmol/L (3.5-5.1)
[2021-03-17 05:41] VITALS: BP 130/64
[2021-03-17 06:06] LABS: MAGNESIUM 1.2 MG/DL (1.3-2.1); PHOSPHORUS 2.4 MG/DL (2.3-4.7)
[2021-03-17] MEDS: INSULIN LISPRO 100 UNIT/1 ML 3ML VIAL SQ SCH ×3 (07:30→17:28)
[2021-03-17 07:52] VITALS: BP 138/70
[2021-03-17] MEDS: OMEPRAZOLE 20 MG CAP PO SCH (09:21)
[2021-03-17] MEDS: NYSTATIN SUSPENSION 5 ML UDC PO SCH ×3 (09:21→17:41)
[2021-03-17] MEDS: PREDNISONE 5 MG TAB PO SCH (09:21)
[2021-03-17] MEDS: HEPARIN SOD (PORCINE) 5,000 UNIT/ML VIAL SC SCH (09:22)
[2021-03-17] MEDS: BALSAM PERU/CASTOR OIL 60 GM OINT...G. TP SCH (09:23)
[2021-03-17] MEDS: COLLAGENASE 5 GM TUBE TP SCH (09:23)
[2021-03-17] MEDS: BACITRACIN ZINC 15 GM OINT TOP SCH (09:24)
[2021-03-17 11:56] VITALS: BP 138/65
[2021-03-17] MEDS ORDERED: PREDNISONE5 M1 PO (14:04)
[2021-03-17 16:12] VITALS: BP 129/65
[2021-03-17] MEDS: SENNA-S TABLET PO SCH ×2 (16:14→17:30)
[2021-03-17 16:15] VITALS: BP 129/65
[2021-03-17] MEDS ORDERED: MAGNESIUM OXIDE 400 MG TAB PO SCH (17:00)
== END 2021-03-17 18:53 | disposition home or self-care (01) | DRG 853 ==
LOC: ER 23:30 → ERHOLD 03-06 01:52 → ICU 03-06 19:33 → MED/SURG3 03-11 12:47
PROVIDERS: ADMIT Internal Medicine; ATTEND Internal Medicine
PROC: 05H533Z Insertion of Infusion Device into Right Subclavian Vein, Percutaneous Approach (ICD-10-PCS; principal; 2021-03-06)
PROC: 0BH17EZ Insertion of Endotracheal Airway into Trachea, Via Natural or Artificial Opening (ICD-10-PCS; 2021-03-06)
PROC: 5A1945Z Respiratory Ventilation, 24-96 Consecutive Hours (ICD-10-PCS; 2021-03-06)
PROC: 0DJD0ZZ Inspection of Lower Intestinal Tract, Open Approach (ICD-10-PCS; 2021-03-06)
PROC: 5A1D70Z Performance of Urinary Filtration, Intermittent, Less than 6 Hours Per Day (ICD-10-PCS; 2021-03-06)
PROC: 009U3ZX Drainage of Spinal Canal, Percutaneous Approach, Diagnostic (ICD-10-PCS; 2021-03-06)
DX: A41.9 Sepsis, unspecified organism (principal); K55.059 Acute (reversible) ischemia of intestine, part and extent unspecified; R65.21 Severe sepsis with septic shock; N17.0 Acute kidney failure with tubular necrosis; J80 Acute respiratory distress syndrome; A86 Unspecified viral encephalitis; E87.4 Mixed disorder of acid-base balance; E87.5 Hyperkalemia; E11.51 Type 2 diabetes mellitus with diabetic peripheral angiopathy without gangrene; M32.9 Systemic lupus erythematosus, unspecified; E86.0 Dehydration; B02.9 Zoster without complications; R62.7 Adult failure to thrive; Z68.27 Body mass index [BMI] 27.0-27.9, adult; D69.59 Other secondary thrombocytopenia; E83.51 Hypocalcemia; D50.0 Iron deficiency anemia secondary to blood loss (chronic); Z20.822 Contact with and (suspected) exposure to COVID-19
CPT/HCPCS: 36415; 36556; 36600; 51700; 62328; 70450; 71045; 71046; 71250; 74176; 74470; 76937; 77001; 80048; 80053; 81001; 82550; 82553; 82607; 82746; 82805; 82945; 82948; 83036; 83540; 83605; 83735; 83880; 84100; 84157; 84443; 84466; 84484; 85025; 85045; 85610; 85730; 86705; 86706; 86850; 86900; 86920; 87040; 87070; 87205; 87340; 87529; 89051; 90962; 93005; 93306; 94002; 94003; 94640; 94660; 96372; 97139; 99251; 99284; C1752; C1769; J0456; J0610; J0692; J0696; J1644; J1720; J1756; J1817; J1940; J2001; J2150; J2543; J3370; J3475; J3480; J7030; J7040; J7050; J7070; J7512; J7799; P9047; U0002

== ENCOUNTER 2021-03-23 15:48 | Inpatient (IN) | payer MEDICARE ==
[~2021-03-23] VITALS: Ht 165.1 cm; Wt 104.3 kg
[~2021-03-23 15:48] MED LIST changes: +HYDROCODON-ACE1 EAC9
[2021-03-23 16:16] LABS: BASOPHILS % 0.4 % (0.0-1.0); EOSINOPHILS % 0.1 % (0.0-6.0); HEMATOCRIT 31.5 % (38.2-49.6); HEMOGLOBIN 8.9 g/dL (14.0-18.0); LYMPHOCYTES # (AUTO) 0.8 (1.0-3.2); MEAN CORPUSCULAR HEMOGLOBIN 28.6 pg (28-32); MEAN CORPUSCULAR HGB CONC 28.3 g/dL (31-35); MEAN CORPUSCULAR VOLUME 101.3 fL (81-99); MONOCYTES # (AUTO) 0.8 (0.2-0.8); MONOCYTES % 9.5 % (4.4-11.3); NEUTROPHILS # (AUTO) 6.3 (2.1-6.9); NEUTROPHILS % 79.5 % (38.7-80.0); PLATELET COUNT 291 x10e3/uL (140-360); RED BLOOD COUNT 3.11 x10e6/uL (4.3-5.7); RED CELL DISTRIBUTION WIDTH 16.9 % (11.7-14.4)
[2021-03-23 16:42] LABS: INR 0.91; PROTHROMBIN TIME 12.4 seconds (11.9-14.5)
[2021-03-23 16:43] LABS: PARTIAL THROMBOPLASTIN TIME 30.9 seconds (23.8-35.5)
[2021-03-23 16:45] LABS: CLARITY,URINE HAZY (CLEAR); COLOR,URINE YELLOW (YELLOW)
[2021-03-23 16:46] LABS: KETONES,URINE NEGATIVE (NEGATIVE); LEUKOCYTE ESTERASE ,URINE NEGATIVE (NEGATIVE); NITRITE,URINE NEGATIVE (NEGATIVE); PROTEIN,URINE DIPSTICK 1+ (NEGATIVE); RBC,URINE 0-5 /HPF (0-5); URINE UROBILINOGEN 0.2 mg/dL (0.2 - 1)
[2021-03-23 16:47] LABS: AMORPHOUS SEDIMENT,URINE FEW (FEW); BACTERIA,URINE FEW /HPF; EPITHELIAL CELLS,URINE FEW /LPF; HYALINE CASTS 0-1 (0-1)
[2021-03-23 16:49] LABS: ALBUMIN 2.7 g/dL (3.5-5.0); ALBUMIN/GLOBULIN RATIO 0.9 (0.8-2.0); ANION GAP 9.5 mmol/L (8-16); CALCIUM 8.3 mg/dL (8.4-10.2); CREATININE, SERUM 0.67 mg/dL (0.72-1.25); MAGNESIUM 1.7 MG/DL (1.3-2.1); POTASSIUM 4.5 mmol/L (3.5-5.1)
[2021-03-23 16:57] LABS: CREATINE KINASE MB 2.6 ng/mL (0-5.0)
[2021-03-23] MEDS ORDERED: CEFEPIME 1 GM in SODIUM CHLORIDE 0.9% 50ML 50 ML IV STA (17:01)
[2021-03-23] MEDS ORDERED: SODIUM CHLORIDE 0.9% 50ML 50 ML ONE (17:18)
[2021-03-23] MEDS ORDERED: IOPAMIDOL 370 MG/ML 200 ML INFUS..BTL INJ ONE (17:18)
[2021-03-23 17:24] LABS: B-TYPE NATRIURETIC PEPTIDE2 918.2 pg/mL (0-100)
[2021-03-23] MEDS ORDERED: FUROSEMIDE INJ 10 MG/ML 4 ML VIAL IV ONE (18:00)
[2021-03-23 20:40] LABS: AMPHETAMINES SCREEN,URINE NEGATIVE (NEGATIVE); BENZODIAZEPINES SCREEN,URINE NEGATIVE (NEGATIVE); PHENCYCLIDINE SCREEN,URINE NEGATIVE (NEGATIVE)
[2021-03-23 20:55] VITALS: BP 133/79
[2021-03-23 21:48] VITALS: BP 148/86
[2021-03-24] VITALS (8 sets, daily range): BP systolic 128–152; BP diastolic 59–90
[2021-03-24 07:15] LABS: BASOPHILS # (AUTO) 0.1 (0.0-0.1); BASOPHILS % 0.9 % (0.0-1.0); EOSINOPHILS # (AUTO) 0.1 (0.0-0.4); EOSINOPHILS % 1.2 % (0.0-6.0); HEMATOCRIT 33.4 % (38.2-49.6); HEMOGLOBIN 9.2 g/dL (14.0-18.0); LYMPHOCYTES # (AUTO) 1.2 (1.0-3.2); LYMPHOCYTES % 14.7 % (18.0-39.1); MEAN CORPUSCULAR HEMOGLOBIN 28.8 pg (28-32); MEAN CORPUSCULAR HGB CONC 27.5 g/dL (31-35); MEAN CORPUSCULAR VOLUME 104.4 fL (81-99); MONOCYTES # (AUTO) 1.4 (0.2-0.8); MONOCYTES % 17.4 % (4.4-11.3); NEUTROPHILS # (AUTO) 5.3 (2.1-6.9); NEUTROPHILS % 65.1 % (38.7-80.0); PLATELET COUNT 166 x10e3/uL (140-360); RED CELL DISTRIBUTION WIDTH 16.7 % (11.7-14.4)
[2021-03-24] MEDS ORDERED: NON-FORMULARY MEDICATION (Insulin Detemir (Levemir) 20 UNITS) SQ SCH (08:45)
[2021-03-24] MEDS ORDERED: DEXTROSE 50% SYRINGE 50 ML IV PRN (08:45)
[2021-03-24] MEDS: INSULIN LISPRO 100 UNIT/1 ML 3ML VIAL SQ SCH ×5 (11:30→20:41)
[2021-03-24] MEDS ORDERED: SODIUM CHLORIDE 0.9% 250ML 250 ML ONE (11:51)
[2021-03-24] MEDS: MEROPENEM 500 MG in SODIUM CHLORIDE 0.9% 50ML 50 ML IV SCH ×2 (12:44→22:14)
[2021-03-24] MEDS: FUROSEMIDE INJ 10 MG/ML 4 ML VIAL IV SCH ×2 (12:44→18:49)
[2021-03-24] MEDS: HYDROCODONE/APAP 10MG-325MG TAB PO PRN ×2 (12:45→18:49)
[2021-03-24] MEDS: PANTOPRAZOLE SOD 40 MG TABEC PO SCH (12:49)
[2021-03-24] MEDS: PREDNISONE 10 MG TAB PO SCH (12:49)
[2021-03-24] MEDS: SENNA-S TABLET PO SCH ×2 (12:49→18:49)
[2021-03-24] MEDS: ENOXAPARIN SOD INJ 40 MG/0.4 ML SYR SC SCH (18:49)
[2021-03-24] MEDS: HYDROXYZINE HCL 25 MG TAB PO SCH ×2 (18:49→21:08)
[2021-03-24 20:10] LABS: ALBUMIN 2.6 g/dL (3.5-5.0); ALBUMIN/GLOBULIN RATIO 0.9 (0.8-2.0); ANION GAP 21.5 mmol/L (8-16); CALCIUM 8.5 mg/dL (8.4-10.2); CREATININE, SERUM 0.67 mg/dL (0.72-1.25); POTASSIUM 4.5 mmol/L (3.5-5.1)
[2021-03-24 20:44] LABS: CREATINE KINASE MB 1.9 ng/mL (0-5.0)
[2021-03-24] MEDS ORDERED: INSULIN GLARGINE 100 UNITS/ML VIAL SQ SCH (21:00)
[2021-03-24] MEDS: SIMVASTATIN 20 MG TAB PO SCH (21:08)
[2021-03-24] MEDS: TAMSULOSIN HCL 0.4 MG CAP PO SCH (21:08)
[2021-03-25] VITALS (8 sets, daily range): BP systolic 135–159; BP diastolic 69–93
[2021-03-25] MEDS: HYDROCODONE/APAP 10MG-325MG TAB PO PRN ×3 (01:28→22:17)
[2021-03-25] MEDS: HYDROXYZINE HCL 25 MG TAB PO SCH ×3 (06:00→22:14)
[2021-03-25] MEDS: INSULIN LISPRO 100 UNIT/1 ML 3ML VIAL SQ SCH ×5 (07:30→21:31)
[2021-03-25 08:39] LABS: BASOPHILS # (AUTO) 0.1 (0.0-0.1); BASOPHILS % 0.9 % (0.0-1.0); EOSINOPHILS % 0.5 % (0.0-6.0); HEMOGLOBIN 8.6 g/dL (14.0-18.0); LYMPHOCYTES # (AUTO) 0.9 (1.0-3.2); LYMPHOCYTES % 17.1 % (18.0-39.1); MEAN CORPUSCULAR HEMOGLOBIN 29.4 pg (28-32); MEAN CORPUSCULAR HGB CONC 30.7 g/dL (31-35); MEAN CORPUSCULAR VOLUME 95.6 fL (81-99); MONOCYTES # (AUTO) 0.9 (0.2-0.8); MONOCYTES % 16.9 % (4.4-11.3); NEUTROPHILS # (AUTO) 3.5 (2.1-6.9); NEUTROPHILS % 64.2 % (38.7-80.0); PLATELET COUNT 157 x10e3/uL (140-360); RED BLOOD COUNT 2.93 x10e6/uL (4.3-5.7); RED CELL DISTRIBUTION WIDTH 16.9 % (11.7-14.4)
[2021-03-25] MEDS ORDERED: BALSAM PERU/CASTOR OIL 60 GM OINT...G. TP SCH (09:00)
[2021-03-25] MEDS ORDERED: COLLAGENASE 5 GM TUBE TOP SCH (09:00)
[2021-03-25 09:09] LABS: ANION GAP 15.8 mmol/L (8-16); CALCIUM 8.1 mg/dL (8.4-10.2); CREATININE, SERUM 0.65 mg/dL (0.72-1.25); POTASSIUM 3.8 mmol/L (3.5-5.1)
[2021-03-25 09:34] LABS: MAGNESIUM 1.4 MG/DL (1.3-2.1); PHOSPHORUS 2.9 MG/DL (2.3-4.7)
[2021-03-25] MEDS: PANTOPRAZOLE SOD 40 MG TABEC PO SCH (16:19)
[2021-03-25] MEDS: SENNA-S TABLET PO SCH ×2 (16:19→16:41)
[2021-03-25] MEDS: PREDNISONE 10 MG TAB PO SCH (16:19)
[2021-03-25] MEDS: FUROSEMIDE INJ 10 MG/ML 4 ML VIAL IV SCH ×2 (16:27→16:41)
[2021-03-25] MEDS: MEROPENEM 500 MG in SODIUM CHLORIDE 0.9% 50ML 50 ML IV SCH ×2 (16:27→22:17)
[2021-03-25] MEDS: ENOXAPARIN SOD INJ 40 MG/0.4 ML SYR SC SCH (17:55)
[2021-03-25] MEDS: INSULIN GLARGINE 100 UNITS/ML VIAL SQ SCH (21:30)
[2021-03-25] MEDS: SIMVASTATIN 20 MG TAB PO SCH (22:14)
[2021-03-25] MEDS: TAMSULOSIN HCL 0.4 MG CAP PO SCH (22:14)
[2021-03-26 00:01] VITALS: BP 134/67
[2021-03-26] MEDS: HYDROXYZINE HCL 25 MG TAB PO SCH ×3 (06:17→22:08)
[2021-03-26] MEDS: HYDROCODONE/APAP 10MG-325MG TAB PO PRN ×3 (06:21→22:07)
[2021-03-26 06:32] VITALS: BP 122/91
[2021-03-26] MEDS: INSULIN LISPRO 100 UNIT/1 ML 3ML VIAL SQ SCH ×4 (07:30→21:00)
[2021-03-26] MEDS: PANTOPRAZOLE SOD 40 MG TABEC PO SCH (07:30)
[2021-03-26 07:39] VITALS: BP 127/86
[2021-03-26] MEDS: FUROSEMIDE INJ 10 MG/ML 4 ML VIAL IV SCH ×2 (09:00→17:45)
[2021-03-26] MEDS: PREDNISONE 10 MG TAB PO SCH (09:00)
[2021-03-26] MEDS: SENNA-S TABLET PO SCH ×2 (09:00→17:45)
[2021-03-26] MEDS: MEROPENEM 500 MG in SODIUM CHLORIDE 0.9% 50ML 50 ML IV SCH ×2 (10:00→22:09)
[2021-03-26 10:55] LABS: BASOPHILS % 0.5 % (0.0-1.0); EOSINOPHILS # (AUTO) 0.1 (0.0-0.4); EOSINOPHILS % 1.2 % (0.0-6.0); HEMATOCRIT 27.5 % (38.2-49.6); HEMOGLOBIN 8.1 g/dL (14.0-18.0); LYMPHOCYTES # (AUTO) 1.2 (1.0-3.2); LYMPHOCYTES % 21.5 % (18.0-39.1); MEAN CORPUSCULAR HEMOGLOBIN 28.7 pg (28-32); MEAN CORPUSCULAR HGB CONC 29.5 g/dL (31-35); MEAN CORPUSCULAR VOLUME 97.5 fL (81-99); MONOCYTES # (AUTO) 0.7 (0.2-0.8); MONOCYTES % 12.2 % (4.4-11.3); NEUTROPHILS # (AUTO) 3.6 (2.1-6.9); NEUTROPHILS % 63.7 % (38.7-80.0); PLATELET COUNT 196 x10e3/uL (140-360); RED BLOOD COUNT 2.82 x10e6/uL (4.3-5.7); RED CELL DISTRIBUTION WIDTH 17.1 % (11.7-14.4)
[2021-03-26 11:21] VITALS: BP_SYST 121; BP_SYST 127; BP_DIAS 63; BP_DIAS 86
[2021-03-26 11:26] LABS: ANION GAP 11.8 mmol/L (8-16); CALCIUM 7.7 mg/dL (8.4-10.2); CREATININE, SERUM 0.71 mg/dL (0.72-1.25); MAGNESIUM 1.4 MG/DL (1.3-2.1); PHOSPHORUS 3.4 MG/DL (2.3-4.7); POTASSIUM 3.8 mmol/L (3.5-5.1)
[2021-03-26 15:39] VITALS: BP 130/59
[2021-03-26] MEDS: ACETAZOLAMIDE 250 MG TAB PO SCH (16:30)
[2021-03-26] MEDS: ENOXAPARIN SOD INJ 40 MG/0.4 ML SYR SC SCH (17:45)
[2021-03-26 20:00] VITALS: BP 111/55
[2021-03-26] MEDS: COLLAGENASE 5 GM TUBE TOP SCH (21:00)
[2021-03-26] MEDS: INSULIN GLARGINE 100 UNITS/ML VIAL SQ SCH (21:00)
[2021-03-26] MEDS: TAMSULOSIN HCL 0.4 MG CAP PO SCH (21:54)
[2021-03-26] MEDS: SIMVASTATIN 20 MG TAB PO SCH (21:54)
[2021-03-26] MEDS: BALSAM PERU/CASTOR OIL 60 GM OINT...G. TP SCH (22:08)
[2021-03-27] VITALS (7 sets, daily range): BP systolic 101–124; BP diastolic 52–76
[2021-03-27] MEDS: HYDROXYZINE HCL 25 MG TAB PO SCH ×3 (05:43→22:01)
[2021-03-27 05:59] LABS: BASOPHILS % 0.6 % (0.0-1.0); EOSINOPHILS # (AUTO) 0.1 (0.0-0.4); EOSINOPHILS % 1.5 % (0.0-6.0); HEMOGLOBIN 7.9 g/dL (14.0-18.0); LYMPHOCYTES # (AUTO) 1.5 (1.0-3.2); LYMPHOCYTES % 20.8 % (18.0-39.1); MEAN CORPUSCULAR HGB CONC 31.6 g/dL (31-35); MONOCYTES # (AUTO) 0.7 (0.2-0.8); MONOCYTES % 9.9 % (4.4-11.3); NEUTROPHILS # (AUTO) 4.7 (2.1-6.9); NEUTROPHILS % 65.9 % (38.7-80.0); PLATELET COUNT 224 x10e3/uL (140-360); RED BLOOD COUNT 2.55 x10e6/uL (4.3-5.7); RED CELL DISTRIBUTION WIDTH 17.2 % (11.7-14.4)
[2021-03-27 06:30] LABS: ANION GAP 9.6 mmol/L (8-16); CALCIUM 7.5 mg/dL (8.4-10.2); CREATININE, SERUM 0.79 mg/dL (0.72-1.25); POTASSIUM 3.6 mmol/L (3.5-5.1)
[2021-03-27] MEDS: PANTOPRAZOLE SOD 40 MG TABEC PO SCH (07:30)
[2021-03-27] MEDS: INSULIN LISPRO 100 UNIT/1 ML 3ML VIAL SQ SCH ×4 (07:30→23:14)
[2021-03-27] MEDS: PREDNISONE 10 MG TAB PO SCH (09:00)
[2021-03-27] MEDS: ACETAZOLAMIDE 250 MG TAB PO SCH (09:00)
[2021-03-27] MEDS: SENNA-S TABLET PO SCH ×2 (09:00→17:00)
[2021-03-27] MEDS: FUROSEMIDE INJ 10 MG/ML 4 ML VIAL IV SCH ×2 (09:00→17:00)
[2021-03-27] MEDS: POTASSIUM CHLORIDE 10MEQ EA PO SCH (10:00)
[2021-03-27] MEDS: MEROPENEM 500 MG in SODIUM CHLORIDE 0.9% 50ML 50 ML IV SCH ×2 (10:00→22:01)
[2021-03-27] MEDS: HYDROCODONE/APAP 10MG-325MG TAB PO PRN ×2 (10:02→23:16)
[2021-03-27 14:01] LABS: FERRITIN 851.37 ng/mL (21.81-274.66)
[2021-03-27] MEDS: ENOXAPARIN SOD INJ 40 MG/0.4 ML SYR SC SCH (17:00)
[2021-03-27] MEDS: TAMSULOSIN HCL 0.4 MG CAP PO SCH (21:56)
[2021-03-27] MEDS: BALSAM PERU/CASTOR OIL 60 GM OINT...G. TP SCH (21:57)
[2021-03-27] MEDS: COLLAGENASE 5 GM TUBE TOP SCH (21:57)
[2021-03-27] MEDS: SIMVASTATIN 20 MG TAB PO SCH (21:57)
[2021-03-28] VITALS (7 sets, daily range): BP systolic 101–120; BP diastolic 54–73
[2021-03-28] MEDS: HYDROXYZINE HCL 25 MG TAB PO SCH ×3 (05:31→22:06)
[2021-03-28 06:33] LABS: BASOPHILS # (AUTO) 0.1 (0.0-0.1); BASOPHILS % 0.8 % (0.0-1.0); EOSINOPHILS # (AUTO) 0.1 (0.0-0.4); EOSINOPHILS % 1.7 % (0.0-6.0); HEMATOCRIT 25.4 % (38.2-49.6); HEMOGLOBIN 7.9 g/dL (14.0-18.0); LYMPHOCYTES # (AUTO) 1.4 (1.0-3.2); LYMPHOCYTES % 21.2 % (18.0-39.1); MEAN CORPUSCULAR HEMOGLOBIN 30.7 pg (28-32); MEAN CORPUSCULAR HGB CONC 31.1 g/dL (31-35); MEAN CORPUSCULAR VOLUME 98.8 fL (81-99); MONOCYTES # (AUTO) 0.7 (0.2-0.8); MONOCYTES % 11.3 % (4.4-11.3); NEUTROPHILS # (AUTO) 4.2 (2.1-6.9); NEUTROPHILS % 63.6 % (38.7-80.0); PLATELET COUNT 234 x10e3/uL (140-360); RED BLOOD COUNT 2.57 x10e6/uL (4.3-5.7)
[2021-03-28 07:03] LABS: ANION GAP 11.7 mmol/L (8-16); CREATININE, SERUM 0.81 mg/dL (0.72-1.25); POTASSIUM 3.7 mmol/L (3.5-5.1)
[2021-03-28] MEDS: PANTOPRAZOLE SOD 40 MG TABEC PO SCH (07:30)
[2021-03-28] MEDS ORDERED: BISACODYL 10 MG SUPP PR PRN (08:30)
[2021-03-28] MEDS: ACETAZOLAMIDE 250 MG TAB PO SCH (09:00)
[2021-03-28] MEDS: POLYETHYLENE GLYCOL 3350 17 GM PACK PO SCH ×2 (09:00→18:02)
[2021-03-28] MEDS: PREDNISONE 10 MG TAB PO SCH (09:00)
[2021-03-28] MEDS: SENNA-S TABLET PO SCH ×2 (09:00→18:02)
[2021-03-28] MEDS: POTASSIUM CHLORIDE 10MEQ EA PO SCH (09:00)
[2021-03-28] MEDS: FUROSEMIDE INJ 10 MG/ML 4 ML VIAL IV SCH ×2 (09:12→18:02)
[2021-03-28] MEDS: MEROPENEM 500 MG in SODIUM CHLORIDE 0.9% 50ML 50 ML IV SCH ×2 (09:12→22:25)
[2021-03-28] MEDS ORDERED: REGADENOSON 0.4 MG/5 ML SYR IV ONE (10:15)
[2021-03-28] MEDS: FOLIC ACID 1 MG TAB PO SCH (10:30)
[2021-03-28] MEDS: INSULIN LISPRO 100 UNIT/1 ML 3ML VIAL SQ SCH ×3 (11:30→21:45)
[2021-03-28] MEDS: ENOXAPARIN SOD INJ 40 MG/0.4 ML SYR SC SCH (18:02)
[2021-03-28] MEDS: TAMSULOSIN HCL 0.4 MG CAP PO SCH (22:06)
[2021-03-28] MEDS: SIMVASTATIN 20 MG TAB PO SCH (22:06)
[2021-03-28] MEDS: BALSAM PERU/CASTOR OIL 60 GM OINT...G. TP SCH (22:25)
[2021-03-28] MEDS: COLLAGENASE 5 GM TUBE TOP SCH (22:25)
[2021-03-28] MEDS: HYDROCODONE/APAP 10MG-325MG TAB PO PRN (22:30)
[2021-03-29] VITALS (8 sets, daily range): BP systolic 99–110; BP diastolic 58–70
[2021-03-29] MEDS: HYDROXYZINE HCL 25 MG TAB PO SCH ×3 (05:28→21:02)
[2021-03-29 05:34] LABS: BASOPHILS # (AUTO) 0.1 (0.0-0.1); BASOPHILS % 0.9 % (0.0-1.0); EOSINOPHILS # (AUTO) 0.2 (0.0-0.4); EOSINOPHILS % 2.6 % (0.0-6.0); HEMATOCRIT 26.9 % (38.2-49.6); HEMOGLOBIN 7.8 g/dL (14.0-18.0); LYMPHOCYTES # (AUTO) 1.3 (1.0-3.2); LYMPHOCYTES % 19.9 % (18.0-39.1); MEAN CORPUSCULAR HEMOGLOBIN 28.7 pg (28-32); MEAN CORPUSCULAR VOLUME 98.9 fL (81-99); MONOCYTES # (AUTO) 0.7 (0.2-0.8); MONOCYTES % 10.4 % (4.4-11.3); NEUTROPHILS # (AUTO) 4.3 (2.1-6.9); NEUTROPHILS % 65.3 % (38.7-80.0); PLATELET COUNT 207 x10e3/uL (140-360); RED BLOOD COUNT 2.72 x10e6/uL (4.3-5.7); RED CELL DISTRIBUTION WIDTH 16.5 % (11.7-14.4)
[2021-03-29] MEDS: PANTOPRAZOLE SOD 40 MG TABEC PO SCH (08:32)
[2021-03-29] MEDS: INSULIN LISPRO 100 UNIT/1 ML 3ML VIAL SQ SCH ×4 (08:35→20:55)
[2021-03-29] MEDS: FUROSEMIDE INJ 10 MG/ML 4 ML VIAL IV SCH ×2 (08:38→17:15)
[2021-03-29] MEDS: FOLIC ACID 1 MG TAB PO SCH (08:38)
[2021-03-29] MEDS: POTASSIUM CHLORIDE 10MEQ EA PO SCH (08:39)
[2021-03-29] MEDS: SENNA-S TABLET PO SCH ×2 (08:39→16:14)
[2021-03-29] MEDS: POLYETHYLENE GLYCOL 3350 17 GM PACK PO SCH ×2 (08:39→16:14)
[2021-03-29] MEDS: ACETAZOLAMIDE 250 MG TAB PO SCH (08:39)
[2021-03-29] MEDS: PREDNISONE 10 MG TAB PO SCH (08:39)
[2021-03-29] MEDS: MEROPENEM 500 MG in SODIUM CHLORIDE 0.9% 50ML 50 ML IV SCH ×2 (09:47→21:02)
[2021-03-29] MEDS: ENOXAPARIN SOD INJ 40 MG/0.4 ML SYR SC SCH (17:15)
[2021-03-29] MEDS: TAMSULOSIN HCL 0.4 MG CAP PO SCH (20:45)
[2021-03-29] MEDS: COLLAGENASE 5 GM TUBE TOP SCH (20:45)
[2021-03-29] MEDS: SIMVASTATIN 20 MG TAB PO SCH (20:45)
[2021-03-29] MEDS: BALSAM PERU/CASTOR OIL 60 GM OINT...G. TP SCH (20:46)
[2021-03-30] VITALS (9 sets, daily range): BP systolic 103–116; BP diastolic 54–66
[2021-03-30] MEDS: HYDROXYZINE HCL 25 MG TAB PO SCH ×3 (05:34→20:47)
[2021-03-30 05:37] LABS: BASOPHILS % 0.5 % (0.0-1.0); EOSINOPHILS # (AUTO) 0.1 (0.0-0.4); EOSINOPHILS % 1.1 % (0.0-6.0); HEMATOCRIT 25.9 % (38.2-49.6); HEMOGLOBIN 7.7 g/dL (14.0-18.0); LYMPHOCYTES # (AUTO) 1.5 (1.0-3.2); LYMPHOCYTES % 18.1 % (18.0-39.1); MEAN CORPUSCULAR HEMOGLOBIN 29.1 pg (28-32); MEAN CORPUSCULAR HGB CONC 29.7 g/dL (31-35); MEAN CORPUSCULAR VOLUME 97.7 fL (81-99); MONOCYTES # (AUTO) 0.7 (0.2-0.8); NEUTROPHILS # (AUTO) 5.6 (2.1-6.9); NEUTROPHILS % 70.3 % (38.7-80.0); PLATELET COUNT 220 x10e3/uL (140-360); RED BLOOD COUNT 2.65 x10e6/uL (4.3-5.7)
[2021-03-30 05:50] LABS: ANION GAP 12.7 mmol/L (8-16); CALCIUM 8.2 mg/dL (8.4-10.2); CREATININE, SERUM 0.69 mg/dL (0.72-1.25); POTASSIUM 3.7 mmol/L (3.5-5.1)
[2021-03-30] MEDS: PANTOPRAZOLE SOD 40 MG TABEC PO SCH (08:56)
[2021-03-30] MEDS: FUROSEMIDE 40 MG TAB PO SCH ×2 (08:57→13:12)
[2021-03-30] MEDS: FOLIC ACID 1 MG TAB PO SCH (08:57)
[2021-03-30] MEDS: INSULIN LISPRO 100 UNIT/1 ML 3ML VIAL SQ SCH ×4 (08:57→20:48)
[2021-03-30] MEDS: ACETAZOLAMIDE 250 MG TAB PO SCH (08:57)
[2021-03-30] MEDS: POTASSIUM CHLORIDE 10MEQ EA PO SCH (08:58)
[2021-03-30] MEDS: PREDNISONE 10 MG TAB PO SCH (08:59)
[2021-03-30] MEDS: SENNA-S TABLET PO SCH ×2 (08:59→17:00)
[2021-03-30] MEDS: POLYETHYLENE GLYCOL 3350 17 GM PACK PO SCH ×2 (08:59→17:00)
[2021-03-30] MEDS: MEROPENEM 500 MG in SODIUM CHLORIDE 0.9% 50ML 50 ML IV SCH ×2 (09:29→20:47)
[2021-03-30] MEDS ORDERED: ACETAMINOPHEN 325 MG TAB PO STA (09:57)
[2021-03-30] MEDS ORDERED: SODIUM CHLORIDE 0.9% 250ML 250 ML IV NR (10:00)
[2021-03-30] MEDS: ENOXAPARIN SOD INJ 40 MG/0.4 ML SYR SC SCH (17:29)
[2021-03-30] MEDS ORDERED: SODIUM CHLORIDE 0.9% 250ML 250 ML ONE (18:41)
[2021-03-30] MEDS: BALSAM PERU/CASTOR OIL 60 GM OINT...G. TP SCH (20:47)
[2021-03-30] MEDS: TAMSULOSIN HCL 0.4 MG CAP PO SCH (20:47)
[2021-03-30] MEDS: COLLAGENASE 5 GM TUBE TOP SCH (20:47)
[2021-03-30] MEDS: SIMVASTATIN 20 MG TAB PO SCH (20:47)
[2021-03-31] VITALS (9 sets, daily range): BP systolic 104–136; BP diastolic 56–72
[2021-03-31] MEDS: FUROSEMIDE INJ 10 MG/ML 2 ML VIAL IV PRN ×2 (01:50→05:55)
[2021-03-31] MEDS ORDERED: SODIUM CHLORIDE 0.9% 250ML 250 ML ONE (02:57)
[2021-03-31] MEDS: HYDROXYZINE HCL 25 MG TAB PO SCH ×3 (06:16→21:28)
[2021-03-31] MEDS: INSULIN LISPRO 100 UNIT/1 ML 3ML VIAL SQ SCH ×4 (07:30→21:30)
[2021-03-31] MEDS: FUROSEMIDE 40 MG TAB PO SCH ×2 (08:31→13:57)
[2021-03-31] MEDS: ACETAZOLAMIDE 250 MG TAB PO SCH (08:31)
[2021-03-31] MEDS: FOLIC ACID 1 MG TAB PO SCH (08:31)
[2021-03-31] MEDS: PANTOPRAZOLE SOD 40 MG TABEC PO SCH (08:31)
[2021-03-31] MEDS: POLYETHYLENE GLYCOL 3350 17 GM PACK PO SCH ×2 (08:32→15:59)
[2021-03-31] MEDS: POTASSIUM CHLORIDE 10MEQ EA PO SCH (08:32)
[2021-03-31] MEDS: PREDNISONE 10 MG TAB PO SCH (08:33)
[2021-03-31] MEDS: SENNA-S TABLET PO SCH ×2 (08:33→16:41)
[2021-03-31] MEDS: MEROPENEM 500 MG in SODIUM CHLORIDE 0.9% 50ML 50 ML IV SCH ×2 (08:33→21:28)
[2021-03-31 08:58] LABS: BASOPHILS # (AUTO) 0.1 (0.0-0.1); BASOPHILS % 0.9 % (0.0-1.0); EOSINOPHILS # (AUTO) 0.1 (0.0-0.4); EOSINOPHILS % 1.5 % (0.0-6.0); HEMATOCRIT 34.2 % (38.2-49.6); HEMOGLOBIN 10.8 g/dL (14.0-18.0); LYMPHOCYTES # (AUTO) 1.7 (1.0-3.2); LYMPHOCYTES % 18.4 % (18.0-39.1); MEAN CORPUSCULAR HEMOGLOBIN 28.3 pg (28-32); MEAN CORPUSCULAR HGB CONC 31.6 g/dL (31-35); MEAN CORPUSCULAR VOLUME 89.8 fL (81-99); MONOCYTES % 10.2 % (4.4-11.3); NEUTROPHILS # (AUTO) 6.3 (2.1-6.9); NEUTROPHILS % 67.6 % (38.7-80.0); PLATELET COUNT 245 x10e3/uL (140-360); RED BLOOD COUNT 3.81 x10e6/uL (4.3-5.7); RED CELL DISTRIBUTION WIDTH 17.4 % (11.7-14.4)
[2021-03-31 09:13] LABS: ANION GAP 9.5 mmol/L (8-16); CALCIUM 8.7 mg/dL (8.4-10.2); CREATININE, SERUM 0.71 mg/dL (0.72-1.25); POTASSIUM 3.5 mmol/L (3.5-5.1)
[2021-03-31 10:17] LABS: MAGNESIUM 1.6 MG/DL (1.3-2.1)
[2021-03-31] MEDS: QUETIAPINE FUMARATE 25 MG TAB PO SCH ×3 (10:21→21:28)
[2021-03-31 10:35] LABS: PHOSPHORUS 2.5 MG/DL (2.3-4.7)
[2021-03-31] MEDS: ENOXAPARIN SOD INJ 40 MG/0.4 ML SYR SC SCH (16:41)
[2021-03-31] MEDS: SIMVASTATIN 20 MG TAB PO SCH (21:28)
[2021-03-31] MEDS: COLLAGENASE 5 GM TUBE TOP SCH (21:28)
[2021-03-31] MEDS: TAMSULOSIN HCL 0.4 MG CAP PO SCH (21:28)
[2021-03-31] MEDS: BALSAM PERU/CASTOR OIL 60 GM OINT...G. TP SCH (21:28)
[2021-04-01] VITALS (7 sets, daily range): BP systolic 105–121; BP diastolic 58–75
[2021-04-01] MEDS: QUETIAPINE FUMARATE 25 MG TAB PO SCH ×3 (06:05→21:02)
[2021-04-01] MEDS: HYDROXYZINE HCL 25 MG TAB PO SCH ×3 (06:05→21:02)
[2021-04-01 06:27] LABS: ANION GAP 14.5 mmol/L (8-16); CALCIUM 8.6 mg/dL (8.4-10.2); CREATININE, SERUM 0.82 mg/dL (0.72-1.25); POTASSIUM 3.5 mmol/L (3.5-5.1)
[2021-04-01] MEDS: INSULIN LISPRO 100 UNIT/1 ML 3ML VIAL SQ SCH ×4 (07:30→21:04)
[2021-04-01] MEDS: POLYETHYLENE GLYCOL 3350 17 GM PACK PO SCH ×2 (09:00→17:00)
[2021-04-01] MEDS: FUROSEMIDE 40 MG TAB PO SCH ×2 (10:34→15:53)
[2021-04-01] MEDS: FOLIC ACID 1 MG TAB PO SCH (10:34)
[2021-04-01] MEDS: ACETAZOLAMIDE 250 MG TAB PO SCH (10:34)
[2021-04-01] MEDS: PANTOPRAZOLE SOD 40 MG TABEC PO SCH (10:34)
[2021-04-01] MEDS: PREDNISONE 10 MG TAB PO SCH (10:35)
[2021-04-01] MEDS: POTASSIUM CHLORIDE 10MEQ EA PO SCH (10:35)
[2021-04-01] MEDS: SENNA-S TABLET PO SCH ×2 (10:35→17:48)
[2021-04-01] MEDS ORDERED: POTASSIUM CHLORIDE 10MEQ EA PO ONE (10:40)
[2021-04-01] MEDS: METOPROLOL TARTRATE 25 MG TAB PO SCH ×2 (11:24→17:48)
[2021-04-01] MEDS: MEROPENEM 500 MG in SODIUM CHLORIDE 0.9% 50ML 50 ML IV SCH ×2 (11:25→21:02)
[2021-04-01] MEDS: ENOXAPARIN SOD INJ 40 MG/0.4 ML SYR SC SCH (17:48)
[2021-04-01] MEDS: TAMSULOSIN HCL 0.4 MG CAP PO SCH (21:02)
[2021-04-01] MEDS: COLLAGENASE 5 GM TUBE TOP SCH (21:02)
[2021-04-01] MEDS: SIMVASTATIN 20 MG TAB PO SCH (21:02)
[2021-04-01] MEDS: BALSAM PERU/CASTOR OIL 60 GM OINT...G. TP SCH (21:02)
[2021-04-02] VITALS (8 sets, daily range): BP systolic 113–120; BP diastolic 61–76
[2021-04-02] MEDS: HYDROXYZINE HCL 25 MG TAB PO SCH ×2 (05:04→14:29)
[2021-04-02] MEDS: QUETIAPINE FUMARATE 25 MG TAB PO SCH ×2 (05:04→14:29)
[2021-04-02 06:33] LABS: BASOPHILS # (AUTO) 0.1 (0.0-0.1); BASOPHILS % 0.7 % (0.0-1.0); EOSINOPHILS # (AUTO) 0.1 (0.0-0.4); EOSINOPHILS % 0.7 % (0.0-6.0); HEMATOCRIT 35.8 % (38.2-49.6); HEMOGLOBIN 11.5 g/dL (14.0-18.0); LYMPHOCYTES % 20.1 % (18.0-39.1); MEAN CORPUSCULAR HEMOGLOBIN 28.9 pg (28-32); MEAN CORPUSCULAR HGB CONC 32.1 g/dL (31-35); MEAN CORPUSCULAR VOLUME 89.9 fL (81-99); MONOCYTES % 10.2 % (4.4-11.3); NEUTROPHILS # (AUTO) 6.5 (2.1-6.9); NEUTROPHILS % 66.9 % (38.7-80.0); PLATELET COUNT 293 x10e3/uL (140-360); RED BLOOD COUNT 3.98 x10e6/uL (4.3-5.7); RED CELL DISTRIBUTION WIDTH 16.7 % (11.7-14.4)
[2021-04-02] MEDS: INSULIN LISPRO 100 UNIT/1 ML 3ML VIAL SQ SCH ×4 (07:30→22:17)
[2021-04-02] MEDS: PANTOPRAZOLE SOD 40 MG TABEC PO SCH (07:30)
[2021-04-02] MEDS: SENNA-S TABLET PO SCH ×2 (09:00→17:00)
[2021-04-02] MEDS: POLYETHYLENE GLYCOL 3350 17 GM PACK PO SCH ×2 (09:00→17:00)
[2021-04-02] MEDS: METOPROLOL TARTRATE 25 MG TAB PO SCH ×2 (09:21→17:23)
[2021-04-02] MEDS: ACETAZOLAMIDE 250 MG TAB PO SCH (09:21)
[2021-04-02] MEDS: FOLIC ACID 1 MG TAB PO SCH (09:21)
[2021-04-02] MEDS: FUROSEMIDE 40 MG TAB PO SCH ×2 (09:21→12:07)
[2021-04-02] MEDS: POTASSIUM CHLORIDE 10MEQ EA PO SCH (09:21)
[2021-04-02] MEDS: PREDNISONE 10 MG TAB PO SCH (09:22)
[2021-04-02] MEDS: MEROPENEM 500 MG in SODIUM CHLORIDE 0.9% 50ML 50 ML IV SCH ×2 (10:00→22:15)
[2021-04-02] MEDS: ENOXAPARIN SOD INJ 40 MG/0.4 ML SYR SC SCH (17:24)
[2021-04-02] MEDS: COLLAGENASE 5 GM TUBE TOP SCH ×2 (21:00→22:14)
[2021-04-02] MEDS: SIMVASTATIN 20 MG TAB PO SCH (22:14)
[2021-04-02] MEDS: DIVALPROEX SODIUM 250 MG TAB...DR PO SCH (22:14)
[2021-04-02] MEDS: TRAZODONE HCL 50 MG TAB PO SCH (22:14)
[2021-04-02] MEDS: BALSAM PERU/CASTOR OIL 60 GM OINT...G. TP SCH ×2 (22:14→23:49)
[2021-04-02] MEDS: TAMSULOSIN HCL 0.4 MG CAP PO SCH (22:14)
[2021-04-02] MEDS: HYDROXYZINE HCL 10 MG TAB PO SCH (22:15)
[2021-04-02] MEDS: INSULIN GLARGINE 100 UNITS/ML VIAL SQ SCH (22:16)
[2021-04-03] VITALS (8 sets, daily range): BP systolic 104–129; BP diastolic 58–71
[2021-04-03] MEDS: HYDROXYZINE HCL 10 MG TAB PO SCH ×3 (05:34→20:51)
[2021-04-03 06:24] LABS: BASOPHILS # (AUTO) 0.1 (0.0-0.1); EOSINOPHILS # (AUTO) 0.1 (0.0-0.4); EOSINOPHILS % 1.2 % (0.0-6.0); HEMATOCRIT 37.1 % (38.2-49.6); HEMOGLOBIN 11.5 g/dL (14.0-18.0); LYMPHOCYTES # (AUTO) 2.2 (1.0-3.2); LYMPHOCYTES % 22.3 % (18.0-39.1); MEAN CORPUSCULAR HEMOGLOBIN 28.5 pg (28-32); MEAN CORPUSCULAR VOLUME 91.8 fL (81-99); MONOCYTES % 10.4 % (4.4-11.3); NEUTROPHILS # (AUTO) 6.2 (2.1-6.9); NEUTROPHILS % 63.4 % (38.7-80.0); PLATELET COUNT 284 x10e3/uL (140-360); RED BLOOD COUNT 4.04 x10e6/uL (4.3-5.7); RED CELL DISTRIBUTION WIDTH 16.3 % (11.7-14.4)
[2021-04-03 07:11] LABS: ANION GAP 13.7 mmol/L (8-16); CREATININE, SERUM 0.82 mg/dL (0.72-1.25); POTASSIUM 3.7 mmol/L (3.5-5.1)
[2021-04-03] MEDS: PANTOPRAZOLE SOD 40 MG TABEC PO SCH (07:30)
[2021-04-03] MEDS: INSULIN LISPRO 100 UNIT/1 ML 3ML VIAL SQ SCH ×4 (07:30→20:42)
[2021-04-03] MEDS: SENNA-S TABLET PO SCH ×2 (09:00→17:00)
[2021-04-03] MEDS: POLYETHYLENE GLYCOL 3350 17 GM PACK PO SCH ×2 (09:00→17:00)
[2021-04-03] MEDS: PREDNISONE 5 MG TAB PO SCH (09:09)
[2021-04-03] MEDS: ACETAZOLAMIDE 250 MG TAB PO SCH (09:09)
[2021-04-03] MEDS: POTASSIUM CHLORIDE 10MEQ EA PO SCH (09:09)
[2021-04-03] MEDS: METOPROLOL TARTRATE 25 MG TAB PO SCH ×2 (09:09→17:11)
[2021-04-03] MEDS: FOLIC ACID 1 MG TAB PO SCH (09:09)
[2021-04-03] MEDS: FUROSEMIDE 40 MG TAB PO SCH ×2 (09:09→12:24)
[2021-04-03] MEDS: DIVALPROEX SODIUM 250 MG TAB...DR PO SCH ×2 (09:09→20:49)
[2021-04-03] MEDS: MEROPENEM 500 MG in SODIUM CHLORIDE 0.9% 50ML 50 ML IV SCH (09:43)
[2021-04-03] MEDS: ENOXAPARIN SOD INJ 40 MG/0.4 ML SYR SC SCH (17:11)
[2021-04-03] MEDS: SIMVASTATIN 20 MG TAB PO SCH (20:49)
[2021-04-03] MEDS: TAMSULOSIN HCL 0.4 MG CAP PO SCH (20:49)
[2021-04-03] MEDS: TRAZODONE HCL 50 MG TAB PO SCH (20:49)
[2021-04-03] MEDS: INSULIN GLARGINE 100 UNITS/ML VIAL SQ SCH (20:50)
[2021-04-03] MEDS: COLLAGENASE 5 GM TUBE TOP SCH (20:52)
[2021-04-04] VITALS: BP 119/70
[2021-04-04 04:00] VITALS: BP 103/77
[2021-04-04] MEDS: HYDROXYZINE HCL 10 MG TAB PO SCH (05:57)
[2021-04-04] MEDS: INSULIN LISPRO 100 UNIT/1 ML 3ML VIAL SQ SCH ×3 (07:30→11:30)
[2021-04-04 07:55] VITALS: BP 114/54
[2021-04-04] MEDS: PANTOPRAZOLE SOD 40 MG TABEC PO SCH (08:37)
[2021-04-04] MEDS: ACETAZOLAMIDE 250 MG TAB PO SCH (08:37)
[2021-04-04] MEDS: DIVALPROEX SODIUM 250 MG TAB...DR PO SCH (08:38)
[2021-04-04] MEDS: FUROSEMIDE 40 MG TAB PO SCH ×2 (08:38→12:39)
[2021-04-04] MEDS: FOLIC ACID 1 MG TAB PO SCH (08:41)
[2021-04-04] MEDS: POTASSIUM CHLORIDE 10MEQ EA PO SCH (08:41)
[2021-04-04] MEDS: SENNA-S TABLET PO SCH (08:42)
[2021-04-04] MEDS: METOPROLOL TARTRATE 25 MG TAB PO SCH (08:42)
[2021-04-04] MEDS: PREDNISONE 5 MG TAB PO SCH (08:42)
[2021-04-04] MEDS: POLYETHYLENE GLYCOL 3350 17 GM PACK PO SCH (08:42)
[2021-04-04] MEDS ORDERED: DEPAKOTE ER250 MG PO (09:47)
[2021-04-04] MEDS ORDERED: FOLIC ACID0.4 MG PO (09:47)
[2021-04-04] MEDS ORDERED: diamox PO (09:49)
[2021-04-04] MEDS ORDERED: LASIX40 MG PO (09:50)
[2021-04-04] MEDS ORDERED: LOPRESSOR25 MG PO (09:51)
[2021-04-04] MEDS ORDERED: K DUR10 MEQ PO (09:51)
[2021-04-04 09:55] VITALS: BP 114/54
[2021-04-04] MEDS ORDERED: PREDNISONE5 MG PO (09:55)
[2021-04-04] MEDS ORDERED: TRAZODONE HCL50 MG PO (09:56)
[2021-04-04] MEDS ORDERED: hydroxyzine PO (10:01)
[2021-04-04 13:35] VITALS: BP 113/62
== END 2021-04-04 16:30 | disposition home or self-care (01) | DRG 291 ==
LOC: ER 15:58 → ERHOLD 17:50 → MED/SURG 20:57
PROVIDERS: ADMIT Internal Medicine; ATTEND Internal Medicine
PROC: 02HV33Z Insertion of Infusion Device into Superior Vena Cava, Percutaneous Approach (ICD-10-PCS; principal; 2021-03-24)
PROC: 30243N1 Transfusion of Nonautologous Red Blood Cells into Central Vein, Percutaneous Approach (ICD-10-PCS; 2021-03-30)
DX: I13.0 Hypertensive heart and chronic kidney disease with heart failure and stage 1 through stage 4 chronic kidney disease, or unspecified chronic kidney disease (principal); J18.9 Pneumonia, unspecified organism; I50.33 Acute on chronic diastolic (congestive) heart failure; F05 Delirium due to known physiological condition; G93.40 Encephalopathy, unspecified; E11.51 Type 2 diabetes mellitus with diabetic peripheral angiopathy without gangrene; Z79.899 Other long term (current) drug therapy; M32.9 Systemic lupus erythematosus, unspecified; Z20.822 Contact with and (suspected) exposure to COVID-19; F03.90 Unspecified dementia, unspecified severity, without behavioral disturbance, psychotic disturbance, mood disturbance, and anxiety; Y95 Nosocomial condition; E78.5 Hyperlipidemia, unspecified; E11.22 Type 2 diabetes mellitus with diabetic chronic kidney disease; N18.2 Chronic kidney disease, stage 2 (mild); N40.1 Benign prostatic hyperplasia with lower urinary tract symptoms; R33.8 Other retention of urine; E11.649 Type 2 diabetes mellitus with hypoglycemia without coma; D50.9 Iron deficiency anemia, unspecified
CPT/HCPCS: 36415; 36569; 51700; 70450; 70551; 71045; 74177; 78452; 80048; 80053; 80307; 81001; 82550; 82553; 82607; 82728; 82746; 82948; 83010; 83540; 83605; 83615; 83735; 83880; 84100; 84466; 84484; 85025; 85045; 85610; 85730; 86850; 86900; 86920; 87040; 87086; 93005; 93017; 93306; 96372; 97139; 99251; 99284; A9502; J0692; J1650; J1815; J1940; J2185; J3410; J7050; J7512; J7799; P9016; Q9967; U0002

== ENCOUNTER 2021-04-20 19:29 | Emergency (ER) | payer MEDICARE ==
[~2021-04-20] VITALS: Ht 165.1 cm; Wt 64.9 kg
[~2021-04-20 19:29] MED LIST changes: +DEPAKOTE ER250 MG PO; +FOLIC ACID0.4 MG PO; +K DUR10 MEQ PO; +LASIX40 MG PO; +LOPRESSOR25 MG PO; +PREDNISONE5 MG PO; +TRAZODONE HCL50 MG PO; +diamox PO; +hydroxyzine PO
[2021-04-20] MEDS ORDERED: LIDOCAINE HCL 2% 100 MG/5 ML IV ONE (20:18)
[2021-04-20] MEDS ORDERED: LIDOCAINE JELLY 2% 10ML URO-JET ONE (20:19)
[2021-04-20 20:20] LABS: ANION GAP 16.6 mmol/L (8-16); CALCIUM 9.7 mg/dL (8.4-10.2); CREATININE, SERUM 1.47 mg/dL (0.72-1.25); POTASSIUM 4.6 mmol/L (3.5-5.1)
[2021-04-20] MEDS ORDERED: SODIUM CHLORIDE 0.9% 1000ML 1,000 ML IV STA (20:34)
[2021-04-20 20:50] LABS: CLARITY,URINE HAZY (CLEAR); COLOR,URINE YELLOW (YELLOW)
[2021-04-20 20:51] LABS: KETONES,URINE NEGATIVE (NEGATIVE); LEUKOCYTE ESTERASE ,URINE TRACE (NEGATIVE); NITRITE,URINE NEGATIVE (NEGATIVE); PROTEIN,URINE DIPSTICK >=300 (NEGATIVE); URINE UROBILINOGEN 0.2 mg/dL (0.2 - 1)
[2021-04-20 20:54] LABS: BACTERIA,URINE FEW /HPF; EPITHELIAL CELLS,URINE FEW /LPF; HYALINE CASTS 0-1 (0-1); RBC,URINE >50 /HPF (0-5)
[2021-04-20] MEDS ORDERED: CEFTRIAXONE 1 GM in SODIUM CHLORIDE 0.9% 50ML 50 ML IV ONE (21:45)
[2021-04-20] MEDS ORDERED: CEPHALEXIN500 MG PO (22:47)
[2021-04-20 23:07] VITALS: BP 126/60
== END 2021-04-20 23:12 | disposition home or self-care (01) ==
LOC: ER 19:42
DX: Z46.6 Encounter for fitting and adjustment of urinary device (principal); N39.0 Urinary tract infection, site not specified; I12.0 Hypertensive chronic kidney disease with stage 5 chronic kidney disease or end stage renal disease; E11.22 Type 2 diabetes mellitus with diabetic chronic kidney disease; N18.6 End stage renal disease; Z99.2 Dependence on renal dialysis; I25.10 Atherosclerotic heart disease of native coronary artery without angina pectoris
CPT/HCPCS: 36415; 51702; 80048; 81001; 99284; J0696; J2001; J7030

== ENCOUNTER 2022-08-20 14:44 | Inpatient (IN) | payer MEDICARE ==
[~2022-08-20] VITALS: Ht 165.1 cm; Wt 64.9 kg
[~2022-08-20 14:44] MED LIST changes: +CEPHALEXIN500 MG PO
[2022-08-20 15:28] LABS: BASOPHILS % 0.5 % (0.0-1.0); EOSINOPHILS # (AUTO) 0.2 (0.0-0.4); EOSINOPHILS % 2.6 % (0.0-6.0); HEMATOCRIT 44.2 % (38.2-49.6); HEMOGLOBIN 12.6 g/dL (14.0-18.0); LYMPHOCYTES # (AUTO) 0.3 (1.0-3.2); LYMPHOCYTES % 5.3 % (18.0-39.1); MEAN CORPUSCULAR HGB CONC 28.5 g/dL (31-35); MEAN CORPUSCULAR VOLUME 101.6 fL (81-99); MONOCYTES # (AUTO) 0.7 (0.2-0.8); NEUTROPHILS # (AUTO) 4.6 (2.1-6.9); NEUTROPHILS % 79.4 % (38.7-80.0); PLATELET COUNT 115 x10e3/uL (140-360); RED BLOOD COUNT 4.35 x10e6/uL (4.3-5.7)
[2022-08-20 15:37] LABS: INR 0.99; PROTHROMBIN TIME 13.3 seconds (11.9-14.5)
[2022-08-20 15:46] LABS: ALBUMIN 3.4 g/dL (3.5-5.0); ALBUMIN/GLOBULIN RATIO 0.9 (0.8-2.0); ANION GAP 13.8 mmol/L (8-16); CREATININE, SERUM 0.96 mg/dL (0.72-1.25); POTASSIUM 4.8 mmol/L (3.5-5.1)
[2022-08-20] MEDS ORDERED: LEVETIRACETAM 500MG/5ML VIAL 1,000 MG in SODIUM CHLORIDE 0.9% 100 ML IV ONE (16:30)
[2022-08-20 16:42] LABS: CLARITY,URINE SL CLOUDY (CLEAR); COLOR,URINE AMBER (YELLOW); KETONES,URINE NEGATIVE (NEGATIVE); LEUKOCYTE ESTERASE ,URINE NEGATIVE (NEGATIVE); NITRITE,URINE NEGATIVE (NEGATIVE); PROTEIN,URINE DIPSTICK 1+ (NEGATIVE); URINE UROBILINOGEN 2 mg/dL (0.2 - 1)
[2022-08-20 16:53] LABS: BACTERIA,URINE MODERATE /HPF
[2022-08-20] MEDS ORDERED: SODIUM CHLORIDE 0.9% 1000ML 1,000 ML IV SCH ×2 (17:15)
[2022-08-20] MEDS ORDERED: ACETAZOLAMIDE250 MG PO (20:09)
[2022-08-20] MEDS ORDERED: PLAQUENIL200 MG PO (20:09)
[2022-08-20] MEDS ORDERED: LYRICA50 MG PO (20:09)
[2022-08-20 20:16] VITALS: BP 125/65
[2022-08-20 20:26] VITALS: BP 125/61
[2022-08-20] MEDS ORDERED: LANTUS 3ML100 UNITS/ (20:31)
[2022-08-20] MEDS ORDERED: DEXTROSE 50% SYRINGE 50 ML IV PRN (21:15)
[2022-08-21] VITALS (8 sets, daily range): BP systolic 109–189; BP diastolic 51–61
[2022-08-21] MEDS: HYDROCODONE/APAP 10MG-325MG TAB PO PRN ×4 (03:20→23:09)
[2022-08-21 06:12] LABS: BASOPHILS % 0.4 % (0.0-1.0); EOSINOPHILS % 0.2 % (0.0-6.0); HEMATOCRIT 36.1 % (38.2-49.6); HEMOGLOBIN 10.2 g/dL (14.0-18.0); LYMPHOCYTES # (AUTO) 0.5 (1.0-3.2); LYMPHOCYTES % 8.5 % (18.0-39.1); MEAN CORPUSCULAR HGB CONC 28.3 g/dL (31-35); MEAN CORPUSCULAR VOLUME 102.6 fL (81-99); MONOCYTES # (AUTO) 0.8 (0.2-0.8); MONOCYTES % 14.2 % (4.4-11.3); NEUTROPHILS # (AUTO) 4.2 (2.1-6.9); NEUTROPHILS % 76.5 % (38.7-80.0); PLATELET COUNT 114 x10e3/uL (140-360); RED BLOOD COUNT 3.52 x10e6/uL (4.3-5.7); RED CELL DISTRIBUTION WIDTH 12.9 % (11.7-14.4)
[2022-08-21 06:37] LABS: ANION GAP 10.8 mmol/L (8-16); CALCIUM 8.6 mg/dL (8.4-10.2); CREATININE, SERUM 0.72 mg/dL (0.72-1.25); POTASSIUM 3.8 mmol/L (3.5-5.1)
[2022-08-21] MEDS ORDERED: SODIUM CHLORIDE 0.9% 250ML 250 ML ONE (09:28)
[2022-08-21] MEDS ORDERED: HYDROCODONE/APAP 10MG-325MG TAB PO PRN (09:30)
[2022-08-21] MEDS: FUROSEMIDE 40 MG TAB PO SCH (16:51)
[2022-08-21] MEDS: DIVALPROEX SODIUM 250 MG TAB...DR PO SCH (16:51)
[2022-08-21] MEDS: SENNA-S TABLET PO SCH (16:51)
[2022-08-21] MEDS: HYDROXYCHLOROQUINE SULFATE 200 MG TAB PO SCH (16:51)
[2022-08-21] MEDS: POTASSIUM CHLORIDE 10MEQ EA PO SCH (16:51)
[2022-08-21] MEDS: CEPHALEXIN 500 MG CAP PO SCH (16:52)
[2022-08-21] MEDS: METOPROLOL TARTRATE 25 MG TAB PO SCH (16:53)
[2022-08-21] MEDS: PREGABALIN 50 MG CAP PO SCH (16:59)
[2022-08-21] MEDS ORDERED: TRAZODONE HCL 50 MG TAB PO SCH (21:00)
[2022-08-21] MEDS: TAMSULOSIN HCL 0.4 MG CAP PO SCH (22:00)
[2022-08-21] MEDS: SIMVASTATIN 20 MG TAB PO SCH (22:00)
[2022-08-22] VITALS (13 sets, daily range): BP systolic 108–138; BP diastolic 50–96
[2022-08-22] MEDS: HYDROCODONE/APAP 10MG-325MG TAB PO PRN (05:29)
[2022-08-22] MEDS: PANTOPRAZOLE SOD 40 MG TABEC PO SCH (08:30)
[2022-08-22] MEDS: PREDNISONE 5 MG TAB PO SCH (09:00)
[2022-08-22] MEDS: SENNA-S TABLET PO SCH ×2 (09:33→17:00)
[2022-08-22] MEDS: DIVALPROEX SODIUM 250 MG TAB...DR PO SCH ×2 (09:36→17:00)
[2022-08-22] MEDS: HYDROXYCHLOROQUINE SULFATE 200 MG TAB PO SCH ×2 (09:36→17:00)
[2022-08-22] MEDS: PREGABALIN 50 MG CAP PO SCH (09:37)
[2022-08-22] MEDS: FUROSEMIDE 40 MG TAB PO SCH (09:37)
[2022-08-22] MEDS: CEPHALEXIN 500 MG CAP PO SCH (09:37)
[2022-08-22] MEDS: POTASSIUM CHLORIDE 10MEQ EA PO SCH ×2 (09:38→17:00)
[2022-08-22] MEDS: METOPROLOL TARTRATE 25 MG TAB PO SCH ×2 (09:46→17:00)
[2022-08-22] MEDS: ACETAZOLAMIDE 250 MG TAB PO SCH ×2 (15:03→15:10)
[2022-08-22] MEDS ORDERED: SODIUM CHLORIDE 0.9% 1000ML 1,000 ML IV PRN (16:15)
[2022-08-22] MEDS: MEGACE 400MG/ 10ML CUP PO SCH (16:15)
[2022-08-22 16:30] LABS: ABG PH 7.24 (7.35-7.45)
[2022-08-22 16:31] LABS: ABG HCO3 38 mmol/L (22-26); ABG PCO2 87 mmHg (35-45); ABG PO2 104 mmHg (80-105); ABG TCO2 40
[2022-08-22] MEDS: MULTIVITAMINS- 12 INJECTION 10 ML, FOLIC ACID MDV 1 MG, THIAMINE HCL INJ 100 MG in SODI... IV SCH ×2 (17:00→18:04)
[2022-08-22] MEDS ORDERED: LEVALBUTEROL HCL SOLN NEBU 0.63 MG/3 ML NEB INH PRN (17:15)
[2022-08-22] MEDS ORDERED: METHYLPREDNISOLONE SOD SUCC 40 MG/ML VIAL 1ML IV ONE (17:30)
[2022-08-22] MEDS: ENOXAPARIN SOD INJ 40 MG/0.4 ML SYR SC SCH (18:12)
[2022-08-22] MEDS: SIMVASTATIN 20 MG TAB PO SCH (20:35)
[2022-08-22] MEDS: TAMSULOSIN HCL 0.4 MG CAP PO SCH (20:35)
[2022-08-23] VITALS (22 sets, daily range): BP systolic 113–144; BP diastolic 47–83
[2022-08-23 06:41] LABS: BASOPHILS % 0.2 % (0.0-1.0); HEMATOCRIT 34.2 % (38.2-49.6); HEMOGLOBIN 10.1 g/dL (14.0-18.0); LYMPHOCYTES # (AUTO) 0.4 (1.0-3.2); LYMPHOCYTES % 8.5 % (18.0-39.1); MEAN CORPUSCULAR HEMOGLOBIN 29.1 pg (28-32); MEAN CORPUSCULAR HGB CONC 29.5 g/dL (31-35); MEAN CORPUSCULAR VOLUME 98.6 fL (81-99); MONOCYTES # (AUTO) 0.1 (0.2-0.8); NEUTROPHILS # (AUTO) 3.7 (2.1-6.9); NEUTROPHILS % 89.1 % (38.7-80.0); PLATELET COUNT 129 x10e3/uL (140-360); RED BLOOD COUNT 3.47 x10e6/uL (4.3-5.7); RED CELL DISTRIBUTION WIDTH 13.3 % (11.7-14.4)
[2022-08-23 07:03] LABS: ALBUMIN 2.5 g/dL (3.5-5.0); ALBUMIN/GLOBULIN RATIO 0.7 (0.8-2.0); ANION GAP 11.1 mmol/L (8-16); CALCIUM 8.8 mg/dL (8.4-10.2); CREATININE, SERUM 0.77 mg/dL (0.72-1.25); POTASSIUM 4.1 mmol/L (3.5-5.1)
[2022-08-23] MEDS: MEGACE 400MG/ 10ML CUP PO SCH (09:00)
[2022-08-23] MEDS: PANTOPRAZOLE SOD 40 MG TABEC PO SCH (09:02)
[2022-08-23] MEDS: DIVALPROEX SODIUM 250 MG TAB...DR PO SCH ×2 (09:02→16:10)
[2022-08-23] MEDS: POTASSIUM CHLORIDE 10MEQ EA PO SCH ×2 (09:03→16:10)
[2022-08-23] MEDS: METOPROLOL TARTRATE 25 MG TAB PO SCH ×2 (09:04→16:08)
[2022-08-23] MEDS: HYDROXYCHLOROQUINE SULFATE 200 MG TAB PO SCH ×2 (09:09→16:05)
[2022-08-23] MEDS: DEXTROSE 5% 1,000 ML IV SCH ×2 (09:09→20:55)
[2022-08-23] MEDS: PREDNISONE 5 MG TAB PO SCH (09:09)
[2022-08-23] MEDS: SENNA-S TABLET PO SCH ×2 (09:09→16:05)
[2022-08-23] MEDS: HYDROCODONE/APAP 5MG-325MG TAB PO PRN (16:03)
[2022-08-23] MEDS: ENOXAPARIN SOD INJ 40 MG/0.4 ML SYR SC SCH (16:10)
[2022-08-23] MEDS: SIMVASTATIN 20 MG TAB PO SCH (20:55)
[2022-08-23] MEDS: TAMSULOSIN HCL 0.4 MG CAP PO SCH (20:55)
[2022-08-24] VITALS (15 sets, daily range): BP systolic 99–137; BP diastolic 48–71
[2022-08-24] MEDS: VALPROATE SOD INJ 500 MG in SODIUM CHLORIDE 0.9% 100 ML IV SCH ×3 (00:36→12:00)
[2022-08-24] MEDS: HYDROCODONE/APAP 5MG-325MG TAB PO PRN (05:48)
[2022-08-24 06:20] LABS: BASOPHILS % 0.2 % (0.0-1.0); EOSINOPHILS % 0.2 % (0.0-6.0); HEMATOCRIT 30.2 % (38.2-49.6); LYMPHOCYTES # (AUTO) 0.9 (1.0-3.2); LYMPHOCYTES % 20.3 % (18.0-39.1); MEAN CORPUSCULAR HEMOGLOBIN 28.9 pg (28-32); MEAN CORPUSCULAR HGB CONC 29.8 g/dL (31-35); MEAN CORPUSCULAR VOLUME 97.1 fL (81-99); MONOCYTES # (AUTO) 0.4 (0.2-0.8); NEUTROPHILS # (AUTO) 3.3 (2.1-6.9); NEUTROPHILS % 71.1 % (38.7-80.0); PLATELET COUNT 127 x10e3/uL (140-360); RED BLOOD COUNT 3.11 x10e6/uL (4.3-5.7); RED CELL DISTRIBUTION WIDTH 13.2 % (11.7-14.4)
[2022-08-24 06:58] LABS: ALBUMIN 2.2 g/dL (3.5-5.0); ALBUMIN/GLOBULIN RATIO 0.8 (0.8-2.0); ANION GAP 7.6 mmol/L (8-16); CALCIUM 8.1 mg/dL (8.4-10.2); CREATININE, SERUM 0.74 mg/dL (0.72-1.25); POTASSIUM 3.6 mmol/L (3.5-5.1)
[2022-08-24] MEDS: MEGACE 400MG/ 10ML CUP PO SCH (08:08)
[2022-08-24] MEDS: SENNA-S TABLET PO SCH ×2 (08:08→16:52)
[2022-08-24] MEDS: PANTOPRAZOLE SOD 40 MG TABEC PO SCH (08:09)
[2022-08-24] MEDS: METOPROLOL TARTRATE 25 MG TAB PO SCH ×2 (08:09→16:54)
[2022-08-24] MEDS: PREDNISONE 5 MG TAB PO SCH (08:09)
[2022-08-24] MEDS: HYDROXYCHLOROQUINE SULFATE 200 MG TAB PO SCH ×2 (08:09→16:53)
[2022-08-24] MEDS: POTASSIUM CHLORIDE 10MEQ EA PO SCH ×2 (08:09→16:54)
[2022-08-24] MEDS: DIVALPROEX SODIUM 250 MG TAB...DR PO SCH ×2 (08:09→16:53)
[2022-08-24] MEDS ORDERED: DEXTROSE 50% SYRINGE 50 ML IV PRN (08:30)
[2022-08-24] MEDS ORDERED: SODIUM CHLORIDE 0.45% 1,000 ML IV ONE (09:00)
[2022-08-24] MEDS: POTASSIUM CHLORIDE 20MEQ/100ML 100 ML IV SCH ×2 (09:22→11:24)
[2022-08-24] MEDS: INSULIN REGULAR, HUMAN 100 UNIT/1 ML SQ SCH ×3 (11:27→20:57)
[2022-08-24] MEDS ORDERED: SODIUM CHLORIDE 0.9% INJ 100 ML BAG ONE (14:46)
[2022-08-24] MEDS ORDERED: SODIUM CHLORIDE 0.9% 100 ML ONE (14:46)
[2022-08-24] MEDS: ENOXAPARIN SOD INJ 40 MG/0.4 ML SYR SC SCH (16:54)
[2022-08-24] MEDS: SIMVASTATIN 20 MG TAB PO SCH (20:56)
[2022-08-24] MEDS: TAMSULOSIN HCL 0.4 MG CAP PO SCH (20:56)
[2022-08-25] VITALS (11 sets, daily range): BP systolic 112–148; BP diastolic 56–81
[2022-08-25] MEDS: HYDROCODONE/APAP 5MG-325MG TAB PO PRN ×4 (01:29→17:50)
[2022-08-25 07:30] LABS: ALBUMIN 2.2 g/dL (3.5-5.0); ALBUMIN/GLOBULIN RATIO 0.8 (0.8-2.0); ANION GAP 8.6 mmol/L (8-16); CALCIUM 8.4 mg/dL (8.4-10.2); CREATININE, SERUM 0.67 mg/dL (0.72-1.25)
[2022-08-25] MEDS: PANTOPRAZOLE SOD 40 MG TABEC PO SCH (07:30)
[2022-08-25] MEDS: INSULIN REGULAR, HUMAN 100 UNIT/1 ML SQ SCH ×4 (07:30→21:00)
[2022-08-25 07:32] LABS: EOSINOPHILS % 0.7 % (0.0-6.0); HEMATOCRIT 32.1 % (38.2-49.6); HEMOGLOBIN 9.9 g/dL (14.0-18.0); LYMPHOCYTES # (AUTO) 1.2 (1.0-3.2); LYMPHOCYTES % 28.6 % (18.0-39.1); MEAN CORPUSCULAR HGB CONC 30.8 g/dL (31-35); MEAN CORPUSCULAR VOLUME 94.1 fL (81-99); MONOCYTES # (AUTO) 0.4 (0.2-0.8); MONOCYTES % 8.4 % (4.4-11.3); NEUTROPHILS # (AUTO) 2.6 (2.1-6.9); NEUTROPHILS % 61.8 % (38.7-80.0); PLATELET COUNT 138 x10e3/uL (140-360); RED BLOOD COUNT 3.41 x10e6/uL (4.3-5.7); RED CELL DISTRIBUTION WIDTH 12.7 % (11.7-14.4)
[2022-08-25 07:42] LABS: POTASSIUM 4.6 mmol/L (3.5-5.1)
[2022-08-25] MEDS: POTASSIUM CHLORIDE 10MEQ EA PO SCH ×2 (09:00→16:10)
[2022-08-25] MEDS: METOPROLOL TARTRATE 25 MG TAB PO SCH ×2 (09:00→16:10)
[2022-08-25] MEDS: DIVALPROEX SODIUM 250 MG TAB...DR PO SCH ×2 (09:04→16:09)
[2022-08-25] MEDS: PREDNISONE 5 MG TAB PO SCH (09:04)
[2022-08-25] MEDS: HYDROXYCHLOROQUINE SULFATE 200 MG TAB PO SCH ×2 (09:04→16:09)
[2022-08-25] MEDS: MEGACE 400MG/ 10ML CUP PO SCH (09:04)
[2022-08-25] MEDS: SENNA-S TABLET PO SCH ×2 (09:05→16:09)
[2022-08-25] MEDS: ENOXAPARIN SOD INJ 40 MG/0.4 ML SYR SC SCH (16:09)
[2022-08-25] MEDS: SIMVASTATIN 20 MG TAB PO SCH (21:08)
[2022-08-25] MEDS: TAMSULOSIN HCL 0.4 MG CAP PO SCH (21:08)
[2022-08-26] VITALS (9 sets, daily range): BP systolic 141–158; BP diastolic 55–70
[2022-08-26] MEDS: HYDROCODONE/APAP 5MG-325MG TAB PO PRN ×4 (00:01→20:19)
[2022-08-26] MEDS: INSULIN REGULAR, HUMAN 100 UNIT/1 ML SQ SCH ×4 (07:30→20:20)
[2022-08-26 07:52] LABS: BASOPHILS % 0.9 % (0.0-1.0); EOSINOPHILS % 0.9 % (0.0-6.0); HEMATOCRIT 30.4 % (38.2-49.6); HEMOGLOBIN 9.7 g/dL (14.0-18.0); LYMPHOCYTES # (AUTO) 1.1 (1.0-3.2); LYMPHOCYTES % 32.1 % (18.0-39.1); MEAN CORPUSCULAR HGB CONC 31.9 g/dL (31-35); MEAN CORPUSCULAR VOLUME 90.7 fL (81-99); MONOCYTES # (AUTO) 0.4 (0.2-0.8); MONOCYTES % 10.3 % (4.4-11.3); NEUTROPHILS # (AUTO) 1.9 (2.1-6.9); NEUTROPHILS % 55.5 % (38.7-80.0); PLATELET COUNT 123 x10e3/uL (140-360); RED BLOOD COUNT 3.35 x10e6/uL (4.3-5.7); RED CELL DISTRIBUTION WIDTH 12.7 % (11.7-14.4)
[2022-08-26 08:22] LABS: ALBUMIN 2.4 g/dL (3.5-5.0); ALBUMIN/GLOBULIN RATIO 0.9 (0.8-2.0); ANION GAP 11.2 mmol/L (8-16); CALCIUM 8.6 mg/dL (8.4-10.2); CREATININE, SERUM 0.64 mg/dL (0.72-1.25); POTASSIUM 4.2 mmol/L (3.5-5.1)
[2022-08-26] MEDS: DIVALPROEX SODIUM 250 MG TAB...DR PO SCH ×2 (08:52→16:29)
[2022-08-26] MEDS: HYDROXYCHLOROQUINE SULFATE 200 MG TAB PO SCH ×2 (08:52→16:28)
[2022-08-26] MEDS: MEGACE 400MG/ 10ML CUP PO SCH (08:52)
[2022-08-26] MEDS: METOPROLOL TARTRATE 25 MG TAB PO SCH ×2 (08:53→16:28)
[2022-08-26] MEDS: PREDNISONE 5 MG TAB PO SCH (08:53)
[2022-08-26] MEDS: POTASSIUM CHLORIDE 10MEQ EA PO SCH ×2 (08:53→16:28)
[2022-08-26] MEDS: SENNA-S TABLET PO SCH ×2 (08:55→16:29)
[2022-08-26] MEDS: PANTOPRAZOLE SOD 40 MG TABEC PO SCH (08:55)
[2022-08-26] MEDS: ENOXAPARIN SOD INJ 40 MG/0.4 ML SYR SC SCH (16:29)
[2022-08-26] MEDS ORDERED: AZITHROMYCIN 250 MG TAB PO SCH (18:00)
[2022-08-26] MEDS: TAMSULOSIN HCL 0.4 MG CAP PO SCH (20:19)
[2022-08-26] MEDS: SIMVASTATIN 20 MG TAB PO SCH (20:19)
[2022-08-27 01:22] VITALS: BP 138/70
[2022-08-27 05:29] VITALS: BP 133/63
[2022-08-27 08:03] VITALS: BP 133/60
[2022-08-27 08:58] VITALS: BP 133/60
[2022-08-27] MEDS ORDERED: ASPIRIN 81 MG ENTERIC COATED PO SCH (09:00)
[2022-08-27] MEDS ORDERED: RIVASTIGMINE PATCH 4.6MG/24 HOURS PATCH TD SCH (09:00)
[2022-08-27] MEDS: SENNA-S TABLET PO SCH (09:16)
[2022-08-27] MEDS: METOPROLOL TARTRATE 25 MG TAB PO SCH (09:16)
[2022-08-27] MEDS: PANTOPRAZOLE SOD 40 MG TABEC PO SCH (09:16)
[2022-08-27] MEDS: DIVALPROEX SODIUM 250 MG TAB...DR PO SCH (09:16)
[2022-08-27] MEDS: PREDNISONE 5 MG TAB PO SCH (09:17)
[2022-08-27] MEDS: HYDROXYCHLOROQUINE SULFATE 200 MG TAB PO SCH (09:17)
[2022-08-27] MEDS: POTASSIUM CHLORIDE 10MEQ EA PO SCH (09:17)
[2022-08-27] MEDS ORDERED: DEPAKOTE ER500 MG PO (09:48)
[2022-08-27] MEDS ORDERED: ECOTRIN81 MG PO (09:49)
[2022-08-27] MEDS ORDERED: EXELON1 EACH TD (09:49)
[2022-08-27] MEDS ORDERED: PATADAY5 ML (09:51)
== END 2022-08-27 11:48 | disposition home or self-care (01) | DRG 56 ==
LOC: ER 14:54 → ERHOLD 17:04 → INTOOBSV 17:04 → MED/SURG3 19:47 → OBSVTOIN 08-22 11:39 → ICU 08-22 16:36 → MED/SURG2 08-25 16:37
PROVIDERS: ADMIT Internal Medicine; ATTEND Internal Medicine
PROC: 5A09357 Assistance with Respiratory Ventilation, Less than 24 Consecutive Hours, Continuous Positive Airway Pressure (ICD-10-PCS; principal; 2022-08-23)
DX: I69.398 Other sequelae of cerebral infarction (principal); G93.41 Metabolic encephalopathy; J96.22 Acute and chronic respiratory failure with hypercapnia; J69.0 Pneumonitis due to inhalation of food and vomit; N39.0 Urinary tract infection, site not specified; E87.0 Hyperosmolality and hypernatremia; N17.9 Acute kidney failure, unspecified; M32.9 Systemic lupus erythematosus, unspecified; G89.29 Other chronic pain; E11.22 Type 2 diabetes mellitus with diabetic chronic kidney disease; I12.9 Hypertensive chronic kidney disease with stage 1 through stage 4 chronic kidney disease, or unspecified chronic kidney disease; M54.9 Dorsalgia, unspecified; M19.90 Unspecified osteoarthritis, unspecified site; E11.51 Type 2 diabetes mellitus with diabetic peripheral angiopathy without gangrene; K59.09 Other constipation; E78.5 Hyperlipidemia, unspecified; N40.0 Benign prostatic hyperplasia without lower urinary tract symptoms; N18.2 Chronic kidney disease, stage 2 (mild); F03.90 Unspecified dementia, unspecified severity, without behavioral disturbance, psychotic disturbance, mood disturbance, and anxiety; E78.00 Pure hypercholesterolemia, unspecified; M41.9 Scoliosis, unspecified; D69.6 Thrombocytopenia, unspecified; D63.1 Anemia in chronic kidney disease; R56.9 Unspecified convulsions; Z59.6 Low income; Z20.822 Contact with and (suspected) exposure to COVID-19; Z79.4 Long term (current) use of insulin; Z90.49 Acquired absence of other specified parts of digestive tract
CPT/HCPCS: 36415; 36569; 36600; 70450; 71045; 80048; 80053; 81001; 82140; 82805; 82948; 83605; 83735; 84484; 85025; 85610; 87040; 87086; 93005; 93306; 93880; 94660; 94799; 95819; 99252; 99285; G0378; J0456; J0696; J1650; J1817; J2920; J3411; J3480; J7030; J7050; J7070; J7512

== ENCOUNTER 2022-09-01 19:53 | Inpatient (IN) | payer MEDICARE ==
[~2022-09-01] VITALS: Ht 165.1 cm; Wt 71.3 kg
[~2022-09-01 19:53] MED LIST changes: +ACETAZOLAMIDE250 MG PO; +DEPAKOTE ER500 MG PO; +ECOTRIN81 MG PO; +EXELON1 EACH TD; -HYDROCODON-ACE1 EAC9; +HYDROCODON-ACE1 EAC9 PO; +LANTUS 3ML100 UNITS/; +LYRICA50 MG PO; +PATADAY5 ML; +PLAQUENIL200 MG PO
[2022-09-01] MEDS ORDERED: SODIUM CHLORIDE FLUSH 10 ML SYR IV PRN (20:15)
[2022-09-01 21:25] LABS: BASOPHILS # (AUTO) 0.1 (0.0-0.1); BASOPHILS % 0.4 % (0.0-1.0); EOSINOPHILS % 0.1 % (0.0-6.0); HEMATOCRIT 40.1 % (38.2-49.6); HEMOGLOBIN 11.5 g/dL (14.0-18.0); LYMPHOCYTES # (AUTO) 0.5 (1.0-3.2); MEAN CORPUSCULAR HGB CONC 28.7 g/dL (31-35); MEAN CORPUSCULAR VOLUME 101.3 fL (81-99); MONOCYTES % 7.1 % (4.4-11.3); NEUTROPHILS # (AUTO) 11.7 (2.1-6.9); NEUTROPHILS % 87.6 % (38.7-80.0); PLATELET COUNT 228 x10e3/uL (140-360); RED BLOOD COUNT 3.96 x10e6/uL (4.3-5.7); RED CELL DISTRIBUTION WIDTH 12.9 % (11.7-14.4)
[2022-09-01 21:36] LABS: PARTIAL THROMBOPLASTIN TIME 32.3 seconds (23.8-35.5); PROTHROMBIN TIME 13.4 seconds (11.9-14.5)
[2022-09-01 21:45] LABS: ALBUMIN 3.1 g/dL (3.5-5.0); ANION GAP 11.7 mmol/L (8-16); CALCIUM 8.6 mg/dL (8.4-10.2); CREATININE, SERUM 1.01 mg/dL (0.72-1.25); POTASSIUM 4.7 mmol/L (3.5-5.1)
[2022-09-01] MEDS ORDERED: SODIUM CHLORIDE 0.9% 1000ML 1,000 ML IV SCH (23:45)
[2022-09-01 23:58] LABS: AMPHETAMINES SCREEN,URINE NEGATIVE (NEGATIVE); BENZODIAZEPINES SCREEN,URINE NEGATIVE (NEGATIVE); CLARITY,URINE CLEAR (CLEAR); COLOR,URINE YELLOW (YELLOW); KETONES,URINE NEGATIVE (NEGATIVE); LEUKOCYTE ESTERASE ,URINE NEGATIVE (NEGATIVE); NITRITE,URINE NEGATIVE (NEGATIVE); PHENCYCLIDINE SCREEN,URINE NEGATIVE (NEGATIVE); PROTEIN,URINE DIPSTICK NEGATIVE (NEGATIVE); URINE UROBILINOGEN 0.2 mg/dL (0.2 - 1)
[2022-09-02] VITALS (9 sets, daily range): BP systolic 115–140; BP diastolic 46–60
[2022-09-02 00:02] LABS: AMORPHOUS SEDIMENT,URINE FEW (FEW); BACTERIA,URINE FEW /HPF; EPITHELIAL CELLS,URINE RARE /LPF; WBC,URINE (MAN) 0-5 /HPF (0-5)
[2022-09-02] MEDS ORDERED: ONDANSETRON HCL INJ 2MG/ML 2ML 2 MG/ML VIAL IV PRN (00:30)
[2022-09-02] MEDS ORDERED: DEXTROSE 50% SYRINGE 50 ML IV PRN ×2 (00:30→08:30)
[2022-09-02 01:03] LABS: CREATINE KINASE MB 3.1 ng/mL (0-5.0)
[2022-09-02] MEDS ORDERED: INSULIN REGULAR, HUMAN 100 UNIT/1 ML SQ SCH (07:30)
[2022-09-02] MEDS ORDERED: SUCCINYLCHOLINE CHLORIDE 20 MG/ML 10ML VIAL ONE (08:01)
[2022-09-02] MEDS ORDERED: ETOMIDATE 2 MG/ML 10 ML INJ IV ONE (08:01)
[2022-09-02] MEDS: OLOPATADINE 5 ML BTL OP SCH ×2 (09:00→16:32)
[2022-09-02] MEDS: ACETAZOLAMIDE 250 MG TAB PO SCH (10:07)
[2022-09-02] MEDS: DEPAKOTE DELAYED-RELEASE TAB 500 MG PO SCH ×2 (10:07→16:33)
[2022-09-02] MEDS: SENNA-S TABLET PO SCH ×2 (10:07→16:33)
[2022-09-02] MEDS: METOPROLOL TARTRATE 25 MG TAB PO SCH ×2 (10:08→16:33)
[2022-09-02] MEDS: PANTOPRAZOLE SOD 40 MG TABEC PO SCH (10:08)
[2022-09-02] MEDS: PREDNISONE 5 MG TAB PO SCH (10:08)
[2022-09-02] MEDS: ASPIRIN 81 MG ENTERIC COATED PO SCH (10:08)
[2022-09-02] MEDS: HYDROXYCHLOROQUINE SULFATE 200 MG TAB PO SCH ×2 (10:09→16:32)
[2022-09-02] MEDS: PREGABALIN 50 MG CAP PO SCH ×2 (10:09→16:33)
[2022-09-02] MEDS: HYDROCODONE/APAP 10MG-325MG TAB PO PRN ×3 (10:19→22:35)
[2022-09-02] MEDS: RIVASTIGMINE TARTRATE 1.5 MG CAP PO SCH ×2 (10:19→16:32)
[2022-09-02] MEDS: INSULIN LISPRO 100 UNIT/1 ML 3ML VIAL SQ SCH ×3 (11:30→20:56)
[2022-09-02] MEDS ORDERED: FENTANYL CITRATE/PF 100MCG/2 ML INJ ONE (12:26)
[2022-09-02] MEDS ORDERED: PROPOFOL IV EMULSION 10 MG/ML 20 ML VIAL ONE (13:22)
[2022-09-02] MEDS ORDERED: POVIDONE IODINE 0.05% 0.05 % ML PO ONE (13:22)
[2022-09-02] MEDS ORDERED: ROCURONIUM BROMIDE 10 MG/ML 5ML VIAL IV ONE (13:22)
[2022-09-02] MEDS ORDERED: SEVOFLURANE INHAL SOLN 250 ML PEN BTL ONE (13:22)
[2022-09-02] MEDS: THIAMINE HCL INJ 100 MG/ML 2ML VIAL IV SCH (14:33)
[2022-09-02] MEDS ORDERED: SODIUM CHLORIDE 0.9% 250ML 250 ML ONE (20:10)
[2022-09-02] MEDS: TRAZODONE HCL 50 MG TAB PO SCH (21:50)
[2022-09-02] MEDS: TAMSULOSIN HCL 0.4 MG CAP PO SCH (21:50)
[2022-09-02] MEDS: SIMVASTATIN 20 MG TAB PO SCH (21:50)
[2022-09-03] VITALS (8 sets, daily range): BP systolic 109–141; BP diastolic 46–68
[2022-09-03 05:23] LABS: BASOPHILS % 0.5 % (0.0-1.0); EOSINOPHILS % 0.5 % (0.0-6.0); HEMATOCRIT 30.3 % (38.2-49.6); HEMOGLOBIN 9.1 g/dL (14.0-18.0); LYMPHOCYTES % 17.9 % (18.0-39.1); MEAN CORPUSCULAR HEMOGLOBIN 29.1 pg (28-32); MEAN CORPUSCULAR VOLUME 96.8 fL (81-99); MONOCYTES # (AUTO) 0.6 (0.2-0.8); MONOCYTES % 10.4 % (4.4-11.3); NEUTROPHILS # (AUTO) 3.9 (2.1-6.9); NEUTROPHILS % 70.3 % (38.7-80.0); PLATELET COUNT 246 x10e3/uL (140-360); RED BLOOD COUNT 3.13 x10e6/uL (4.3-5.7); RED CELL DISTRIBUTION WIDTH 12.8 % (11.7-14.4)
[2022-09-03 05:44] LABS: ALBUMIN 2.6 g/dL (3.5-5.0); ALBUMIN/GLOBULIN RATIO 0.9 (0.8-2.0); ANION GAP 10.1 mmol/L (8-16); CALCIUM 8.4 mg/dL (8.4-10.2); CREATININE, SERUM 0.75 mg/dL (0.72-1.25); POTASSIUM 4.1 mmol/L (3.5-5.1)
[2022-09-03] MEDS: INSULIN LISPRO 100 UNIT/1 ML 3ML VIAL SQ SCH ×4 (07:30→20:24)
[2022-09-03] MEDS: HYDROCODONE/APAP 10MG-325MG TAB PO PRN ×2 (10:48→16:56)
[2022-09-03] MEDS: HYDROXYCHLOROQUINE SULFATE 200 MG TAB PO SCH ×2 (10:56→16:56)
[2022-09-03] MEDS: ACETAZOLAMIDE 250 MG TAB PO SCH (10:56)
[2022-09-03] MEDS: ASPIRIN 81 MG ENTERIC COATED PO SCH (10:57)
[2022-09-03] MEDS: METOPROLOL TARTRATE 25 MG TAB PO SCH ×2 (10:57→16:56)
[2022-09-03] MEDS: DEPAKOTE DELAYED-RELEASE TAB 500 MG PO SCH ×2 (10:57→16:55)
[2022-09-03] MEDS: PANTOPRAZOLE SOD 40 MG TABEC PO SCH (10:57)
[2022-09-03] MEDS: PREGABALIN 50 MG CAP PO SCH ×2 (10:58→16:56)
[2022-09-03] MEDS: PREDNISONE 5 MG TAB PO SCH (10:58)
[2022-09-03] MEDS: THIAMINE HCL INJ 100 MG/ML 2ML VIAL IV SCH (10:58)
[2022-09-03] MEDS: SENNA-S TABLET PO SCH ×2 (10:58→16:56)
[2022-09-03] MEDS: OLOPATADINE 5 ML BTL OP SCH ×2 (10:58→16:57)
[2022-09-03] MEDS: RIVASTIGMINE TARTRATE 1.5 MG CAP PO SCH ×2 (10:58→16:56)
[2022-09-03] MEDS: LACTULOSE SYRUP 20 GM/30 ML UDC PO SCH ×2 (11:01→16:55)
[2022-09-03] MEDS: SIMVASTATIN 20 MG TAB PO SCH (20:53)
[2022-09-03] MEDS: TAMSULOSIN HCL 0.4 MG CAP PO SCH (20:53)
[2022-09-03] MEDS: TRAZODONE HCL 50 MG TAB PO SCH (20:53)
[2022-09-03] MEDS ORDERED: AZITHROMYCIN 250 MG TAB PO SCH (21:00)
[2022-09-04] VITALS (41 sets, daily range): BP systolic 91–160; BP diastolic 37–75
[2022-09-04] MEDS ORDERED: NALOXONE HCL 2MG/2 ML SYRINGE IV ONE (01:00)
[2022-09-04] MEDS ORDERED: NALOXONE HCL INJ 0.4 MG/ML AMP ONE (01:10)
[2022-09-04] MEDS ORDERED: PROPOFOL IV EMULSION 10MG/ML 100 ML ONE (01:51)
[2022-09-04 01:57] LABS: ABG HCO3 36 mmol/L (22-26); ABG PCO2 112 mmHg (35-45); ABG PH 7.11 (7.35-7.45); ABG PO2 85 mmHg (80-105); ABG TCO2 40
[2022-09-04] MEDS ORDERED: SODIUM CHLORIDE 0.9% 1000ML 1,000 ML IV PRN (03:30)
[2022-09-04 04:14] LABS: ABG HCO3 31 mmol/L (22-26); ABG PCO2 39 mmHg (35-45); ABG PH 7.51 (7.35-7.45); ABG PO2 53 mmHg (80-105); ABG TCO2 32
[2022-09-04] MEDS ORDERED: ROCURONIUM BROMIDE 10 MG/ML 5ML VIAL IV ONE (05:00)
[2022-09-04] MEDS ORDERED: MIDAZOLAM HCL 2 MG/2 ML VIAL IV STA (05:00)
[2022-09-04] MEDS ORDERED: MIDAZOLAM HCL 2 MG/2 ML VIAL ONE (05:06)
[2022-09-04] MEDS ORDERED: ROCURONIUM BROMIDE 2 ML IV ONE (05:07)
[2022-09-04] MEDS ORDERED: SODIUM CHLORIDE 0.9% 500ML 500 ML IV ONE (05:30)
[2022-09-04] MEDS ORDERED: SODIUM CHLORIDE 0.9% 500ML 500 ML ONE (05:33)
[2022-09-04] MEDS ORDERED: FENTANYL 2000MCG/NS 250 250 ML IV PRN (05:45)
[2022-09-04 05:58] LABS: BASOPHILS # (AUTO) 0.1 (0.0-0.1); BASOPHILS % 0.5 % (0.0-1.0); HEMATOCRIT 29.8 % (38.2-49.6); HEMOGLOBIN 9.4 g/dL (14.0-18.0); LYMPHOCYTES # (AUTO) 0.8 (1.0-3.2); LYMPHOCYTES % 7.4 % (18.0-39.1); MEAN CORPUSCULAR HEMOGLOBIN 29.4 pg (28-32); MEAN CORPUSCULAR HGB CONC 31.5 g/dL (31-35); MEAN CORPUSCULAR VOLUME 93.1 fL (81-99); MONOCYTES # (AUTO) 1.3 (0.2-0.8); NEUTROPHILS # (AUTO) 8.3 (2.1-6.9); NEUTROPHILS % 79.2 % (38.7-80.0); PLATELET COUNT 222 x10e3/uL (140-360); RED CELL DISTRIBUTION WIDTH 12.4 % (11.7-14.4)
[2022-09-04 06:32] LABS: ALBUMIN 2.5 g/dL (3.5-5.0); ALBUMIN/GLOBULIN RATIO 0.9 (0.8-2.0); ANION GAP 11.2 mmol/L (8-16); CREATININE, SERUM 0.73 mg/dL (0.72-1.25); POTASSIUM 3.2 mmol/L (3.5-5.1)
[2022-09-04] MEDS ORDERED: PIPERACILLIN/TAZOBACTAM 3.375 GM VIAL ONE (06:55)
[2022-09-04] MEDS: INSULIN LISPRO 100 UNIT/1 ML 3ML VIAL SQ SCH ×4 (07:30→21:00)
[2022-09-04] MEDS: LACTULOSE SYRUP 20 GM/30 ML UDC PO SCH ×2 (08:26→17:51)
[2022-09-04] MEDS: DEPAKOTE DELAYED-RELEASE TAB 500 MG PO SCH ×2 (08:27→17:50)
[2022-09-04] MEDS: THIAMINE HCL INJ 100 MG/ML 2ML VIAL IV SCH (08:27)
[2022-09-04] MEDS: HYDROXYCHLOROQUINE SULFATE 200 MG TAB PO SCH ×2 (08:27→17:51)
[2022-09-04] MEDS: PREDNISONE 5 MG TAB PO SCH (08:27)
[2022-09-04] MEDS: SENNA-S TABLET PO SCH ×2 (08:27→17:51)
[2022-09-04] MEDS: ASPIRIN 81 MG ENTERIC COATED PO SCH (08:27)
[2022-09-04] MEDS: OLOPATADINE 5 ML BTL OP SCH ×2 (08:35→17:00)
[2022-09-04] MEDS: RIVASTIGMINE TARTRATE 1.5 MG CAP PO SCH ×2 (08:35→17:49)
[2022-09-04] MEDS: POTASSIUM CHLORIDE 20MEQ/100ML 100 ML IV SCH ×2 (08:36→10:39)
[2022-09-04 08:41] LABS: ABG HCO3 30 mmol/L (22-26); ABG PCO2 39 mmHg (35-45); ABG PO2 59 mmHg (80-105); ABG TCO2 31
[2022-09-04] MEDS: METOPROLOL TARTRATE 25 MG TAB PO SCH ×2 (09:00→17:00)
[2022-09-04] MEDS ORDERED: IOPAMIDOL 370 MG/ML 100 ML INFUS..BTL INJ ONE (09:45)
[2022-09-04] MEDS: PROPOFOL IV EMULSION 10MG/ML 100 ML IV PRN (10:39)
[2022-09-04 12:21] LABS: ABG HCO3 29 mmol/L (22-26); ABG PCO2 36 mmHg (35-45); ABG PH 7.52 (7.35-7.45); ABG PO2 125 mmHg (80-105); ABG TCO2 31
[2022-09-04] MEDS: ENOXAPARIN SOD INJ 40 MG/0.4 ML SYR SC SCH (17:52)
[2022-09-04] MEDS: TAMSULOSIN HCL 0.4 MG CAP PO SCH (21:00)
[2022-09-04] MEDS: SIMVASTATIN 20 MG TAB PO SCH (21:24)
[2022-09-05] VITALS (59 sets, daily range): BP systolic 104–152; BP diastolic 41–60
[2022-09-05 06:18] LABS: BASOPHILS % 0.3 % (0.0-1.0); EOSINOPHILS % 0.2 % (0.0-6.0); HEMATOCRIT 27.1 % (38.2-49.6); HEMOGLOBIN 8.5 g/dL (14.0-18.0); LYMPHOCYTES # (AUTO) 0.6 (1.0-3.2); LYMPHOCYTES % 6.9 % (18.0-39.1); MEAN CORPUSCULAR HEMOGLOBIN 28.7 pg (28-32); MEAN CORPUSCULAR HGB CONC 31.4 g/dL (31-35); MEAN CORPUSCULAR VOLUME 91.6 fL (81-99); MONOCYTES # (AUTO) 0.9 (0.2-0.8); MONOCYTES % 10.2 % (4.4-11.3); NEUTROPHILS # (AUTO) 7.1 (2.1-6.9); NEUTROPHILS % 81.6 % (38.7-80.0); PLATELET COUNT 184 x10e3/uL (140-360); RED BLOOD COUNT 2.96 x10e6/uL (4.3-5.7)
[2022-09-05] MEDS: PROPOFOL IV EMULSION 10MG/ML 100 ML IV PRN ×3 (06:33→23:03)
[2022-09-05 07:36] LABS: ABG HCO3 29 mmol/L (22-26); ABG PCO2 44 mmHg (35-45); ABG PH 7.44 (7.35-7.45); ABG PO2 193 mmHg (80-105); ABG TCO2 31
[2022-09-05 07:43] LABS: ALBUMIN 2.2 g/dL (3.5-5.0); ALBUMIN/GLOBULIN RATIO 0.8 (0.8-2.0); ANION GAP 15.1 mmol/L (8-16); CALCIUM 8.1 mg/dL (8.4-10.2); CREATININE, SERUM 0.79 mg/dL (0.72-1.25); POTASSIUM 3.1 mmol/L (3.5-5.1)
[2022-09-05] MEDS: OLOPATADINE 5 ML BTL OP SCH ×2 (09:00→17:00)
[2022-09-05] MEDS: PREDNISONE 5 MG TAB PO SCH (09:06)
[2022-09-05] MEDS: INSULIN LISPRO 100 UNIT/1 ML 3ML VIAL SQ SCH ×4 (09:06→20:22)
[2022-09-05] MEDS: SENNA-S TABLET PO SCH (09:07)
[2022-09-05] MEDS: METOPROLOL TARTRATE 25 MG TAB PO SCH ×2 (09:07→17:01)
[2022-09-05] MEDS: HYDROXYCHLOROQUINE SULFATE 200 MG TAB PO SCH ×2 (09:07→17:01)
[2022-09-05] MEDS: ASPIRIN 81 MG ENTERIC COATED PO SCH (09:07)
[2022-09-05] MEDS: THIAMINE HCL INJ 100 MG/ML 2ML VIAL IV SCH (09:08)
[2022-09-05] MEDS: RIVASTIGMINE TARTRATE 1.5 MG CAP PO SCH (09:08)
[2022-09-05] MEDS: DEPAKOTE DELAYED-RELEASE TAB 500 MG PO SCH ×2 (09:08→17:01)
[2022-09-05] MEDS: LACTULOSE SYRUP 20 GM/30 ML UDC PO SCH (09:08)
[2022-09-05] MEDS ORDERED: POTASSIUM CHLORIDE 20MEQ/100ML 200 ML IV ONE (10:00)
[2022-09-05] MEDS ORDERED: SODIUM CHLORIDE 0.45% 1,000 ML IV ONE (10:00)
[2022-09-05] MEDS ORDERED: KCL 20 MEQ PACKET/ ORAL SOLN NG ONE (10:00)
[2022-09-05 11:29] LABS: ABG HCO3 28 mmol/L (22-26); ABG PCO2 42 mmHg (35-45); ABG PH 7.44 (7.35-7.45); ABG PO2 111 mmHg (80-105)
[2022-09-05 11:30] LABS: ABG TCO2 30
[2022-09-05] MEDS: ENOXAPARIN SOD INJ 40 MG/0.4 ML SYR SC SCH (17:01)
[2022-09-05] MEDS: TAMSULOSIN HCL 0.4 MG CAP PO SCH (19:18)
[2022-09-05] MEDS: SIMVASTATIN 20 MG TAB PO SCH (20:13)
[2022-09-06] VITALS (29 sets, daily range): BP systolic 100–145; BP diastolic 39–52
[2022-09-06] MEDS ORDERED: SODIUM CHLORIDE 0.9% 250ML 250 ML ONE (05:45)
[2022-09-06] MEDS: INSULIN LISPRO 100 UNIT/1 ML 3ML VIAL SQ SCH ×4 (07:30→20:17)
[2022-09-06 07:46] LABS: BASOPHILS % 0.3 % (0.0-1.0); EOSINOPHILS # (AUTO) 0.1 (0.0-0.4); EOSINOPHILS % 1.2 % (0.0-6.0); HEMATOCRIT 24.7 % (38.2-49.6); HEMOGLOBIN 7.7 g/dL (14.0-18.0); LYMPHOCYTES # (AUTO) 0.9 (1.0-3.2); LYMPHOCYTES % 11.4 % (18.0-39.1); MEAN CORPUSCULAR HEMOGLOBIN 28.6 pg (28-32); MEAN CORPUSCULAR HGB CONC 31.2 g/dL (31-35); MEAN CORPUSCULAR VOLUME 91.8 fL (81-99); MONOCYTES # (AUTO) 0.7 (0.2-0.8); MONOCYTES % 9.6 % (4.4-11.3); NEUTROPHILS # (AUTO) 5.9 (2.1-6.9); PLATELET COUNT 163 x10e3/uL (140-360); RED BLOOD COUNT 2.69 x10e6/uL (4.3-5.7); RED CELL DISTRIBUTION WIDTH 13.2 % (11.7-14.4)
[2022-09-06 08:09] LABS: ALBUMIN 1.9 g/dL (3.5-5.0); ALBUMIN/GLOBULIN RATIO 0.7 (0.8-2.0); ANION GAP 9.7 mmol/L (8-16); CALCIUM 7.9 mg/dL (8.4-10.2); CREATININE, SERUM 0.68 mg/dL (0.72-1.25); POTASSIUM 3.7 mmol/L (3.5-5.1)
[2022-09-06] MEDS: ASPIRIN 81 MG ENTERIC COATED PO SCH (09:00)
[2022-09-06] MEDS: DEPAKOTE DELAYED-RELEASE TAB 500 MG PO SCH ×2 (09:00→17:00)
[2022-09-06] MEDS: OLOPATADINE 5 ML BTL OP SCH ×2 (09:00→17:00)
[2022-09-06] MEDS: HYDROXYCHLOROQUINE SULFATE 200 MG TAB PO SCH ×2 (10:04→17:00)
[2022-09-06] MEDS: THIAMINE HCL INJ 100 MG/ML 2ML VIAL IV SCH (10:04)
[2022-09-06] MEDS: METOPROLOL TARTRATE 25 MG TAB PO SCH ×2 (10:04→17:00)
[2022-09-06] MEDS: PREDNISONE 5 MG TAB PO SCH (10:04)
[2022-09-06 12:54] LABS: ABG PH 7.46 (7.35-7.45)
[2022-09-06 12:55] LABS: ABG HCO3 25 mmol/L (22-26); ABG PCO2 36 mmHg (35-45); ABG PO2 93 mmHg (80-105); ABG TCO2 26
[2022-09-06 12:58] LABS: ABG HCO3 26 mmol/L (22-26); ABG PCO2 41 mmHg (35-45); ABG PH 7.41 (7.35-7.45); ABG PO2 84 mmHg (80-105); ABG TCO2 27
[2022-09-06 13:01] LABS: ABG HCO3 27 mmol/L (22-26); ABG PCO2 47 mmHg (35-45); ABG PH 7.37 (7.35-7.45); ABG PO2 158 mmHg (80-105); ABG TCO2 28
[2022-09-06] MEDS: FLUCONAZOLE 100 MG/NS 50 ML 50 ML IV SCH (14:23)
[2022-09-06] MEDS: ENOXAPARIN SOD INJ 40 MG/0.4 ML SYR SC SCH (18:02)
[2022-09-06] MEDS: TAMSULOSIN HCL 0.4 MG CAP PO SCH (20:17)
[2022-09-06] MEDS: SIMVASTATIN 20 MG TAB PO SCH (20:17)
[2022-09-07] VITALS (26 sets, daily range): BP systolic 79–159; BP diastolic 43–58
[2022-09-07 06:19] LABS: BASOPHILS # (AUTO) 0.1 (0.0-0.1); BASOPHILS % 0.9 % (0.0-1.0); EOSINOPHILS # (AUTO) 0.1 (0.0-0.4); EOSINOPHILS % 1.8 % (0.0-6.0); HEMATOCRIT 24.8 % (38.2-49.6); HEMOGLOBIN 7.5 g/dL (14.0-18.0); LYMPHOCYTES # (AUTO) 0.8 (1.0-3.2); MEAN CORPUSCULAR HEMOGLOBIN 28.4 pg (28-32); MEAN CORPUSCULAR HGB CONC 30.2 g/dL (31-35); MEAN CORPUSCULAR VOLUME 93.9 fL (81-99); MONOCYTES # (AUTO) 0.5 (0.2-0.8); MONOCYTES % 8.2 % (4.4-11.3); NEUTROPHILS # (AUTO) 4.1 (2.1-6.9); NEUTROPHILS % 73.7 % (38.7-80.0); PLATELET COUNT 157 x10e3/uL (140-360); RED BLOOD COUNT 2.64 x10e6/uL (4.3-5.7); RED CELL DISTRIBUTION WIDTH 13.5 % (11.7-14.4)
[2022-09-07 06:38] LABS: ALBUMIN/GLOBULIN RATIO 0.7 (0.8-2.0); ANION GAP 10.6 mmol/L (8-16); CALCIUM 7.9 mg/dL (8.4-10.2); CREATININE, SERUM 0.57 mg/dL (0.72-1.25); POTASSIUM 3.6 mmol/L (3.5-5.1)
[2022-09-07] MEDS: INSULIN LISPRO 100 UNIT/1 ML 3ML VIAL SQ SCH ×4 (07:09→21:00)
[2022-09-07] MEDS: THIAMINE HCL INJ 100 MG/ML 2ML VIAL IV SCH (08:35)
[2022-09-07] MEDS: HYDROXYCHLOROQUINE SULFATE 200 MG TAB PO SCH ×2 (08:35→16:14)
[2022-09-07] MEDS: POTASSIUM CHLORIDE 20MEQ/100ML 100 ML IV SCH ×2 (08:35→09:52)
[2022-09-07] MEDS: ASPIRIN 81 MG ENTERIC COATED PO SCH (08:35)
[2022-09-07] MEDS: PREDNISONE 5 MG TAB PO SCH (08:35)
[2022-09-07] MEDS: DEPAKOTE DELAYED-RELEASE TAB 500 MG PO SCH ×2 (08:35→16:14)
[2022-09-07] MEDS: OLOPATADINE 5 ML BTL OP SCH ×2 (08:36→16:14)
[2022-09-07] MEDS ORDERED: SODIUM CHLORIDE 0.45% 1,000 ML IV ONE (09:00)
[2022-09-07] MEDS: FLUCONAZOLE 100 MG/NS 50 ML 50 ML IV SCH (09:20)
[2022-09-07] MEDS: METOPROLOL TARTRATE 25 MG TAB PO SCH ×2 (09:20→16:14)
[2022-09-07] MEDS: MUPIROCIN 2% OINT 22 GM TUBE TOP SCH ×2 (09:52→17:38)
[2022-09-07] MEDS: POTASSIUM CHLORIDE 20 MEQ in DEXTROSE 5% 1,000 ML IV SCH (16:31)
[2022-09-07] MEDS: ENOXAPARIN SOD INJ 40 MG/0.4 ML SYR SC SCH (16:32)
[2022-09-07] MEDS: SIMVASTATIN 20 MG TAB PO SCH (21:00)
[2022-09-07] MEDS: TAMSULOSIN HCL 0.4 MG CAP PO SCH (21:00)
[2022-09-08] VITALS (26 sets, daily range): BP systolic 102–170; BP diastolic 43–87
[2022-09-08 00:33] LABS: IRON 44 ug/dL (65-175)
[2022-09-08 01:03] LABS: % IRON SATURATION 34 % (15-50); TOTAL IRON BINDING CAPACITY 130 ug/dL (261-478); TRANSFERRIN 93 mg/dL (174-364)
[2022-09-08] MEDS: POTASSIUM CHLORIDE 20 MEQ in DEXTROSE 5% 1,000 ML IV SCH ×2 (05:45→20:05)
[2022-09-08 06:18] LABS: BASOPHILS % 0.6 % (0.0-1.0); EOSINOPHILS # (AUTO) 0.1 (0.0-0.4); EOSINOPHILS % 1.5 % (0.0-6.0); HEMATOCRIT 25.6 % (38.2-49.6); HEMOGLOBIN 7.9 g/dL (14.0-18.0); LYMPHOCYTES % 20.1 % (18.0-39.1); MEAN CORPUSCULAR HEMOGLOBIN 28.9 pg (28-32); MEAN CORPUSCULAR HGB CONC 30.9 g/dL (31-35); MEAN CORPUSCULAR VOLUME 93.8 fL (81-99); MONOCYTES # (AUTO) 0.5 (0.2-0.8); MONOCYTES % 10.5 % (4.4-11.3); NEUTROPHILS # (AUTO) 3.2 (2.1-6.9); NEUTROPHILS % 67.1 % (38.7-80.0); PLATELET COUNT 148 x10e3/uL (140-360); RED BLOOD COUNT 2.73 x10e6/uL (4.3-5.7); RED CELL DISTRIBUTION WIDTH 13.3 % (11.7-14.4)
[2022-09-08 06:51] LABS: ALBUMIN/GLOBULIN RATIO 0.7 (0.8-2.0); ANION GAP 9.2 mmol/L (8-16); CALCIUM 8.4 mg/dL (8.4-10.2); CREATININE, SERUM 0.62 mg/dL (0.72-1.25); POTASSIUM 4.2 mmol/L (3.5-5.1)
[2022-09-08 06:55] LABS: INR 1.1; PROTHROMBIN TIME 14.4 seconds (11.9-14.5)
[2022-09-08] MEDS: INSULIN LISPRO 100 UNIT/1 ML 3ML VIAL SQ SCH ×4 (07:10→20:58)
[2022-09-08] MEDS: THIAMINE HCL INJ 100 MG/ML 2ML VIAL IV SCH (08:39)
[2022-09-08] MEDS: DEPAKOTE DELAYED-RELEASE TAB 500 MG PO SCH ×2 (08:39→16:41)
[2022-09-08] MEDS: ASPIRIN 81 MG ENTERIC COATED PO SCH (08:39)
[2022-09-08] MEDS: OLOPATADINE 5 ML BTL OP SCH ×2 (08:39→16:51)
[2022-09-08] MEDS: PREDNISONE 5 MG TAB PO SCH (08:40)
[2022-09-08] MEDS: MUPIROCIN 2% OINT 22 GM TUBE TOP SCH ×2 (08:40→21:05)
[2022-09-08] MEDS: METOPROLOL TARTRATE 25 MG TAB PO SCH ×2 (08:40→16:51)
[2022-09-08] MEDS: HYDROXYCHLOROQUINE SULFATE 200 MG TAB PO SCH ×2 (08:40→16:51)
[2022-09-08] MEDS: FLUCONAZOLE 100 MG/NS 50 ML 50 ML IV SCH (10:32)
[2022-09-08] MEDS ORDERED: PROPOFOL IV EMULSION 10 MG/ML 20 ML VIAL ONE (13:55)
[2022-09-08] MEDS ORDERED: LIDOCAINE HCL 2% LOCAL INJ 5 ML SDV VIAL INJ ONE (13:55)
[2022-09-08] MEDS: ENOXAPARIN SOD INJ 40 MG/0.4 ML SYR SC SCH (17:23)
[2022-09-08] MEDS ORDERED: KETOROLAC TROMETHAMINE 30 MG/ML VIAL IV STA (19:47)
[2022-09-08] MEDS: SIMVASTATIN 20 MG TAB PO SCH (20:35)
[2022-09-08] MEDS: TAMSULOSIN HCL 0.4 MG CAP PO SCH (20:35)
[2022-09-09] VITALS (26 sets, daily range): BP systolic 105–170; BP diastolic 49–64
[2022-09-09] MEDS: Morphine 2mg Syringe 2 MG/ML SYR IV PRN ×3 (00:52→20:42)
[2022-09-09 06:38] LABS: BASOPHILS % 0.9 % (0.0-1.0); EOSINOPHILS # (AUTO) 0.1 (0.0-0.4); EOSINOPHILS % 1.3 % (0.0-6.0); HEMATOCRIT 23.1 % (38.2-49.6); HEMOGLOBIN 7.4 g/dL (14.0-18.0); LYMPHOCYTES % 20.9 % (18.0-39.1); MEAN CORPUSCULAR HEMOGLOBIN 31.4 pg (28-32); MONOCYTES # (AUTO) 0.5 (0.2-0.8); MONOCYTES % 9.8 % (4.4-11.3); NEUTROPHILS # (AUTO) 3.1 (2.1-6.9); NEUTROPHILS % 66.7 % (38.7-80.0); PLATELET COUNT 123 x10e3/uL (140-360); RED BLOOD COUNT 2.36 x10e6/uL (4.3-5.7); RED CELL DISTRIBUTION WIDTH 13.3 % (11.7-14.4)
[2022-09-09 06:41] LABS: MEAN CORPUSCULAR VOLUME 97.9 fL (81-99)
[2022-09-09 06:46] LABS: ALBUMIN 1.7 g/dL (3.5-5.0); ALBUMIN/GLOBULIN RATIO 0.7 (0.8-2.0); ANION GAP 9.5 mmol/L (8-16); CREATININE, SERUM 0.49 mg/dL (0.72-1.25); POTASSIUM 3.5 mmol/L (3.5-5.1)
[2022-09-09 06:50] LABS: CALCIUM 6.9 mg/dL (8.4-10.2)
[2022-09-09] MEDS: INSULIN LISPRO 100 UNIT/1 ML 3ML VIAL SQ SCH ×4 (07:30→21:00)
[2022-09-09] MEDS: ASPIRIN 81 MG ENTERIC COATED PO SCH (09:00)
[2022-09-09] MEDS: METOPROLOL TARTRATE 25 MG TAB PO SCH ×2 (09:00→17:27)
[2022-09-09] MEDS: DEPAKOTE DELAYED-RELEASE TAB 500 MG PO SCH (09:00)
[2022-09-09] MEDS: MUPIROCIN 2% OINT 22 GM TUBE TOP SCH ×2 (09:44→23:34)
[2022-09-09] MEDS: THIAMINE HCL INJ 100 MG/ML 2ML VIAL IV SCH (09:45)
[2022-09-09] MEDS: FLUCONAZOLE 100 MG/NS 50 ML 50 ML IV SCH (09:46)
[2022-09-09] MEDS: OLOPATADINE 5 ML BTL OP SCH ×2 (09:46→17:00)
[2022-09-09] MEDS: POTASSIUM CHLORIDE 20 MEQ in DEXTROSE 5% 1,000 ML IV SCH ×2 (16:09→18:58)
[2022-09-09] MEDS: ENOXAPARIN SOD INJ 40 MG/0.4 ML SYR SC SCH (17:24)
[2022-09-09] MEDS: TAMSULOSIN HCL 0.4 MG CAP PO SCH (20:41)
[2022-09-09] MEDS: SIMVASTATIN 20 MG TAB PO SCH (20:42)
[2022-09-10] VITALS (28 sets, daily range): BP systolic 121–168; BP diastolic 47–70
[2022-09-10 06:38] LABS: BASOPHILS # (AUTO) 0.1 (0.0-0.1); BASOPHILS % 0.7 % (0.0-1.0); EOSINOPHILS # (AUTO) 0.2 (0.0-0.4); EOSINOPHILS % 2.4 % (0.0-6.0); HEMATOCRIT 28.9 % (38.2-49.6); HEMOGLOBIN 8.6 g/dL (14.0-18.0); LYMPHOCYTES # (AUTO) 0.9 (1.0-3.2); LYMPHOCYTES % 13.5 % (18.0-39.1); MEAN CORPUSCULAR HEMOGLOBIN 28.2 pg (28-32); MEAN CORPUSCULAR HGB CONC 29.8 g/dL (31-35); MEAN CORPUSCULAR VOLUME 94.8 fL (81-99); MONOCYTES # (AUTO) 0.7 (0.2-0.8); MONOCYTES % 10.1 % (4.4-11.3); NEUTROPHILS # (AUTO) 4.9 (2.1-6.9); NEUTROPHILS % 72.9 % (38.7-80.0); PLATELET COUNT 124 x10e3/uL (140-360); RED BLOOD COUNT 3.05 x10e6/uL (4.3-5.7); RED CELL DISTRIBUTION WIDTH 12.9 % (11.7-14.4)
[2022-09-10 07:06] LABS: ALBUMIN 2.1 g/dL (3.5-5.0); ALBUMIN/GLOBULIN RATIO 0.7 (0.8-2.0); ANION GAP 9.7 mmol/L (8-16); CREATININE, SERUM 0.66 mg/dL (0.72-1.25); POTASSIUM 4.7 mmol/L (3.5-5.1)
[2022-09-10] MEDS: MUPIROCIN 2% OINT 22 GM TUBE TOP SCH ×2 (08:06→20:45)
[2022-09-10] MEDS: FLUCONAZOLE 100 MG/NS 50 ML 50 ML IV SCH (08:07)
[2022-09-10] MEDS: POTASSIUM CHLORIDE 20 MEQ in DEXTROSE 5% 1,000 ML IV SCH ×2 (08:07→22:55)
[2022-09-10] MEDS: THIAMINE HCL INJ 100 MG/ML 2ML VIAL IV SCH (08:07)
[2022-09-10] MEDS: METOPROLOL TARTRATE 25 MG TAB PO SCH ×2 (08:08→16:41)
[2022-09-10] MEDS: INSULIN LISPRO 100 UNIT/1 ML 3ML VIAL SQ SCH ×4 (09:00→20:24)
[2022-09-10] MEDS: OLOPATADINE 5 ML BTL OP SCH ×2 (09:00→16:42)
[2022-09-10] MEDS ORDERED: LIDOCAINE HCL 4% 50 ML BTL ONE (09:38)
[2022-09-10] MEDS: VALPROATE 250MG/5ML ORAL LIQ 5ml GT SCH ×2 (10:00→16:42)
[2022-09-10] MEDS: ASPIRIN 81 MG CHEW TAB PO SCH (10:30)
[2022-09-10] MEDS: ENOXAPARIN SOD INJ 40 MG/0.4 ML SYR SC SCH (16:42)
[2022-09-10] MEDS: Morphine 2mg Syringe 2 MG/ML SYR IV PRN (17:28)
[2022-09-10] MEDS: TAMSULOSIN HCL 0.4 MG CAP PO SCH (20:27)
[2022-09-10] MEDS: SIMVASTATIN 20 MG TAB PO SCH (20:27)
[2022-09-11] VITALS (32 sets, daily range): BP systolic 106–156; BP diastolic 41–63
[2022-09-11] MEDS: Morphine 2mg Syringe 2 MG/ML SYR IV PRN ×2 (00:03→09:26)
[2022-09-11] MEDS: INSULIN LISPRO 100 UNIT/1 ML 3ML VIAL SQ SCH ×4 (07:30→20:45)
[2022-09-11] MEDS: POTASSIUM CHLORIDE 20 MEQ in DEXTROSE 5% 1,000 ML IV SCH ×2 (07:59→12:21)
[2022-09-11] MEDS: THIAMINE HCL INJ 100 MG/ML 2ML VIAL IV SCH (09:15)
[2022-09-11] MEDS: OLOPATADINE 5 ML BTL OP SCH ×2 (09:16→17:31)
[2022-09-11] MEDS: MUPIROCIN 2% OINT 22 GM TUBE TOP SCH ×2 (09:16→20:42)
[2022-09-11] MEDS ORDERED: POVIDONE IODINE 0.05% 0.05 % ML PO ONE (10:50)
[2022-09-11] MEDS ORDERED: PROPOFOL IV EMULSION 10 MG/ML 20 ML VIAL ONE (10:50)
[2022-09-11] MEDS ORDERED: ROCURONIUM BROMIDE 10 MG/ML 5ML VIAL IV ONE (10:50)
[2022-09-11] MEDS ORDERED: PHENYLEPHRINE HCL 1% 10 MG/ML VIAL ONE (10:50)
[2022-09-11] MEDS ORDERED: EPHEDRINE SULFATE INJ 50 MG/ML VIAL ONE (10:50)
[2022-09-11] MEDS: METOPROLOL TARTRATE 25 MG TAB PO SCH ×2 (11:34→17:30)
[2022-09-11] MEDS: VALPROATE 250MG/5ML ORAL LIQ 5ml GT SCH ×2 (11:34→17:31)
[2022-09-11] MEDS: ASPIRIN 81 MG CHEW TAB PO SCH (11:35)
[2022-09-11] MEDS ORDERED: SUCCINYLCHOLINE CHLORIDE 20 MG/ML 10ML VIAL ONE (13:12)
[2022-09-11] MEDS ORDERED: ETOMIDATE 2 MG/ML 10 ML INJ IV ONE (13:12)
[2022-09-11] MEDS ORDERED: FENTANYL CITRATE/PF 100MCG/2 ML INJ ONE (13:27)
[2022-09-11] MEDS ORDERED: LIDOCAINE HCL 2% LOCAL 20 ML VIAL ONE (13:47)
[2022-09-11] MEDS ORDERED: LIDOCAINE HCL 4% 50 ML BTL ONE (13:47)
[2022-09-11] MEDS ORDERED: SUGAMMADEX SODIUM 200 MG/2 ML VIAL IV ONE (14:28)
[2022-09-11] MEDS: TAMSULOSIN HCL 0.4 MG CAP PO SCH (20:42)
[2022-09-11] MEDS: SIMVASTATIN 20 MG TAB PO SCH (20:42)
[2022-09-12] VITALS (60 sets, daily range): BP systolic 91–139; BP diastolic 32–51
[2022-09-12 06:34] LABS: BASOPHILS % 0.9 % (0.0-1.0); EOSINOPHILS # (AUTO) 0.1 (0.0-0.4); EOSINOPHILS % 3.1 % (0.0-6.0); HEMATOCRIT 26.1 % (38.2-49.6); HEMOGLOBIN 7.8 g/dL (14.0-18.0); LYMPHOCYTES # (AUTO) 0.7 (1.0-3.2); LYMPHOCYTES % 15.6 % (18.0-39.1); MEAN CORPUSCULAR HGB CONC 29.9 g/dL (31-35); MONOCYTES # (AUTO) 0.5 (0.2-0.8); MONOCYTES % 10.5 % (4.4-11.3); NEUTROPHILS # (AUTO) 3.2 (2.1-6.9); NEUTROPHILS % 69.5 % (38.7-80.0); PLATELET COUNT 138 x10e3/uL (140-360); RED BLOOD COUNT 2.69 x10e6/uL (4.3-5.7); RED CELL DISTRIBUTION WIDTH 12.8 % (11.7-14.4)
[2022-09-12 07:02] LABS: ALBUMIN/GLOBULIN RATIO 0.6 (0.8-2.0); ANION GAP 7.2 mmol/L (8-16); CALCIUM 8.3 mg/dL (8.4-10.2); CREATININE, SERUM 0.76 mg/dL (0.72-1.25); POTASSIUM 5.2 mmol/L (3.5-5.1)
[2022-09-12] MEDS: INSULIN LISPRO 100 UNIT/1 ML 3ML VIAL SQ SCH ×4 (08:16→20:35)
[2022-09-12] MEDS: VALPROATE 250MG/5ML ORAL LIQ 5ml GT SCH ×2 (09:53→16:17)
[2022-09-12] MEDS: THIAMINE HCL INJ 100 MG/ML 2ML VIAL IV SCH (09:53)
[2022-09-12] MEDS: ASPIRIN 81 MG CHEW TAB PO SCH (09:53)
[2022-09-12] MEDS: METOPROLOL TARTRATE 25 MG TAB PO SCH ×2 (09:54→16:18)
[2022-09-12] MEDS: MUPIROCIN 2% OINT 22 GM TUBE TOP SCH (10:04)
[2022-09-12] MEDS: OLOPATADINE 5 ML BTL OP SCH ×2 (10:05→16:16)
[2022-09-12] MEDS ORDERED: LABETALOL HCL 5 MG/ML 20ML VIAL IV PRN (13:15)
[2022-09-12] MEDS: TAMSULOSIN HCL 0.4 MG CAP PO SCH (20:34)
[2022-09-12] MEDS: SIMVASTATIN 20 MG TAB PO SCH (20:34)
[2022-09-13] VITALS (36 sets, daily range): BP systolic 85–187; BP diastolic 41–173
[2022-09-13] MEDS: Morphine 2mg Syringe 2 MG/ML SYR IV PRN ×3 (02:51→16:19)
[2022-09-13] MEDS: ALBUTEROL/IPRATROPIUM 3 ML NEB NEB PRN ×2 (03:02→14:40)
[2022-09-13 05:55] LABS: BASOPHILS % 0.9 % (0.0-1.0); EOSINOPHILS # (AUTO) 0.1 (0.0-0.4); EOSINOPHILS % 3.1 % (0.0-6.0); HEMATOCRIT 24.8 % (38.2-49.6); HEMOGLOBIN 7.3 g/dL (14.0-18.0); LYMPHOCYTES # (AUTO) 0.9 (1.0-3.2); LYMPHOCYTES % 19.7 % (18.0-39.1); MEAN CORPUSCULAR HEMOGLOBIN 28.5 pg (28-32); MEAN CORPUSCULAR HGB CONC 29.4 g/dL (31-35); MEAN CORPUSCULAR VOLUME 96.9 fL (81-99); MONOCYTES # (AUTO) 0.5 (0.2-0.8); MONOCYTES % 10.6 % (4.4-11.3); NEUTROPHILS % 65.3 % (38.7-80.0); PLATELET COUNT 178 x10e3/uL (140-360); RED BLOOD COUNT 2.56 x10e6/uL (4.3-5.7); RED CELL DISTRIBUTION WIDTH 12.9 % (11.7-14.4)
[2022-09-13 06:14] LABS: ALBUMIN/GLOBULIN RATIO 0.7 (0.8-2.0); ANION GAP 7.1 mmol/L (8-16); CALCIUM 8.3 mg/dL (8.4-10.2); CREATININE, SERUM 0.74 mg/dL (0.72-1.25); POTASSIUM 5.1 mmol/L (3.5-5.1)
[2022-09-13] MEDS: INSULIN LISPRO 100 UNIT/1 ML 3ML VIAL SQ SCH ×4 (07:30→20:56)
[2022-09-13] MEDS: VALPROATE 250MG/5ML ORAL LIQ 5ml GT SCH ×2 (08:31→16:20)
[2022-09-13] MEDS: THIAMINE HCL INJ 100 MG/ML 2ML VIAL IV SCH (08:31)
[2022-09-13] MEDS: ASPIRIN 81 MG CHEW TAB PO SCH (08:31)
[2022-09-13] MEDS: METOPROLOL TARTRATE 25 MG TAB PO SCH ×2 (08:31→16:21)
[2022-09-13] MEDS: OLOPATADINE 5 ML BTL OP SCH ×2 (08:31→16:21)
[2022-09-13] MEDS: ENOXAPARIN SOD INJ 40 MG/0.4 ML SYR SC SCH (16:20)
[2022-09-13] MEDS: TAMSULOSIN HCL 0.4 MG CAP PO SCH (20:31)
[2022-09-13] MEDS: SIMVASTATIN 20 MG TAB PO SCH (20:32)
[2022-09-14] VITALS (11 sets, daily range): BP systolic 96–155; BP diastolic 38–55
[2022-09-14] MEDS: PROPOFOL IV EMULSION 10MG/ML 100 ML IV PRN ×2 (00:30→04:23)
[2022-09-14] MEDS: FENTANYL 2000MCG/NS 250 250 ML IV PRN (00:37)
[2022-09-14 01:30] LABS: ABG PCO2 43 mmHg (35-45); ABG PH 7.51 (7.35-7.45); ABG PO2 35 mmHg (80-105)
[2022-09-14 01:31] LABS: ABG HCO3 34 mmol/L (22-26); ABG TCO2 35
[2022-09-14 02:50] LABS: ABG HCO3 37 mmol/L (22-26); ABG PCO2 48 mmHg (35-45); ABG PO2 136 mmHg (80-105)
[2022-09-14 02:51] LABS: ABG TCO2 39
[2022-09-14] MEDS: INSULIN LISPRO 100 UNIT/1 ML 3ML VIAL SQ SCH ×4 (07:30→21:52)
[2022-09-14] MEDS: METOPROLOL TARTRATE 25 MG TAB PO SCH ×2 (09:00→17:00)
[2022-09-14] MEDS ORDERED: ACETAZOLAMIDE SODIUM 500 MG/VIAL IV ONE (09:00)
[2022-09-14] MEDS: ASPIRIN 81 MG CHEW TAB PO SCH (10:34)
[2022-09-14] MEDS: VALPROATE 250MG/5ML ORAL LIQ 5ml GT SCH ×2 (10:34→17:00)
[2022-09-14] MEDS: THIAMINE HCL INJ 100 MG/ML 2ML VIAL IV SCH (10:35)
[2022-09-14 11:00] LABS: BASOPHILS % 0.5 % (0.0-1.0); EOSINOPHILS # (AUTO) 0.2 (0.0-0.4); HEMATOCRIT 24.7 % (38.2-49.6); HEMOGLOBIN 7.4 g/dL (14.0-18.0); LYMPHOCYTES # (AUTO) 1.1 (1.0-3.2); LYMPHOCYTES % 13.1 % (18.0-39.1); MEAN CORPUSCULAR HEMOGLOBIN 28.5 pg (28-32); MONOCYTES # (AUTO) 0.5 (0.2-0.8); MONOCYTES % 6.3 % (4.4-11.3); NEUTROPHILS # (AUTO) 6.3 (2.1-6.9); NEUTROPHILS % 76.9 % (38.7-80.0); PLATELET COUNT 173 x10e3/uL (140-360); RED CELL DISTRIBUTION WIDTH 12.7 % (11.7-14.4)
[2022-09-14 11:19] LABS: ALBUMIN 1.9 g/dL (3.5-5.0); ALBUMIN/GLOBULIN RATIO 0.7 (0.8-2.0); ANION GAP 8.3 mmol/L (8-16); CALCIUM 8.4 mg/dL (8.4-10.2); CREATININE, SERUM 0.83 mg/dL (0.72-1.25); POTASSIUM 4.3 mmol/L (3.5-5.1)
[2022-09-14 11:45] LABS: ABG HCO3 37 mmol/L (22-26); ABG PCO2 49 mmHg (35-45); ABG PH 7.48 (7.35-7.45); ABG PO2 125 mmHg (80-105)
[2022-09-14 11:46] LABS: ABG TCO2 38
[2022-09-14 16:17] LABS: ABG HCO3 36 mmol/L (22-26); ABG PCO2 49 mmHg (35-45); ABG PH 7.47 (7.35-7.45); ABG PO2 181 mmHg (80-105); ABG TCO2 37
[2022-09-14] MEDS: OLOPATADINE 5 ML BTL OP SCH ×2 (16:26→17:00)
[2022-09-14] MEDS: ENOXAPARIN SOD INJ 40 MG/0.4 ML SYR SC SCH (17:00)
[2022-09-14] MEDS: TAMSULOSIN HCL 0.4 MG CAP PO SCH (21:18)
[2022-09-14] MEDS: SIMVASTATIN 20 MG TAB PO SCH (21:18)
[2022-09-15] VITALS (61 sets, daily range): BP systolic 98–179; BP diastolic 40–64
[2022-09-15] MEDS: PROPOFOL IV EMULSION 10MG/ML 100 ML IV PRN ×2 (05:31→18:22)
[2022-09-15 05:44] LABS: BASOPHILS % 0.6 % (0.0-1.0); EOSINOPHILS # (AUTO) 0.4 (0.0-0.4); EOSINOPHILS % 5.4 % (0.0-6.0); HEMATOCRIT 22.5 % (38.2-49.6); HEMOGLOBIN 6.8 g/dL (14.0-18.0); LYMPHOCYTES # (AUTO) 1.1 (1.0-3.2); LYMPHOCYTES % 16.2 % (18.0-39.1); MEAN CORPUSCULAR HEMOGLOBIN 28.2 pg (28-32); MEAN CORPUSCULAR HGB CONC 30.2 g/dL (31-35); MEAN CORPUSCULAR VOLUME 93.4 fL (81-99); MONOCYTES # (AUTO) 0.5 (0.2-0.8); MONOCYTES % 7.8 % (4.4-11.3); NEUTROPHILS # (AUTO) 4.6 (2.1-6.9); NEUTROPHILS % 69.6 % (38.7-80.0); PLATELET COUNT 147 x10e3/uL (140-360); RED BLOOD COUNT 2.41 x10e6/uL (4.3-5.7); RED CELL DISTRIBUTION WIDTH 13.2 % (11.7-14.4)
[2022-09-15 06:02] LABS: ALBUMIN 1.7 g/dL (3.5-5.0); ALBUMIN/GLOBULIN RATIO 0.6 (0.8-2.0); ANION GAP 8.5 mmol/L (8-16); CALCIUM 8.3 mg/dL (8.4-10.2); CREATININE, SERUM 0.85 mg/dL (0.72-1.25); POTASSIUM 3.5 mmol/L (3.5-5.1)
[2022-09-15 07:00] LABS: ABG HCO3 33 mmol/L (22-26); ABG PCO2 47 mmHg (35-45); ABG PH 7.46 (7.35-7.45); ABG PO2 159 mmHg (80-105); ABG TCO2 34
[2022-09-15] MEDS ORDERED: SODIUM CHLORIDE 0.9% 250ML 250 ML IV ONE (08:15)
[2022-09-15] MEDS: VALPROATE 250MG/5ML ORAL LIQ 5ml GT SCH ×2 (09:04→17:49)
[2022-09-15] MEDS: THIAMINE HCL INJ 100 MG/ML 2ML VIAL IV SCH (09:04)
[2022-09-15] MEDS: ASPIRIN 81 MG CHEW TAB PO SCH (09:04)
[2022-09-15] MEDS: METOPROLOL TARTRATE 25 MG TAB PO SCH ×3 (09:05→18:27)
[2022-09-15] MEDS: OLOPATADINE 5 ML BTL OP SCH ×2 (09:06→17:49)
[2022-09-15] MEDS: POTASSIUM CHLORIDE 20MEQ/100ML 100 ML IV SCH ×2 (09:07→12:03)
[2022-09-15] MEDS: INSULIN LISPRO 100 UNIT/1 ML 3ML VIAL SQ SCH ×4 (09:08→21:19)
[2022-09-15] MEDS: FENTANYL 2000MCG/NS 250 250 ML IV PRN (09:11)
[2022-09-15 11:10] LABS: ABG HCO3 31 mmol/L (22-26); ABG PCO2 48 mmHg (35-45); ABG PH 7.42 (7.35-7.45); ABG PO2 55 mmHg (80-105); ABG TCO2 33
[2022-09-15] MEDS ORDERED: ACETAMINOPHEN 325 MG/10 ML UDC NG ONE (14:00)
[2022-09-15] MEDS ORDERED: SODIUM CHLORIDE 0.9% 250ML 250 ML ONE (14:37)
[2022-09-15] MEDS: ENOXAPARIN SOD INJ 40 MG/0.4 ML SYR SC SCH (17:49)
[2022-09-15] MEDS: SIMVASTATIN 20 MG TAB PO SCH (21:11)
[2022-09-15] MEDS: TAMSULOSIN HCL 0.4 MG CAP PO SCH (21:11)
[2022-09-16] VITALS (72 sets, daily range): BP systolic 91–147; BP diastolic 38–55
[2022-09-16 06:31] LABS: BASOPHILS % 0.5 % (0.0-1.0); EOSINOPHILS # (AUTO) 0.3 (0.0-0.4); HEMATOCRIT 25.4 % (38.2-49.6); LYMPHOCYTES # (AUTO) 0.7 (1.0-3.2); LYMPHOCYTES % 8.7 % (18.0-39.1); MEAN CORPUSCULAR HEMOGLOBIN 28.4 pg (28-32); MEAN CORPUSCULAR HGB CONC 31.5 g/dL (31-35); MEAN CORPUSCULAR VOLUME 90.1 fL (81-99); MONOCYTES # (AUTO) 0.6 (0.2-0.8); MONOCYTES % 6.7 % (4.4-11.3); NEUTROPHILS # (AUTO) 6.8 (2.1-6.9); NEUTROPHILS % 79.6 % (38.7-80.0); PLATELET COUNT 129 x10e3/uL (140-360); RED BLOOD COUNT 2.82 x10e6/uL (4.3-5.7)
[2022-09-16 07:00] LABS: ALBUMIN 1.7 g/dL (3.5-5.0); ALBUMIN/GLOBULIN RATIO 0.5 (0.8-2.0); ANION GAP 11.7 mmol/L (8-16); CREATININE, SERUM 0.92 mg/dL (0.72-1.25); POTASSIUM 3.7 mmol/L (3.5-5.1)
[2022-09-16] MEDS: ALBUTEROL/IPRATROPIUM 3 ML NEB NEB PRN (07:10)
[2022-09-16 08:24] LABS: ABG HCO3 29 mmol/L (22-26); ABG PCO2 46 mmHg (35-45); ABG PH 7.41 (7.35-7.45); ABG PO2 58 mmHg (80-105); ABG TCO2 31
[2022-09-16] MEDS: VALPROATE 250MG/5ML ORAL LIQ 5ml GT SCH ×2 (08:24→16:44)
[2022-09-16] MEDS: INSULIN LISPRO 100 UNIT/1 ML 3ML VIAL SQ SCH ×4 (08:24→20:56)
[2022-09-16] MEDS: OLOPATADINE 5 ML BTL OP SCH ×2 (08:24→17:35)
[2022-09-16] MEDS: THIAMINE HCL INJ 100 MG/ML 2ML VIAL IV SCH (08:25)
[2022-09-16] MEDS: ASPIRIN 81 MG CHEW TAB PO SCH (08:25)
[2022-09-16] MEDS: METOPROLOL TARTRATE 25 MG TAB PO SCH ×2 (08:25→16:45)
[2022-09-16] MEDS ORDERED: SOD CHL 0.45%/POT CHL 20MEQ 1,000 ML IV ONE (11:00)
[2022-09-16] MEDS: NOREPINEPHRINE 8 MG/D5W 250 ML 250 ML IV SCH (11:15)
[2022-09-16 12:34] LABS: ABG HCO3 29 mmol/L (22-26); ABG PCO2 45 mmHg (35-45); ABG PH 7.41 (7.35-7.45); ABG PO2 86 mmHg (80-105); ABG TCO2 30
[2022-09-16] MEDS: PROPOFOL IV EMULSION 10MG/ML 100 ML IV PRN (12:37)
[2022-09-16] MEDS: ENOXAPARIN SOD INJ 40 MG/0.4 ML SYR SC SCH (16:44)
[2022-09-16] MEDS: TAMSULOSIN HCL 0.4 MG CAP PO SCH (19:57)
[2022-09-16] MEDS: SIMVASTATIN 20 MG TAB PO SCH (19:57)
[2022-09-17] VITALS (83 sets, daily range): BP systolic 79–167; BP diastolic 32–56
[2022-09-17] MEDS: PROPOFOL IV EMULSION 10MG/ML 100 ML IV PRN ×2 (01:21→16:27)
[2022-09-17 06:35] LABS: BASOPHILS # (AUTO) 0.1 (0.0-0.1); BASOPHILS % 0.6 % (0.0-1.0); EOSINOPHILS # (AUTO) 0.4 (0.0-0.4); EOSINOPHILS % 4.3 % (0.0-6.0); HEMATOCRIT 25.5 % (38.2-49.6); HEMOGLOBIN 8.1 g/dL (14.0-18.0); LYMPHOCYTES # (AUTO) 1.1 (1.0-3.2); LYMPHOCYTES % 12.7 % (18.0-39.1); MEAN CORPUSCULAR HEMOGLOBIN 28.6 pg (28-32); MEAN CORPUSCULAR HGB CONC 31.8 g/dL (31-35); MEAN CORPUSCULAR VOLUME 90.1 fL (81-99); MONOCYTES # (AUTO) 0.8 (0.2-0.8); MONOCYTES % 8.8 % (4.4-11.3); NEUTROPHILS # (AUTO) 6.5 (2.1-6.9); NEUTROPHILS % 73.1 % (38.7-80.0); PLATELET COUNT 134 x10e3/uL (140-360); RED BLOOD COUNT 2.83 x10e6/uL (4.3-5.7)
[2022-09-17 06:55] LABS: ALBUMIN 1.4 g/dL (3.5-5.0); ALBUMIN/GLOBULIN RATIO 0.4 (0.8-2.0); ANION GAP 11.3 mmol/L (8-16); CALCIUM 7.9 mg/dL (8.4-10.2); CREATININE, SERUM 0.78 mg/dL (0.72-1.25); POTASSIUM 3.3 mmol/L (3.5-5.1)
[2022-09-17 07:58] LABS: ABG PH 7.41 (7.35-7.45)
[2022-09-17 07:59] LABS: ABG HCO3 27 mmol/L (22-26); ABG PCO2 42 mmHg (35-45); ABG PO2 60 mmHg (80-105); ABG TCO2 28
[2022-09-17] MEDS: OLOPATADINE 5 ML BTL OP SCH ×2 (08:06→16:29)
[2022-09-17] MEDS: METOPROLOL TARTRATE 25 MG TAB PO SCH ×2 (08:07→16:31)
[2022-09-17] MEDS: THIAMINE HCL INJ 100 MG/ML 2ML VIAL IV SCH (08:07)
[2022-09-17] MEDS: VALPROATE 250MG/5ML ORAL LIQ 5ml GT SCH ×2 (08:07→16:31)
[2022-09-17] MEDS: ASPIRIN 81 MG CHEW TAB PO SCH (08:07)
[2022-09-17] MEDS: INSULIN LISPRO 100 UNIT/1 ML 3ML VIAL SQ SCH ×4 (08:08→21:07)
[2022-09-17] MEDS: POTASSIUM CHLORIDE 20MEQ/100ML 100 ML IV SCH ×2 (09:39→13:28)
[2022-09-17] MEDS ORDERED: FUROSEMIDE INJ 10 MG/ML 4 ML VIAL IV ONE (10:00)
[2022-09-17] MEDS: NOREPINEPHRINE 8 MG/D5W 250 ML 250 ML IV SCH (16:28)
[2022-09-17] MEDS: FENTANYL 2000MCG/NS 250 250 ML IV PRN (16:28)
[2022-09-17] MEDS: SIMVASTATIN 20 MG TAB PO SCH (21:03)
[2022-09-17] MEDS: TAMSULOSIN HCL 0.4 MG CAP PO SCH (21:03)
[2022-09-18] VITALS (55 sets, daily range): BP systolic 91–166; BP diastolic 43–62
[2022-09-18] MEDS: PROPOFOL IV EMULSION 10MG/ML 100 ML IV PRN ×2 (04:01→16:15)
[2022-09-18 06:31] LABS: ABG HCO3 27 mmol/L (22-26); ABG PCO2 41 mmHg (35-45); ABG PH 7.42 (7.35-7.45); ABG PO2 92 mmHg (80-105); ABG TCO2 28
[2022-09-18 06:38] LABS: BASOPHILS # (AUTO) 0.1 (0.0-0.1); BASOPHILS % 0.8 % (0.0-1.0); EOSINOPHILS # (AUTO) 0.3 (0.0-0.4); HEMATOCRIT 25.6 % (38.2-49.6); HEMOGLOBIN 8.3 g/dL (14.0-18.0); LYMPHOCYTES % 11.2 % (18.0-39.1); MEAN CORPUSCULAR HEMOGLOBIN 29.1 pg (28-32); MEAN CORPUSCULAR HGB CONC 32.4 g/dL (31-35); MEAN CORPUSCULAR VOLUME 89.8 fL (81-99); MONOCYTES % 11.3 % (4.4-11.3); NEUTROPHILS # (AUTO) 6.7 (2.1-6.9); PLATELET COUNT 137 x10e3/uL (140-360); RED BLOOD COUNT 2.85 x10e6/uL (4.3-5.7); RED CELL DISTRIBUTION WIDTH 14.8 % (11.7-14.4)
[2022-09-18 07:04] LABS: ALBUMIN 1.4 g/dL (3.5-5.0); ALBUMIN/GLOBULIN RATIO 0.4 (0.8-2.0); ANION GAP 12.6 mmol/L (8-16); CALCIUM 8.1 mg/dL (8.4-10.2); CREATININE, SERUM 0.76 mg/dL (0.72-1.25); POTASSIUM 3.6 mmol/L (3.5-5.1)
[2022-09-18] MEDS: INSULIN LISPRO 100 UNIT/1 ML 3ML VIAL SQ SCH ×4 (07:24→21:40)
[2022-09-18] MEDS: ASPIRIN 81 MG CHEW TAB PO SCH (08:13)
[2022-09-18] MEDS: THIAMINE HCL INJ 100 MG/ML 2ML VIAL IV SCH (08:18)
[2022-09-18] MEDS: VALPROATE 250MG/5ML ORAL LIQ 5ml GT SCH ×2 (08:18→17:16)
[2022-09-18] MEDS: METOPROLOL TARTRATE 25 MG TAB PO SCH ×2 (08:20→17:15)
[2022-09-18] MEDS: OLOPATADINE 5 ML BTL OP SCH ×2 (08:25→17:16)
[2022-09-18] MEDS ORDERED: BUPIVACAINE 0.5%/EPI 30 ML SDV INJ ONE (11:47)
[2022-09-18] MEDS: SIMVASTATIN 20 MG TAB PO SCH (21:39)
[2022-09-18] MEDS: TAMSULOSIN HCL 0.4 MG CAP PO SCH (21:39)
[2022-09-19] VITALS (61 sets, daily range): BP systolic 91–136; BP diastolic 41–55
[2022-09-19 07:48] LABS: BASOPHILS # (AUTO) 0.1 (0.0-0.1); BASOPHILS % 0.6 % (0.0-1.0); EOSINOPHILS # (AUTO) 0.2 (0.0-0.4); HEMATOCRIT 24.8 % (38.2-49.6); HEMOGLOBIN 7.7 g/dL (14.0-18.0); LYMPHOCYTES # (AUTO) 0.9 (1.0-3.2); LYMPHOCYTES % 10.7 % (18.0-39.1); MEAN CORPUSCULAR HEMOGLOBIN 28.6 pg (28-32); MEAN CORPUSCULAR VOLUME 92.2 fL (81-99); MONOCYTES # (AUTO) 0.8 (0.2-0.8); MONOCYTES % 9.4 % (4.4-11.3); NEUTROPHILS # (AUTO) 6.1 (2.1-6.9); NEUTROPHILS % 76.1 % (38.7-80.0); PLATELET COUNT 126 x10e3/uL (140-360); RED BLOOD COUNT 2.69 x10e6/uL (4.3-5.7)
[2022-09-19 07:59] LABS: ANION GAP 12.6 mmol/L (8-16); CALCIUM 7.9 mg/dL (8.4-10.2); CREATININE, SERUM 0.75 mg/dL (0.72-1.25); POTASSIUM 3.6 mmol/L (3.5-5.1)
[2022-09-19] MEDS: INSULIN LISPRO 100 UNIT/1 ML 3ML VIAL SQ SCH ×4 (08:13→21:20)
[2022-09-19] MEDS: HYDROCODONE/APAP 10MG-325MG TAB PO PRN (08:55)
[2022-09-19] MEDS: METOPROLOL TARTRATE 25 MG TAB PO SCH ×2 (08:56→16:08)
[2022-09-19] MEDS: THIAMINE HCL INJ 100 MG/ML 2ML VIAL IV SCH (08:57)
[2022-09-19] MEDS: VALPROATE 250MG/5ML ORAL LIQ 5ml GT SCH ×2 (08:57→16:07)
[2022-09-19] MEDS: OLOPATADINE 5 ML BTL OP SCH ×2 (09:00→16:10)
[2022-09-19] MEDS ORDERED: POTASSIUM CHLORIDE 20MEQ/100ML 200 ML IV ONE (10:30)
[2022-09-19] MEDS ORDERED: FUROSEMIDE INJ 10 MG/ML 4 ML VIAL IV ONE (10:30)
[2022-09-19] MEDS: NOREPINEPHRINE 8 MG/D5W 250 ML 250 ML IV SCH (10:45)
[2022-09-19] MEDS: ASPIRIN 81 MG CHEW TAB PO SCH (12:37)
[2022-09-19 14:05] LABS: ABG HCO3 29 mmol/L (22-26); ABG PCO2 61 mmHg (35-45); ABG PH 7.29 (7.35-7.45); ABG PO2 78 mmHg (80-105); ABG TCO2 31
[2022-09-19] MEDS: FENTANYL 2000MCG/NS 250 250 ML IV PRN (15:01)
[2022-09-19] MEDS: PREGABALIN 50 MG CAP PO SCH (16:07)
[2022-09-19] MEDS: TRAZODONE HCL 50 MG TAB PO SCH (21:00)
[2022-09-19] MEDS: TAMSULOSIN HCL 0.4 MG CAP PO SCH (21:07)
[2022-09-19] MEDS: SIMVASTATIN 20 MG TAB PO SCH (21:07)
[2022-09-20] VITALS (90 sets, daily range): BP systolic 99–145; BP diastolic 34–56
[2022-09-20] MEDS: HYDROCODONE/APAP 10MG-325MG TAB PO PRN (00:16)
[2022-09-20] MEDS: PROPOFOL IV EMULSION 10MG/ML 100 ML IV PRN ×2 (01:54→15:27)
[2022-09-20 07:02] LABS: BASOPHILS % 0.5 % (0.0-1.0); EOSINOPHILS # (AUTO) 0.3 (0.0-0.4); EOSINOPHILS % 5.3 % (0.0-6.0); HEMATOCRIT 24.5 % (38.2-49.6); HEMOGLOBIN 7.3 g/dL (14.0-18.0); LYMPHOCYTES # (AUTO) 0.8 (1.0-3.2); LYMPHOCYTES % 13.2 % (18.0-39.1); MEAN CORPUSCULAR HEMOGLOBIN 28.4 pg (28-32); MEAN CORPUSCULAR HGB CONC 29.8 g/dL (31-35); MEAN CORPUSCULAR VOLUME 95.3 fL (81-99); MONOCYTES # (AUTO) 0.8 (0.2-0.8); MONOCYTES % 13.2 % (4.4-11.3); NEUTROPHILS # (AUTO) 3.9 (2.1-6.9); NEUTROPHILS % 67.4 % (38.7-80.0); PLATELET COUNT 114 x10e3/uL (140-360); RED BLOOD COUNT 2.57 x10e6/uL (4.3-5.7)
[2022-09-20 07:39] LABS: ALBUMIN 1.3 g/dL (3.5-5.0); ALBUMIN/GLOBULIN RATIO 0.4 (0.8-2.0); ANION GAP 12.1 mmol/L (8-16); CALCIUM 7.5 mg/dL (8.4-10.2); CREATININE, SERUM 0.87 mg/dL (0.72-1.25); POTASSIUM 4.1 mmol/L (3.5-5.1)
[2022-09-20] MEDS: NOREPINEPHRINE 8 MG/D5W 250 ML 250 ML IV SCH ×2 (08:48→10:45)
[2022-09-20] MEDS: INSULIN LISPRO 100 UNIT/1 ML 3ML VIAL SQ SCH ×4 (08:49→20:36)
[2022-09-20] MEDS: METOPROLOL TARTRATE 25 MG TAB PO SCH ×2 (09:00→17:00)
[2022-09-20] MEDS: PREGABALIN 50 MG CAP PO SCH ×2 (09:07→17:48)
[2022-09-20] MEDS: ASPIRIN 81 MG CHEW TAB PO SCH (09:07)
[2022-09-20] MEDS: THIAMINE HCL INJ 100 MG/ML 2ML VIAL IV SCH (09:07)
[2022-09-20] MEDS: VALPROATE 250MG/5ML ORAL LIQ 5ml GT SCH ×2 (09:07→17:48)
[2022-09-20] MEDS: OLOPATADINE 5 ML BTL OP SCH ×2 (09:08→17:49)
[2022-09-20] MEDS ORDERED: FUROSEMIDE INJ 10 MG/ML 4 ML VIAL IV ONE (10:30)
[2022-09-20] MEDS: ALBUMIN 25% 25GM 100ML 0.25 GM/ML BTL IV SCH ×2 (10:44→18:06)
[2022-09-20] MEDS ORDERED: SODIUM CHLORIDE 0.9% 1000ML 1,000 ML ONE (10:50)
[2022-09-20 13:49] LABS: ABG HCO3 30 mmol/L (22-26); ABG PCO2 60 mmHg (35-45); ABG PO2 102 mmHg (80-105); ABG TCO2 31
[2022-09-20] MEDS ORDERED: ALBUMIN 25% 25GM 100ML 100 ML ONE (18:17)
[2022-09-20] MEDS: TAMSULOSIN HCL 0.4 MG CAP PO SCH (20:23)
[2022-09-20] MEDS: SIMVASTATIN 20 MG TAB PO SCH (20:23)
[2022-09-20] MEDS: TRAZODONE HCL 50 MG TAB PO SCH (20:23)
[2022-09-21] VITALS (79 sets, daily range): BP systolic 109–142; BP diastolic 38–60
[2022-09-21] MEDS: PROPOFOL IV EMULSION 10MG/ML 100 ML IV PRN ×2 (04:05→17:51)
[2022-09-21] MEDS: FENTANYL 2000MCG/NS 250 250 ML IV PRN (04:05)
[2022-09-21 06:34] LABS: BASOPHILS % 0.6 % (0.0-1.0); EOSINOPHILS # (AUTO) 0.4 (0.0-0.4); EOSINOPHILS % 7.7 % (0.0-6.0); HEMATOCRIT 24.4 % (38.2-49.6); HEMOGLOBIN 7.2 g/dL (14.0-18.0); LYMPHOCYTES # (AUTO) 0.8 (1.0-3.2); LYMPHOCYTES % 14.3 % (18.0-39.1); MEAN CORPUSCULAR HEMOGLOBIN 28.3 pg (28-32); MEAN CORPUSCULAR HGB CONC 29.5 g/dL (31-35); MEAN CORPUSCULAR VOLUME 96.1 fL (81-99); MONOCYTES # (AUTO) 0.7 (0.2-0.8); MONOCYTES % 13.6 % (4.4-11.3); NEUTROPHILS # (AUTO) 3.5 (2.1-6.9); NEUTROPHILS % 63.4 % (38.7-80.0); PLATELET COUNT 114 x10e3/uL (140-360); RED BLOOD COUNT 2.54 x10e6/uL (4.3-5.7); RED CELL DISTRIBUTION WIDTH 14.6 % (11.7-14.4)
[2022-09-21 06:52] LABS: ALBUMIN 1.8 g/dL (3.5-5.0); ALBUMIN/GLOBULIN RATIO 0.6 (0.8-2.0); CALCIUM 7.8 mg/dL (8.4-10.2); CREATININE, SERUM 0.92 mg/dL (0.72-1.25)
[2022-09-21] MEDS: INSULIN LISPRO 100 UNIT/1 ML 3ML VIAL SQ SCH ×4 (08:47→23:55)
[2022-09-21] MEDS: VALPROATE 250MG/5ML ORAL LIQ 5ml GT SCH ×2 (08:47→17:51)
[2022-09-21] MEDS: THIAMINE HCL INJ 100 MG/ML 2ML VIAL IV SCH (08:47)
[2022-09-21] MEDS: OLOPATADINE 5 ML BTL OP SCH ×2 (08:48→17:52)
[2022-09-21] MEDS: METOPROLOL TARTRATE 25 MG TAB PO SCH ×2 (08:48→17:00)
[2022-09-21] MEDS: PREGABALIN 50 MG CAP PO SCH ×2 (08:48→17:51)
[2022-09-21] MEDS: ASPIRIN 81 MG CHEW TAB PO SCH (08:48)
[2022-09-21] MEDS ORDERED: FUROSEMIDE INJ 10 MG/ML 4 ML VIAL IV ONE (10:30)
[2022-09-21] MEDS: NOREPINEPHRINE 8 MG/D5W 250 ML 250 ML IV SCH (10:45)
[2022-09-21 11:41] LABS: ABG PCO2 68 mmHg (35-45); ABG PH 7.27 (7.35-7.45)
[2022-09-21 11:42] LABS: ABG HCO3 31 mmol/L (22-26); ABG PO2 93 mmHg (80-105); ABG TCO2 33
[2022-09-21] MEDS: TAMSULOSIN HCL 0.4 MG CAP PO SCH (20:30)
[2022-09-21] MEDS: TRAZODONE HCL 50 MG TAB PO SCH (20:30)
[2022-09-21] MEDS: SIMVASTATIN 20 MG TAB PO SCH (20:30)
[2022-09-22] VITALS (57 sets, daily range): BP systolic 73–167; BP diastolic 30–67
[2022-09-22] MEDS: INSULIN LISPRO 100 UNIT/1 ML 3ML VIAL SQ SCH ×3 (05:50→18:06)
[2022-09-22 06:35] LABS: BASOPHILS # (AUTO) 0.1 (0.0-0.1); BASOPHILS % 0.8 % (0.0-1.0); EOSINOPHILS # (AUTO) 0.5 (0.0-0.4); EOSINOPHILS % 6.5 % (0.0-6.0); HEMOGLOBIN 7.5 g/dL (14.0-18.0); LYMPHOCYTES # (AUTO) 1.2 (1.0-3.2); LYMPHOCYTES % 16.9 % (18.0-39.1); MEAN CORPUSCULAR HEMOGLOBIN 28.4 pg (28-32); MEAN CORPUSCULAR HGB CONC 31.3 g/dL (31-35); MEAN CORPUSCULAR VOLUME 90.9 fL (81-99); MONOCYTES # (AUTO) 0.8 (0.2-0.8); MONOCYTES % 11.3 % (4.4-11.3); NEUTROPHILS # (AUTO) 4.5 (2.1-6.9); NEUTROPHILS % 63.7 % (38.7-80.0); PLATELET COUNT 150 x10e3/uL (140-360); RED BLOOD COUNT 2.64 x10e6/uL (4.3-5.7); RED CELL DISTRIBUTION WIDTH 14.4 % (11.7-14.4)
[2022-09-22 07:25] LABS: ALBUMIN 1.7 g/dL (3.5-5.0); ALBUMIN/GLOBULIN RATIO 0.5 (0.8-2.0); ANION GAP 12.5 mmol/L (8-16); CALCIUM 8.2 mg/dL (8.4-10.2); CREATININE, SERUM 0.82 mg/dL (0.72-1.25); POTASSIUM 3.5 mmol/L (3.5-5.1)
[2022-09-22] MEDS: PROPOFOL IV EMULSION 10MG/ML 100 ML IV PRN (08:33)
[2022-09-22] MEDS: METOPROLOL TARTRATE 25 MG TAB PO SCH ×2 (08:34→17:43)
[2022-09-22] MEDS: PREGABALIN 50 MG CAP PO SCH ×2 (08:34→17:43)
[2022-09-22] MEDS: THIAMINE HCL INJ 100 MG/ML 2ML VIAL IV SCH (08:34)
[2022-09-22] MEDS: VALPROATE 250MG/5ML ORAL LIQ 5ml GT SCH ×2 (08:34→17:42)
[2022-09-22] MEDS: ASPIRIN 81 MG CHEW TAB PO SCH (08:34)
[2022-09-22] MEDS: OLOPATADINE 5 ML BTL OP SCH ×2 (08:35→17:43)
[2022-09-22] MEDS: NOREPINEPHRINE 8 MG/D5W 250 ML 250 ML IV SCH (09:09)
[2022-09-22] MEDS: FENTANYL 2000MCG/NS 250 250 ML IV PRN (18:56)
[2022-09-22] MEDS: SIMVASTATIN 20 MG TAB PO SCH (21:26)
[2022-09-22] MEDS: TRAZODONE HCL 50 MG TAB PO SCH (21:26)
[2022-09-22] MEDS: TAMSULOSIN HCL 0.4 MG CAP PO SCH (21:26)
[2022-09-23] VITALS (30 sets, daily range): BP systolic 82–143; BP diastolic 35–62
[2022-09-23] MEDS: INSULIN LISPRO 100 UNIT/1 ML 3ML VIAL SQ SCH ×4 (00:09→18:20)
[2022-09-23] MEDS: PROPOFOL IV EMULSION 10MG/ML 100 ML IV PRN (05:22)
[2022-09-23 06:07] LABS: BASOPHILS % 0.6 % (0.0-1.0); EOSINOPHILS # (AUTO) 0.4 (0.0-0.4); EOSINOPHILS % 6.5 % (0.0-6.0); HEMATOCRIT 21.6 % (38.2-49.6); LYMPHOCYTES # (AUTO) 1.1 (1.0-3.2); LYMPHOCYTES % 16.9 % (18.0-39.1); MEAN CORPUSCULAR HGB CONC 30.6 g/dL (31-35); MEAN CORPUSCULAR VOLUME 91.5 fL (81-99); MONOCYTES # (AUTO) 0.8 (0.2-0.8); MONOCYTES % 13.1 % (4.4-11.3); NEUTROPHILS # (AUTO) 3.9 (2.1-6.9); NEUTROPHILS % 62.1 % (38.7-80.0); PLATELET COUNT 163 x10e3/uL (140-360); RED BLOOD COUNT 2.36 x10e6/uL (4.3-5.7); RED CELL DISTRIBUTION WIDTH 14.5 % (11.7-14.4)
[2022-09-23 06:22] LABS: HEMOGLOBIN 6.6 g/dL (14.0-18.0)
[2022-09-23 06:26] LABS: ALBUMIN 1.5 g/dL (3.5-5.0); ALBUMIN/GLOBULIN RATIO 0.4 (0.8-2.0); ANION GAP 10.8 mmol/L (8-16); CALCIUM 7.9 mg/dL (8.4-10.2); CREATININE, SERUM 0.85 mg/dL (0.72-1.25); POTASSIUM 3.8 mmol/L (3.5-5.1)
[2022-09-23] MEDS ORDERED: SODIUM CHLORIDE 0.9% 250ML 250 ML IV ONE (08:45)
[2022-09-23] MEDS: PREGABALIN 50 MG CAP PO SCH ×2 (08:55→18:00)
[2022-09-23] MEDS: THIAMINE HCL INJ 100 MG/ML 2ML VIAL IV SCH (08:55)
[2022-09-23] MEDS: VALPROATE 250MG/5ML ORAL LIQ 5ml GT SCH ×2 (08:55→18:00)
[2022-09-23] MEDS: ASPIRIN 81 MG CHEW TAB PO SCH (08:56)
[2022-09-23] MEDS: OLOPATADINE 5 ML BTL OP SCH ×2 (08:56→18:01)
[2022-09-23] MEDS: METOPROLOL TARTRATE 25 MG TAB PO SCH ×2 (08:57→17:00)
[2022-09-23 10:14] LABS: ABG HCO3 30 mmol/L (22-26); ABG PCO2 41 mmHg (35-45); ABG PH 7.47 (7.35-7.45); ABG PO2 136 mmHg (80-105); ABG TCO2 31
[2022-09-23] MEDS: NOREPINEPHRINE 8 MG/D5W 250 ML 250 ML IV SCH (10:45)
[2022-09-23] MEDS: TRAZODONE HCL 50 MG TAB PO SCH (20:21)
[2022-09-23] MEDS: SIMVASTATIN 20 MG TAB PO SCH (20:21)
[2022-09-23] MEDS: TAMSULOSIN HCL 0.4 MG CAP PO SCH (20:21)
[2022-09-24] VITALS (36 sets, daily range): BP systolic 87–150; BP diastolic 30–50
[2022-09-24] MEDS: FENTANYL 2000MCG/NS 250 250 ML IV PRN ×3 (01:04→21:03)
[2022-09-24] MEDS: INSULIN LISPRO 100 UNIT/1 ML 3ML VIAL SQ SCH ×4 (06:35→18:00)
[2022-09-24 06:45] LABS: BASOPHILS # (AUTO) 0.1 (0.0-0.1); EOSINOPHILS # (AUTO) 0.4 (0.0-0.4); EOSINOPHILS % 4.8 % (0.0-6.0); HEMATOCRIT 25.5 % (38.2-49.6); HEMOGLOBIN 7.9 g/dL (14.0-18.0); LYMPHOCYTES # (AUTO) 0.9 (1.0-3.2); LYMPHOCYTES % 12.6 % (18.0-39.1); MEAN CORPUSCULAR HEMOGLOBIN 28.8 pg (28-32); MEAN CORPUSCULAR VOLUME 93.1 fL (81-99); MONOCYTES # (AUTO) 0.9 (0.2-0.8); MONOCYTES % 12.2 % (4.4-11.3); NEUTROPHILS % 68.6 % (38.7-80.0); PLATELET COUNT 166 x10e3/uL (140-360); RED BLOOD COUNT 2.74 x10e6/uL (4.3-5.7); RED CELL DISTRIBUTION WIDTH 14.4 % (11.7-14.4)
[2022-09-24 07:14] LABS: ALBUMIN 1.6 g/dL (3.5-5.0); ALBUMIN/GLOBULIN RATIO 0.4 (0.8-2.0); ANION GAP 10.7 mmol/L (8-16); CALCIUM 8.3 mg/dL (8.4-10.2); CREATININE, SERUM 0.85 mg/dL (0.72-1.25); POTASSIUM 3.7 mmol/L (3.5-5.1)
[2022-09-24] MEDS: METOPROLOL TARTRATE 25 MG TAB PO SCH ×2 (09:00→16:12)
[2022-09-24] MEDS: THIAMINE HCL INJ 100 MG/ML 2ML VIAL IV SCH (09:29)
[2022-09-24] MEDS: PREGABALIN 50 MG CAP PO SCH ×2 (09:30→16:12)
[2022-09-24] MEDS: VALPROATE 250MG/5ML ORAL LIQ 5ml GT SCH ×2 (09:30→16:11)
[2022-09-24] MEDS: ASPIRIN 81 MG CHEW TAB PO SCH (09:40)
[2022-09-24] MEDS ORDERED: ALBUMIN 25% 25GM 100ML 0.25 GM/ML BTL IV SCH (10:00)
[2022-09-24] MEDS: OLOPATADINE 5 ML BTL OP SCH ×2 (10:27→16:12)
[2022-09-24] MEDS: ALBUMIN 25% 25GM 100ML 100 ML IV SCH ×2 (10:27→15:36)
[2022-09-24] MEDS: TAMSULOSIN HCL 0.4 MG CAP PO SCH (20:59)
[2022-09-24] MEDS: SIMVASTATIN 20 MG TAB PO SCH (20:59)
[2022-09-24] MEDS: TRAZODONE HCL 50 MG TAB PO SCH (20:59)
[2022-09-25] VITALS (71 sets, daily range): BP systolic 91–154; BP diastolic 28–65
[2022-09-25] MEDS: INSULIN LISPRO 100 UNIT/1 ML 3ML VIAL SQ SCH ×4 (00:05→18:02)
[2022-09-25 06:22] LABS: BASOPHILS % 0.7 % (0.0-1.0); EOSINOPHILS # (AUTO) 0.4 (0.0-0.4); HEMATOCRIT 25.2 % (38.2-49.6); HEMOGLOBIN 7.7 g/dL (14.0-18.0); LYMPHOCYTES # (AUTO) 1.3 (1.0-3.2); LYMPHOCYTES % 22.3 % (18.0-39.1); MEAN CORPUSCULAR HEMOGLOBIN 28.5 pg (28-32); MEAN CORPUSCULAR HGB CONC 30.6 g/dL (31-35); MEAN CORPUSCULAR VOLUME 93.3 fL (81-99); MONOCYTES # (AUTO) 0.5 (0.2-0.8); MONOCYTES % 7.7 % (4.4-11.3); NEUTROPHILS # (AUTO) 3.6 (2.1-6.9); NEUTROPHILS % 61.6 % (38.7-80.0); PLATELET COUNT 179 x10e3/uL (140-360); RED CELL DISTRIBUTION WIDTH 14.3 % (11.7-14.4)
[2022-09-25 06:43] LABS: ALBUMIN 2.1 g/dL (3.5-5.0); ALBUMIN/GLOBULIN RATIO 0.7 (0.8-2.0); ANION GAP 11.5 mmol/L (8-16); CALCIUM 8.5 mg/dL (8.4-10.2); CREATININE, SERUM 0.75 mg/dL (0.72-1.25); POTASSIUM 3.5 mmol/L (3.5-5.1)
[2022-09-25] MEDS: METOPROLOL TARTRATE 25 MG TAB PO SCH ×2 (09:00→17:30)
[2022-09-25] MEDS: PREGABALIN 50 MG CAP PO SCH ×2 (09:12→17:30)
[2022-09-25] MEDS: ASPIRIN 81 MG CHEW TAB PO SCH (09:13)
[2022-09-25] MEDS: THIAMINE HCL INJ 100 MG/ML 2ML VIAL IV SCH (09:13)
[2022-09-25] MEDS: VALPROATE 250MG/5ML ORAL LIQ 5ml GT SCH ×2 (09:13→17:30)
[2022-09-25] MEDS: OLOPATADINE 5 ML BTL OP SCH ×2 (09:14→17:31)
[2022-09-25] MEDS ORDERED: POTASSIUM CHLORIDE 20MEQ/100ML 200 ML IV ONE (11:30)
[2022-09-25] MEDS: TAMSULOSIN HCL 0.4 MG CAP PO SCH (19:41)
[2022-09-25] MEDS: TRAZODONE HCL 50 MG TAB PO SCH (19:41)
[2022-09-25] MEDS: SIMVASTATIN 20 MG TAB PO SCH (19:41)
[2022-09-25] MEDS: HYDROCODONE/APAP 10MG-325MG TAB PO PRN (19:41)
[2022-09-25] MEDS: FENTANYL 2000MCG/NS 250 250 ML IV PRN (22:21)
[2022-09-26] VITALS (80 sets, daily range): BP systolic 101–165; BP diastolic 39–66
[2022-09-26] MEDS: INSULIN LISPRO 100 UNIT/1 ML 3ML VIAL SQ SCH ×4 (05:55→18:17)
[2022-09-26 06:45] LABS: BASOPHILS # (AUTO) 0.1 (0.0-0.1); EOSINOPHILS # (AUTO) 0.5 (0.0-0.4); EOSINOPHILS % 6.9 % (0.0-6.0); HEMATOCRIT 25.5 % (38.2-49.6); HEMOGLOBIN 7.8 g/dL (14.0-18.0); LYMPHOCYTES # (AUTO) 1.4 (1.0-3.2); LYMPHOCYTES % 20.7 % (18.0-39.1); MEAN CORPUSCULAR HEMOGLOBIN 28.6 pg (28-32); MEAN CORPUSCULAR HGB CONC 30.6 g/dL (31-35); MEAN CORPUSCULAR VOLUME 93.4 fL (81-99); MONOCYTES # (AUTO) 0.6 (0.2-0.8); MONOCYTES % 9.1 % (4.4-11.3); NEUTROPHILS # (AUTO) 4.2 (2.1-6.9); NEUTROPHILS % 61.6 % (38.7-80.0); PLATELET COUNT 197 x10e3/uL (140-360); RED BLOOD COUNT 2.73 x10e6/uL (4.3-5.7); RED CELL DISTRIBUTION WIDTH 14.4 % (11.7-14.4)
[2022-09-26 06:58] LABS: ALBUMIN/GLOBULIN RATIO 0.6 (0.8-2.0); ANION GAP 11.9 mmol/L (8-16); CALCIUM 8.5 mg/dL (8.4-10.2); CREATININE, SERUM 0.67 mg/dL (0.72-1.25); POTASSIUM 3.9 mmol/L (3.5-5.1)
[2022-09-26] MEDS: THIAMINE HCL INJ 100 MG/ML 2ML VIAL IV SCH (08:54)
[2022-09-26] MEDS: ASPIRIN 81 MG CHEW TAB PO SCH (08:55)
[2022-09-26] MEDS: PREGABALIN 50 MG CAP PO SCH ×2 (08:55→16:31)
[2022-09-26] MEDS: VALPROATE 250MG/5ML ORAL LIQ 5ml GT SCH ×2 (08:55→16:31)
[2022-09-26] MEDS: METOPROLOL TARTRATE 25 MG TAB PO SCH ×2 (08:56→16:32)
[2022-09-26] MEDS: OLOPATADINE 5 ML BTL OP SCH ×2 (09:08→17:28)
[2022-09-26] MEDS ORDERED: DEXMEDETOMIDINE 400MCG/NS100ML 100 ML IV PRN (11:00)
[2022-09-26] MEDS ORDERED: SODIUM CHLORIDE 0.45% 1,000 ML IV ONE (11:00)
[2022-09-26] MEDS: HYDROCODONE/APAP 10MG-325MG TAB PO PRN (16:32)
[2022-09-26] MEDS: TRAZODONE HCL 50 MG TAB PO SCH (19:16)
[2022-09-26] MEDS: SIMVASTATIN 20 MG TAB PO SCH (19:16)
[2022-09-26] MEDS: FENTANYL 2000MCG/NS 250 250 ML IV PRN (19:16)
[2022-09-26] MEDS: TAMSULOSIN HCL 0.4 MG CAP PO SCH (19:16)
[2022-09-27] VITALS (77 sets, daily range): BP systolic 103–151; BP diastolic 36–56
[2022-09-27] MEDS: INSULIN LISPRO 100 UNIT/1 ML 3ML VIAL SQ SCH ×5 (06:20→23:47)
[2022-09-27 06:40] LABS: BASOPHILS # (AUTO) 0.1 (0.0-0.1); BASOPHILS % 0.9 % (0.0-1.0); EOSINOPHILS # (AUTO) 0.5 (0.0-0.4); EOSINOPHILS % 7.4 % (0.0-6.0); HEMATOCRIT 25.1 % (38.2-49.6); HEMOGLOBIN 7.6 g/dL (14.0-18.0); LYMPHOCYTES # (AUTO) 1.6 (1.0-3.2); LYMPHOCYTES % 23.5 % (18.0-39.1); MEAN CORPUSCULAR HEMOGLOBIN 28.7 pg (28-32); MEAN CORPUSCULAR HGB CONC 30.3 g/dL (31-35); MEAN CORPUSCULAR VOLUME 94.7 fL (81-99); MONOCYTES # (AUTO) 0.6 (0.2-0.8); MONOCYTES % 8.5 % (4.4-11.3); NEUTROPHILS # (AUTO) 4.1 (2.1-6.9); NEUTROPHILS % 59.1 % (38.7-80.0); PLATELET COUNT 185 x10e3/uL (140-360); RED BLOOD COUNT 2.65 x10e6/uL (4.3-5.7); RED CELL DISTRIBUTION WIDTH 14.2 % (11.7-14.4)
[2022-09-27 07:03] LABS: ALBUMIN 1.9 g/dL (3.5-5.0); ALBUMIN/GLOBULIN RATIO 0.6 (0.8-2.0); ANION GAP 11.9 mmol/L (8-16); CALCIUM 8.3 mg/dL (8.4-10.2); CREATININE, SERUM 0.64 mg/dL (0.72-1.25); POTASSIUM 3.9 mmol/L (3.5-5.1)
[2022-09-27] MEDS: METOPROLOL TARTRATE 25 MG TAB PO SCH ×2 (08:45→17:00)
[2022-09-27] MEDS: ASPIRIN 81 MG CHEW TAB PO SCH (08:45)
[2022-09-27] MEDS: VALPROATE 250MG/5ML ORAL LIQ 5ml GT SCH ×2 (08:54→17:40)
[2022-09-27] MEDS: THIAMINE HCL INJ 100 MG/ML 2ML VIAL IV SCH (08:54)
[2022-09-27] MEDS: OLOPATADINE 5 ML BTL OP SCH ×2 (08:55→17:40)
[2022-09-27] MEDS: PREGABALIN 50 MG CAP PO SCH ×2 (08:55→17:40)
[2022-09-27] MEDS: HYDROCODONE/APAP 10MG-325MG TAB PO PRN ×2 (10:15→20:30)
[2022-09-27] MEDS ORDERED: VASOPRESSIN 60 UNIT in DEXTROSE 5% 50ML 57 ML IV SCH (13:15)
[2022-09-27] MEDS ORDERED: ALBUMIN 25% 25GM 100ML 0.25 GM/ML BTL IV SCH (14:00)
[2022-09-27] MEDS: ALBUMIN 25% 25GM 100ML 0.25 GM/ML BTL IV SCH (20:30)
[2022-09-27] MEDS: SIMVASTATIN 20 MG TAB PO SCH (20:30)
[2022-09-27] MEDS: TAMSULOSIN HCL 0.4 MG CAP PO SCH (20:30)
[2022-09-27] MEDS: TRAZODONE HCL 50 MG TAB PO SCH (20:31)
[2022-09-28] VITALS (38 sets, daily range): BP systolic 97–163; BP diastolic 37–58
[2022-09-28] MEDS: FENTANYL 2000MCG/NS 250 250 ML IV PRN (00:14)
[2022-09-28] MEDS: ALBUMIN 25% 25GM 100ML 0.25 GM/ML BTL IV SCH (01:58)
[2022-09-28] MEDS: INSULIN LISPRO 100 UNIT/1 ML 3ML VIAL SQ SCH ×3 (06:00→18:00)
[2022-09-28 06:56] LABS: BASOPHILS % 0.6 % (0.0-1.0); EOSINOPHILS # (AUTO) 0.4 (0.0-0.4); EOSINOPHILS % 6.8 % (0.0-6.0); HEMATOCRIT 21.5 % (38.2-49.6); LYMPHOCYTES # (AUTO) 1.4 (1.0-3.2); LYMPHOCYTES % 22.8 % (18.0-39.1); MEAN CORPUSCULAR HGB CONC 30.2 g/dL (31-35); MONOCYTES # (AUTO) 0.6 (0.2-0.8); MONOCYTES % 8.9 % (4.4-11.3); NEUTROPHILS # (AUTO) 3.8 (2.1-6.9); NEUTROPHILS % 60.4 % (38.7-80.0); PLATELET COUNT 176 x10e3/uL (140-360); RED BLOOD COUNT 2.24 x10e6/uL (4.3-5.7); RED CELL DISTRIBUTION WIDTH 14.2 % (11.7-14.4)
[2022-09-28 07:14] LABS: HEMOGLOBIN 6.5 g/dL (14.0-18.0)
[2022-09-28 07:23] LABS: ALBUMIN 2.8 g/dL (3.5-5.0); ALBUMIN/GLOBULIN RATIO 1.1 (0.8-2.0); ANION GAP 11.1 mmol/L (8-16); CALCIUM 8.4 mg/dL (8.4-10.2); CREATININE, SERUM 0.63 mg/dL (0.72-1.25); POTASSIUM 4.1 mmol/L (3.5-5.1)
[2022-09-28] MEDS: RIVASTIGMINE TARTRATE 1.5 MG CAP PEG SCH ×2 (08:30→18:09)
[2022-09-28] MEDS ORDERED: SODIUM CHLORIDE 0.9% 250ML 250 ML IV ONE (08:30)
[2022-09-28] MEDS ORDERED: MAGNESIUM HYDROXIDE 30 ML UDC PEG PRN (08:30)
[2022-09-28] MEDS: VALPROATE 250MG/5ML ORAL LIQ 5ml GT SCH ×2 (09:59→18:09)
[2022-09-28] MEDS: ASPIRIN 81 MG CHEW TAB PO SCH (09:59)
[2022-09-28] MEDS: POLYETHYLENE GLYCOL 3350 17 GM PACK PEG SCH ×2 (09:59→17:00)
[2022-09-28] MEDS: METOPROLOL TARTRATE 25 MG TAB PEG SCH ×2 (10:00→17:00)
[2022-09-28] MEDS: THIAMINE HCL 100 MG TAB PEG SCH (10:01)
[2022-09-28] MEDS: PREGABALIN 50 MG CAP PO SCH ×2 (10:01→18:11)
[2022-09-28] MEDS: OLOPATADINE 5 ML BTL OP SCH ×2 (10:01→18:10)
[2022-09-28 11:05] LABS: ABG PH 7.46 (7.35-7.45)
[2022-09-28 11:06] LABS: ABG HCO3 28 mmol/L (22-26); ABG PCO2 39 mmHg (35-45); ABG PO2 108 mmHg (80-105); ABG TCO2 29
[2022-09-28] MEDS ORDERED: ACETAMINOPHEN 325 MG/10 ML UDC NG PRN (13:15)
[2022-09-28] MEDS ORDERED: SODIUM CHLORIDE 0.9% 250ML 250 ML ONE (15:02)
[2022-09-28] MEDS: FUROSEMIDE INJ 10 MG/ML 2 ML VIAL IV PRN (18:11)
[2022-09-28] MEDS: TAMSULOSIN HCL 0.4 MG CAP PO SCH (20:04)
[2022-09-28] MEDS: TRAZODONE HCL 50 MG TAB PO SCH (20:04)
[2022-09-28] MEDS: HYDROCODONE/APAP 10MG-325MG TAB PO PRN (20:04)
[2022-09-29] VITALS (53 sets, daily range): BP systolic 101–173; BP diastolic 42–74
[2022-09-29] MEDS: INSULIN LISPRO 100 UNIT/1 ML 3ML VIAL SQ SCH ×4 (00:21→18:14)
[2022-09-29 06:36] LABS: BASOPHILS # (AUTO) 0.1 (0.0-0.1); BASOPHILS % 1.4 % (0.0-1.0); EOSINOPHILS # (AUTO) 0.3 (0.0-0.4); EOSINOPHILS % 4.4 % (0.0-6.0); HEMATOCRIT 30.8 % (38.2-49.6); HEMOGLOBIN 9.8 g/dL (14.0-18.0); LYMPHOCYTES # (AUTO) 1.5 (1.0-3.2); MEAN CORPUSCULAR HEMOGLOBIN 29.3 pg (28-32); MEAN CORPUSCULAR HGB CONC 31.8 g/dL (31-35); MEAN CORPUSCULAR VOLUME 92.2 fL (81-99); MONOCYTES # (AUTO) 0.7 (0.2-0.8); MONOCYTES % 9.6 % (4.4-11.3); NEUTROPHILS # (AUTO) 4.6 (2.1-6.9); NEUTROPHILS % 63.1 % (38.7-80.0); PLATELET COUNT 206 x10e3/uL (140-360); RED BLOOD COUNT 3.34 x10e6/uL (4.3-5.7); RED CELL DISTRIBUTION WIDTH 15.2 % (11.7-14.4)
[2022-09-29 07:10] LABS: ANION GAP 10.9 mmol/L (8-16); CALCIUM 8.1 mg/dL (8.4-10.2); CREATININE, SERUM 0.62 mg/dL (0.72-1.25); POTASSIUM 3.9 mmol/L (3.5-5.1)
[2022-09-29] MEDS: VALPROATE 250MG/5ML ORAL LIQ 5ml GT SCH ×2 (09:46→18:12)
[2022-09-29] MEDS: METOPROLOL TARTRATE 25 MG TAB PEG SCH ×2 (09:46→17:00)
[2022-09-29] MEDS: THIAMINE HCL 100 MG TAB PEG SCH (09:46)
[2022-09-29] MEDS: PREGABALIN 50 MG CAP PO SCH ×2 (09:47→18:12)
[2022-09-29] MEDS: RIVASTIGMINE TARTRATE 1.5 MG CAP PEG SCH ×2 (09:47→18:12)
[2022-09-29] MEDS: ASPIRIN 81 MG CHEW TAB PO SCH (09:47)
[2022-09-29] MEDS: OLOPATADINE 5 ML BTL OP SCH ×2 (09:47→18:13)
[2022-09-29] MEDS: POLYETHYLENE GLYCOL 3350 17 GM PACK PEG SCH ×2 (09:47→17:00)
[2022-09-29] MEDS: TAMSULOSIN HCL 0.4 MG CAP PO SCH (19:49)
[2022-09-29] MEDS: TRAZODONE HCL 50 MG TAB PO SCH (19:49)
[2022-09-29] MEDS: HYDROCODONE/APAP 10MG-325MG TAB PO PRN (19:49)
[2022-09-29] MEDS ORDERED: ALBUMIN 25% 25GM 100ML 0 ML ONE (21:26)
[2022-09-30] VITALS (74 sets, daily range): BP systolic 107–167; BP diastolic 46–67
[2022-09-30] MEDS: INSULIN LISPRO 100 UNIT/1 ML 3ML VIAL SQ SCH ×4 (06:13→18:00)
[2022-09-30 06:35] LABS: BASOPHILS # (AUTO) 0.1 (0.0-0.1); BASOPHILS % 1.4 % (0.0-1.0); EOSINOPHILS # (AUTO) 0.3 (0.0-0.4); EOSINOPHILS % 4.3 % (0.0-6.0); HEMATOCRIT 30.4 % (38.2-49.6); HEMOGLOBIN 9.4 g/dL (14.0-18.0); LYMPHOCYTES # (AUTO) 1.5 (1.0-3.2); LYMPHOCYTES % 23.2 % (18.0-39.1); MEAN CORPUSCULAR HEMOGLOBIN 28.9 pg (28-32); MEAN CORPUSCULAR HGB CONC 30.9 g/dL (31-35); MEAN CORPUSCULAR VOLUME 93.5 fL (81-99); MONOCYTES # (AUTO) 0.7 (0.2-0.8); MONOCYTES % 10.3 % (4.4-11.3); NEUTROPHILS # (AUTO) 3.9 (2.1-6.9); NEUTROPHILS % 60.3 % (38.7-80.0); PLATELET COUNT 206 x10e3/uL (140-360); RED BLOOD COUNT 3.25 x10e6/uL (4.3-5.7); RED CELL DISTRIBUTION WIDTH 14.6 % (11.7-14.4)
[2022-09-30 07:05] LABS: ALBUMIN 2.1 g/dL (3.5-5.0); ALBUMIN/GLOBULIN RATIO 0.7 (0.8-2.0); ANION GAP 9.9 mmol/L (8-16); CALCIUM 8.1 mg/dL (8.4-10.2); CREATININE, SERUM 0.62 mg/dL (0.72-1.25); POTASSIUM 3.9 mmol/L (3.5-5.1)
[2022-09-30] MEDS: ASPIRIN 81 MG CHEW TAB PO SCH (08:40)
[2022-09-30] MEDS: RIVASTIGMINE TARTRATE 1.5 MG CAP PEG SCH ×2 (08:40→17:04)
[2022-09-30] MEDS: PREGABALIN 50 MG CAP PO SCH ×2 (08:40→17:05)
[2022-09-30] MEDS: THIAMINE HCL 100 MG TAB PEG SCH (08:40)
[2022-09-30] MEDS: METOPROLOL TARTRATE 25 MG TAB PEG SCH ×2 (08:42→17:00)
[2022-09-30] MEDS: OLOPATADINE 5 ML BTL OP SCH ×2 (08:42→17:05)
[2022-09-30] MEDS: VALPROATE 250MG/5ML ORAL LIQ 5ml GT SCH ×2 (08:42→17:04)
[2022-09-30] MEDS: POLYETHYLENE GLYCOL 3350 17 GM PACK PEG SCH ×2 (08:42→17:04)
[2022-09-30] MEDS ORDERED: LACTATED RINGER'S 1,000 ML INJ SCH (20:15)
[2022-09-30] MEDS ORDERED: ACETAMINOPHEN 325 MG TAB PEG PRN (20:15)
[2022-09-30] MEDS: TRAZODONE HCL 50 MG TAB PO SCH (20:52)
[2022-09-30] MEDS: TAMSULOSIN HCL 0.4 MG CAP PO SCH (20:52)
[2022-10-01] VITALS (67 sets, daily range): BP systolic 98–185; BP diastolic 42–145
[2022-10-01] MEDS: INSULIN LISPRO 100 UNIT/1 ML 3ML VIAL SQ SCH ×4 (00:11→17:56)
[2022-10-01 06:59] LABS: BASOPHILS # (AUTO) 0.1 (0.0-0.1); BASOPHILS % 1.4 % (0.0-1.0); EOSINOPHILS # (AUTO) 0.3 (0.0-0.4); EOSINOPHILS % 4.5 % (0.0-6.0); HEMATOCRIT 28.1 % (38.2-49.6); HEMOGLOBIN 9.1 g/dL (14.0-18.0); LYMPHOCYTES # (AUTO) 1.3 (1.0-3.2); LYMPHOCYTES % 19.5 % (18.0-39.1); MEAN CORPUSCULAR HEMOGLOBIN 30.7 pg (28-32); MEAN CORPUSCULAR HGB CONC 32.4 g/dL (31-35); MEAN CORPUSCULAR VOLUME 94.9 fL (81-99); MONOCYTES # (AUTO) 0.6 (0.2-0.8); MONOCYTES % 9.9 % (4.4-11.3); NEUTROPHILS # (AUTO) 4.1 (2.1-6.9); NEUTROPHILS % 64.2 % (38.7-80.0); PLATELET COUNT 180 x10e3/uL (140-360); RED BLOOD COUNT 2.96 x10e6/uL (4.3-5.7); RED CELL DISTRIBUTION WIDTH 14.5 % (11.7-14.4)
[2022-10-01 07:41] LABS: ALBUMIN/GLOBULIN RATIO 0.6 (0.8-2.0); ANION GAP 11.1 mmol/L (8-16); CALCIUM 8.2 mg/dL (8.4-10.2); CREATININE, SERUM 0.6 mg/dL (0.72-1.25); POTASSIUM 4.1 mmol/L (3.5-5.1)
[2022-10-01] MEDS: METOPROLOL TARTRATE 25 MG TAB PEG SCH ×2 (09:00→16:42)
[2022-10-01] MEDS: PREGABALIN 50 MG CAP PO SCH ×2 (09:10→16:40)
[2022-10-01] MEDS: VALPROATE 250MG/5ML ORAL LIQ 5ml GT SCH ×2 (09:10→16:41)
[2022-10-01] MEDS: ASPIRIN 81 MG CHEW TAB PO SCH (09:11)
[2022-10-01] MEDS: POLYETHYLENE GLYCOL 3350 17 GM PACK PEG SCH ×2 (09:11→16:42)
[2022-10-01] MEDS: THIAMINE HCL 100 MG TAB PEG SCH (09:11)
[2022-10-01] MEDS: RIVASTIGMINE TARTRATE 1.5 MG CAP PEG SCH ×2 (09:11→16:41)
[2022-10-01] MEDS: OLOPATADINE 5 ML BTL OP SCH ×2 (09:12→16:41)
[2022-10-01] MEDS: HYDROCODONE/APAP 10MG-325MG TAB PO PRN (14:21)
[2022-10-01] MEDS: TRAZODONE HCL 50 MG TAB PO SCH (21:34)
[2022-10-01] MEDS: TAMSULOSIN HCL 0.4 MG CAP PO SCH (21:34)
[2022-10-02] VITALS (32 sets, daily range): BP systolic 95–134; BP diastolic 43–83
[2022-10-02] MEDS: HYDROCODONE/APAP 10MG-325MG TAB PO PRN ×2 (00:28→08:20)
[2022-10-02] MEDS: INSULIN LISPRO 100 UNIT/1 ML 3ML VIAL SQ SCH ×2 (06:08)
[2022-10-02] MEDS: PREGABALIN 50 MG CAP PO SCH (08:20)
[2022-10-02] MEDS: RIVASTIGMINE TARTRATE 1.5 MG CAP PEG SCH ×2 (08:20→17:33)
[2022-10-02] MEDS: VALPROATE 250MG/5ML ORAL LIQ 5ml GT SCH ×2 (08:20→17:32)
[2022-10-02] MEDS: THIAMINE HCL 100 MG TAB PEG SCH (08:20)
[2022-10-02] MEDS: METOPROLOL TARTRATE 25 MG TAB PEG SCH ×2 (08:21→17:33)
[2022-10-02] MEDS: POLYETHYLENE GLYCOL 3350 17 GM PACK PEG SCH ×2 (08:21→17:00)
[2022-10-02] MEDS: ASPIRIN 81 MG CHEW TAB PO SCH (08:21)
[2022-10-02] MEDS ORDERED: DIPHENOXYLATE/ATROPINE TAB PEG SCH (09:00)
[2022-10-02] MEDS ORDERED: DIPHENOXYLATE/ATROPINE TAB PEG PRN (11:00)
[2022-10-02] MEDS ORDERED: ALBUTEROL SULF 0.083% NEB SOLN 3 ML NEB NEB PRN (15:45)
[2022-10-02] MEDS ORDERED: IPRATROPIUM BROMIDE 0.02% 2.5 ML NEB NEB PRN (15:45)
[2022-10-02] MEDS ORDERED: ACETAMINOPHEN 325 MG/10 ML UDC PEG PRN (15:45)
[2022-10-03] VITALS (26 sets, daily range): BP systolic 112–136; BP diastolic 46–90
[2022-10-03 07:40] LABS: BASOPHILS # (AUTO) 0.1 (0.0-0.1); BASOPHILS % 1.6 % (0.0-1.0); EOSINOPHILS # (AUTO) 0.6 (0.0-0.4); EOSINOPHILS % 9.6 % (0.0-6.0); HEMATOCRIT 27.9 % (38.2-49.6); HEMOGLOBIN 8.7 g/dL (14.0-18.0); LYMPHOCYTES % 15.9 % (18.0-39.1); MEAN CORPUSCULAR HEMOGLOBIN 29.8 pg (28-32); MEAN CORPUSCULAR HGB CONC 31.2 g/dL (31-35); MEAN CORPUSCULAR VOLUME 95.5 fL (81-99); MONOCYTES # (AUTO) 0.7 (0.2-0.8); MONOCYTES % 10.5 % (4.4-11.3); NEUTROPHILS # (AUTO) 3.9 (2.1-6.9); NEUTROPHILS % 61.9 % (38.7-80.0); PLATELET COUNT 213 x10e3/uL (140-360); RED BLOOD COUNT 2.92 x10e6/uL (4.3-5.7); RED CELL DISTRIBUTION WIDTH 14.1 % (11.7-14.4)
[2022-10-03 07:52] LABS: ALBUMIN 1.9 g/dL (3.5-5.0); ALBUMIN/GLOBULIN RATIO 0.6 (0.8-2.0); ANION GAP 11.4 mmol/L (8-16); CALCIUM 8.2 mg/dL (8.4-10.2); CREATININE, SERUM 0.71 mg/dL (0.72-1.25); POTASSIUM 4.4 mmol/L (3.5-5.1)
[2022-10-03] MEDS: RIVASTIGMINE TARTRATE 1.5 MG CAP PEG SCH ×2 (08:00→17:00)
[2022-10-03] MEDS: POLYETHYLENE GLYCOL 3350 17 GM PACK PEG SCH ×2 (08:41→17:00)
[2022-10-03] MEDS: METOPROLOL TARTRATE 25 MG TAB PEG SCH ×2 (08:41→17:00)
[2022-10-03] MEDS: VALPROATE 250MG/5ML ORAL LIQ 5ml GT SCH ×2 (08:41→18:00)
[2022-10-03] MEDS: ASPIRIN 81 MG CHEW TAB PO SCH (08:42)
[2022-10-03] MEDS: THIAMINE HCL 100 MG TAB PEG SCH (08:42)
[2022-10-03] MEDS: HYDROCODONE/APAP 10MG-325MG TAB PO PRN ×2 (14:05→21:42)
[2022-10-04] VITALS (23 sets, daily range): BP systolic 94–164; BP diastolic 49–74
[2022-10-04] MEDS: FENTANYL 2000MCG/NS 250 250 ML IV PRN (04:30)
[2022-10-04] MEDS: ASPIRIN 81 MG CHEW TAB PO SCH (08:49)
[2022-10-04] MEDS: VALPROATE 250MG/5ML ORAL LIQ 5ml GT SCH ×2 (08:49→18:40)
[2022-10-04] MEDS: POLYETHYLENE GLYCOL 3350 17 GM PACK PEG SCH ×2 (08:50→18:41)
[2022-10-04] MEDS: METOPROLOL TARTRATE 25 MG TAB PEG SCH ×2 (08:50→18:41)
[2022-10-04] MEDS: RIVASTIGMINE TARTRATE 1.5 MG CAP PEG SCH ×2 (08:50→18:40)
[2022-10-04] MEDS: THIAMINE HCL 100 MG TAB PEG SCH (08:51)
[2022-10-04] MEDS: ALBUMIN 25% 25GM 100ML 0.25 GM/ML BTL IV SCH ×2 (11:48→18:41)
[2022-10-04] MEDS: FUROSEMIDE INJ 10 MG/ML 4 ML VIAL IV SCH ×2 (11:51→20:51)
[2022-10-04] MEDS: HYDROCODONE/APAP 10MG-325MG TAB PO PRN (20:52)
[2022-10-05] VITALS (25 sets, daily range): BP systolic 127–180; BP diastolic 55–94
[2022-10-05] MEDS: ALBUMIN 25% 25GM 100ML 0.25 GM/ML BTL IV SCH (00:41)
[2022-10-05] MEDS: FENTANYL 2000MCG/NS 250 250 ML IV PRN (01:56)
[2022-10-05] MEDS ORDERED: BISACODYL 10 MG SUPP PR ONE (07:00)
[2022-10-05 08:55] LABS: BASOPHILS # (AUTO) 0.1 (0.0-0.1); BASOPHILS % 1.6 % (0.0-1.0); EOSINOPHILS # (AUTO) 0.3 (0.0-0.4); EOSINOPHILS % 5.4 % (0.0-6.0); HEMOGLOBIN 8.5 g/dL (14.0-18.0); LYMPHOCYTES # (AUTO) 1.2 (1.0-3.2); LYMPHOCYTES % 22.8 % (18.0-39.1); MEAN CORPUSCULAR HEMOGLOBIN 29.6 pg (28-32); MEAN CORPUSCULAR HGB CONC 29.3 g/dL (31-35); MONOCYTES # (AUTO) 0.6 (0.2-0.8); MONOCYTES % 11.1 % (4.4-11.3); NEUTROPHILS % 58.9 % (38.7-80.0); PLATELET COUNT 183 x10e3/uL (140-360); RED BLOOD COUNT 2.87 x10e6/uL (4.3-5.7); RED CELL DISTRIBUTION WIDTH 13.7 % (11.7-14.4)
[2022-10-05] MEDS: POLYETHYLENE GLYCOL 3350 17 GM PACK PEG SCH ×2 (09:00→17:03)
[2022-10-05] MEDS: ASPIRIN 81 MG CHEW TAB PO SCH (09:01)
[2022-10-05] MEDS: THIAMINE HCL 100 MG TAB PEG SCH (09:01)
[2022-10-05] MEDS: RIVASTIGMINE TARTRATE 1.5 MG CAP PEG SCH ×2 (09:01→17:03)
[2022-10-05] MEDS: METOPROLOL TARTRATE 25 MG TAB PEG SCH ×2 (09:02→17:02)
[2022-10-05] MEDS: VALPROATE 250MG/5ML ORAL LIQ 5ml GT SCH ×2 (09:02→17:03)
[2022-10-05 09:18] LABS: ALBUMIN 2.6 g/dL (3.5-5.0); ALBUMIN/GLOBULIN RATIO 0.8 (0.8-2.0); ANION GAP 10.4 mmol/L (8-16); CALCIUM 8.6 mg/dL (8.4-10.2); CREATININE, SERUM 0.66 mg/dL (0.72-1.25); POTASSIUM 4.4 mmol/L (3.5-5.1)
[2022-10-06] VITALS (24 sets, daily range): BP systolic 114–167; BP diastolic 53–146
[2022-10-06 06:34] LABS: BASOPHILS # (AUTO) 0.1 (0.0-0.1); BASOPHILS % 1.6 % (0.0-1.0); EOSINOPHILS # (AUTO) 0.2 (0.0-0.4); EOSINOPHILS % 3.2 % (0.0-6.0); HEMATOCRIT 26.4 % (38.2-49.6); HEMOGLOBIN 8.1 g/dL (14.0-18.0); LYMPHOCYTES # (AUTO) 1.2 (1.0-3.2); LYMPHOCYTES % 21.1 % (18.0-39.1); MEAN CORPUSCULAR HEMOGLOBIN 28.7 pg (28-32); MEAN CORPUSCULAR HGB CONC 30.7 g/dL (31-35); MEAN CORPUSCULAR VOLUME 93.6 fL (81-99); MONOCYTES # (AUTO) 0.7 (0.2-0.8); MONOCYTES % 12.9 % (4.4-11.3); NEUTROPHILS # (AUTO) 3.4 (2.1-6.9); NEUTROPHILS % 60.8 % (38.7-80.0); PLATELET COUNT 172 x10e3/uL (140-360); RED BLOOD COUNT 2.82 x10e6/uL (4.3-5.7); RED CELL DISTRIBUTION WIDTH 13.6 % (11.7-14.4)
[2022-10-06 07:00] LABS: ALBUMIN 2.3 g/dL (3.5-5.0); ALBUMIN/GLOBULIN RATIO 0.7 (0.8-2.0); ANION GAP 11.4 mmol/L (8-16); CALCIUM 8.5 mg/dL (8.4-10.2); CREATININE, SERUM 0.62 mg/dL (0.72-1.25); POTASSIUM 4.4 mmol/L (3.5-5.1)
[2022-10-06] MEDS: VALPROATE 250MG/5ML ORAL LIQ 5ml GT SCH ×2 (08:36→17:09)
[2022-10-06] MEDS: HYDROCODONE/APAP 10MG-325MG TAB PO PRN ×2 (08:37→17:10)
[2022-10-06] MEDS: RIVASTIGMINE TARTRATE 1.5 MG CAP PEG SCH ×2 (08:37→17:09)
[2022-10-06] MEDS: THIAMINE HCL 100 MG TAB PEG SCH (08:37)
[2022-10-06] MEDS: POLYETHYLENE GLYCOL 3350 17 GM PACK PEG SCH ×2 (08:38→17:10)
[2022-10-06] MEDS: ASPIRIN 81 MG CHEW TAB PO SCH (08:38)
[2022-10-06] MEDS: METOPROLOL TARTRATE 25 MG TAB PEG SCH ×3 (08:38→17:10)
[2022-10-07] VITALS (23 sets, daily range): BP systolic 128–169; BP diastolic 60–110
[2022-10-07 06:31] LABS: BASOPHILS # (AUTO) 0.1 (0.0-0.1); BASOPHILS % 1.7 % (0.0-1.0); EOSINOPHILS # (AUTO) 0.3 (0.0-0.4); EOSINOPHILS % 4.3 % (0.0-6.0); HEMATOCRIT 26.6 % (38.2-49.6); HEMOGLOBIN 8.4 g/dL (14.0-18.0); LYMPHOCYTES # (AUTO) 1.5 (1.0-3.2); LYMPHOCYTES % 22.8 % (18.0-39.1); MEAN CORPUSCULAR HEMOGLOBIN 29.6 pg (28-32); MEAN CORPUSCULAR HGB CONC 31.6 g/dL (31-35); MEAN CORPUSCULAR VOLUME 93.7 fL (81-99); MONOCYTES # (AUTO) 0.7 (0.2-0.8); MONOCYTES % 11.2 % (4.4-11.3); NEUTROPHILS # (AUTO) 3.9 (2.1-6.9); NEUTROPHILS % 59.7 % (38.7-80.0); PLATELET COUNT 171 x10e3/uL (140-360); RED BLOOD COUNT 2.84 x10e6/uL (4.3-5.7); RED CELL DISTRIBUTION WIDTH 13.7 % (11.7-14.4)
[2022-10-07 06:50] LABS: ALBUMIN 2.4 g/dL (3.5-5.0); ALBUMIN/GLOBULIN RATIO 0.8 (0.8-2.0); ANION GAP 11.6 mmol/L (8-16); CALCIUM 8.3 mg/dL (8.4-10.2); CREATININE, SERUM 0.63 mg/dL (0.72-1.25); POTASSIUM 4.6 mmol/L (3.5-5.1)
[2022-10-07] MEDS: POLYETHYLENE GLYCOL 3350 17 GM PACK PEG SCH ×2 (09:00→17:00)
[2022-10-07] MEDS: ASPIRIN 81 MG CHEW TAB PO SCH (09:21)
[2022-10-07] MEDS: VALPROATE 250MG/5ML ORAL LIQ 5ml GT SCH ×2 (09:22→18:17)
[2022-10-07] MEDS: RIVASTIGMINE TARTRATE 1.5 MG CAP PEG SCH ×2 (09:22→18:17)
[2022-10-07] MEDS: THIAMINE HCL 100 MG TAB PEG SCH (09:24)
[2022-10-07] MEDS: METOPROLOL TARTRATE 25 MG TAB PEG SCH ×2 (09:24→18:20)
[2022-10-07] MEDS: HYDROCODONE/APAP 10MG-325MG TAB PO PRN ×2 (09:35→18:17)
[2022-10-07] MEDS ORDERED: FENTANYL 2000MCG/NS 250 250 ML IV PRN (21:15)
[2022-10-08] VITALS (26 sets, daily range): BP systolic 130–174; BP diastolic 55–84
[2022-10-08 06:37] LABS: BASOPHILS # (AUTO) 0.1 (0.0-0.1); BASOPHILS % 1.7 % (0.0-1.0); EOSINOPHILS # (AUTO) 0.3 (0.0-0.4); EOSINOPHILS % 4.4 % (0.0-6.0); HEMATOCRIT 26.2 % (38.2-49.6); HEMOGLOBIN 8.2 g/dL (14.0-18.0); LYMPHOCYTES # (AUTO) 1.3 (1.0-3.2); LYMPHOCYTES % 20.3 % (18.0-39.1); MEAN CORPUSCULAR HGB CONC 31.3 g/dL (31-35); MONOCYTES # (AUTO) 0.8 (0.2-0.8); MONOCYTES % 12.2 % (4.4-11.3); NEUTROPHILS # (AUTO) 3.8 (2.1-6.9); NEUTROPHILS % 61.1 % (38.7-80.0); PLATELET COUNT 170 x10e3/uL (140-360); RED BLOOD COUNT 2.73 x10e6/uL (4.3-5.7); RED CELL DISTRIBUTION WIDTH 13.4 % (11.7-14.4)
[2022-10-08 06:55] LABS: ALBUMIN 2.3 g/dL (3.5-5.0); ALBUMIN/GLOBULIN RATIO 0.7 (0.8-2.0); ANION GAP 12.7 mmol/L (8-16); CALCIUM 8.4 mg/dL (8.4-10.2); CREATININE, SERUM 0.62 mg/dL (0.72-1.25); POTASSIUM 4.7 mmol/L (3.5-5.1)
[2022-10-08] MEDS: VALPROATE 250MG/5ML ORAL LIQ 5ml GT SCH ×2 (09:58→17:30)
[2022-10-08] MEDS: THIAMINE HCL 100 MG TAB PEG SCH (09:58)
[2022-10-08] MEDS: ASPIRIN 81 MG CHEW TAB PO SCH (09:58)
[2022-10-08] MEDS: RIVASTIGMINE TARTRATE 1.5 MG CAP PEG SCH ×2 (09:58→17:30)
[2022-10-08] MEDS: METOPROLOL TARTRATE 25 MG TAB PEG SCH ×2 (10:35→17:00)
[2022-10-08] MEDS: POLYETHYLENE GLYCOL 3350 17 GM PACK PEG SCH ×2 (10:35→17:30)
[2022-10-08] MEDS: ALBUMIN 25% 25GM 100ML 0.25 GM/ML BTL IV SCH ×2 (10:54→15:16)
[2022-10-08] MEDS: FUROSEMIDE INJ 10 MG/ML 4 ML VIAL IV SCH ×2 (11:03→21:00)
[2022-10-08] MEDS: HYDROCODONE/APAP 10MG-325MG TAB PO PRN (19:00)
[2022-10-08] MEDS: FUROSEMIDE INJ 10 MG/ML 2 ML VIAL IV PRN (20:13)
[2022-10-09] VITALS (23 sets, daily range): BP systolic 132–165; BP diastolic 53–109
[2022-10-09 06:53] LABS: BASOPHILS # (AUTO) 0.1 (0.0-0.1); EOSINOPHILS # (AUTO) 0.3 (0.0-0.4); EOSINOPHILS % 5.1 % (0.0-6.0); HEMATOCRIT 24.7 % (38.2-49.6); LYMPHOCYTES # (AUTO) 1.4 (1.0-3.2); LYMPHOCYTES % 22.1 % (18.0-39.1); MEAN CORPUSCULAR HEMOGLOBIN 30.9 pg (28-32); MEAN CORPUSCULAR HGB CONC 32.4 g/dL (31-35); MEAN CORPUSCULAR VOLUME 95.4 fL (81-99); MONOCYTES # (AUTO) 0.8 (0.2-0.8); MONOCYTES % 12.7 % (4.4-11.3); NEUTROPHILS # (AUTO) 3.5 (2.1-6.9); NEUTROPHILS % 57.8 % (38.7-80.0); PLATELET COUNT 142 x10e3/uL (140-360); RED BLOOD COUNT 2.59 x10e6/uL (4.3-5.7); RED CELL DISTRIBUTION WIDTH 13.8 % (11.7-14.4)
[2022-10-09 07:12] LABS: ALBUMIN 2.7 g/dL (3.5-5.0); CALCIUM 8.6 mg/dL (8.4-10.2); CREATININE, SERUM 0.63 mg/dL (0.72-1.25)
[2022-10-09 07:13] LABS: ALBUMIN/GLOBULIN RATIO 0.9 (0.8-2.0)
[2022-10-09] MEDS: METOPROLOL TARTRATE 25 MG TAB PEG SCH ×2 (08:53→17:00)
[2022-10-09] MEDS: POLYETHYLENE GLYCOL 3350 17 GM PACK PEG SCH ×2 (08:53→18:01)
[2022-10-09] MEDS: VALPROATE 250MG/5ML ORAL LIQ 5ml GT SCH ×2 (08:53→18:01)
[2022-10-09] MEDS: THIAMINE HCL 100 MG TAB PEG SCH (08:53)
[2022-10-09] MEDS: ASPIRIN 81 MG CHEW TAB PO SCH (08:53)
[2022-10-09] MEDS: RIVASTIGMINE TARTRATE 1.5 MG CAP PEG SCH ×2 (08:53→18:01)
[2022-10-09] MEDS: HYDROCODONE/APAP 10MG-325MG TAB PO PRN ×2 (12:21→20:28)
[2022-10-09] MEDS: ALBUMIN 25% 25GM 100ML 0.25 GM/ML BTL IV SCH ×2 (12:36→18:03)
[2022-10-09] MEDS: FUROSEMIDE INJ 10 MG/ML 4 ML VIAL IV SCH ×2 (12:37→20:27)
[2022-10-10] VITALS (12 sets, daily range): BP systolic 125–157; BP diastolic 51–66
[2022-10-10 06:15] LABS: BASOPHILS # (AUTO) 0.1 (0.0-0.1); BASOPHILS % 1.3 % (0.0-1.0); EOSINOPHILS # (AUTO) 0.3 (0.0-0.4); EOSINOPHILS % 4.9 % (0.0-6.0); HEMATOCRIT 23.8 % (38.2-49.6); HEMOGLOBIN 7.5 g/dL (14.0-18.0); LYMPHOCYTES # (AUTO) 1.3 (1.0-3.2); LYMPHOCYTES % 21.1 % (18.0-39.1); MEAN CORPUSCULAR HEMOGLOBIN 29.6 pg (28-32); MEAN CORPUSCULAR HGB CONC 31.5 g/dL (31-35); MEAN CORPUSCULAR VOLUME 94.1 fL (81-99); MONOCYTES # (AUTO) 0.7 (0.2-0.8); MONOCYTES % 11.2 % (4.4-11.3); NEUTROPHILS # (AUTO) 3.7 (2.1-6.9); NEUTROPHILS % 61.3 % (38.7-80.0); RED BLOOD COUNT 2.53 x10e6/uL (4.3-5.7); RED CELL DISTRIBUTION WIDTH 13.5 % (11.7-14.4)
[2022-10-10 06:20] LABS: PLATELET COUNT 156 x10e3/uL (140-360)
[2022-10-10 06:28] LABS: ALBUMIN 2.9 g/dL (3.5-5.0); ANION GAP 12.9 mmol/L (8-16); CALCIUM 8.7 mg/dL (8.4-10.2); CREATININE, SERUM 0.64 mg/dL (0.72-1.25); POTASSIUM 3.9 mmol/L (3.5-5.1)
[2022-10-10] MEDS: THIAMINE HCL 100 MG TAB PEG SCH (08:19)
[2022-10-10] MEDS: VALPROATE 250MG/5ML ORAL LIQ 5ml GT SCH (08:20)
[2022-10-10] MEDS: RIVASTIGMINE TARTRATE 1.5 MG CAP PEG SCH (08:20)
[2022-10-10] MEDS: POLYETHYLENE GLYCOL 3350 17 GM PACK PEG SCH (08:20)
[2022-10-10] MEDS: ASPIRIN 81 MG CHEW TAB PO SCH (08:20)
[2022-10-10] MEDS: METOPROLOL TARTRATE 25 MG TAB PEG SCH (08:20)
== END 2022-10-10 13:39 | DRG 3 ==
LOC: ER 20:02 → ERHOLD 09-02 00:36 → MED/SURG 09-02 03:15 → ICU 09-04 01:42
PROVIDERS: ADMIT Internal Medicine; ATTEND Internal Medicine
PROC: 0BH17EZ Insertion of Endotracheal Airway into Trachea, Via Natural or Artificial Opening (ICD-10-PCS; 2022-09-04)
PROC: 5A1945Z Respiratory Ventilation, 24-96 Consecutive Hours (ICD-10-PCS; 2022-09-04)
PROC: 0DH68UZ Insertion of Feeding Device into Stomach, Via Natural or Artificial Opening Endoscopic (ICD-10-PCS; 2022-09-08)
PROC: 0DJ08ZZ Inspection of Upper Intestinal Tract, Via Natural or Artificial Opening Endoscopic (ICD-10-PCS; 2022-09-08)
PROC: 0B978ZZ Drainage of Left Main Bronchus, Via Natural or Artificial Opening Endoscopic (ICD-10-PCS; 2022-09-11)
PROC: 0BJ08ZZ Inspection of Tracheobronchial Tree, Via Natural or Artificial Opening Endoscopic (ICD-10-PCS; 2022-09-11)
PROC: 5A1955Z Respiratory Ventilation, Greater than 96 Consecutive Hours (ICD-10-PCS; 2022-09-13)
PROC: 0BH18EZ Insertion of Endotracheal Airway into Trachea, Via Natural or Artificial Opening Endoscopic (ICD-10-PCS; 2022-09-13)
PROC: 30243N1 Transfusion of Nonautologous Red Blood Cells into Central Vein, Percutaneous Approach (ICD-10-PCS; 2022-09-15)
PROC: 03HC3DZ Insertion of Intraluminal Device into Left Radial Artery, Percutaneous Approach (ICD-10-PCS; 2022-09-18)
PROC: 0B110F4 Bypass Trachea to Cutaneous with Tracheostomy Device, Open Approach (ICD-10-PCS; principal; 2022-09-18 12:19)
PROC: 02HV33Z Insertion of Infusion Device into Superior Vena Cava, Percutaneous Approach (ICD-10-PCS; 2022-10-02)
DX: K76.82 Hepatic encephalopathy (principal); A41.9 Sepsis, unspecified organism; J69.0 Pneumonitis due to inhalation of food and vomit; R65.20 Severe sepsis without septic shock; E43 Unspecified severe protein-calorie malnutrition; G93.41 Metabolic encephalopathy; J96.21 Acute and chronic respiratory failure with hypoxia; J96.22 Acute and chronic respiratory failure with hypercapnia; J84.9 Interstitial pulmonary disease, unspecified; N17.9 Acute kidney failure, unspecified; N39.0 Urinary tract infection, site not specified; E72.20 Disorder of urea cycle metabolism, unspecified; G91.9 Hydrocephalus, unspecified; J98.19 Other pulmonary collapse; M32.9 Systemic lupus erythematosus, unspecified; Z86.73 Personal history of transient ischemic attack (TIA), and cerebral infarction without residual deficits; E11.69 Type 2 diabetes mellitus with other specified complication; E11.22 Type 2 diabetes mellitus with diabetic chronic kidney disease; I12.9 Hypertensive chronic kidney disease with stage 1 through stage 4 chronic kidney disease, or unspecified chronic kidney disease; N18.30 Chronic kidney disease, stage 3 unspecified; M40.209 Unspecified kyphosis, site unspecified; G40.909 Epilepsy, unspecified, not intractable, without status epilepticus; Z20.822 Contact with and (suspected) exposure to COVID-19; Z79.899 Other long term (current) drug therapy; Z68.26 Body mass index [BMI] 26.0-26.9, adult; E11.51 Type 2 diabetes mellitus with diabetic peripheral angiopathy without gangrene; L89.159 Pressure ulcer of sacral region, unspecified stage; N47.1 Phimosis; E83.51 Hypocalcemia; N40.1 Benign prostatic hyperplasia with lower urinary tract symptoms; R33.8 Other retention of urine; I27.81 Cor pulmonale (chronic); F01.50 Vascular dementia, unspecified severity, without behavioral disturbance, psychotic disturbance, mood disturbance, and anxiety; K74.60 Unspecified cirrhosis of liver; M51.36 Other intervertebral disc degeneration, lumbar region; R62.7 Adult failure to thrive; D50.0 Iron deficiency anemia secondary to blood loss (chronic); L89.629 Pressure ulcer of left heel, unspecified stage; L89.619 Pressure ulcer of right heel, unspecified stage; F32.A Depression, unspecified
CPT/HCPCS: 31500; 31622; 36415; 36569; 36584; 36600; 43246; 51700; 70450; 71045; 71250; 71260; 74018; 74230; 76870; 80048; 80053; 80164; 80307; 81001; 82140; 82550; 82553; 82607; 82746; 82805; 82948; 83540; 83605; 83880; 84425; 84443; 84466; 84484; 85025; 85045; 85610; 85730; 86850; 86900; 86920; 87040; 87070; 87086; 87205; 92950; 93005; 93976; 94002; 94003; 94640; 94660; 94667; 94668; 94669; 94760; 94799; 95819; 96372; 99252; 99285; J0330; J0456; J0696; J1450; J1650; J1885; J1940; J2001; J2250; J2270; J2310; J2370; J2543; J3411; J3480; J7030; J7040; J7050; J7070; J7512; J7799; P9016; P9047; Q9967

== ENCOUNTER 2023-01-03 20:08 | Inpatient (IN) | payer MEDICARE ==
[~2023-01-03] VITALS: Ht 165.1 cm; Wt 55.4 kg
[~2023-01-03 20:08] MED LIST changes: +ACETAMINOPHEN650 MG PO; +ALPRAZOLAM0.25 M1 PO; +AMBIEN5 MG PO; +ASPIRIN81 MG PO; +DOXYCYCLINE HY100 MG PO; +DULCOLAX SUPP10 MG PR; +FAMOTIDINE20 MG PEG; +FUROSEMIDE20 MG PO; +HYDROCODON-ACE1 EA12 PO; +LACTULOSE20 GM/30 M PO; +LEVOTHYROXINE50 MCG PO; +METOPROLOL TART25 MG PO; +OLOPATADINE HCL5 ML OU; +RIVASTIGMINE1.5 MG PO; +SENNA S TABLET1 EACH PO; +THIAMINE H100 MG/1 M IV; +VALPROIC A250 MG/5 M PO; +ZOLPIDEM TARTRAT5 MG PO
[2023-01-03] MEDS ORDERED: ACETAMINOPHEN 1000 MG/100 ML IV STA (20:13)
[2023-01-03] MEDS ORDERED: SODIUM CHLORIDE 0.9% 1000ML 1,000 ML IV ONE (20:15)
[2023-01-03 20:34] LABS: BASOPHILS # (AUTO) 0.1 (0.0-0.1); BASOPHILS % 0.5 % (0.0-1.0); EOSINOPHILS # (AUTO) 0.1 (0.0-0.4); EOSINOPHILS % 0.4 % (0.0-6.0); HEMOGLOBIN 9.4 g/dL (14.0-18.0); LYMPHOCYTES # (AUTO) 0.8 (1.0-3.2); LYMPHOCYTES % 5.8 % (18.0-39.1); MEAN CORPUSCULAR HGB CONC 33.6 g/dL (31-35); MEAN CORPUSCULAR VOLUME 92.4 fL (81-99); MONOCYTES # (AUTO) 0.8 (0.2-0.8); MONOCYTES % 5.2 % (4.4-11.3); NEUTROPHILS # (AUTO) 12.8 (2.1-6.9); NEUTROPHILS % 87.7 % (38.7-80.0); PLATELET COUNT 372 x10e3/uL (140-360); RED BLOOD COUNT 3.03 x10e6/uL (4.3-5.7); RED CELL DISTRIBUTION WIDTH 13.2 % (11.7-14.4)
[2023-01-03 20:40] VITALS: PULSE 95; RESP 20; O2SAT 100
[2023-01-03 20:48] LABS: CLARITY,URINE TURBID (CLEAR); COLOR,URINE YELLOW (YELLOW); KETONES,URINE NEGATIVE (NEGATIVE); LEUKOCYTE ESTERASE ,URINE LARGE (NEGATIVE); NITRITE,URINE POSITIVE (NEGATIVE); PROTEIN,URINE DIPSTICK 1+ (NEGATIVE); URINE UROBILINOGEN 0.2 mg/dL (0.2 - 1)
[2023-01-03 20:51] LABS: ALBUMIN 2.8 g/dL (3.5-5.0); ALBUMIN/GLOBULIN RATIO 0.5 (0.8-2.0); CALCIUM 8.9 mg/dL (8.4-10.2); CREATININE, SERUM 0.72 mg/dL (0.72-1.25)
[2023-01-03 21:01] LABS: BACTERIA,URINE MANY /HPF; RBC,URINE 0-5 /HPF (0-5); WBC,URINE (MAN) 0-5 /HPF (0-5)
[2023-01-03 21:03] LABS: AMORPHOUS SEDIMENT,URINE FEW (FEW); TRIPLE PHOSPHATE CRYSTAL,UR MANY (FEW)
[2023-01-03 21:09] LABS: B-TYPE NATRIURETIC PEPTIDE2 104.2 pg/mL (0-100)
[2023-01-03] MEDS ORDERED: DEXTROSE 50% SYRINGE 50 ML IV PRN (21:30)
[2023-01-03] MEDS ORDERED: ACETAMINOPHEN 325 MG/10 ML UDC PEG PRN (21:30)
[2023-01-03 22:00] VITALS: BP 110/83; PULSE 95; RESP 20; TEMP 99; O2SAT 100
[2023-01-03] MEDS: SODIUM CHLORIDE 0.9% 1000ML 1,000 ML IV SCH (22:24)
[2023-01-03 22:30] VITALS: PULSE 77; RESP 26; O2SAT 100
[2023-01-03] MEDS: ALBUTEROL SULF 0.083% NEB SOLN 3 ML NEB NEB SCH (22:30)
[2023-01-03] MEDS: IPRATROPIUM BROMIDE 0.02% 2.5 ML NEB NEB SCH (22:30)
[2023-01-03 23:32] VITALS: BP 96/76; PULSE 65; RESP 16; TEMP 99; O2SAT 100
[2023-01-04] VITALS (40 sets, daily range): BP systolic 101–162; BP diastolic 23–88; PULSE 52–82; RESP 10–26; TEMP 97.7–98.5; O2SAT 85–100
[2023-01-04] MEDS: ALBUTEROL SULF 0.083% NEB SOLN 3 ML NEB NEB SCH ×6 (03:05→22:20)
[2023-01-04 05:53] LABS: ALBUMIN 2.2 g/dL (3.5-5.0); ALBUMIN/GLOBULIN RATIO 0.5 (0.8-2.0); ANION GAP 13.4 mmol/L (8-16); CALCIUM 8.2 mg/dL (8.4-10.2); CREATININE, SERUM 0.64 mg/dL (0.72-1.25); POTASSIUM 4.4 mmol/L (3.5-5.1)
[2023-01-04] MEDS: IPRATROPIUM BROMIDE 0.02% 2.5 ML NEB NEB SCH ×4 (07:08→22:20)
[2023-01-04] MEDS: INSULIN REGULAR, HUMAN 100 UNIT/1 ML SQ SCH ×4 (07:30→21:00)
[2023-01-04] MEDS ORDERED: LACTULOSE SYRUP 20 GM/30 ML UDC PO PRN (09:15)
[2023-01-04] MEDS ORDERED: ACETAMINOPHEN 650 MG SUPP PR PRN (09:15)
[2023-01-04] MEDS ORDERED: ALPRAZOLAM 0.25 MG TAB PO PRN (09:15)
[2023-01-04] MEDS: SENNOSIDES 8.6 MG TAB PO SCH (09:30)
[2023-01-04] MEDS: DOCUSATE SODIUM 100 MG CAP PO SCH (09:30)
[2023-01-04] MEDS ORDERED: FAMOTIDINE 20 MG TAB PO SCH (09:45)
[2023-01-04] MEDS: THIAMINE HCL 100 MG TAB PO SCH (12:46)
[2023-01-04] MEDS: FAMOTIDINE 20 MG TAB PO SCH ×2 (12:46→17:50)
[2023-01-04] MEDS: HYDROCODONE/APAP 10MG-325MG TAB PO PRN (12:48)
[2023-01-04] MEDS: METOPROLOL TARTRATE 25 MG TAB PO SCH ×2 (12:48→17:55)
[2023-01-04] MEDS: ASPIRIN 81 MG CHEW TAB PO SCH (12:48)
[2023-01-04] MEDS: RIVASTIGMINE TARTRATE 1.5 MG CAP PO SCH ×2 (12:49→17:55)
[2023-01-04] MEDS: VALPROATE 250MG/5ML ORAL LIQ 5ml PO SCH ×3 (12:56→23:10)
[2023-01-04] MEDS: FUROSEMIDE 20 MG TAB PO SCH (12:56)
[2023-01-04] MEDS: LINEZOLID 600 MG/D5W 300ML 300 ML IV SCH ×2 (12:56→23:10)
[2023-01-04] MEDS: LEVOTHYROXINE SODIUM 25 MCG TABLET PO SCH (12:56)
[2023-01-04] MEDS: HYDROCODONE/APAP 7.5MG-325MG 1 EA TAB PO PRN (13:41)
[2023-01-04] MEDS: ENOXAPARIN SOD INJ 40 MG/0.4 ML SYR SC SCH (17:55)
[2023-01-04] MEDS: SODIUM CHLORIDE 0.9% 1000ML 1,000 ML IV SCH (19:15)
[2023-01-04] MEDS: ZOLPIDEM TARTRATE 5 MG TAB PO PRN (21:33)
[2023-01-05] VITALS (36 sets, daily range): BP systolic 111–148; BP diastolic 62–70; PULSE 53–119; RESP 11–33; TEMP 98.1–98.6; O2SAT 100
[2023-01-05] MEDS: ALBUTEROL SULF 0.083% NEB SOLN 3 ML NEB NEB SCH ×6 (03:25→23:15)
[2023-01-05] MEDS: HYDROCODONE/APAP 10MG-325MG TAB PO PRN ×3 (04:11→17:51)
[2023-01-05] MEDS: VALPROATE 250MG/5ML ORAL LIQ 5ml PO SCH ×4 (05:43→23:44)
[2023-01-05] MEDS: LEVOTHYROXINE SODIUM 25 MCG TABLET PO SCH (05:43)
[2023-01-05 06:31] LABS: BASOPHILS # (AUTO) 0.1 (0.0-0.1); BASOPHILS % 0.8 % (0.0-1.0); EOSINOPHILS # (AUTO) 0.2 (0.0-0.4); HEMATOCRIT 22.7 % (38.2-49.6); LYMPHOCYTES # (AUTO) 1.6 (1.0-3.2); MEAN CORPUSCULAR HEMOGLOBIN 31.4 pg (28-32); MEAN CORPUSCULAR HGB CONC 32.6 g/dL (31-35); MONOCYTES # (AUTO) 0.6 (0.2-0.8); NEUTROPHILS % 67.8 % (38.7-80.0); PLATELET COUNT 258 x10e3/uL (140-360); RED BLOOD COUNT 2.36 x10e6/uL (4.3-5.7); RED CELL DISTRIBUTION WIDTH 13.2 % (11.7-14.4)
[2023-01-05 06:37] LABS: HEMOGLOBIN 7.4 g/dL (14.0-18.0); MEAN CORPUSCULAR VOLUME 96.2 fL (81-99)
[2023-01-05 07:10] LABS: ALBUMIN/GLOBULIN RATIO 0.5 (0.8-2.0); ANION GAP 9.5 mmol/L (8-16); CALCIUM 7.9 mg/dL (8.4-10.2); CREATININE, SERUM 0.66 mg/dL (0.72-1.25); MAGNESIUM 1.7 MG/DL (1.3-2.1); PHOSPHORUS 2.8 MG/DL (2.3-4.7); POTASSIUM 4.5 mmol/L (3.5-5.1)
[2023-01-05] MEDS: IPRATROPIUM BROMIDE 0.02% 2.5 ML NEB NEB SCH ×3 (07:16→18:55)
[2023-01-05] MEDS: INSULIN REGULAR, HUMAN 100 UNIT/1 ML SQ SCH ×4 (07:30→21:50)
[2023-01-05] MEDS ORDERED: THIAMINE HCL INJ 100 MG/ML 2ML VIAL IV SCH (09:00)
[2023-01-05] MEDS: DOCUSATE SODIUM 100 MG CAP PO SCH (09:00)
[2023-01-05] MEDS: SODIUM CHLORIDE 0.9% 1000ML 1,000 ML IV SCH ×3 (10:26→13:30)
[2023-01-05] MEDS: ASPIRIN 81 MG CHEW TAB PO SCH (10:26)
[2023-01-05] MEDS: FAMOTIDINE 20 MG TAB PO SCH ×2 (10:27→17:52)
[2023-01-05] MEDS: RIVASTIGMINE TARTRATE 1.5 MG CAP PO SCH ×2 (10:27→17:51)
[2023-01-05] MEDS: COLLAGENASE 5 GM TUBE TP SCH (10:33)
[2023-01-05] MEDS: SENNOSIDES 8.6 MG TAB PO SCH (10:33)
[2023-01-05] MEDS: THIAMINE HCL 100 MG TAB PO SCH (10:33)
[2023-01-05] MEDS: METOPROLOL TARTRATE 25 MG TAB PO SCH ×2 (10:35→18:00)
[2023-01-05] MEDS: FUROSEMIDE 20 MG TAB PO SCH (11:00)
[2023-01-05] MEDS: LINEZOLID 600 MG/D5W 300ML 300 ML IV SCH ×2 (11:01→23:44)
[2023-01-05 14:45] LABS: HEMATOCRIT 23.9 % (38.2-49.6); HEMOGLOBIN 7.7 g/dL (14.0-18.0)
[2023-01-05] MEDS: ENOXAPARIN SOD INJ 40 MG/0.4 ML SYR SC SCH (17:50)
[2023-01-05] MEDS ORDERED: SODIUM CHLORIDE 0.9% 250ML 250 ML ONE (21:27)
[2023-01-06] VITALS (32 sets, daily range): BP systolic 124–152; BP diastolic 48–78; PULSE 56–76; RESP 0–25; TEMP 97.8–98.3; O2SAT 96–100
[2023-01-06] MEDS: IPRATROPIUM BROMIDE 0.02% 2.5 ML NEB NEB SCH ×3 (03:15→19:30)
[2023-01-06] MEDS: ALBUTEROL SULF 0.083% NEB SOLN 3 ML NEB NEB SCH ×6 (03:15→22:45)
[2023-01-06] MEDS: SODIUM CHLORIDE 0.9% 1000ML 1,000 ML IV SCH (04:07)
[2023-01-06] MEDS: LEVOTHYROXINE SODIUM 25 MCG TABLET PO SCH (06:13)
[2023-01-06] MEDS: VALPROATE 250MG/5ML ORAL LIQ 5ml PO SCH ×4 (06:14→23:30)
[2023-01-06 06:50] LABS: BASOPHILS # (AUTO) 0.1 (0.0-0.1); BASOPHILS % 0.8 % (0.0-1.0); EOSINOPHILS # (AUTO) 0.2 (0.0-0.4); EOSINOPHILS % 2.8 % (0.0-6.0); HEMATOCRIT 23.3 % (38.2-49.6); HEMOGLOBIN 7.7 g/dL (14.0-18.0); LYMPHOCYTES # (AUTO) 1.2 (1.0-3.2); MEAN CORPUSCULAR HEMOGLOBIN 30.6 pg (28-32); MONOCYTES # (AUTO) 0.5 (0.2-0.8); NEUTROPHILS # (AUTO) 4.5 (2.1-6.9); NEUTROPHILS % 69.1 % (38.7-80.0); PLATELET COUNT 341 x10e3/uL (140-360); RED BLOOD COUNT 2.52 x10e6/uL (4.3-5.7); RED CELL DISTRIBUTION WIDTH 13.2 % (11.7-14.4)
[2023-01-06 07:08] LABS: MEAN CORPUSCULAR VOLUME 92.5 fL (81-99)
[2023-01-06 07:12] LABS: ALBUMIN/GLOBULIN RATIO 0.5 (0.8-2.0); ANION GAP 9.4 mmol/L (8-16); CALCIUM 7.9 mg/dL (8.4-10.2); CREATININE, SERUM 0.63 mg/dL (0.72-1.25); POTASSIUM 4.4 mmol/L (3.5-5.1)
[2023-01-06] MEDS: INSULIN REGULAR, HUMAN 100 UNIT/1 ML SQ SCH ×4 (07:30→23:31)
[2023-01-06] MEDS: SENNOSIDES 8.6 MG TAB PO SCH (08:52)
[2023-01-06] MEDS: ASPIRIN 81 MG CHEW TAB PO SCH (08:52)
[2023-01-06] MEDS: RIVASTIGMINE TARTRATE 1.5 MG CAP PO SCH ×2 (08:52→16:26)
[2023-01-06] MEDS: THIAMINE HCL 100 MG TAB PO SCH (08:52)
[2023-01-06] MEDS: FAMOTIDINE 20 MG TAB PO SCH ×2 (08:52→16:26)
[2023-01-06] MEDS: DOCUSATE SODIUM 100 MG CAP PO SCH (08:52)
[2023-01-06] MEDS: FUROSEMIDE 20 MG TAB PO SCH (08:52)
[2023-01-06] MEDS: METOPROLOL TARTRATE 25 MG TAB PO SCH ×2 (08:53→16:27)
[2023-01-06] MEDS ORDERED: ALPRAZOLAM 0.25 MG TAB PO PRN (09:15)
[2023-01-06] MEDS: LINEZOLID 600 MG/D5W 300ML 300 ML IV SCH ×2 (10:15→23:30)
[2023-01-06] MEDS ORDERED: INSULIN REGULAR, HUMAN 100 UNIT/1 ML SQ SCH (11:00)
[2023-01-06] MEDS: COLLAGENASE 5 GM TUBE TP SCH (11:19)
[2023-01-06] MEDS: HYDROCODONE/APAP 10MG-325MG TAB PO PRN ×2 (11:40→16:50)
[2023-01-06] MEDS: ENOXAPARIN SOD INJ 40 MG/0.4 ML SYR SC SCH (16:27)
[2023-01-06 23:18] LABS: % IRON SATURATION 37 % (15-50); IRON 56 ug/dL (65-175); TOTAL IRON BINDING CAPACITY 151 ug/dL (261-478); TRANSFERRIN 108 mg/dL (174-364)
[2023-01-07] VITALS (35 sets, daily range): BP systolic 112–143; BP diastolic 49–103; PULSE 55–87; RESP 1–34; TEMP 98–98.6; O2SAT 96–100
[2023-01-07] MEDS: IPRATROPIUM BROMIDE 0.02% 2.5 ML NEB NEB SCH ×4 (02:55→18:55)
[2023-01-07] MEDS: ALBUTEROL SULF 0.083% NEB SOLN 3 ML NEB NEB SCH ×6 (02:55→22:30)
[2023-01-07] MEDS: LEVOTHYROXINE SODIUM 25 MCG TABLET PO SCH (05:37)
[2023-01-07] MEDS: INSULIN REGULAR, HUMAN 100 UNIT/1 ML SQ SCH ×4 (05:38→23:05)
[2023-01-07] MEDS: VALPROATE 250MG/5ML ORAL LIQ 5ml PO SCH ×4 (05:38→23:04)
[2023-01-07 06:23] LABS: BASOPHILS # (AUTO) 0.1 (0.0-0.1); BASOPHILS % 1.3 % (0.0-1.0); EOSINOPHILS # (AUTO) 0.3 (0.0-0.4); EOSINOPHILS % 5.5 % (0.0-6.0); HEMATOCRIT 22.5 % (38.2-49.6); HEMOGLOBIN 7.4 g/dL (14.0-18.0); LYMPHOCYTES # (AUTO) 1.4 (1.0-3.2); MEAN CORPUSCULAR HEMOGLOBIN 30.7 pg (28-32); MEAN CORPUSCULAR HGB CONC 32.9 g/dL (31-35); MEAN CORPUSCULAR VOLUME 93.4 fL (81-99); MONOCYTES # (AUTO) 0.5 (0.2-0.8); MONOCYTES % 9.9 % (4.4-11.3); NEUTROPHILS # (AUTO) 2.9 (2.1-6.9); NEUTROPHILS % 55.9 % (38.7-80.0); PLATELET COUNT 312 x10e3/uL (140-360); RED BLOOD COUNT 2.41 x10e6/uL (4.3-5.7); RED CELL DISTRIBUTION WIDTH 13.2 % (11.7-14.4)
[2023-01-07 06:51] LABS: ALBUMIN 1.9 g/dL (3.5-5.0); ALBUMIN/GLOBULIN RATIO 0.5 (0.8-2.0); ANION GAP 9.6 mmol/L (8-16); CALCIUM 7.9 mg/dL (8.4-10.2); CREATININE, SERUM 0.66 mg/dL (0.72-1.25); POTASSIUM 4.6 mmol/L (3.5-5.1)
[2023-01-07] MEDS: RIVASTIGMINE TARTRATE 1.5 MG CAP PO SCH ×2 (08:16→16:47)
[2023-01-07] MEDS: ASPIRIN 81 MG CHEW TAB PO SCH (08:17)
[2023-01-07] MEDS: COLLAGENASE 5 GM TUBE TP SCH (08:17)
[2023-01-07] MEDS: SENNOSIDES 8.6 MG TAB PO SCH (08:17)
[2023-01-07] MEDS: MUPIROCIN 2% OINT 22 GM TUBE TOP SCH ×2 (08:17→16:47)
[2023-01-07] MEDS: THIAMINE HCL 100 MG TAB PO SCH (08:17)
[2023-01-07] MEDS: FAMOTIDINE 20 MG TAB PO SCH ×2 (08:17→16:47)
[2023-01-07] MEDS: DOCUSATE SODIUM 100 MG CAP PO SCH (08:17)
[2023-01-07] MEDS: METOPROLOL TARTRATE 25 MG TAB PO SCH ×2 (08:18→16:46)
[2023-01-07] MEDS: IRON SUCROSE 100 MG in SODIUM CHLORIDE 0.9% 100 ML IV SCH (08:18)
[2023-01-07] MEDS: FUROSEMIDE 20 MG TAB PO SCH (08:21)
[2023-01-07] MEDS: LINEZOLID 600 MG/D5W 300ML 300 ML IV SCH ×2 (12:01→22:11)
[2023-01-07] MEDS: ENOXAPARIN SOD INJ 40 MG/0.4 ML SYR SC SCH (16:47)
[2023-01-07] MEDS: HYDROCODONE/APAP 10MG-325MG TAB PO PRN ×2 (16:47→23:05)
[2023-01-07] MEDS: ZOLPIDEM TARTRATE 5 MG TAB PO PRN (20:34)
[2023-01-08] VITALS (28 sets, daily range): BP systolic 94–154; BP diastolic 52–85; PULSE 61–103; RESP 8–29; TEMP 98.1–98.6; O2SAT 93–100
[2023-01-08] MEDS: LEVOTHYROXINE SODIUM 25 MCG TABLET PO SCH (05:05)
[2023-01-08] MEDS: VALPROATE 250MG/5ML ORAL LIQ 5ml PO SCH ×3 (05:05→17:16)
[2023-01-08] MEDS: INSULIN REGULAR, HUMAN 100 UNIT/1 ML SQ SCH ×3 (05:06→18:05)
[2023-01-08 06:38] LABS: BASOPHILS # (AUTO) 0.1 (0.0-0.1); BASOPHILS % 1.1 % (0.0-1.0); EOSINOPHILS # (AUTO) 0.2 (0.0-0.4); EOSINOPHILS % 3.8 % (0.0-6.0); HEMATOCRIT 22.3 % (38.2-49.6); HEMOGLOBIN 7.3 g/dL (14.0-18.0); LYMPHOCYTES # (AUTO) 1.5 (1.0-3.2); LYMPHOCYTES % 32.3 % (18.0-39.1); MEAN CORPUSCULAR HEMOGLOBIN 30.9 pg (28-32); MEAN CORPUSCULAR HGB CONC 32.7 g/dL (31-35); MEAN CORPUSCULAR VOLUME 94.5 fL (81-99); MONOCYTES # (AUTO) 0.4 (0.2-0.8); MONOCYTES % 8.7 % (4.4-11.3); NEUTROPHILS # (AUTO) 2.4 (2.1-6.9); NEUTROPHILS % 53.9 % (38.7-80.0); PLATELET COUNT 282 x10e3/uL (140-360); RED BLOOD COUNT 2.36 x10e6/uL (4.3-5.7); RED CELL DISTRIBUTION WIDTH 13.3 % (11.7-14.4)
[2023-01-08] MEDS: IPRATROPIUM BROMIDE 0.02% 2.5 ML NEB NEB SCH ×3 (07:00→19:30)
[2023-01-08] MEDS: ALBUTEROL SULF 0.083% NEB SOLN 3 ML NEB NEB SCH ×5 (07:00→22:35)
[2023-01-08 07:16] LABS: ALBUMIN/GLOBULIN RATIO 0.5 (0.8-2.0); ANION GAP 8.6 mmol/L (8-16); CALCIUM 8.1 mg/dL (8.4-10.2); CREATININE, SERUM 0.7 mg/dL (0.72-1.25); POTASSIUM 4.6 mmol/L (3.5-5.1)
[2023-01-08] MEDS: SENNOSIDES 8.6 MG TAB PO SCH (09:04)
[2023-01-08] MEDS: IRON SUCROSE 100 MG in SODIUM CHLORIDE 0.9% 100 ML IV SCH (09:04)
[2023-01-08] MEDS: RIVASTIGMINE TARTRATE 1.5 MG CAP PO SCH ×2 (09:05→17:16)
[2023-01-08] MEDS: DOCUSATE SODIUM 100 MG CAP PO SCH (09:05)
[2023-01-08] MEDS: FAMOTIDINE 20 MG TAB PO SCH ×2 (09:05→17:16)
[2023-01-08] MEDS: METOPROLOL TARTRATE 25 MG TAB PO SCH ×2 (09:05→17:16)
[2023-01-08] MEDS: MUPIROCIN 2% OINT 22 GM TUBE TOP SCH ×2 (09:06→17:07)
[2023-01-08] MEDS: ASPIRIN 81 MG CHEW TAB PO SCH (09:06)
[2023-01-08] MEDS: COLLAGENASE 5 GM TUBE TP SCH (09:06)
[2023-01-08] MEDS: THIAMINE HCL 100 MG TAB PO SCH (09:06)
[2023-01-08] MEDS: FUROSEMIDE 20 MG TAB PO SCH (09:08)
[2023-01-08] MEDS: LINEZOLID 600 MG/D5W 300ML 300 ML IV SCH (11:49)
[2023-01-08] MEDS: HYDROCODONE/APAP 10MG-325MG TAB PO PRN ×2 (11:59→20:42)
[2023-01-08] MEDS ORDERED: SCOPOLAMINE 1 MG PATCH TOP SCH ×2 (12:45→13:00)
[2023-01-08] MEDS: ENOXAPARIN SOD INJ 40 MG/0.4 ML SYR SC SCH (17:15)
[2023-01-08] MEDS: ZOLPIDEM TARTRATE 5 MG TAB PO PRN (22:19)
[2023-01-09] VITALS (23 sets, daily range): BP systolic 113–141; BP diastolic 57–98; PULSE 56–74; RESP 12–31; TEMP 98–99.1; O2SAT 94–100
[2023-01-09] MEDS: LINEZOLID 600 MG/D5W 300ML 300 ML IV SCH ×3 (00:06→23:34)
[2023-01-09] MEDS: VALPROATE 250MG/5ML ORAL LIQ 5ml PO SCH ×5 (00:06→23:34)
[2023-01-09] MEDS: ALBUTEROL SULF 0.083% NEB SOLN 3 ML NEB NEB SCH ×5 (02:30→19:35)
[2023-01-09] MEDS: IPRATROPIUM BROMIDE 0.02% 2.5 ML NEB NEB SCH ×4 (02:30→19:35)
[2023-01-09] MEDS: LEVOTHYROXINE SODIUM 25 MCG TABLET PO SCH (05:00)
[2023-01-09] MEDS: HYDROCODONE/APAP 10MG-325MG TAB PO PRN ×2 (05:23→23:34)
[2023-01-09] MEDS: INSULIN REGULAR, HUMAN 100 UNIT/1 ML SQ SCH ×5 (06:00→23:34)
[2023-01-09 06:43] LABS: BASOPHILS # (AUTO) 0.1 (0.0-0.1); BASOPHILS % 1.3 % (0.0-1.0); EOSINOPHILS # (AUTO) 0.1 (0.0-0.4); HEMATOCRIT 23.3 % (38.2-49.6); HEMOGLOBIN 7.4 g/dL (14.0-18.0); LYMPHOCYTES # (AUTO) 1.2 (1.0-3.2); MEAN CORPUSCULAR HGB CONC 31.8 g/dL (31-35); MEAN CORPUSCULAR VOLUME 97.5 fL (81-99); MONOCYTES # (AUTO) 0.4 (0.2-0.8); MONOCYTES % 8.7 % (4.4-11.3); NEUTROPHILS # (AUTO) 2.9 (2.1-6.9); NEUTROPHILS % 60.6 % (38.7-80.0); PLATELET COUNT 273 x10e3/uL (140-360); RED BLOOD COUNT 2.39 x10e6/uL (4.3-5.7); RED CELL DISTRIBUTION WIDTH 13.1 % (11.7-14.4)
[2023-01-09 07:07] LABS: ANION GAP 8.8 mmol/L (8-16); CREATININE, SERUM 0.7 mg/dL (0.72-1.25); POTASSIUM 4.8 mmol/L (3.5-5.1)
[2023-01-09] MEDS: SENNOSIDES 8.6 MG TAB PO SCH (09:00)
[2023-01-09] MEDS: DOCUSATE SODIUM 100 MG CAP PO SCH (09:00)
[2023-01-09] MEDS: RIVASTIGMINE TARTRATE 1.5 MG CAP PO SCH ×2 (09:30→18:24)
[2023-01-09] MEDS: THIAMINE HCL 100 MG TAB PO SCH (09:31)
[2023-01-09] MEDS: ASPIRIN 81 MG CHEW TAB PO SCH (09:31)
[2023-01-09] MEDS: METOPROLOL TARTRATE 25 MG TAB PO SCH ×2 (09:31→18:26)
[2023-01-09] MEDS: MUPIROCIN 2% OINT 22 GM TUBE TOP SCH ×2 (09:32→18:27)
[2023-01-09] MEDS: COLLAGENASE 5 GM TUBE TP SCH (09:32)
[2023-01-09] MEDS: IRON SUCROSE 100 MG in SODIUM CHLORIDE 0.9% 100 ML IV SCH (09:33)
[2023-01-09] MEDS: FUROSEMIDE 20 MG TAB PO SCH (09:37)
[2023-01-09] MEDS: FAMOTIDINE 20 MG TAB PO SCH ×2 (09:38→18:27)
[2023-01-09] MEDS ORDERED: CIPRO500 MG PO (12:35)
[2023-01-09] MEDS ORDERED: B-1100 MG PO (12:35)
[2023-01-09] MEDS: HYDROCODONE/APAP 7.5MG-325MG 1 EA TAB PO PRN (15:21)
[2023-01-09] MEDS: ENOXAPARIN SOD INJ 40 MG/0.4 ML SYR SC SCH (18:26)
[2023-01-10] VITALS (32 sets, daily range): BP systolic 134–162; BP diastolic 59–109; PULSE 62–82; RESP 0–28; TEMP 97.8–98.4; O2SAT 94–100
[2023-01-10] MEDS: IPRATROPIUM BROMIDE 0.02% 2.5 ML NEB NEB SCH ×4 (00:15→19:30)
[2023-01-10] MEDS: ALBUTEROL SULF 0.083% NEB SOLN 3 ML NEB NEB SCH ×6 (00:15→19:30)
[2023-01-10] MEDS: LEVOTHYROXINE SODIUM 25 MCG TABLET PO SCH (06:02)
[2023-01-10] MEDS: VALPROATE 250MG/5ML ORAL LIQ 5ml PO SCH ×3 (06:02→17:21)
[2023-01-10] MEDS: HYDROCODONE/APAP 10MG-325MG TAB PO PRN ×2 (06:19→22:36)
[2023-01-10] MEDS: RIVASTIGMINE TARTRATE 1.5 MG CAP PO SCH ×2 (08:45→17:20)
[2023-01-10] MEDS: FAMOTIDINE 20 MG TAB PO SCH ×2 (08:45→17:20)
[2023-01-10] MEDS: THIAMINE HCL 100 MG TAB PO SCH (08:45)
[2023-01-10] MEDS: ASPIRIN 81 MG CHEW TAB PO SCH (08:46)
[2023-01-10] MEDS: DOCUSATE SODIUM 100 MG CAP PO SCH (08:46)
[2023-01-10] MEDS: SENNOSIDES 8.6 MG TAB PO SCH (08:46)
[2023-01-10] MEDS: METOPROLOL TARTRATE 25 MG TAB PO SCH ×2 (08:46→17:20)
[2023-01-10] MEDS: IRON SUCROSE 100 MG in SODIUM CHLORIDE 0.9% 100 ML IV SCH (08:47)
[2023-01-10] MEDS: MUPIROCIN 2% OINT 22 GM TUBE TOP SCH (08:47)
[2023-01-10] MEDS: COLLAGENASE 5 GM TUBE TP SCH ×2 (08:48→10:59)
[2023-01-10] MEDS: FUROSEMIDE 20 MG TAB PO SCH (08:57)
[2023-01-10] MEDS: LINEZOLID 600 MG/D5W 300ML 300 ML IV SCH (11:44)
[2023-01-10] MEDS: HYDROCODONE/APAP 7.5MG-325MG 1 EA TAB PO PRN (11:51)
[2023-01-10] MEDS: INSULIN REGULAR, HUMAN 100 UNIT/1 ML SQ SCH ×2 (12:00→17:21)
[2023-01-10] MEDS: ENOXAPARIN SOD INJ 40 MG/0.4 ML SYR SC SCH (17:20)
[2023-01-10 17:29] LABS: HEMATOCRIT 22.5 % (38.2-49.6); HEMOGLOBIN 7.3 g/dL (14.0-18.0)
[2023-01-11] VITALS (21 sets, daily range): BP systolic 119–157; BP diastolic 51–81; PULSE 63–82; RESP 9–27; TEMP 98.2–98.7; O2SAT 95–100
[2023-01-11] MEDS: IPRATROPIUM BROMIDE 0.02% 2.5 ML NEB NEB SCH ×3 (00:02→14:00)
[2023-01-11] MEDS: ALBUTEROL SULF 0.083% NEB SOLN 3 ML NEB NEB SCH ×5 (00:02→14:00)
[2023-01-11] MEDS: VALPROATE 250MG/5ML ORAL LIQ 5ml PO SCH ×3 (01:17→11:20)
[2023-01-11] MEDS: LINEZOLID 600 MG/D5W 300ML 300 ML IV SCH ×2 (01:17→11:21)
[2023-01-11] MEDS: LEVOTHYROXINE SODIUM 25 MCG TABLET PO SCH (05:19)
[2023-01-11] MEDS: INSULIN REGULAR, HUMAN 100 UNIT/1 ML SQ SCH ×3 (06:46→11:19)
[2023-01-11 06:49] LABS: BASOPHILS # (AUTO) 0.1 (0.0-0.1); BASOPHILS % 1.5 % (0.0-1.0); EOSINOPHILS # (AUTO) 0.1 (0.0-0.4); EOSINOPHILS % 2.7 % (0.0-6.0); HEMATOCRIT 22.7 % (38.2-49.6); HEMOGLOBIN 7.4 g/dL (14.0-18.0); LYMPHOCYTES # (AUTO) 1.5 (1.0-3.2); LYMPHOCYTES % 29.4 % (18.0-39.1); MEAN CORPUSCULAR HEMOGLOBIN 30.6 pg (28-32); MEAN CORPUSCULAR HGB CONC 32.6 g/dL (31-35); MEAN CORPUSCULAR VOLUME 93.8 fL (81-99); MONOCYTES # (AUTO) 0.5 (0.2-0.8); MONOCYTES % 8.9 % (4.4-11.3); NEUTROPHILS % 57.1 % (38.7-80.0); PLATELET COUNT 228 x10e3/uL (140-360); RED BLOOD COUNT 2.42 x10e6/uL (4.3-5.7); RED CELL DISTRIBUTION WIDTH 13.2 % (11.7-14.4)
[2023-01-11] MEDS: HYDROCODONE/APAP 7.5MG-325MG 1 EA TAB PO PRN (07:04)
[2023-01-11 07:09] LABS: ANION GAP 9.6 mmol/L (8-16); CALCIUM 8.5 mg/dL (8.4-10.2); CREATININE, SERUM 0.69 mg/dL (0.72-1.25); POTASSIUM 4.6 mmol/L (3.5-5.1)
[2023-01-11] MEDS: MUPIROCIN 2% OINT 22 GM TUBE TOP SCH ×2 (08:33→09:05)
[2023-01-11] MEDS: METOPROLOL TARTRATE 25 MG TAB PO SCH (08:34)
[2023-01-11] MEDS: IRON SUCROSE 100 MG in SODIUM CHLORIDE 0.9% 100 ML IV SCH (08:34)
[2023-01-11] MEDS: DOCUSATE SODIUM 100 MG CAP PO SCH (08:34)
[2023-01-11] MEDS: SENNOSIDES 8.6 MG TAB PO SCH (08:34)
[2023-01-11] MEDS: THIAMINE HCL 100 MG TAB PO SCH (08:34)
[2023-01-11] MEDS: COLLAGENASE 5 GM TUBE TP SCH (08:34)
[2023-01-11] MEDS: FAMOTIDINE 20 MG TAB PO SCH (08:34)
[2023-01-11] MEDS: ASPIRIN 81 MG CHEW TAB PO SCH (08:35)
[2023-01-11] MEDS: FUROSEMIDE 20 MG TAB PO SCH (08:35)
[2023-01-11] MEDS: RIVASTIGMINE TARTRATE 1.5 MG CAP PO SCH (08:35)
[2023-01-11] MEDS ORDERED: HYDROCODONE/APAP 10MG-325MG TAB PO ONE (15:15)
== END 2023-01-11 16:36 | disposition home health service (06) | DRG 853 ==
LOC: ER 20:14 → ERHOLD 21:34 → ICU 22:06
PROVIDERS: ADMIT Internal Medicine; ATTEND Internal Medicine
PROC: 02HV33Z Insertion of Infusion Device into Superior Vena Cava, Percutaneous Approach (ICD-10-PCS; 2023-01-05)
PROC: B548ZZA Ultrasonography of Superior Vena Cava, Guidance (ICD-10-PCS; 2023-01-05)
PROC: 0JB70ZZ Excision of Back Subcutaneous Tissue and Fascia, Open Approach (ICD-10-PCS; principal; 2023-01-10)
DX: A41.9 Sepsis, unspecified organism (principal); J69.0 Pneumonitis due to inhalation of food and vomit; L89.104 Pressure ulcer of unspecified part of back, stage 4; R53.2 Functional quadriplegia; J96.20 Acute and chronic respiratory failure, unspecified whether with hypoxia or hypercapnia; N39.0 Urinary tract infection, site not specified; E44.0 Moderate protein-calorie malnutrition; Z68.1 Body mass index [BMI] 19.9 or less, adult; E11.22 Type 2 diabetes mellitus with diabetic chronic kidney disease; N40.0 Benign prostatic hyperplasia without lower urinary tract symptoms; J45.909 Unspecified asthma, uncomplicated; Z93.0 Tracheostomy status; G40.909 Epilepsy, unspecified, not intractable, without status epilepticus; D72.829 Elevated white blood cell count, unspecified; R91.8 Other nonspecific abnormal finding of lung field; D63.8 Anemia in other chronic diseases classified elsewhere; G89.4 Chronic pain syndrome; E78.5 Hyperlipidemia, unspecified; B95.7 Other staphylococcus as the cause of diseases classified elsewhere; B96.89 Other specified bacterial agents as the cause of diseases classified elsewhere; I12.9 Hypertensive chronic kidney disease with stage 1 through stage 4 chronic kidney disease, or unspecified chronic kidney disease; N18.9 Chronic kidney disease, unspecified; K21.9 Gastro-esophageal reflux disease without esophagitis; M54.9 Dorsalgia, unspecified; E11.51 Type 2 diabetes mellitus with diabetic peripheral angiopathy without gangrene; K74.60 Unspecified cirrhosis of liver; R62.7 Adult failure to thrive; L93.0 Discoid lupus erythematosus; N40.1 Benign prostatic hyperplasia with lower urinary tract symptoms; R33.8 Other retention of urine; I86.1 Scrotal varices; F03.90 Unspecified dementia, unspecified severity, without behavioral disturbance, psychotic disturbance, mood disturbance, and anxiety; M41.9 Scoliosis, unspecified; N31.9 Neuromuscular dysfunction of bladder, unspecified; D50.9 Iron deficiency anemia, unspecified; R19.7 Diarrhea, unspecified; E03.9 Hypothyroidism, unspecified; Z86.73 Personal history of transient ischemic attack (TIA), and cerebral infarction without residual deficits; Z97.8 Presence of other specified devices; Z90.49 Acquired absence of other specified parts of digestive tract; Z79.899 Other long term (current) drug therapy; Z99.81 Dependence on supplemental oxygen; Z79.890 Hormone replacement therapy; Z87.01 Personal history of pneumonia (recurrent); Z93.1 Gastrostomy status
CPT/HCPCS: 36415; 36569; 71045; 74176; 80048; 80053; 81001; 82270; 82550; 82607; 82746; 82948; 83540; 83605; 83735; 83880; 84100; 84466; 84484; 85014; 85018; 85025; 85045; 87040; 87086; 87186; 93005; 94002; 94003; 94760; 94799; 96372; 99252; 99284; J0692; J1650; J1756; J2020; J3411; J7030; J7050

== ENCOUNTER → 2023-04-27 | Outpatient (REF) | payer MEDICARE ==
[~2023-04-27] MED LIST changes: +B-1100 MG PO
== END ==
LOC: RAD 14:39
PROVIDERS: ATTEND Internal Medicine
DX: R06.02 Shortness of breath (principal); R07.9 Chest pain, unspecified; R05.8 Other specified cough
CPT/HCPCS: 71046

== ENCOUNTER 2023-07-22 19:00 | Inpatient (IN) | payer MEDICARE ==
[~2023-07-22] VITALS: Ht 165.1 cm; Wt 55.3 kg
[2023-07-22 19:59] LABS: BASOPHILS # (AUTO) 0.1 (0.0-0.1); BASOPHILS % 0.8 % (0.0-1.0); EOSINOPHILS # (AUTO) 0.1 (0.0-0.4); EOSINOPHILS % 1.8 % (0.0-6.0); HEMATOCRIT 35.4 % (38.2-49.6); HEMOGLOBIN 10.9 g/dL (14.0-18.0); LYMPHOCYTES # (AUTO) 1.3 (1.0-3.2); LYMPHOCYTES % 16.2 % (18.0-39.1); MEAN CORPUSCULAR HEMOGLOBIN 30.9 pg (28-32); MEAN CORPUSCULAR HGB CONC 30.8 g/dL (31-35); MEAN CORPUSCULAR VOLUME 100.3 fL (81-99); MONOCYTES # (AUTO) 0.7 (0.2-0.8); MONOCYTES % 9.4 % (4.4-11.3); NEUTROPHILS # (AUTO) 5.6 (2.1-6.9); NEUTROPHILS % 71.5 % (38.7-80.0); PLATELET COUNT 234 x10e3/uL (140-360); RED BLOOD COUNT 3.53 x10e6/uL (4.3-5.7); RED CELL DISTRIBUTION WIDTH 12.4 % (11.7-14.4); WHITE BLOOD COUNT 7.78 x10e3/uL (4.8-10.8)
[2023-07-22 20:15] VITALS: PULSE 83; RESP 20; O2SAT 100
[2023-07-22 20:25] LABS: ALBUMIN/GLOBULIN RATIO 0.6 (0.8-2.0); BILIRUBIN,TOTAL 0.4 mg/dL (0.2-1.2); CALCIUM 9.2 mg/dL (8.4-10.2); CREATININE, SERUM 0.98 mg/dL (0.72-1.25); TOTAL PROTEIN 7.7 g/dL (6.5-8.1)
[2023-07-22 20:27] LABS: ANION GAP 14.9 mmol/L (8-16); POTASSIUM 4.9 mmol/L (3.5-5.1)
[2023-07-22] MEDS ORDERED: BISACODYL 10 MG SUPP PR PRN (20:45)
[2023-07-22] MEDS ORDERED: ACETAMINOPHEN 650 MG SUPP PR PRN (20:45)
[2023-07-22] MEDS: SODIUM CHLORIDE 0.9% 1000ML 1,000 ML IV SCH (23:56)
[2023-07-23] VITALS (9 sets, daily range): BP systolic 124–137; BP diastolic 64–72; PULSE 61–87; RESP 18–20; TEMP 98–98.7; O2SAT 99–100
[2023-07-23] MEDS: LEVOTHYROXINE SODIUM 25 MCG TABLET PO SCH (07:30)
[2023-07-23] MEDS: SENNA-S TABLET PO SCH (08:28)
[2023-07-23 11:43] LABS: ALBUMIN 2.8 g/dL (3.5-5.0); ALBUMIN/GLOBULIN RATIO 0.7 (0.8-2.0); ANION GAP 10.4 mmol/L (8-16); BILIRUBIN,TOTAL 0.5 mg/dL (0.2-1.2); CALCIUM 8.7 mg/dL (8.4-10.2); CREATININE, SERUM 0.81 mg/dL (0.72-1.25); POTASSIUM 4.4 mmol/L (3.5-5.1)
[2023-07-23] MEDS ORDERED: PROPOFOL IV EMULSION 10 MG/ML 20 ML VIAL ONE (12:13)
[2023-07-23] MEDS ORDERED: PROPOFOL IV EMULSION 10 MG/ML 50 ML VIAL IV ONE (12:13)
[2023-07-23] MEDS ORDERED: LIDOCAINE HCL 2% LOCAL INJ 5 ML SDV VIAL INJ ONE (12:13)
[2023-07-23] MEDS: BACITRACIN ZINC 15 GM OINT TOP SCH (15:34)
[2023-07-23] MEDS: NYSTATIN 100,000 UNITS/GM CRM 30GM TUBE TOP SCH (15:34)
[2023-07-24] VITALS (11 sets, daily range): BP systolic 128–153; BP diastolic 55–75; PULSE 51–75; RESP 17–20; TEMP 98–99; O2SAT 97–100
[2023-07-24 07:56] LABS: ALBUMIN 2.6 g/dL (3.5-5.0); ALBUMIN/GLOBULIN RATIO 0.6 (0.8-2.0); ANION GAP 12.9 mmol/L (8-16); BILIRUBIN,TOTAL 0.4 mg/dL (0.2-1.2); CALCIUM 8.8 mg/dL (8.4-10.2); CREATININE, SERUM 0.76 mg/dL (0.72-1.25); MAGNESIUM 2.1 MG/DL (1.3-2.1); POTASSIUM 3.9 mmol/L (3.5-5.1); TOTAL PROTEIN 7.1 g/dL (6.5-8.1)
[2023-07-24 08:24] LABS: BASOPHILS # (AUTO) 0.1 (0.0-0.1); BASOPHILS % 0.6 % (0.0-1.0); EOSINOPHILS # (AUTO) 0.1 (0.0-0.4); EOSINOPHILS % 1.5 % (0.0-6.0); HEMOGLOBIN 9.5 g/dL (14.0-18.0); LYMPHOCYTES % 12.3 % (18.0-39.1); MEAN CORPUSCULAR HEMOGLOBIN 30.7 pg (28-32); MEAN CORPUSCULAR HGB CONC 29.7 g/dL (31-35); MEAN CORPUSCULAR VOLUME 103.6 fL (81-99); MONOCYTES # (AUTO) 0.9 (0.2-0.8); MONOCYTES % 11.3 % (4.4-11.3); NEUTROPHILS # (AUTO) 5.8 (2.1-6.9); NEUTROPHILS % 73.9 % (38.7-80.0); PLATELET COUNT 228 x10e3/uL (140-360); RED BLOOD COUNT 3.09 x10e6/uL (4.3-5.7); WHITE BLOOD COUNT 7.81 x10e3/uL (4.8-10.8)
[2023-07-24] MEDS: HYDROCODONE/APAP 7.5MG-325MG 1 EA TAB PO PRN (20:46)
[2023-07-24] MEDS: ZOLPIDEM TARTRATE 5 MG TAB PO PRN (20:46)
[2023-07-25] VITALS (10 sets, daily range): BP systolic 133–151; BP diastolic 53–78; PULSE 59–74; RESP 18–20; TEMP 97.3–98.8; O2SAT 100
[2023-07-25 00:55] LABS: % IRON SATURATION 29 % (15-50); IRON 60 ug/dL (65-175); TOTAL IRON BINDING CAPACITY 209 ug/dL (261-478); TRANSFERRIN 149 mg/dL (174-364)
[2023-07-25] MEDS: MAGNESIUM HYDROXIDE 30 ML UDC PEG STA (03:06)
[2023-07-25 06:24] LABS: BASOPHILS % 0.1 % (0.0-1.0); EOSINOPHILS # (AUTO) 0.1 (0.0-0.4); EOSINOPHILS % 1.8 % (0.0-6.0); HEMOGLOBIN 9.8 g/dL (14.0-18.0); LYMPHOCYTES # (AUTO) 1.2 (1.0-3.2); LYMPHOCYTES % 15.8 % (18.0-39.1); MEAN CORPUSCULAR HEMOGLOBIN 30.9 pg (28-32); MEAN CORPUSCULAR HGB CONC 30.6 g/dL (31-35); MEAN CORPUSCULAR VOLUME 100.9 fL (81-99); MONOCYTES # (AUTO) 0.7 (0.2-0.8); MONOCYTES % 9.3 % (4.4-11.3); NEUTROPHILS # (AUTO) 5.3 (2.1-6.9); NEUTROPHILS % 72.6 % (38.7-80.0); PLATELET COUNT 212 x10e3/uL (140-360); RED BLOOD COUNT 3.17 x10e6/uL (4.3-5.7); RED CELL DISTRIBUTION WIDTH 11.9 % (11.7-14.4); WHITE BLOOD COUNT 7.29 x10e3/uL (4.8-10.8)
[2023-07-25 06:47] LABS: ALBUMIN 2.6 g/dL (3.5-5.0); ALBUMIN/GLOBULIN RATIO 0.6 (0.8-2.0); BILIRUBIN,TOTAL 0.3 mg/dL (0.2-1.2); CALCIUM 9.1 mg/dL (8.4-10.2); CREATININE, SERUM 0.75 mg/dL (0.72-1.25); TOTAL PROTEIN 7.3 g/dL (6.5-8.1)
[2023-07-25] MEDS: MEROPENEM 1 GM in SODIUM CHLORIDE 0.9% 100 ML IV SCH (14:13)
[2023-07-26] VITALS (12 sets, daily range): BP systolic 126–145; BP diastolic 55–66; PULSE 59–75; RESP 18–22; TEMP 97.9–99.1; O2SAT 98–100
[2023-07-26 05:53] LABS: ALBUMIN 2.4 g/dL (3.5-5.0); ALBUMIN/GLOBULIN RATIO 0.6 (0.8-2.0); BILIRUBIN,TOTAL 0.3 mg/dL (0.2-1.2); CALCIUM 9.1 mg/dL (8.4-10.2); CREATININE, SERUM 0.65 mg/dL (0.72-1.25); TOTAL PROTEIN 6.6 g/dL (6.5-8.1)
[2023-07-26 06:20] LABS: BASOPHILS # (AUTO) 0.1 (0.0-0.1); BASOPHILS % 0.7 % (0.0-1.0); EOSINOPHILS # (AUTO) 0.2 (0.0-0.4); EOSINOPHILS % 2.7 % (0.0-6.0); HEMATOCRIT 30.7 % (38.2-49.6); HEMOGLOBIN 9.4 g/dL (14.0-18.0); LYMPHOCYTES # (AUTO) 1.3 (1.0-3.2); LYMPHOCYTES % 17.6 % (18.0-39.1); MEAN CORPUSCULAR HEMOGLOBIN 30.9 pg (28-32); MEAN CORPUSCULAR HGB CONC 30.6 g/dL (31-35); MONOCYTES # (AUTO) 0.6 (0.2-0.8); MONOCYTES % 8.5 % (4.4-11.3); NEUTROPHILS % 70.1 % (38.7-80.0); PLATELET COUNT 199 x10e3/uL (140-360); RED BLOOD COUNT 3.04 x10e6/uL (4.3-5.7); RED CELL DISTRIBUTION WIDTH 11.8 % (11.7-14.4); WHITE BLOOD COUNT 7.09 x10e3/uL (4.8-10.8)
[2023-07-27] VITALS (11 sets, daily range): BP systolic 111–132; BP diastolic 56–71; PULSE 59–84; RESP 18–23; TEMP 97.2–99.3; O2SAT 92–100
[2023-07-27 09:30] LABS: BASOPHILS # (AUTO) 0.1 (0.0-0.1); BASOPHILS % 0.7 % (0.0-1.0); EOSINOPHILS # (AUTO) 0.3 (0.0-0.4); EOSINOPHILS % 3.7 % (0.0-6.0); HEMATOCRIT 29.4 % (38.2-49.6); HEMOGLOBIN 9.1 g/dL (14.0-18.0); LYMPHOCYTES # (AUTO) 1.6 (1.0-3.2); LYMPHOCYTES % 24.5 % (18.0-39.1); MEAN CORPUSCULAR HEMOGLOBIN 30.7 pg (28-32); MEAN CORPUSCULAR VOLUME 99.3 fL (81-99); MONOCYTES # (AUTO) 0.7 (0.2-0.8); MONOCYTES % 10.3 % (4.4-11.3); NEUTROPHILS % 60.2 % (38.7-80.0); PLATELET COUNT 203 x10e3/uL (140-360); RED BLOOD COUNT 2.96 x10e6/uL (4.3-5.7); RED CELL DISTRIBUTION WIDTH 11.7 % (11.7-14.4); WHITE BLOOD COUNT 6.69 x10e3/uL (4.8-10.8)
[2023-07-27 09:45] LABS: ANION GAP 9.5 mmol/L (8-16); CALCIUM 8.9 mg/dL (8.4-10.2); CREATININE, SERUM 0.65 mg/dL (0.72-1.25); POTASSIUM 4.5 mmol/L (3.5-5.1)
[2023-07-27] MEDS: ALBUTEROL/IPRATROPIUM 3 ML NEB NEB PRN (16:35)
[2023-07-28] VITALS (18 sets, daily range): BP systolic 96–153; BP diastolic 56–95; PULSE 65–102; RESP 16–34; TEMP 98.2–99.3; O2SAT 95–100
[2023-07-28] MEDS ORDERED: NYSTATIN15 GM TOP (08:25)
[2023-07-28] MEDS ORDERED: BACITRACIN15 GM TOP (08:25)
[2023-07-28] MEDS ORDERED: LEVOFLOXACIN500 MG PO (08:25)
[2023-07-29] VITALS (28 sets, daily range): BP systolic 101–157; BP diastolic 56–134; PULSE 57–125; RESP 12–38; TEMP 97.6–98.9; O2SAT 63–100
[2023-07-29] MEDS: ACETYLCYSTEINE 200 MG/ML 4 ML VIAL INH SCH (11:00)
[2023-07-29] MEDS: HYDROCODONE/APAP 7.5MG-325MG 1 EA TAB PO PRN (22:20)
[2023-07-29] MEDS: ZOLPIDEM TARTRATE 5 MG TAB PO PRN (22:44)
[2023-07-30] VITALS (25 sets, daily range): BP systolic 111–143; BP diastolic 60–103; PULSE 59–82; RESP 15–24; TEMP 97.5–98.6; O2SAT 94–100
[2023-07-30 06:50] LABS: BASOPHILS % 0.4 % (0.0-1.0); EOSINOPHILS # (AUTO) 0.3 (0.0-0.4); EOSINOPHILS % 3.8 % (0.0-6.0); HEMOGLOBIN 9.3 g/dL (14.0-18.0); LYMPHOCYTES # (AUTO) 1.7 (1.0-3.2); LYMPHOCYTES % 24.3 % (18.0-39.1); MEAN CORPUSCULAR HEMOGLOBIN 30.7 pg (28-32); MEAN CORPUSCULAR HGB CONC 32.1 g/dL (31-35); MEAN CORPUSCULAR VOLUME 95.7 fL (81-99); MONOCYTES # (AUTO) 0.6 (0.2-0.8); NEUTROPHILS # (AUTO) 4.3 (2.1-6.9); NEUTROPHILS % 62.9 % (38.7-80.0); PLATELET COUNT 224 x10e3/uL (140-360); RED BLOOD COUNT 3.03 x10e6/uL (4.3-5.7); RED CELL DISTRIBUTION WIDTH 11.9 % (11.7-14.4); WHITE BLOOD COUNT 6.86 x10e3/uL (4.8-10.8)
[2023-07-30 07:28] LABS: ANION GAP 8.6 mmol/L (8-16); CALCIUM 8.7 mg/dL (8.4-10.2); CREATININE, SERUM 0.65 mg/dL (0.72-1.25); POTASSIUM 4.6 mmol/L (3.5-5.1)
[2023-07-31] VITALS (14 sets, daily range): BP systolic 110–128; BP diastolic 59–77; PULSE 61–96; RESP 16–20; TEMP 97.6–99; O2SAT 96–100
[2023-08-01] VITALS (14 sets, daily range): BP systolic 114–135; BP diastolic 55–69; PULSE 63–101; RESP 12–21; TEMP 98.1–98.6; O2SAT 97–100
[2023-08-01 01:07] LABS: BONE ISOENZYME 24 % (12-68); LIVER ISOENZYME 75 % (13-88)
[2023-08-01 06:22] LABS: BASOPHILS # (AUTO) 0.1 (0.0-0.1); BASOPHILS % 1.1 % (0.0-1.0); EOSINOPHILS # (AUTO) 0.2 (0.0-0.4); EOSINOPHILS % 2.4 % (0.0-6.0); HEMATOCRIT 29.9 % (38.2-49.6); HEMOGLOBIN 9.3 g/dL (14.0-18.0); LYMPHOCYTES # (AUTO) 1.5 (1.0-3.2); LYMPHOCYTES % 19.8 % (18.0-39.1); MEAN CORPUSCULAR HEMOGLOBIN 30.5 pg (28-32); MEAN CORPUSCULAR HGB CONC 31.1 g/dL (31-35); MONOCYTES # (AUTO) 0.7 (0.2-0.8); MONOCYTES % 9.1 % (4.4-11.3); NEUTROPHILS # (AUTO) 5.1 (2.1-6.9); NEUTROPHILS % 67.2 % (38.7-80.0); PLATELET COUNT 236 x10e3/uL (140-360); RED BLOOD COUNT 3.05 x10e6/uL (4.3-5.7); RED CELL DISTRIBUTION WIDTH 11.9 % (11.7-14.4); WHITE BLOOD COUNT 7.56 x10e3/uL (4.8-10.8)
[2023-08-01 06:42] LABS: ALBUMIN 2.4 g/dL (3.5-5.0); ALBUMIN/GLOBULIN RATIO 0.6 (0.8-2.0); ANION GAP 12.8 mmol/L (8-16); BILIRUBIN,TOTAL 0.2 mg/dL (0.2-1.2); CALCIUM 8.8 mg/dL (8.4-10.2); CREATININE, SERUM 0.73 mg/dL (0.72-1.25); POTASSIUM 4.8 mmol/L (3.5-5.1); TOTAL PROTEIN 6.4 g/dL (6.5-8.1)
[2023-08-01] MEDS: SODIUM CHLORIDE 0.9% 250ML 250 ML ONE (08:08)
[2023-08-01 22:25] LABS: INTESTINE ISOENZYME 1 % (0-18)
[2023-08-02] VITALS (14 sets, daily range): BP systolic 123–134; BP diastolic 57–68; PULSE 66–84; RESP 20–21; TEMP 97.7–99.7; O2SAT 96–100
[2023-08-02 06:04] LABS: BASOPHILS # (AUTO) 0.1 (0.0-0.1); BASOPHILS % 1.3 % (0.0-1.0); EOSINOPHILS # (AUTO) 0.2 (0.0-0.4); EOSINOPHILS % 3.4 % (0.0-6.0); HEMATOCRIT 30.2 % (38.2-49.6); HEMOGLOBIN 9.4 g/dL (14.0-18.0); LYMPHOCYTES # (AUTO) 1.3 (1.0-3.2); LYMPHOCYTES % 18.6 % (18.0-39.1); MEAN CORPUSCULAR HEMOGLOBIN 30.9 pg (28-32); MEAN CORPUSCULAR HGB CONC 31.1 g/dL (31-35); MEAN CORPUSCULAR VOLUME 99.3 fL (81-99); MONOCYTES # (AUTO) 0.6 (0.2-0.8); MONOCYTES % 8.5 % (4.4-11.3); NEUTROPHILS # (AUTO) 4.8 (2.1-6.9); NEUTROPHILS % 67.8 % (38.7-80.0); PLATELET COUNT 244 x10e3/uL (140-360); RED BLOOD COUNT 3.04 x10e6/uL (4.3-5.7)
[2023-08-03] VITALS (10 sets, daily range): BP systolic 120–146; BP diastolic 64–87; PULSE 66–88; RESP 19–21; TEMP 97.6–98.8; O2SAT 92–100
[2023-08-03] MEDS: MUPIROCIN 2% OINT 22 GM TUBE TOP SCH (10:12)
== END 2023-08-03 18:47 | disposition home health service (06) | DRG 205 ==
LOC: ER 19:15 → ERHOLD 21:49 → MED/SURG 07-23 01:16 → OBSVTOIN 07-23 14:03 → ICU 07-28 16:21 → MED/SURG2 07-30 13:20
PROVIDERS: ADMIT Internal Medicine; ATTEND Internal Medicine
PROC: 3E0G76Z Introduction of Nutritional Substance into Upper GI, Via Natural or Artificial Opening (ICD-10-PCS; 2023-07-23)
PROC: 0B21XFZ Change Tracheostomy Device in Trachea, External Approach (ICD-10-PCS; 2023-07-28)
PROC: 0DH63UZ Insertion of Feeding Device into Stomach, Percutaneous Approach (ICD-10-PCS; principal; 2023-08-03 15:46)
DX: J95.03 Malfunction of tracheostomy stoma (principal); J15.1 Pneumonia due to Pseudomonas; J96.20 Acute and chronic respiratory failure, unspecified whether with hypoxia or hypercapnia; R53.2 Functional quadriplegia; J15.69 Pneumonia due to other Gram-negative bacteria; Z99.11 Dependence on respirator [ventilator] status; E44.0 Moderate protein-calorie malnutrition; T17.490A Other foreign object in trachea causing asphyxiation, initial encounter; J95.09 Other tracheostomy complication; M32.9 Systemic lupus erythematosus, unspecified; M41.9 Scoliosis, unspecified; E86.0 Dehydration; K74.60 Unspecified cirrhosis of liver; G40.909 Epilepsy, unspecified, not intractable, without status epilepticus; E11.51 Type 2 diabetes mellitus with diabetic peripheral angiopathy without gangrene; E11.22 Type 2 diabetes mellitus with diabetic chronic kidney disease; I13.10 Hypertensive heart and chronic kidney disease without heart failure, with stage 1 through stage 4 chronic kidney disease, or unspecified chronic kidney disease; N18.2 Chronic kidney disease, stage 2 (mild); L89.100 Pressure ulcer of unspecified part of back, unstageable; Z96.0 Presence of urogenital implants; N40.1 Benign prostatic hyperplasia with lower urinary tract symptoms; R35.0 Frequency of micturition; Z11.52 Encounter for screening for COVID-19; R13.12 Dysphagia, oropharyngeal phase; K20.90 Esophagitis, unspecified without bleeding; K29.50 Unspecified chronic gastritis without bleeding; J20.9 Acute bronchitis, unspecified; Z86.73 Personal history of transient ischemic attack (TIA), and cerebral infarction without residual deficits; D63.8 Anemia in other chronic diseases classified elsewhere; Z68.20 Body mass index [BMI] 20.0-20.9, adult; K94.29 Other complications of gastrostomy; R23.0 Cyanosis; R00.1 Bradycardia, unspecified; Y83.3 Surgical operation with formation of external stoma as the cause of abnormal reaction of the patient, or of later complication, without mention of misadventure at the time of the procedure; W44.F9XA Other object of natural or organic material, entering into or through a natural orifice, initial encounter; Y92.230 Patient room in hospital as the place of occurrence of the external cause
CPT/HCPCS: 36415; 43246; 70360; 71045; 71046; 76705; 80048; 80053; 82607; 82746; 82948; 83540; 83735; 84080; 84466; 85025; 85045; 87070; 87071; 87186; 87205; 94640; 94667; 94668; 94799; 99252; 99284; G0378; J0692; J2001; J2185; J2543; J7030; J7050; U0002

== ENCOUNTER 2023-09-06 18:58 | Observation (INO) | payer MEDICARE ==
[~2023-09-06] VITALS: Ht 165.1 cm; Wt 55.3 kg
[~2023-09-06 18:58] MED LIST changes: +BACITRACIN15 GM TOP; +LEVOFLOXACIN500 MG PO; +LIDOCAINE HCL 2% LOCAL INJ 5 ML SDV VIAL INJ ONE; +NYSTATIN15 GM TOP; +PROPOFOL IV EMULSION 10 MG/ML 20 ML VIAL ONE
[2023-09-06] MEDS ORDERED: ONDANSETRON HCL INJ 2MG/ML 2ML 2 MG/ML VIAL IV PRN (21:00)
[2023-09-06] MEDS: SODIUM CHLORIDE 0.9% 1000ML 1,000 ML IV SCH (21:38)
[2023-09-06 22:00] LABS: BASOPHILS # (AUTO) 0.1 (0.0-0.1); BASOPHILS % 1.2 % (0.0-1.0); EOSINOPHILS # (AUTO) 0.2 (0.0-0.4); EOSINOPHILS % 2.4 % (0.0-6.0); HEMATOCRIT 35.1 % (38.2-49.6); HEMOGLOBIN 10.8 g/dL (14.0-18.0); LYMPHOCYTES # (AUTO) 1.3 (1.0-3.2); LYMPHOCYTES % 16.1 % (18.0-39.1); MEAN CORPUSCULAR HEMOGLOBIN 30.8 pg (28-32); MEAN CORPUSCULAR HGB CONC 30.8 g/dL (31-35); MONOCYTES # (AUTO) 0.7 (0.2-0.8); MONOCYTES % 8.3 % (4.4-11.3); NEUTROPHILS # (AUTO) 5.9 (2.1-6.9); NEUTROPHILS % 71.6 % (38.7-80.0); PLATELET COUNT 164 x10e3/uL (140-360); RED BLOOD COUNT 3.51 x10e6/uL (4.3-5.7); RED CELL DISTRIBUTION WIDTH 12.5 % (11.7-14.4); WHITE BLOOD COUNT 8.22 x10e3/uL (4.8-10.8)
[2023-09-06 22:21] VITALS: PULSE 84; RESP 18; O2SAT 100
[2023-09-06 22:21] LABS: ALBUMIN 3.5 g/dL (3.5-5.0); ALBUMIN/GLOBULIN RATIO 0.8 (0.8-2.0); ANION GAP 13.4 mmol/L (8-16); BILIRUBIN,TOTAL 0.3 mg/dL (0.2-1.2); CALCIUM 9.7 mg/dL (8.4-10.2); TOTAL PROTEIN 8.1 g/dL (6.5-8.1)
[2023-09-06 22:27] LABS: POTASSIUM 5.4 mmol/L (3.5-5.1)
[2023-09-07] VITALS (14 sets, daily range): BP systolic 119–137; BP diastolic 59–68; PULSE 67–93; RESP 18–24; TEMP 98–98.5; O2SAT 79–100
[2023-09-07] MEDS ORDERED: DEXTROSE 50% SYRINGE 50 ML IV PRN
[2023-09-07] MEDS: INSULIN LISPRO 100 UNIT/1 ML 3ML VIAL SQ SCH (01:28)
[2023-09-07] MEDS: DEXTROSE 5%/LACTATED RINGERS 1,000 ML IV SCH (03:03)
[2023-09-07 07:02] LABS: BASOPHILS % 0.6 % (0.0-1.0); EOSINOPHILS # (AUTO) 0.2 (0.0-0.4); EOSINOPHILS % 3.6 % (0.0-6.0); HEMATOCRIT 31.6 % (38.2-49.6); HEMOGLOBIN 9.7 g/dL (14.0-18.0); LYMPHOCYTES # (AUTO) 1.3 (1.0-3.2); LYMPHOCYTES % 19.3 % (18.0-39.1); MEAN CORPUSCULAR HEMOGLOBIN 30.5 pg (28-32); MEAN CORPUSCULAR HGB CONC 30.7 g/dL (31-35); MEAN CORPUSCULAR VOLUME 99.4 fL (81-99); MONOCYTES # (AUTO) 0.7 (0.2-0.8); MONOCYTES % 10.1 % (4.4-11.3); NEUTROPHILS # (AUTO) 4.4 (2.1-6.9); NEUTROPHILS % 66.1 % (38.7-80.0); PLATELET COUNT 186 x10e3/uL (140-360); RED BLOOD COUNT 3.18 x10e6/uL (4.3-5.7); RED CELL DISTRIBUTION WIDTH 12.3 % (11.7-14.4); WHITE BLOOD COUNT 6.64 x10e3/uL (4.8-10.8)
[2023-09-07 07:20] LABS: ALBUMIN 2.9 g/dL (3.5-5.0); ALBUMIN/GLOBULIN RATIO 0.7 (0.8-2.0); ANION GAP 12.7 mmol/L (8-16); BILIRUBIN,TOTAL 0.4 mg/dL (0.2-1.2); CALCIUM 8.8 mg/dL (8.4-10.2); CREATININE, SERUM 0.79 mg/dL (0.72-1.25); POTASSIUM 4.7 mmol/L (3.5-5.1); TOTAL PROTEIN 6.8 g/dL (6.5-8.1)
[2023-09-07] MEDS: Morphine 2mg Syringe 2 MG/ML SYR IV PRN (07:41)
[2023-09-07 08:00] LABS: FERRITIN 1018.45 ng/mL (21.81-274.66)
[2023-09-07 08:04] LABS: FOLATE 13.6 ng/mL (7.0-15.4)
[2023-09-07] MEDS: METOPROLOL TARTRATE 25 MG TAB PO SCH (17:00)
[2023-09-07] MEDS: RIVASTIGMINE TARTRATE 1.5 MG CAP PO SCH (17:00)
[2023-09-08] VITALS (7 sets, daily range): BP systolic 120–134; BP diastolic 51–65; PULSE 62–90; RESP 17–22; TEMP 97.9–98.5; O2SAT 96–100
[2023-09-08 05:38] LABS: BASOPHILS % 0.3 % (0.0-1.0); EOSINOPHILS # (AUTO) 0.2 (0.0-0.4); EOSINOPHILS % 2.4 % (0.0-6.0); HEMOGLOBIN 9.5 g/dL (14.0-18.0); LYMPHOCYTES # (AUTO) 1.3 (1.0-3.2); MEAN CORPUSCULAR HEMOGLOBIN 30.4 pg (28-32); MEAN CORPUSCULAR HGB CONC 30.6 g/dL (31-35); MEAN CORPUSCULAR VOLUME 99.4 fL (81-99); MONOCYTES # (AUTO) 0.6 (0.2-0.8); MONOCYTES % 8.2 % (4.4-11.3); NEUTROPHILS % 70.7 % (38.7-80.0); PLATELET COUNT 164 x10e3/uL (140-360); RED BLOOD COUNT 3.12 x10e6/uL (4.3-5.7); RED CELL DISTRIBUTION WIDTH 12.5 % (11.7-14.4); WHITE BLOOD COUNT 7.07 x10e3/uL (4.8-10.8)
[2023-09-08 06:06] LABS: ALBUMIN 2.6 g/dL (3.5-5.0); ALBUMIN/GLOBULIN RATIO 0.7 (0.8-2.0); ANION GAP 9.3 mmol/L (8-16); BILIRUBIN,TOTAL 0.5 mg/dL (0.2-1.2); CALCIUM 8.7 mg/dL (8.4-10.2); CREATININE, SERUM 0.68 mg/dL (0.72-1.25); MAGNESIUM 1.8 MG/DL (1.3-2.1); POTASSIUM 4.3 mmol/L (3.5-5.1); TOTAL PROTEIN 6.2 g/dL (6.5-8.1)
[2023-09-08] MEDS: LEVOTHYROXINE SODIUM 25 MCG TABLET PO SCH (06:37)
[2023-09-08] MEDS: ALBUTEROL/IPRATROPIUM 3 ML NEB NEB PRN (07:47)
[2023-09-08] MEDS: METOPROLOL TARTRATE 25 MG TAB PO SCH (09:00)
[2023-09-08] MEDS: RIVASTIGMINE TARTRATE 1.5 MG CAP PO SCH (11:54)
[2023-09-08] MEDS: ACETAMINOPHEN 325 MG TAB PO PRN (16:25)
[2023-09-21] MEDS ORDERED: PREDNISOLO15 MG/5 ML PO (20:42)
== END 2023-09-08 16:38 | disposition home or self-care (01) ==
LOC: ER 19:33 → ERHOLD 20:49 → MED/SURG 09-07 02:00
PROVIDERS: ADMIT Internal Medicine; ATTEND Internal Medicine
DX: K94.23 Gastrostomy malfunction (principal); R10.12 Left upper quadrant pain; Y83.3 Surgical operation with formation of external stoma as the cause of abnormal reaction of the patient, or of later complication, without mention of misadventure at the time of the procedure; Y92.009 Unspecified place in unspecified non-institutional (private) residence as the place of occurrence of the external cause; N40.0 Benign prostatic hyperplasia without lower urinary tract symptoms; G40.909 Epilepsy, unspecified, not intractable, without status epilepticus; M32.9 Systemic lupus erythematosus, unspecified; K29.50 Unspecified chronic gastritis without bleeding; I13.10 Hypertensive heart and chronic kidney disease without heart failure, with stage 1 through stage 4 chronic kidney disease, or unspecified chronic kidney disease; E11.22 Type 2 diabetes mellitus with diabetic chronic kidney disease; N18.9 Chronic kidney disease, unspecified; N40.1 Benign prostatic hyperplasia with lower urinary tract symptoms; R33.8 Other retention of urine; Z96.0 Presence of urogenital implants; I73.9 Peripheral vascular disease, unspecified; K57.30 Diverticulosis of large intestine without perforation or abscess without bleeding; K21.9 Gastro-esophageal reflux disease without esophagitis; D63.8 Anemia in other chronic diseases classified elsewhere; J96.11 Chronic respiratory failure with hypoxia; J98.4 Other disorders of lung; G89.4 Chronic pain syndrome; Z93.0 Tracheostomy status; M40.209 Unspecified kyphosis, site unspecified; Z99.11 Dependence on respirator [ventilator] status; Z11.52 Encounter for screening for COVID-19; Z79.899 Other long term (current) drug therapy
CPT/HCPCS: 36415 ×3; 43246; 74176; 80053 ×3; 82607; 82728; 82746; 82948 ×2; 83036; 83540; 83735; 84466; 85025 ×3; 94640 ×3; 94799 ×3; 99284; G0378 ×3; J2001; J2270; J2543; J2704; J7030; J7121 ×2; U0002

== ENCOUNTER → 2024-04-14 | Outpatient (REF) | payer MEDICARE ==
[~2024-04-14] MED LIST changes: +CEFIXIME400 MG PEG; -LIDOCAINE HCL 2% LOCAL INJ 5 ML SDV VIAL INJ ONE; +PREDNISOLO15 MG/5 ML PO; -PROPOFOL IV EMULSION 10 MG/ML 20 ML VIAL ONE
== END ==
LOC: CT 11:41
PROVIDERS: ATTEND Internal Medicine Critical Care Medicine
DX: J96.10 Chronic respiratory failure, unspecified whether with hypoxia or hypercapnia (principal); R07.9 Chest pain, unspecified; R05.9 Cough, unspecified
CPT/HCPCS: 71250

== ENCOUNTER 2024-08-22 10:02 | Emergency (ER) | payer MEDICARE ==
[~2024-08-22] VITALS: Ht 152.4 cm; Wt 48.5 kg
[2024-08-22 10:50] VITALS: TEMP 97
[2024-08-22 15:25] VITALS: PULSE 78; RESP 18; O2SAT 98
[2024-08-22 15:34] VITALS: PULSE 91; RESP 18
[2024-08-22 16:10] VITALS: BP 136/77; PULSE 84; RESP 20; TEMP 97.9; O2SAT 99
== END 2024-08-22 16:15 | disposition home or self-care (01) ==
LOC: ER 10:54
DX: Z43.1 Encounter for attention to gastrostomy (principal); I12.9 Hypertensive chronic kidney disease with stage 1 through stage 4 chronic kidney disease, or unspecified chronic kidney disease; E11.22 Type 2 diabetes mellitus with diabetic chronic kidney disease; N18.9 Chronic kidney disease, unspecified; E78.5 Hyperlipidemia, unspecified; M32.9 Systemic lupus erythematosus, unspecified; G40.909 Epilepsy, unspecified, not intractable, without status epilepticus; K21.9 Gastro-esophageal reflux disease without esophagitis; M54.9 Dorsalgia, unspecified; G89.29 Other chronic pain; Z86.73 Personal history of transient ischemic attack (TIA), and cerebral infarction without residual deficits
CPT/HCPCS: 74018; 94799; 99283

== ENCOUNTER → 2024-10-27 | Outpatient (REF) | payer MEDICARE | LOC: RAD 13:40 | PROVIDERS: ATTEND Internal Medicine Critical Care Medicine | DX: J96.90 Respiratory failure, unspecified, unspecified whether with hypoxia or hypercapnia (principal) | CPT/HCPCS: 71046 ==

== ENCOUNTER 2025-02-01 11:52 | Emergency (ER) | payer MEDICARE ==
[~2025-02-01] VITALS: Ht 154.9 cm; Wt 50.8 kg
[2025-02-01 12:15] VITALS: PULSE 65; RESP 23; TEMP 98.6
[2025-02-01] MEDS ORDERED: SODIUM CHLORIDE FLUSH 10 ML SYR IV PRN (12:30)
[2025-02-01 12:31] LABS: BASOPHILS % 0.6 % (0.0-1.0); EOSINOPHILS % 1.2 % (0.0-6.0); LYMPHOCYTES % 12.1 % (18.0-39.1); MONOCYTES % 8.1 % (4.4-11.3); NEUTROPHILS % 77.8 % (38.7-80.0); RED CELL DISTRIBUTION WIDTH 12.3 % (11.7-14.4)
[2025-02-01 12:56] LABS: EST GLOMERULAR FILTRATION RATE 91.0 ML/MIN (>=60)
[2025-02-01 13:16] VITALS: PULSE 66; RESP 18; O2SAT 98
[2025-02-01 18:05] VITALS: BP 149/70; PULSE 73; RESP 16; TEMP 98.7; O2SAT 99
== END 2025-02-01 18:17 | disposition home or self-care (01) ==
LOC: ER 12:04
DX: Z43.0 Encounter for attention to tracheostomy (principal); R06.02 Shortness of breath; I12.9 Hypertensive chronic kidney disease with stage 1 through stage 4 chronic kidney disease, or unspecified chronic kidney disease; E11.22 Type 2 diabetes mellitus with diabetic chronic kidney disease; E11.65 Type 2 diabetes mellitus with hyperglycemia; N18.9 Chronic kidney disease, unspecified; G40.909 Epilepsy, unspecified, not intractable, without status epilepticus; Z86.73 Personal history of transient ischemic attack (TIA), and cerebral infarction without residual deficits; E78.5 Hyperlipidemia, unspecified; M32.9 Systemic lupus erythematosus, unspecified; M54.9 Dorsalgia, unspecified; G89.29 Other chronic pain; R94.31 Abnormal electrocardiogram [ECG] [EKG]
CPT/HCPCS: 36415; 71045; 80053; 83880; 84484; 85025; 93005; 94760; 94799; 99284

== ENCOUNTER 2025-04-13 09:01 | Inpatient (IN) | payer MEDICARE ==
[~2025-04-13] VITALS: Ht 154.9 cm; Wt 50.8 kg
[2025-04-13] VITALS (12 sets, daily range): BP systolic 105–135; BP diastolic 45–55; PULSE 58–98; RESP 18–23; TEMP 97.9–102.3; O2SAT 98–100
[2025-04-13] MEDS ORDERED: SODIUM CHLORIDE FLUSH 10 ML SYR IV PRN (09:45)
[2025-04-13 10:22] LABS: LEUKOCYTE ESTERASE ,URINE NEGATIVE (NEGATIVE); PROTEIN,URINE DIPSTICK NEGATIVE (NEGATIVE)
[2025-04-13 10:23] LABS: URINE UROBILINOGEN 0.2 mg/dL (0.2 - 1)
[2025-04-13 10:24] LABS: EPITHELIAL CELLS,URINE FEW /LPF; WBC,URINE (MAN) 0-5 /HPF (0-5)
[2025-04-13 10:56] LABS: BASOPHILS % 0.7 % (0.0-1.0); EOSINOPHILS % 1.0 % (0.0-6.0); LYMPHOCYTES % 11.7 % (18.0-39.1); MONOCYTES % 7.4 % (4.4-11.3); NEUTROPHILS % 78.9 % (38.7-80.0); RED CELL DISTRIBUTION WIDTH 12.5 % (11.7-14.4)
[2025-04-13 11:11] LABS: EST GLOMERULAR FILTRATION RATE 91.0 ML/MIN (>=60)
[2025-04-13 11:38] LABS: ABG PCO2 93 mmHg (35-45); ABG PH 7.35 (7.35-7.45); ABG PO2 220 mmHg (80-105)
[2025-04-13 11:39] LABS: ABG BASE EXCESS 26.0 mmol/L (-2 - 3); ABG HCO3 52 mmol/L (22-26); ABG OXYGEN SATURATION 100.0 % (95-98); ABG TCO2 50
[2025-04-13] MEDS: MUPIROCIN 2% OINT 22 GM TUBE TOP SCH (12:30)
[2025-04-13] MEDS ORDERED: ONDANSETRON HCL INJ 2MG/ML 2ML 2 MG/ML VIAL IV PRN (12:30)
[2025-04-13] MEDS ORDERED: SODIUM CHLORIDE FLUSH 10 ML SYR INJ PRN (12:30)
[2025-04-13] MEDS: ALBUTEROL/IPRATROPIUM 3 ML NEB NEB ONE (12:51)
[2025-04-13] MEDS: ALBUTEROL SULF 0.083% NEB SOLN 3 ML NEB NEB STA (12:52)
[2025-04-13] MEDS ORDERED: BISACODYL 10 MG SUPP PR PRN ×2 (13:15→18:30)
[2025-04-13] MEDS ORDERED: ZOLPIDEM TARTRATE 5 MG TAB PO PRN (13:15)
[2025-04-13] MEDS ORDERED: DEXTROSE 50% SYRINGE 50 ML IV PRN (13:15)
[2025-04-13] MEDS: INSULIN REGULAR, HUMAN 100 UNIT/1 ML IV ONE (13:49)
[2025-04-13] MEDS: DEXTROSE 50% SYRINGE 50 ML IV STA (13:49)
[2025-04-13] MEDS: CALCIUM GLUC 1 G/50 ML NACL 100 ML IV ONE (13:50)
[2025-04-13] MEDS: SODIUM CHLORIDE 0.9% 500ML 500 ML IV ONE (13:51)
[2025-04-13] MEDS: CEFEPIME 2 GM in SODIUM CHLORIDE 0.9% 100 ML IV ONE (13:59)
[2025-04-13] MEDS ORDERED: SEVOFLURANE INHAL SOLN 250 ML PEN BTL ONE (14:33)
[2025-04-13] MEDS: SODIUM CHLORIDE 0.45% 1,000 ML IV SCH (16:26)
[2025-04-13] MEDS: INSULIN REGULAR, HUMAN 100 UNIT/1 ML SQ SCH (16:30)
[2025-04-13] MEDS: FAMOTIDINE 20 MG TAB PEG SCH (16:30)
[2025-04-13] MEDS ORDERED: DEXMEDETOMIDINE 400MCG/NS100ML 100 ML IV PRN (18:15)
[2025-04-13] MEDS ORDERED: POLYETHYLENE GLYCOL 3350 17 GM PACK GT PRN (18:30)
[2025-04-13] MEDS ORDERED: SODIUM CHLORIDE 0.9% 100 ML ONE (18:37)
[2025-04-13] MEDS ORDERED: IOPAMIDOL 370 MG/ML 100 ML INFUS..BTL INJ ONE (18:37)
[2025-04-13] MEDS: ACETAZOLAMIDE SODIUM 500 MG/VIAL IV SCH (18:41)
[2025-04-14] VITALS (29 sets, daily range): BP systolic 105–155; BP diastolic 47–130; PULSE 48–94; RESP 4–31; TEMP 97–98.5; O2SAT 92–100
[2025-04-14 06:07] LABS: BASOPHILS % 0.5 % (0.0-1.0); EOSINOPHILS % 0.1 % (0.0-6.0); LYMPHOCYTES % 12.0 % (18.0-39.1); MONOCYTES % 8.9 % (4.4-11.3); NEUTROPHILS % 78.2 % (38.7-80.0); RED CELL DISTRIBUTION WIDTH 12.6 % (11.7-14.4)
[2025-04-14 06:19] LABS: EST GLOMERULAR FILTRATION RATE 95.0 ML/MIN (>=60)
[2025-04-14] MEDS: SENNOSIDES 8.6 MG TAB GT SCH (09:36)
[2025-04-14] MEDS: DOCUSATE SODIUM 100 MG CAP GT SCH (09:37)
[2025-04-14] MEDS: HYDROCODONE/APAP 7.5MG-325MG 1 EA TAB PO PRN (09:37)
[2025-04-14] MEDS: LEVOTHYROXINE SODIUM 25 MCG TABLET PO SCH (09:37)
[2025-04-14 10:07] LABS: ABG PCO2 52 mmHg (35-45); ABG PH 7.48 (7.35-7.45); ABG PO2 121 mmHg (80-105)
[2025-04-14 10:08] LABS: ABG BASE EXCESS 15.0 mmol/L (-2 - 3); ABG HCO3 39 mmol/L (22-26); ABG OXYGEN SATURATION 99.0 % (95-98); ABG TCO2 40
[2025-04-14 14:05] LABS: CORONAVIRUS COVID-19 AG NEGATIVE (NEGATIVE); INFLUENZA A NAA NEGATIVE (NEGATIVE); INFLUENZA B NAA NEGATIVE (NEGATIVE)
[2025-04-14 14:06] LABS: % IRON SATURATION 20.0 % (15-50)
[2025-04-14] MEDS: ENOXAPARIN SOD INJ 40 MG/0.4 ML SYR SC SCH (17:15)
[2025-04-15] VITALS (26 sets, daily range): BP systolic 96–152; BP diastolic 39–89; PULSE 64–104; RESP 14–34; TEMP 98–98.8; O2SAT 94–100
[2025-04-15 07:14] LABS: BASOPHILS % 0.3 % (0.0-1.0); EOSINOPHILS % 0.2 % (0.0-6.0); LYMPHOCYTES % 4.7 % (18.0-39.1); MONOCYTES % 7.4 % (4.4-11.3); NEUTROPHILS % 86.8 % (38.7-80.0); RED CELL DISTRIBUTION WIDTH 12.6 % (11.7-14.4)
[2025-04-15 07:50] LABS: EST GLOMERULAR FILTRATION RATE 93.0 ML/MIN (>=60)
[2025-04-16] VITALS (30 sets, daily range): BP systolic 90–145; BP diastolic 51–90; PULSE 70–106; RESP 16–39; TEMP 98–99.5; O2SAT 95–100
[2025-04-16 06:52] LABS: BASOPHILS % 0.2 % (0.0-1.0); EOSINOPHILS % 0.1 % (0.0-6.0); LYMPHOCYTES % 5.1 % (18.0-39.1); MONOCYTES % 7.6 % (4.4-11.3); NEUTROPHILS % 86.3 % (38.7-80.0); RED CELL DISTRIBUTION WIDTH 12.6 % (11.7-14.4)
[2025-04-16 07:16] LABS: EST GLOMERULAR FILTRATION RATE 91.0 ML/MIN (>=60)
[2025-04-16] MEDS: ALBUTEROL/IPRATROPIUM 3 ML NEB NEB PRN (07:16)
[2025-04-16 09:53] LABS: LYMPHOCYTES % (MANUAL) 5 % (19-48); MONOCYTES % (MANUAL) 5 % (3.4-9.0); NEUTROPHILS % (MANUAL) 90 % (40-74); PLATELET ESTIMATE SLIGHTLY DECREASED; PLATELET MORPHOLOGY COMMENT NORMAL
[2025-04-17] VITALS (27 sets, daily range): BP systolic 102–143; BP diastolic 48–90; PULSE 60–115; RESP 16–33; TEMP 98–98.5; O2SAT 91–100
[2025-04-17 06:38] LABS: BASOPHILS % 0.2 % (0.0-1.0); EOSINOPHILS % 0.8 % (0.0-6.0); LYMPHOCYTES % 6.8 % (18.0-39.1); MONOCYTES % 7.8 % (4.4-11.3); NEUTROPHILS % 83.9 % (38.7-80.0); RED CELL DISTRIBUTION WIDTH 12.9 % (11.7-14.4)
[2025-04-17 07:04] LABS: EST GLOMERULAR FILTRATION RATE 93.0 ML/MIN (>=60)
[2025-04-17] MEDS: SODIUM CHLORIDE 0.45% 1,000 ML IV ONE (08:18)
[2025-04-17] MEDS ORDERED: DIATRIZOATE MEGL/DIATRIZOA SOD 30 ML BTL PO ONE (19:15)
[2025-04-18] VITALS (26 sets, daily range): BP systolic 103–156; BP diastolic 46–80; PULSE 50–110; RESP 16–30; TEMP 97.8–98.4; O2SAT 97–100
[2025-04-18 06:58] LABS: BASOPHILS % 0.1 % (0.0-1.0); EOSINOPHILS % 2.4 % (0.0-6.0); LYMPHOCYTES % 9.8 % (18.0-39.1); MONOCYTES % 9.3 % (4.4-11.3); NEUTROPHILS % 78.0 % (38.7-80.0); RED CELL DISTRIBUTION WIDTH 12.9 % (11.7-14.4)
[2025-04-18 07:18] LABS: EST GLOMERULAR FILTRATION RATE 95.0 ML/MIN (>=60)
[2025-04-18] MEDS: DEXTROSE 5%/0.225% SOD CHL 1,000 ML IV SCH (08:20)
[2025-04-19] VITALS (25 sets, daily range): BP systolic 102–143; BP diastolic 44–102; PULSE 8–107; RESP 6–41; TEMP 97.9–98.6; O2SAT 50–100
[2025-04-19 06:08] LABS: BASOPHILS % 0.1 % (0.0-1.0); EOSINOPHILS % 2.2 % (0.0-6.0); LYMPHOCYTES % 10.2 % (18.0-39.1); MONOCYTES % 10.8 % (4.4-11.3); NEUTROPHILS % 76.2 % (38.7-80.0); RED CELL DISTRIBUTION WIDTH 12.7 % (11.7-14.4)
[2025-04-19 06:26] LABS: EST GLOMERULAR FILTRATION RATE 95.0 ML/MIN (>=60)
[2025-04-19] MEDS: DEXTROSE 5%/0.45% SOD CHL 1,000 ML IV ONE (08:42)
[2025-04-19] MEDS: TRIMETHOPRIM/SULFAMETHOXAZOLE 160-800 MG TAB PO SCH (09:00)
[2025-04-19] MEDS ORDERED: NALOXONE HCL INJ 0.4 MG/ML AMP IV PRN (11:45)
[2025-04-19] MEDS ORDERED: HYDROMORPHONE 0.2MG/ML-SOD CHL 30ML PCA SYRINGE IV PRN (11:45)
[2025-04-19] MEDS: HYDROMORPHONE 1MG/1ML INJ IV PRN (12:05)
[2025-04-19] MEDS ORDERED: ONDANSETRON HCL INJ 2MG/ML 2ML 2 MG/ML VIAL ONE (15:48)
[2025-04-20] VITALS (27 sets, daily range): BP systolic 113–142; BP diastolic 51–96; PULSE 57–92; RESP 13–30; TEMP 97.7–98.6; O2SAT 95–100
[2025-04-20 06:24] LABS: BASOPHILS % 0.2 % (0.0-1.0); EOSINOPHILS % 3.2 % (0.0-6.0); LYMPHOCYTES % 12.5 % (18.0-39.1); MONOCYTES % 10.3 % (4.4-11.3); NEUTROPHILS % 73.3 % (38.7-80.0); RED CELL DISTRIBUTION WIDTH 12.5 % (11.7-14.4)
[2025-04-20 06:36] LABS: EST GLOMERULAR FILTRATION RATE 98.0 ML/MIN (>=60)
[2025-04-20] MEDS ORDERED: Trimethoprim/Sulfamethoxazole PO (18:37)
[2025-04-21] VITALS (11 sets, daily range): BP systolic 120–139; BP diastolic 53–96; PULSE 53–105; RESP 13–33; TEMP 98.4; O2SAT 95–100
[2025-04-21 06:57] LABS: BASOPHILS % 0.4 % (0.0-1.0); EOSINOPHILS % 2.9 % (0.0-6.0); LYMPHOCYTES % 13.6 % (18.0-39.1); MONOCYTES % 8.1 % (4.4-11.3); NEUTROPHILS % 74.3 % (38.7-80.0); RED CELL DISTRIBUTION WIDTH 12.3 % (11.7-14.4)
[2025-04-21] MEDS ORDERED: FERROUS SULFATE 300 MG/5 ML LIQD PEG SCH (09:00)
[2025-04-26 13:37] LABS: ABG BASE EXCESS 26.0 mmol/L (-2 - 3); ABG HCO3 52 mmol/L (22-26); ABG OXYGEN SATURATION 100.0 % (95-98); ABG PCO2 94 mmHg (35-45); ABG PH 7.35 (7.35-7.45); ABG PO2 220 mmHg (80-105); ABG TCO2 > 50
[2025-04-26 13:37] LABS: ABG BASE EXCESS 15.0 mmol/L (-2 - 3); ABG HCO3 39 mmol/L (22-26); ABG OXYGEN SATURATION 99.0 % (95-98); ABG PCO2 52 mmHg (35-45); ABG PH 7.48 (7.35-7.45); ABG PO2 121 mmHg (80-105); ABG TCO2 40
== END 2025-04-21 12:30 | disposition home health service (06) | DRG 208 ==
LOC: ER 09:29 → ERHOLD 12:24 → ICU 17:49
PROVIDERS: ADMIT Internal Medicine; ATTEND Internal Medicine
PROC: 4A033R1 Measurement of Arterial Saturation, Peripheral, Percutaneous Approach (ICD-10-PCS; principal; 2025-04-13)
PROC: 4A033R1 Measurement of Arterial Saturation, Peripheral, Percutaneous Approach (ICD-10-PCS; 2025-04-13)
PROC: 5A1935Z Respiratory Ventilation, Less than 24 Consecutive Hours (ICD-10-PCS; 2025-04-13)
PROC: 4A033R1 Measurement of Arterial Saturation, Peripheral, Percutaneous Approach (ICD-10-PCS; 2025-04-14)
PROC: 4A033R1 Measurement of Arterial Saturation, Peripheral, Percutaneous Approach (ICD-10-PCS; 2025-04-14)
PROC: 5A1935Z Respiratory Ventilation, Less than 24 Consecutive Hours (ICD-10-PCS; 2025-04-14)
PROC: 0B21XFZ Change Tracheostomy Device in Trachea, External Approach (ICD-10-PCS; 2025-04-14)
PROC: 5A1935Z Respiratory Ventilation, Less than 24 Consecutive Hours (ICD-10-PCS; 2025-04-15)
PROC: 5A1935Z Respiratory Ventilation, Less than 24 Consecutive Hours (ICD-10-PCS; 2025-04-16)
PROC: 5A1935Z Respiratory Ventilation, Less than 24 Consecutive Hours (ICD-10-PCS; 2025-04-18)
PROC: 0D20XUZ Change Feeding Device in Upper Intestinal Tract, External Approach (ICD-10-PCS; 2025-04-19)
PROC: 0DJ08ZZ Inspection of Upper Intestinal Tract, Via Natural or Artificial Opening Endoscopic (ICD-10-PCS; 2025-04-19)
DX: J96.22 Acute and chronic respiratory failure with hypercapnia (principal); J15.69 Pneumonia due to other Gram-negative bacteria; G93.41 Metabolic encephalopathy; E87.20 Acidosis, unspecified; J84.9 Interstitial pulmonary disease, unspecified; E87.0 Hyperosmolality and hypernatremia; E87.4 Mixed disorder of acid-base balance; K94.23 Gastrostomy malfunction; Z99.11 Dependence on respirator [ventilator] status; J95.09 Other tracheostomy complication; T17.490A Other foreign object in trachea causing asphyxiation, initial encounter; Z16.19 Resistance to other specified beta lactam antibiotics; R13.12 Dysphagia, oropharyngeal phase; J96.21 Acute and chronic respiratory failure with hypoxia; E87.5 Hyperkalemia; D63.8 Anemia in other chronic diseases classified elsewhere; I12.9 Hypertensive chronic kidney disease with stage 1 through stage 4 chronic kidney disease, or unspecified chronic kidney disease; E86.0 Dehydration; K74.60 Unspecified cirrhosis of liver; D53.9 Nutritional anemia, unspecified; G40.909 Epilepsy, unspecified, not intractable, without status epilepticus; M32.9 Systemic lupus erythematosus, unspecified; E11.22 Type 2 diabetes mellitus with diabetic chronic kidney disease; N18.9 Chronic kidney disease, unspecified; E11.51 Type 2 diabetes mellitus with diabetic peripheral angiopathy without gangrene; K29.40 Chronic atrophic gastritis without bleeding; K21.9 Gastro-esophageal reflux disease without esophagitis; M06.9 Rheumatoid arthritis, unspecified; E03.9 Hypothyroidism, unspecified; R53.1 Weakness; M41.9 Scoliosis, unspecified; G89.29 Other chronic pain; R00.0 Tachycardia, unspecified; S20.419A Abrasion of unspecified back wall of thorax, initial encounter; Z71.3 Dietary counseling and surveillance; Z68.21 Body mass index [BMI] 21.0-21.9, adult; F41.9 Anxiety disorder, unspecified; Z11.52 Encounter for screening for COVID-19; Y83.3 Surgical operation with formation of external stoma as the cause of abnormal reaction of the patient, or of later complication, without mention of misadventure at the time of the procedure; Y92.009 Unspecified place in unspecified non-institutional (private) residence as the place of occurrence of the external cause; X58.XXXA Exposure to other specified factors, initial encounter; Z86.73 Personal history of transient ischemic attack (TIA), and cerebral infarction without residual deficits; Z79.899 Other long term (current) drug therapy
CPT/HCPCS: 31720; 36415; 36600; 43246; 71045; 71260; 74018; 80048; 80053; 81001; 82728; 82746; 82805; 82948; 83540; 84466; 85025; 85045; 87070; 87186; 87205; 93005; 93306; 94002; 94003; 94640; 94760; 94799; 96372; 99252; 99285; J0692; J1171; J1650; J2405; J7040; J7050; J7799; Q9963; Q9967